=== PATIENT | female | born 1990 | race Caucasian/White ===

== ENCOUNTER 2018-08-21 11:23 | Observation (INO) | payer OTHER, MEDICAID, SELFPAY ==
[2018-08-21] VITALS (8 sets, daily range): BP systolic 103–144; BP diastolic 56–87; PULSE 75–93; RESP 16–18; TEMP 36.7–36.9; O2SAT 97–100; BMI 31.2
[2018-08-21] MEDS: SODIUM CHLORIDE 0.9% 1,000 ML 1000 ML IV ×2 (11:53→12:33)
[2018-08-21] MEDS: ONDANSETRON 4 MG/2 ML INJ IV (11:53)
[2018-08-21 11:59] LABS: Add Manual Diff / Slide Review NO; Basophils Absolute Auto 0 /uL (0-100); Basophils Percent Auto 0.3 % (0-2); Eosinophils Absolute Auto 200 /uL (0-450); Eosinophils Percent Auto 2.2 % (2-4); Hematocrit 42.4 % (36-46); Hemoglobin 14.5 g/dL (12.0-16.0); Lymphocytes Absolute Auto 1500 /uL (1100-4500); Lymphocytes Percent Auto 13.7 % (25-40); Mean Corpuscular HGB Conc 34.2 % (30-36); Mean Corpuscular Hemoglobin 29.6 PG (26-34); Mean Corpuscular Volume 86.4 fL (80-100); Monocytes Absolute Auto 600 /uL (0-900); Monocytes Percent Auto 5.2 % (3-14); Neutrophils Absolute Auto 8500 /uL (1500-7000); Neutrophils Percent Auto 78.6 % (50-75); Platelet Count 462 X10^3/uL (150-400); Red Cell Distribution Width 13.5 % (11.6-14.8); White Blood Cell Count 10.9 X10^3/uL (4.5-11.0)
[2018-08-21 12:21] LABS: INR 1.1 (0.9-1.3); Prothrombin Time 12.5 SECONDS (10.1-12.7)
[2018-08-21 12:24] LABS: Alanine Aminotransferase 34 IU/L (9-52); Albumin 4.4 g/dL (3.5-5.0); Albumin Globulin Ratio 1.5 (1.0-2.8); Alkaline Phosphatase 81 U/L (38-126); Aspartate Aminotransferase 24 IU/L (14-36); Bilirubin Total 0.8 mg/dL (0.2-1.3); Blood Urea Nitrogen 7 mg/dL (7-17); Calcium 9.7 mg/dL (8.4-10.2); Carbon Dioxide 24 mmol/L (22-32); Chloride 102 mmol/L (98-107); Estimated Glomerular Filt Rate > 60.0 mL/min (>60); Glucose 117 mg/dL (70-100); HEMOLYSIS < 15 (0-50); Lipase 64 U/L (23-300); PTT Partial Thromboplastin Tim 29 SECONDS (26.4-36.2); Potassium 4.4 mmol/L (3.4-5.1); Sodium 139 mmol/L (137-145); Total Protein 7.4 g/dL (6.3-8.2)
--- NOTE | 2018-08-21 12:29 | ED.NAVMDI ---
HPI - Nausea/Vomiting/Diarrhea <GABRIEL Andrew - Last Filed: 08/21/18 19:09> General Chief complaint: Nausea/Vomiting/Diarrhea Stated complaint: Throwing up Time Seen by Provider: 08/21/18 12:10 Source: patient and family Mode of arrival: ambulatory Limitations: no limitations History of Present Illness HPI Narrative: The patient is a 28-year-old female with history of depression who presents with a chief complaint of nausea and vomiting. She has history of cyclic vomiting syndrome, it was recently inpatient at [facility] from 08/16 t 08/18. The patient denies any dysuria urgency or frequency. She complains of severe nausea and vomiting. She denies any diarrhea or constipation. She states she has tried her Haldol or vomiting at home. She initially denies smoking marijuana to me, but tells nursing that she smoked marijuana 2 days ago. She denies any possibility of . She is a current some day smoker and presents with her Related Data Home Medications Medication Instructions Recorded Confirmed buspirone 15 mg PO TID 08/21/18 08/21/18 diphenhydramine HCl 50 mg PO BEDTIME 08/21/18 08/21/18 haloperidol 0.5 mg PO Q8H PRN 08/21/18 08/21/18 metoclopramide HCl 10 mg PO Q6H PRN 08/21/18 08/21/18 nortriptyline 100 mg PO BEDTIME 08/21/18 08/21/18 ondansetron 4 mg PO Q6H PRN 08/21/18 08/21/18 propranolol 40 mg PO DAILY 08/21/18 08/21/18 rizatriptan 5 mg PO Q2-4H PRN MDD 10 mg 08/21/18 08/21/18 Allergies Allergy/AdvReac Type Severity Reaction Status Date / Time mushroom Allergy Severe Vomiting Verified 08/21/18 11:36 peanut Allergy Severe Anaphylaxis Verified 08/21/18 11:36 Sulfa (Sulfonamide Allergy Unknown Verified 08/21/18 13:33 Antibiotics) Review of Systems <GABRIEL Andrew - Last Filed: 08/21/18 19:09> Review of Systems GENERAL: Denies chills, fatigue, malaise, fever, sweats. HEENT: Denies sinus pain, ear pain, sore throat, difficulty swallowing, dizziness. RESPIRATORY: Denies dyspnea, cough, wheezing, hemoptysis, sputum. CARDIOVASCULAR: Denies chest pain, palpitations, orthopnea, edema, GASTROINTESTINAL: See HPI : Denies dysuria, frequency, incontinence, hematuria, urinary retention. MUSCULOSKELETAL: denies weakness, joint pain, or bony pain SKIN: Denies rash, skin lesions, or other NEUROLOGIC: Denies weakness, headache, numbness, change in speech, confusion, seizures, incoordination. PSYCHIATRIC: No concerning psychosocial issues. 12 point review of systems is negative except for those stated above PFS <GABRIEL Andrew - Last Filed: 08/21/18 19:09> Medical History Cyclic vomiting syndrome (Acute) Marijuana smoker (Acute) Social History household members: spouse Smoking Status: Current some day smoker alcohol intake: current Social History household members: spouse Smoking Status: Current some day smoker alcohol intake: current Exam <GABRIEL Andrew - Last Filed: 08/21/18 19:09> Narrative Exam Narrative: GENERAL: This is a well-nourished, well-developed patient, actively vomiting HEAD: Atraumatic. Normocephalic. No temporal or scalp tenderness. EYES: Pupils equal round and reactive. Extraocular motions intact. No scleral icterus. No injection or drainage. ENT: Nose without bleeding, purulent drainage or septal hematoma. Throat without erythema, tonsillar hypertrophy or exudate. Uvula midline. Airway patent. NECK: Trachea midline. No JVD or lymphadenopathy. Supple, nontender, no meningeal signs. CARDIOVASCULAR: Regular rate and rhythm RESPIRATORY: Clear to auscultation. Breath sounds equal bilaterally. No wheezes, rales, or rhonchi. No cough. No increased respiratory effort. GASTROINTESTINAL: Abdomen soft, diffusely tender, nondistended. No hepato-splenomegaly, or palpable masses. No guarding. Active bowel sounds all 4 quadrants EXTREMITIES: No clubbing, cyanosis, or edema. No joint tenderness, effusion, or edema noted. BACK: Nontender without deformity or crepitance. No flank tenderness. NEURO: AOx3. SKIN: No rash or erythema. Initial Vital Signs Initial Vital Signs: Vital Signs Temperature 98.4 F 08/21/18 11:29 Pulse Rate 78 08/21/18 11:29 Respiratory Rate 18 08/21/18 11:29 Blood Pressure 133/81 08/21/18 11:29 Pulse Oximetry 100 08/21/18 11:29 <Nuris Salter DO - Last Filed: 08/21/18 19:50> Initial Vital Signs Initial Vital Signs: Vital Signs Temperature 98.4 F 08/21/18 11:29 Pulse Rate 78 08/21/18 11:29 Respiratory Rate 18 08/21/18 11:29 Blood Pressure 133/81 08/21/18 11:29 Pulse Oximetry 100 08/21/18 11:29 Course <SURAJ Andrew-BC - Last Filed: 08/21/18 19:09> Course Narrative: I reviewed records from [place], who illustrate an ultrasound of the abdomen done at 7:00 p.m. on 08/16. Impression was no acute findings to explain symptoms of chronic abdominal pain and cyclic vomiting. Gallbladder was normal, with no stones wall thickening or sonographic Jang sign. Orders Ordered: ED Orders 08/21/18 11:38 Comprehensive Metabolic Panel Stat Lipase Stat Partial Thromboplastin Time Stat Prothrombin Time INR Stat 08/21/18 11:49 Complete Blood Count AUTO DIFF Stat 08/21/18 12:18 Urine Culture Stat Urine Drug Screen, Rapid Stat Urine Microscopic Stat 08/21/18 15:15 XR acute abdomen series Stat Sodium Chloride (Normal Saline 0.9%) 1,000 mls @ 150 mls/hr IV CONT BENY Last Infusion: 08/21/18 18:47 Dose: 150 mls/hr Admin: 08/21/18 17:44 Dose: 150 mls/hr Discontinued Medications Diphenhydramine HCl (Benadryl) 50 mg IV NOW ONE Stop: 08/21/18 12:31 Last Admin: 08/21/18 12:32 Dose: 50 mg Sodium Chloride (Normal Saline 0.9%) 1,000 mls @ 1,000 mls/hr IV BOLUS ONE Stop: 08/21/18 12:37 Last Infusion: 08/21/18 13:15 Dose: 0 mls/hr Admin: 08/21/18 11:53 Dose: 1,000 mls/hr Sodium Chloride (Normal Saline 0.9%) 1,000 mls @ 1,000 mls/hr IV BOLUS ONE Stop: 08/21/18 13:28 Last Infusion: 08/21/18 13:43 Dose: 0 mls/hr Admin: 08/21/18 12:33 Dose: 1,000 mls/hr Ketorolac Tromethamine (Toradol) 30 mg IV NOW ONE Stop: 08/21/18 12:39 Last Admin: 08/21/18 12:40 Dose: 30 mg Lorazepam (Ativan) 1 mg IV NOW ONE Stop: 08/21/18 13:00 Last Admin: 08/21/18 13:19 Dose: 1 mg Lorazepam (Ativan) 1 mg IV NOW ONE Stop: 08/21/18 16:59 Last Admin: 08/21/18 17:40 Dose: 1 mg Metoclopramide HCl (Reglan) 10 mg IV NOW ONE Stop: 08/21/18 12:30 Last Admin: 08/21/18 12:32 Dose: 10 mg Ondansetron HCl (Zofran) 4 mg IV NOW ONE Stop: 08/21/18 11:38 Last Admin: 08/21/18 11:53 Dose: 4 mg Prochlorperazine (Compazine) 10 mg IV NOW ONE Stop: 08/21/18 16:59 Last Admin: 08/21/18 17:40 Dose: 10 mg Promethazine HCl (Phenadoz) 25 mg RI NOW ONE Stop: 08/21/18 16:02 Last Admin: 08/21/18 16:17 Dose: 25 mg Vital Signs - 8 hr 08/21/18 15:09 08/21/18 16:40 08/21/18 17:40 Temperature Pulse Rate 84 90 90 Respiratory Rate Blood Pressure 131/77 Blood Pressure [Right Arm] 124/82 144/87 H Pulse Oximetry 100 100 08/21/18 18:00 08/21/18 18:47 08/21/18 19:22 Temperature 98.1 F Pulse Rate 85 93 H 75 Respiratory Rate 17 16 Blood Pressure 109/56 L 120/65 Blood Pressure [Right Arm] 131/77 Pulse Oximetry 98 97 98 <Nuris Salter DO - Last Filed: 08/21/18 19:50> Orders Ordered: ED Orders 08/21/18 11:38 Comprehensive Metabolic Panel Stat Lipase Stat Partial Thromboplastin Time Stat Prothrombin Time INR Stat 08/21/18 11:49 Complete Blood Count AUTO DIFF Stat 08/21/18 12:18 Urine Culture Stat Urine Drug Screen, Rapid Stat Urine Microscopic Stat 08/21/18 15:15 XR acute abdomen series Stat Sodium Chloride (Normal Saline 0.9%) 1,000 mls @ 150 mls/hr IV CONT BENY Last Infusion: 08/21/18 18:47 Dose: 150 mls/hr Admin: 08/21/18 17:44 Dose: 150 mls/hr Discontinued Medications Diphenhydramine HCl (Benadryl) 50 mg IV NOW ONE Stop: 08/21/18 12:31 Last Admin: 08/21/18 12:32 Dose: 50 mg Sodium Chloride (Normal Saline 0.9%) 1,000 mls @ 1,000 mls/hr IV BOLUS ONE Stop: 08/21/18 12:37 Last Infusion: 08/21/18 13:15 Dose: 0 mls/hr Admin: 08/21/18 11:53 Dose: 1,000 mls/hr Sodium Chloride (Normal Saline 0.9%) 1,000 mls @ 1,000 mls/hr IV BOLUS ONE Stop: 08/21/18 13:28 Last Infusion: 08/21/18 13:43 Dose: 0 mls/hr Admin: 08/21/18 12:33 Dose: 1,000 mls/hr Ketorolac Tromethamine (Toradol) 30 mg IV NOW ONE Stop: 08/21/18 12:39 Last Admin: 08/21/18 12:40 Dose: 30 mg Lorazepam (Ativan) 1 mg IV NOW ONE Stop: 08/21/18 13:00 Last Admin: 08/21/18 13:19 Dose: 1 mg Lorazepam (Ativan) 1 mg IV NOW ONE Stop: 08/21/18 16:59 Last Admin: 08/21/18 17:40 Dose: 1 mg Metoclopramide HCl (Reglan) 10 mg IV NOW ONE Stop: 08/21/18 12:30 Last Admin: 08/21/18 12:32 Dose: 10 mg Ondansetron HCl (Zofran) 4 mg IV NOW ONE Stop: 08/21/18 11:38 Last Admin: 08/21/18 11:53 Dose: 4 mg Prochlorperazine (Compazine) 10 mg IV NOW ONE Stop: 08/21/18 16:59 Last Admin: 08/21/18 17:40 Dose: 10 mg Promethazine HCl (Phenadoz) 25 mg RI NOW ONE Stop: 08/21/18 16:02 Last Admin: 08/21/18 16:17 Dose: 25 mg Vital Signs - 8 hr 08/21/18 15:09 08/21/18 16:40 08/21/18 17:40 Temperature Pulse Rate 84 90 90 Respiratory Rate Blood Pressure 131/77 Blood Pressure [Right Arm] 124/82 144/87 H Pulse Oximetry 100 100 08/21/18 18:00 08/21/18 18:47 08/21/18 19:22 Temperature 98.1 F Pulse Rate 85 93 H 75 Respiratory Rate 17 16 Blood Pressure 109/56 L 120/65 Blood Pressure [Right Arm] 131/77 Pulse Oximetry 98 97 98 MDM - Nausea/Vomiting/Diarrhea <GABRIEL Andrew - Last Filed: 08/21/18 19:09> Lab Data Result diagrams: 08/21/18 11:49 08/21/18 11:38 Lab Results 08/21/18 08/21/18 08/21/18 Range/Units 11:38 11:38 11:49 WBC 10.9 (4.5-11.0) X10^3/uL RBC 4.90 (4.0-5.2) X10^6/uL Hgb 14.5 (12.0-16.0) g/dL Hct 42.4 (36-46) % MCV 86.4 (80-100) fL MCH 29.6 (26-34) PG MCHC 34.2 (30-36) % RDW 13.5 (11.6-14.8) % Plt Count 462 H (150-400) X10^3/uL Neut % (Auto) 78.6 H (50-75) % Lymph % (Auto) 13.7 L (25-40) % Hubbard % (Auto) 5.2 (3-14) % Eos % (Auto) 2.2 (2-4) % Baso % (Auto) 0.3 (0-2) % Neut # (Auto) 8500 H (7438-0038) /uL Lymph # (Auto) 1500 (6357-7510) /uL Hubbard # (Auto) 600 (0-900) /uL Eos # (Auto) 200 (0-450) /uL Baso # (Auto) 0 (0-100) /uL PT 12.5 (10.1-12.7) SECONDS INR 1.1 (0.9-1.3) APTT 29 (26.4-36.2) SECONDS Sodium 139 (137-145) mmol/L Potassium 4.4 (3.4-5.1) mmol/L Chloride 102 (98-107) mmol/L Carbon Dioxide 24 (22-32) mmol/L BUN 7 (7-17) mg/dL Creatinine 0.70 (0.52-1.04) mg/dL Estimated GFR > 60.0 (>60) mL/min BUN/Creatinine Ratio 10.0 (6-22) Glucose 117 H (70-100) mg/dL Calcium 9.7 (8.4-10.2) mg/dL Total Bilirubin 0.8 (0.2-1.3) mg/dL AST 24 (14-36) IU/L ALT 34 (9-52) IU/L Alkaline Phosphatase 81 (38-126) U/L Total Protein 7.4 (6.3-8.2) g/dL Albumin 4.4 (3.5-5.0) g/dL Globulin 3.0 (1.7-4.1) g/dL Albumin/Globulin Ratio 1.5 (1.0-2.8) Lipase 64 (23-300) U/L Urine RBC (0-5/HPF) Urine WBC (0-5/HPF) Ur Squamous Epith Cells (0-5/HPF) Ur Renal Epithelial Cell (0-1/HPF) Amorphous Sediment Urine Bacteria (None) Hyaline Casts (None) Urine Mucus (Negative) Ur Culture Indicated? Urine Opiates Screen (Negative) Ur Oxycodone Screen (Negative) Urine Methadone Screen (Negative) Ur Barbiturates Screen (Negative) U Tricyclic Antidepress (Negative) Ur Phencyclidine Scrn (Negative) Ur Amphetamines Screen (Negative) U Methamphetamines Scrn (Negative) Ur MDMA Scrn (Ecstasy) (Negative) U Benzodiazepines Scrn (Negative) Urine Cocaine Screen (Negative) U Marijuana (THC) Screen (Negative) 08/21/18 08/21/18 Range/Units 12:18 12:18 WBC (4.5-11.0) X10^3/uL RBC (4.0-5.2) X10^6/uL Hgb (12.0-16.0) g/dL Hct (36-46) % MCV (80-100) fL MCH (26-34) PG MCHC (30-36) % RDW (11.6-14.8) % Plt Count (150-400) X10^3/uL Neut % (Auto) (50-75) % Lymph % (Auto) (25-40) % Hubbard % (Auto) (3-14) % Eos % (Auto) (2-4) % Baso % (Auto) (0-2) % Neut # (Auto) (6403-5992) /uL Lymph # (Auto) (4455-5914) /uL Hubbard # (Auto) (0-900) /uL Eos # (Auto) (0-450) /uL Baso # (Auto) (0-100) /uL PT (10.1-12.7) SECONDS INR (0.9-1.3) APTT (26.4-36.2) SECONDS Sodium (137-145) mmol/L Potassium (3.4-5.1) mmol/L Chloride (98-107) mmol/L Carbon Dioxide (22-32) mmol/L BUN (7-17) mg/dL Creatinine (0.52-1.04) mg/dL Estimated GFR (>60) mL/min BUN/Creatinine Ratio (6-22) Glucose (70-100) mg/dL Calcium (8.4-10.2) mg/dL Total Bilirubin (0.2-1.3) mg/dL AST (14-36) IU/L ALT (9-52) IU/L Alkaline Phosphatase (38-126) U/L Total Protein (6.3-8.2) g/dL Albumin (3.5-5.0) g/dL Globulin (1.7-4.1) g/dL Albumin/Globulin Ratio (1.0-2.8) Lipase (23-300) U/L Urine RBC 0-1/hpf (0-5/HPF) Urine WBC 5-10/hpf H (0-5/HPF) Ur Squamous Epith Cells 1-5 /hpf (0-5/HPF) Ur Renal Epithelial Cell 0-1/hpf (0-1/HPF) Amorphous Sediment 1+ Urine Bacteria Moderate (10-30) H (None) Hyaline Casts 1-5/lpf (None) Urine Mucus 1+ H (Negative) Ur Culture Indicated? Specimen cultured Urine Opiates Screen Negative (Negative) Ur Oxycodone Screen Negative (Negative) Urine Methadone Screen Positive H (Negative) Ur Barbiturates Screen Negative (Negative) U Tricyclic Antidepress Positive H (Negative) Ur Phencyclidine Scrn Negative (Negative) Ur Amphetamines Screen Negative (Negative) U Methamphetamines Scrn Negative (Negative) Ur MDMA Scrn (Ecstasy) Negative (Negative) U Benzodiazepines Scrn Negative (Negative) Urine Cocaine Screen Negative (Negative) U Marijuana (THC) Screen Positive H (Negative) Point of Care Testing Test Results Negative Urine Dip Bedside Urine Glucose Negative Bedside Urine Bilirubin - Negative Bedside Urine Ketone ++ 40 Urine Specific [facility] 1.010 Bedside Urine Occult Blood +/- Bedside Urine pH 8.5 Bedside Urine Protein + 30 Bedside Urine Urobilinogen +/- 1mg Bedside Urine Nitrite - Negative Bedside Urine Leukocytes +/- 15 Esterase MDM Narrative Medical decision making narrative: The patient is a 28-year-old female who presents with a chief complaint of vomiting and cyclic vomiting syndrome. The patient had a negative x-ray, had a negative ultrasound on the 5th. She does not have an acute abdominal exam, is afebrile normotensive, etc. The patient stated the emergency department for several hours, receiving IV hydration, and several pain medications. However she was not able to pass a p.o. trial. She was given Zofran, Reglan, Compazine, Phenergan suppository as well as Toradol and Zofran. She had a normal acute abdomen x-ray series. Of note the patient declines smoking marijuana, when I asked her about the marijuana in her drug screen, she stated she did not know how it got there. However given that the patient was unable to pass a p.o. trial, did not feel as though she was able to go home. I contacted Dr. Weathers, who kindly agreed to admit the patient. The patient does have an incidental finding of UTI, but denies any UTI symptoms and is afebrile. Thus I do not believe this is related to pyelonephritis, especially given that she does not have an elevated white blood cell count. Patient states understanding of admission no questions or concerns. <Nuris Salter, DO - Last Filed: 08/21/18 19:50> Lab Data Lab Results 08/21/18 08/21/18 08/21/18 Range/Units 11:38 11:38 11:49 WBC 10.9 (4.5-11.0) X10^3/uL RBC 4.90 (4.0-5.2) X10^6/uL Hgb 14.5 (12.0-16.0) g/dL Hct 42.4 (36-46) % MCV 86.4 (80-100) fL MCH 29.6 (26-34) PG MCHC 34.2 (30-36) % RDW 13.5 (11.6-14.8) % Plt Count 462 H (150-400) X10^3/uL Neut % (Auto) 78.6 H (50-75) % Lymph % (Auto) 13.7 L (25-40) % Hubbard % (Auto) 5.2 (3-14) % Eos % (Auto) 2.2 (2-4) % Baso % (Auto) 0.3 (0-2) % Neut # (Auto) 8500 H (6817-4576) /uL Lymph # (Auto) 1500 (5414-3871) /uL Hubbard # (Auto) 600 (0-900) /uL Eos # (Auto) 200 (0-450) /uL Baso # (Auto) 0 (0-100) /uL PT 12.5 (10.1-12.7) SECONDS INR 1.1 (0.9-1.3) APTT 29 (26.4-36.2) SECONDS Sodium 139 (137-145) mmol/L Potassium 4.4 (3.4-5.1) mmol/L Chloride 102 (98-107) mmol/L Carbon Dioxide 24 (22-32) mmol/L BUN 7 (7-17) mg/dL Creatinine 0.70 (0.52-1.04) mg/dL Estimated GFR > 60.0 (>60) mL/min BUN/Creatinine Ratio 10.0 (6-22) Glucose 117 H (70-100) mg/dL Calcium 9.7 (8.4-10.2) mg/dL Total Bilirubin 0.8 (0.2-1.3) mg/dL AST 24 (14-36) IU/L ALT 34 (9-52) IU/L Alkaline Phosphatase 81 (38-126) U/L Total Protein 7.4 (6.3-8.2) g/dL Albumin 4.4 (3.5-5.0) g/dL Globulin 3.0 (1.7-4.1) g/dL Albumin/Globulin Ratio 1.5 (1.0-2.8) Lipase 64 (23-300) U/L Urine RBC (0-5/HPF) Urine WBC (0-5/HPF) Ur Squamous Epith Cells (0-5/HPF) Ur Renal Epithelial Cell (0-1/HPF) Amorphous Sediment Urine Bacteria (None) Hyaline Casts (None) Urine Mucus (Negative) Ur Culture Indicated? Urine Opiates Screen (Negative) Ur Oxycodone Screen (Negative) Urine Methadone Screen (Negative) Ur Barbiturates Screen (Negative) U Tricyclic Antidepress (Negative) Ur Phencyclidine Scrn (Negative) Ur Amphetamines Screen (Negative) U Methamphetamines Scrn (Negative) Ur MDMA Scrn (Ecstasy) (Negative) U Benzodiazepines Scrn (Negative) Urine Cocaine Screen (Negative) U Marijuana (THC) Screen (Negative) 08/21/18 08/21/18 Range/Units 12:18 12:18 WBC (4.5-11.0) X10^3/uL RBC (4.0-5.2) X10^6/uL Hgb (12.0-16.0) g/dL Hct (36-46) % MCV (80-100) fL MCH (26-34) PG MCHC (30-36) % RDW (11.6-14.8) % Plt Count (150-400) X10^3/uL Neut % (Auto) (50-75) % Lymph % (Auto) (25-40) % Hubbard % (Auto) (3-14) % Eos % (Auto) (2-4) % Baso % (Auto) (0-2) % Neut # (Auto) (3568-9350) /uL Lymph # (Auto) (3331-5450) /uL Hubbard # (Auto) (0-900) /uL Eos # (Auto) (0-450) /uL Baso # (Auto) (0-100) /uL PT (10.1-12.7) SECONDS INR (0.9-1.3) APTT (26.4-36.2) SECONDS Sodium (137-145) mmol/L Potassium (3.4-5.1) mmol/L Chloride (98-107) mmol/L Carbon Dioxide (22-32) mmol/L BUN (7-17) mg/dL Creatinine (0.52-1.04) mg/dL Estimated GFR (>60) mL/min BUN/Creatinine Ratio (6-22) Glucose (70-100) mg/dL Calcium (8.4-10.2) mg/dL Total Bilirubin (0.2-1.3) mg/dL AST (14-36) IU/L ALT (9-52) IU/L Alkaline Phosphatase (38-126) U/L Total Protein (6.3-8.2) g/dL Albumin (3.5-5.0) g/dL Globulin (1.7-4.1) g/dL Albumin/Globulin Ratio (1.0-2.8) Lipase (23-300) U/L Urine RBC 0-1/hpf (0-5/HPF) Urine WBC 5-10/hpf H (0-5/HPF) Ur Squamous Epith Cells 1-5 /hpf (0-5/HPF) Ur Renal Epithelial Cell 0-1/hpf (0-1/HPF) Amorphous Sediment 1+ Urine Bacteria Moderate (10-30) H (None) Hyaline Casts 1-5/lpf (None) Urine Mucus 1+ H (Negative) Ur Culture Indicated? Specimen cultured Urine Opiates Screen Negative (Negative) Ur Oxycodone Screen Negative (Negative) Urine Methadone Screen Positive H (Negative) Ur Barbiturates Screen Negative (Negative) U Tricyclic Antidepress Positive H (Negative) Ur Phencyclidine Scrn Negative (Negative) Ur Amphetamines Screen Negative (Negative) U Methamphetamines Scrn Negative (Negative) Ur MDMA Scrn (Ecstasy) Negative (Negative) U Benzodiazepines Scrn Negative (Negative) Urine Cocaine Screen Negative (Negative) U Marijuana (THC) Screen Positive H (Negative) Point of Care Testing Test Results Negative Urine Dip Bedside Urine Glucose Negative Bedside Urine Bilirubin - Negative Bedside Urine Ketone ++ [address] [facility] 1.010 Bedside Urine Occult Blood +/- Bedside Urine pH 8.5 Bedside Urine Protein + 30 Bedside Urine Urobilinogen +/- 1mg Bedside Urine Nitrite - Negative Bedside Urine Leukocytes +/- 15 Esterase Discharge Plan Departure Patient Disposition: Admitted as Observation Clinical Impression: Cyclical vomiting Discharge Date/Time: 08/21/18 18:48 Interventions: ED Discharge Assessment Last Done: 08/21/18 18:47 Admit Date/Time: 08/21/18 18:30 Admit Provider: Simone Weathers <Nuris Salter DO - Last Filed: 08/21/18 19:50> Cosign ED Attending Cosignature Attestation: I was immediately available in the department for consultation, case discussed plan for admission. This documentation has been reviewed and I agree with assessment and plan. Supervised by Nuris Salter DO
[2018-08-21] MEDS: METOCLOPRAMIDE 10 MG/2 ML INJ IV (12:32)
[2018-08-21] MEDS: diphenhydrAMINE 50 MG/ML VIAL IV (12:32)
[2018-08-21] MEDS: KETOROLAC 60 MG/2 ML VIAL 30 MG IV (12:40)
[2018-08-21 12:57] LABS: Amorphous Sediment Urine 1+; Bacteria Urine Moderate (10-30); Culture Indicated Urine Specimen Cultured; Hyaline Casts Urine 1-5/LPF; Mucus Urine 1+ (Negative); RBC Urine 0-1/HPF (0-5/HPF); Renal Epithelial Cells Urine 0-1/HPF (0-1/HPF); Squamous Epithelial Cell Urine 1-5 /HPF (0-5/HPF); WBC Urine 5-10/HPF (0-5/HPF)
[2018-08-21] MEDS: LORazepam 2 MG/ML INJ 1 MG IV ×2 (13:19→17:40)
[2018-08-21 13:36] LABS: Urine Tetrahydrocannabinol Positive (Negative)
[2018-08-21 13:37] LABS: Urine Amphetamines Negative (Negative); Urine Barbiturates Negative (Negative); Urine Benzodiazepines Negative (Negative); Urine Cocaine Negative (Negative); Urine MDMA Negative (Negative); Urine Methadone Positive (Negative); Urine Methamphetamines Negative (Negative); Urine Morphine/Opi cutoff 2000 Negative (Negative); Urine Oxycodone Negative (Negative); Urine Phencyclidine Negative (Negative); Urine Tricyclic Antidepressant Positive (Negative)
--- NOTE | 2018-08-21 15:15 | DI.RAD.S_ITS ---
PROCEDURE: XR ACUTE ABDOMEN SERIES INDICATIONS: abd pain TECHNIQUE: One view chest and two views of the abdomen were acquired. COMPARISON: None. FINDINGS: Surgical changes and devices: None. Chest: Lungs are clear. Heart size is normal. No pleural effusions. No pneumoperitoneum. Abdomen: Bowel gas pattern is normal. No suspicious calcifications. Visualized solid organ contours appear normal. Bones: No suspicious bony lesions. IMPRESSION: No acute process. Dictated by: Antoni Azul M.D. on 08/21/2018 at 15:33 Approved by: Antoni Azul M.D. on 08/21/2018 at 15:34
[2018-08-21] MEDS: PROMETHAZINE 25 MG SUPP PR (16:17)
[2018-08-21] MEDS: PROCHLORPERAZINE 10 MG/2 ML VIAL IV (17:40)
[2018-08-21] MEDS: SODIUM CHLORIDE 0.9% 1,000 ML 150 ML IV (17:44)
--- NOTE | 2018-08-21 18:57 | PC.ADMIT ---
[email or web address] Admission Note: The patient,Nuris Castle,28 y/o, was given written information regarding hospital policies, unit procedures and contact persons. Patient's smoking status: Current some day smoker. Vital Signs - 8 hr 08/21/18 11:29 08/21/18 15:09 08/21/18 16:40 Temperature 98.4 F Pulse Rate 78 84 90 Respiratory Rate 18 Blood Pressure 133/81 Blood Pressure [Right Arm] 124/82 144/87 H Pulse Oximetry 100 100 100 08/21/18 17:40 08/21/18 18:00 08/21/18 18:47 Temperature Pulse Rate 90 85 93 H Respiratory Rate 17 Blood Pressure 131/77 109/56 L Blood Pressure [Right Arm] 131/77 Pulse Oximetry 98 97 Patient admitted from ED, awake, alert, and pleasant. Ambulated independently from WC to bed. Sleepy, arouses easily. No vomiting. IVF infusing. Oriented to room, environment and plan of care. Mom at bedside providing supportive care.
--- NOTE | 2018-08-21 19:09 | ED_ITS ---
HPI - Nausea/Vomiting/Diarrhea <GABRIEL Andrew - Last Filed: 08/21/18 19:09> General Chief complaint: Nausea/Vomiting/Diarrhea Stated complaint: Throwing up Time Seen by Provider: 08/21/18 12:10 Source: patient and family Mode of arrival: ambulatory Limitations: no limitations History of Present Illness HPI Narrative: The patient is a 28-year-old female with history of depression wh o presents with a chief complaint of nausea and vomiting. She has history of cyclic vomiting syndrome, it was recently inpatient at [facility] from 08/16 t 08/18. The patient denies any dysuria urgency or frequency. She complains of severe nausea and vomiting. She denies any diarrhea or constipation. She states she has tried her Haldol or vomiting at home. She initially denies smoking marijuana to me, but tells nursing that she smoked marijuana 2 days ago. She denies any possibility of . She is a current some day smoker and presents with her Related Data Home Medications Medication Instructions Recorded Confirmed buspirone 15 mg PO TID 08/21/18 08/21/18 diphenhydramine HCl 50 mg PO BEDTIME 08/21/18 08/21/18 haloperidol 0.5 mg PO Q8H PRN 08/21/18 08/21/18 metoclopramide HCl 10 mg PO Q6H PRN 08/21/18 08/21/18 nortriptyline 100 mg PO BEDTIME 08/21/18 08/21/18 ondansetron 4 mg PO Q6H PRN 08/21/18 08/21/18 propranolol 40 mg PO DAILY 08/21/18 08/21/18 rizatriptan 5 mg PO Q2-4H PRN MDD 10 mg 08/21/18 08/21/18 Allergies Allergy/AdvReac Type Severity Reaction Status Date / Time mushroom Allergy Severe Vomiting Verified 08/21/18 11:36 peanut Allergy Severe Anaphylaxis Verified 08/21/18 11:36 Sulfa (Sulfonamide Allergy Unknown Verified 08/21/18 13:33 Antibiotics) Review of Systems <GABRIEL Andrew - Last Filed: 08/21/18 19:09> Review of Systems GENERAL: Denies chills, fatigue, malaise, fever, sweats. HEENT: Denies sinus pain, ear pain, sore throat, difficulty swallowing, dizziness. RESPIRATORY: Denies dyspnea, cough, wheezing, hemoptysis, sputum. CARDIOVASCULAR: Denies chest pain, palpitations, orthopnea, edema, GASTROINTESTINAL: See HPI : Denies dysuria, frequency, incontinence, hematuria, urinary retention. MUSCULOSKELETAL: denies weakness, joint pain, or bony pain SKIN: Denies rash, skin lesions, or other NEUROLOGIC: Denies weakness, headache, numbness, change in speech, confusion, seizures, incoordination. PSYCHIATRIC: No concerning psychosocial issues. 12 point review of systems is negative except for those stated above PFSH <GABRIEL Andrew - Last Filed: 08/21/18 19:09> Medical History Cyclic vomiting syndrome (Acute) Marijuana smoker (Acute) Social History household members: spouse Smoking Status: Current some day smoker alcohol intake: current Social History household members: spouse Smoking Status: Current some day smoker alcohol intake: current Exam <GABRIEL Andrew - Last Filed: 08/21/18 19:09> Narrative Exam Narrative: GENERAL: This is a well-nourished, well-developed patient, actively vomiting HEAD: Atraumatic. Normocephalic. No temporal or scalp tenderness. EYES: Pupils equal round and reactive. Extraocular motions intact. No scleral icterus. No injection or drainage. ENT: Nose without bleeding, purulent drainage or septal hematoma. Throat without erythema, tonsillar hypertrophy or exudate. Uvula midline. Airway patent. NECK: Trachea midline. No JVD or lymphadenopathy. Supple, nontender, no meningeal signs. CARDIOVASCULAR: Regular rate and rhythm RESPIRATORY: Clear to auscultation. Breath sounds equal bilaterally. No wheezes, rales, or rhonchi. No cough. No increased respiratory effort. GASTROINTESTINAL: Abdomen soft, diffusely tender, nondistended. No hepato-splen omegaly, or palpable masses. No guarding. Active bowel sounds all 4 quadrants EXTREMITIES: No clubbing, cyanosis, or edema. No joint tenderness, effusion, or edema noted. BACK: Nontender without deformity or crepitance. No flank tenderness. NEURO: AOx3. SKIN: No rash or erythema. Initial Vital Signs Initial Vital Signs: Vital Signs Temperature 98.4 F 08/21/18 11:29 Pulse Rate 78 08/21/18 11:29 Respiratory Rate 18 08/21/18 11:29 Blood Pressure 133/81 08/21/18 11:29 Pulse Oximetry 100 08/21/18 11:29 <Nuris Salter DO - Last Filed: 08/21/18 19:50> Initial Vital Signs Initial Vital Signs: Vital Signs Temperature 98.4 F 08/21/18 11:29 Pulse Rate 78 08/21/18 11:29 Respiratory Rate 18 08/21/18 11:29 Blood Pressure 133/81 08/21/18 11:29 Pulse Oximetry 100 08/21/18 11:29 Course <SURAJ Andrew-BC - Last Filed: 08/21/18 19:09> Course Narrative: I reviewed records from [facility], who illustrate an ultrasound of the abdomen done at 7:00 p.m. on 08/16. Impression was no acute findings to explain symptoms of chronic abdominal pain and cyclic vomiting. Gallbladder was normal, with no stones wall thickening or sonographic Jang sign. Orders Ordered: ED Orders 08/21/18 11:38 Comprehensive Metabolic Panel Stat Lipase Stat Partial Thromboplastin Time Stat Prothrombin Time INR Stat 08/21/18 11:49 Complete Blood Count AUTO DIFF Stat 08/21/18 12:18 Urine Culture Stat Urine Drug Screen, Rapid Stat Urine Microscopic Stat 08/21/18 15:15 XR acute abdomen series Stat Sodium Chloride (Normal Saline 0.9%) 1,000 mls @ 150 mls/hr IV CONT BENY Last Infusion: 08/21/18 18:47 Dose: 150 mls/hr Admin: 08/21/18 17:44 Dose: 150 mls/hr Discontinued Medications Diphenhydramine HCl (Benadryl) 50 mg IV NOW ONE Stop: 08/21/18 12:31 Last Admin: 08/21/18 12:32 Dose: 50 mg Sodium Chloride (Normal Saline 0.9%) 1,000 mls @ 1,000 mls/hr IV BOLUS ONE Stop: 08/21/18 12:37 Last Infusion: 08/21/18 13:15 Dose: 0 mls/hr Admin: 08/21/18 11:53 Dose: 1,000 mls/hr Sodium Chloride (Normal Saline 0.9%) 1,000 mls @ 1,000 mls/hr IV BOLUS ONE Stop: 08/21/18 13:28 Last Infusion: 08/21/18 13:43 Dose: 0 mls/hr Admin: 08/21/18 12:33 Dose: 1,000 mls/hr Ketorolac Tromethamine (Toradol) 30 mg IV NOW ONE Stop: 08/21/18 12:39 Last Admin: 08/21/18 12:40 Dose: 30 mg Lorazepam (Ativan) 1 mg IV NOW ONE Stop: 08/21/18 13:00 Last Admin: 08/21/18 13:19 Dose: 1 mg Lorazepam (Ativan) 1 mg IV NOW ONE Stop: 08/21/18 16:59 Last Admin: 08/21/18 17:40 Dose: 1 mg Metoclopramide HCl (Reglan) 10 mg IV NOW ONE Stop: 08/21/18 12:30 Last Admin: 08/21/18 12:32 Dose: 10 mg Ondansetron HCl (Zofran) 4 mg IV NOW ONE Stop: 08/21/18 11:38 Last Admin: 08/21/18 11:53 Dose: 4 mg Prochlorperazine (Compazine) 10 mg IV NOW ONE Stop: 08/21/18 16:59 Last Admin: 08/21/18 17:40 Dose: 10 mg Promethazine HCl (Phenadoz) 25 mg WA NOW ONE Stop: 08/21/18 16:02 Last Admin: 08/21/18 16:17 Dose: 25 mg Vital Signs - 8 hr 08/21/18 15:09 08/21/18 16:40 08/21/18 17:40 Temperature Pulse Rate 84 90 90 Respiratory Rate Blood Pressure 131/77 Blood Pressure [Right Arm] 124/82 144/87 H Pulse Oximetry 100 100 08/21/18 18:00 08/21/18 18:47 08/21/18 19:22 Temperature 98.1 F Pulse Rate 85 93 H 75 Respiratory Rate 17 16 Blood Pressure 109/56 L 120/65 Blood Pressure [Right Arm] 131/77 Pulse Oximetry 98 97 98 <Nuris Salter DO - Last Filed: 08/21/18 19:50> Orders Ordered: ED Orders 08/21/18 11:38 Comprehensive Metabolic Panel Stat Lipase Stat Partial Thromboplastin Time Stat Prothrombin Time INR Stat 08/21/18 11:49 Complete Blood Count AUTO DIFF Stat 08/21/18 12:18 Urine Culture Stat Urine Drug Screen, Rapid Stat Urine Microscopic Stat 08/21/18 15:15 XR acute abdomen series Stat Sodium Chloride (Normal Saline 0.9%) 1,000 mls @ 150 mls/hr IV CONT BENY Last Infusion: 08/21/18 18:47 Dose: 150 mls/hr Admin: 08/21/18 17:44 Dose: 150 mls/hr Discontinued Medications Diphenhydramine HCl (Benadryl) 50 mg IV NOW ONE Stop: 08/21/18 12:31 Last Admin: 08/21/18 12:32 Dose: 50 mg Sodium Chloride (Normal Saline 0.9%) 1,000 mls @ 1,000 mls/hr IV BOLUS ONE Stop: 08/21/18 12:37 Last Infusion: 08/21/18 13:15 Dose: 0 mls/hr Admin: 08/21/18 11:53 Dose: 1,000 mls/hr Sodium Chloride (Normal Saline 0.9%) 1,000 mls @ 1,000 mls/hr IV BOLUS ONE Stop: 08/21/18 13:28 Last Infusion: 08/21/18 13:43 Dose: 0 mls/hr Admin: 08/21/18 12:33 Dose: 1,000 mls/hr Ketorolac Tromethamine (Toradol) 30 mg IV NOW ONE Stop: 08/21/18 12:39 Last Admin: 08/21/18 12:40 Dose: 30 mg Lorazepam (Ativan) 1 mg IV NOW ONE Stop: 08/21/18 13:00 Last Admin: 08/21/18 13:19 Dose: 1 mg Lorazepam (Ativan) 1 mg IV NOW ONE Stop: 08/21/18 16:59 Last Admin: 08/21/18 17:40 Dose: 1 mg Metoclopramide HCl (Reglan) 10 mg IV NOW ONE Stop: 08/21/18 12:30 Last Admin: 08/21/18 12:32 Dose: 10 mg Ondansetron HCl (Zofran) 4 mg IV NOW ONE Stop: 08/21/18 11:38 Last Admin: 08/21/18 11:53 Dose: 4 mg Prochlorperazine (Compazine) 10 mg IV NOW ONE Stop: 08/21/18 16:59 Last Admin: 08/21/18 17:40 Dose: 10 mg Promethazine HCl (Phenadoz) 25 mg WA NOW ONE Stop: 08/21/18 16:02 Last Admin: 08/21/18 16:17 Dose: 25 mg Vital Signs - 8 hr 08/21/18 15:09 08/21/18 16:40 08/21/18 17:40 Temperature Pulse Rate 84 90 90 Respiratory Rate Blood Pressure 131/77 Blood Pressure [Right Arm] 124/82 144/87 H Pulse Oximetry 100 100 08/21/18 18:00 08/21/18 18:47 08/21/18 19:22 Temperature 98.1 F Pulse Rate 85 93 H 75 Respiratory Rate 17 16 Blood Pressure 109/56 L 120/65 Blood Pressure [Right Arm] 131/77 Pulse Oximetry 98 97 98 MDM - Nausea/Vomiting/Diarrhea <ERIN Andrew - Last Filed: 08/21/18 19:09> Lab Data Result diagrams: 08/21/18 11:49 08/21/18 11:38 Lab Results 08/21/18 08/21/18 08/21/18 Range/Units 11:38 11:38 11:49 WBC 10.9 (4.5-11.0) X10^3/uL RBC 4.90 (4.0-5.2) X10^6/uL Hgb 14.5 (12.0-16.0) g/dL Hct 42.4 (36-46) % MCV 86.4 (80-100) fL MCH 29.6 (26-34) PG MCHC 34.2 (30-36) % RDW 13.5 (11.6-14.8) % Plt Count 462 H (150-400) X10^3/uL Neut % (Auto) 78.6 H (50-75) % Lymph % (Auto) 13.7 L (25-40) % Garza % (Auto) 5.2 (3-14) % Eos % (Auto) 2.2 (2-4) % Baso % (Auto) 0.3 (0-2) % Neut # (Auto) 8500 H (3820-8636) /uL Lymph # (Auto) 1500 (7015-6757) /uL Garza # (Auto) 600 (0-900) /uL Eos # (Auto) 200 (0-450) /uL Baso # (Auto) 0 (0-100) /uL PT 12.5 (10.1-12.7) SECONDS INR 1.1 (0.9-1.3) APTT 29 (26.4-36.2) SECONDS Sodium 139 (137-145) mmol/L Potassium 4.4 (3.4-5.1) mmol/L Chloride 102 (98-107) mmol/L Carbon Dioxide 24 (22-32) mmol/L BUN 7 (7-17) mg/dL Creatinine 0.70 (0.52-1.04) mg/dL Estimated GFR > 60.0 (>60) mL/min BUN/Creatinine Ratio 10.0 (6-22) Glucose 117 H (70-100) mg/dL Calcium 9.7 (8.4-10.2) mg/dL Total Bilirubin 0.8 (0.2-1.3) mg/dL AST 24 (14-36) IU/L ALT 34 (9-52) IU/L Alkaline Phosphatase 81 (38-126) U/L Total Protein 7.4 (6.3-8.2) g/dL Albumin 4.4 (3.5-5.0) g/dL Globulin 3.0 (1.7-4.1) g/dL Albumin/Globulin Ratio 1.5 (1.0-2.8) Lipase 64 (23-300) U/L Urine RBC (0-5/HPF) Urine WBC (0-5/HPF) Ur Squamous Epith Cells (0-5/HPF) Ur Renal Epithelial Cell (0-1/HPF) Amorphous Sediment Urine Bacteria (None) Hyaline Casts (None) Urine Mucus (Negative) Ur Culture Indicated? Urine Opiates Screen (Negative) Ur Oxycodone Screen (Negative) Urine Methadone Screen (Negative) Ur Barbiturates Screen (Negative) U Tricyclic Antidepress (Negative) Ur Phencyclidine Scrn (Negative) Ur Amphetamines Screen (Negative) U Methamphetamines Scrn (Negative) Ur MDMA Scrn (Ecstasy) (Negative) U Benzodiazepines Scrn (Negative) Urine Cocaine Screen (Negative) U Marijuana (THC) Screen (Negative) 08/21/18 08/21/18 Range/Units 12:18 12:18 WBC (4.5-11.0) X10^3/uL RBC (4.0-5.2) X10^6/uL Hgb (12.0-16.0) g/dL Hct (36-46) % MCV (80-100) fL MCH (26-34) PG MCHC (30-36) % RDW (11.6-14.8) % Plt Count (150-400) X10^3/uL Neut % (Auto) (50-75) % Lymph % (Auto) (25-40) % Garza % (Auto) (3-14) % Eos % (Auto) (2-4) % Baso % (Auto) (0-2) % Neut # (Auto) (6890-9361) /uL Lymph # (Auto) (1328-7680) /uL Garza # (Auto) (0-900) /uL Eos # (Auto) (0-450) /uL Baso # (Auto) (0-100) /uL PT (10.1-12.7) SECONDS INR (0.9-1.3) APTT (26.4-36.2) SECONDS Sodium (137-145) mmol/L Potassium (3.4-5.1) mmol/L Chloride (98-107) mmol/L Carbon Dioxide (22-32) mmol/L BUN (7-17) mg/dL Creatinine (0.52-1.04) mg/dL Estimated GFR (>60) mL/min BUN/Creatinine Ratio (6-22) Glucose (70-100) mg/dL Calcium (8.4-10.2) mg/dL Total Bilirubin (0.2-1.3) mg/dL AST (14-36) IU/L ALT (9-52) IU/L Alkaline Phosphatase (38-126) U/L Total Protein (6.3-8.2) g/dL Albumin (3.5-5.0) g/dL Globulin (1.7-4.1) g/dL Albumin/Globulin Ratio (1.0-2.8) Lipase (23-300) U/L Urine RBC 0-1/hpf (0-5/HPF) Urine WBC 5-10/hpf H (0-5/HPF) Ur Squamous Epith Cells 1-5 /hpf (0-5/HPF) Ur Renal Epithelial Cell 0-1/hpf (0-1/HPF) Amorphous Sediment 1+ Urine Bacteria Moderate (10-30) H (None) Hyaline Casts 1-5/lpf (None) Urine Mucus 1+ H (Negative) Ur Culture Indicated? Specimen cultured Urine Opiates Screen Negative (Negative) Ur Oxycodone Screen Negative (Negative) Urine Methadone Screen Positive H (Negative) Ur Barbiturates Screen Negative (Negative) U Tricyclic Antidepress Positive H (Negative) Ur Phencyclidine Scrn Negative (Negative) Ur Amphetamines Screen Negative (Negative) U Methamphetamines Scrn Negative (Negative) Ur MDMA Scrn (Ecstasy) Negative (Negative) U Benzodiazepines Scrn Negative (Negative) Urine Cocaine Screen Negative (Negative) U Marijuana (THC) Screen Positive H (Negative) Point of Care Testing Test Results Negative Urine Dip Bedside Urine Glucose Negative Bedside Urine Bilirubin - Negative Bedside Urine Ketone ++ 40 Urine Specific [place] 1.010 Bedside Urine Occult Blood +/- Bedside Urine pH 8.5 Bedside Urine Protein + 30 Bedside Urine Urobilinogen +/- 1mg Bedside Urine Nitrite - Negative Bedside Urine Leukocytes +/- 15 Esterase MDM Narrative Medical decision making narrative: The patient is a 28-year-old female who presents with a chief complaint of vomiting and cyclic vomiting syndrome. The patient had a negative x-ray, had a negative ultrasound on the 5th. She does not have an acute abdominal exam, is afebrile normotensive, etc. The patient stated the emergency department for several hours, receiving IV hydration, and several pain medications. However she was not able to pass a p.o. trial. She was given Zofran, Reglan, Compazine, Phenergan suppository as well as Toradol and Zofran. She had a normal acute abdomen x-ray series. Of note the patient declines smoking marijuana, when I asked her about the marijuana in her drug screen, she stated she did not know how it got there. However given that the patient was unable to pass a p.o. trial, did not feel as though she was able to go home. I contacted Dr. Weathers, who kindly agreed to admit the patient. The patient does have an incidental finding of UTI, but denies any UTI symptoms and is afebrile. Thus I do not believe this is related to pyelonephritis, especially given that she does not have an elevated white blood cell count. Patient states understanding of admission no questions or concerns. <Nuris Salter, DO - Last Filed: 08/21/18 19:50> Lab Data Lab Results 08/21/18 08/21/18 08/21/18 Range/Units 11:38 11:38 11:49 WBC 10.9 (4.5-11.0) X10^3/uL RBC 4.90 (4.0-5.2) X10^6/uL Hgb 14.5 (12.0-16.0) g/dL Hct 42.4 (36-46) % MCV 86.4 (80-100) fL MCH 29.6 (26-34) PG MCHC 34.2 (30-36) % RDW 13.5 (11.6-14.8) % Plt Count 462 H (150-400) X10^3/uL Neut % (Auto) 78.6 H (50-75) % Lymph % (Auto) 13.7 L (25-40) % Garza % (Auto) 5.2 (3-14) % Eos % (Auto) 2.2 (2-4) % Baso % (Auto) 0.3 (0-2) % Neut # (Auto) 8500 H (4843-7055) /uL Lymph # (Auto) 1500 (8631-7798) /uL Garza # (Auto) 600 (0-900) /uL Eos # (Auto) 200 (0-450) /uL Baso # (Auto) 0 (0-100) /uL PT 12.5 (10.1-12.7) SECONDS INR 1.1 (0.9-1.3) APTT 29 (26.4-36.2) SECONDS Sodium 139 (137-145) mmol/L Potassium 4.4 (3.4-5.1) mmol/L Chloride 102 (98-107) mmol/L Carbon Dioxide 24 (22-32) mmol/L BUN 7 (7-17) mg/dL Creatinine 0.70 (0.52-1.04) mg/dL Estimated GFR > 60.0 (>60) mL/min BUN/Creatinine Ratio 10.0 (6-22) Glucose 117 H (70-100) mg/dL Calcium 9.7 (8.4-10.2) mg/dL Total Bilirubin 0.8 (0.2-1.3) mg/dL AST 24 (14-36) IU/L ALT 34 (9-52) IU/L Alkaline Phosphatase 81 (38-126) U/L Total Protein 7.4 (6.3-8.2) g/dL Albumin 4.4 (3.5-5.0) g/dL Globulin 3.0 (1.7-4.1) g/dL Albumin/Globulin Ratio 1.5 (1.0-2.8) Lipase 64 (23-300) U/L Urine RBC (0-5/HPF) Urine WBC (0-5/HPF) Ur Squamous Epith Cells (0-5/HPF) Ur Renal Epithelial Cell (0-1/HPF) Amorphous Sediment Urine Bacteria (None) Hyaline Casts (None) Urine Mucus (Negative) Ur Culture Indicated? Urine Opiates Screen (Negative) Ur Oxycodone Screen (Negative) Urine Methadone Screen (Negative) Ur Barbiturates Screen (Negative) U Tricyclic Antidepress (Negative) Ur Phencyclidine Scrn (Negative) Ur Amphetamines Screen (Negative) U Methamphetamines Scrn (Negative) Ur MDMA Scrn (Ecstasy) (Negative) U Benzodiazepines Scrn (Negative) Urine Cocaine Screen (Negative) U Marijuana (THC) Screen (Negative) 08/21/18 08/21/18 Range/Units 12:18 12:18 WBC (4.5-11.0) X10^3/uL RBC (4.0-5.2) X10^6/uL Hgb (12.0-16.0) g/dL Hct (36-46) % MCV (80-100) fL MCH (26-34) PG MCHC (30-36) % RDW (11.6-14.8) % Plt Count (150-400) X10^3/uL Neut % (Auto) (50-75) % Lymph % (Auto) (25-40) % Garza % (Auto) (3-14) % Eos % (Auto) (2-4) % Baso % (Auto) (0-2) % Neut # (Auto) (1992-3159) /uL Lymph # (Auto) (5050-8448) /uL Garza # (Auto) (0-900) /uL Eos # (Auto) (0-450) /uL Baso # (Auto) (0-100) /uL PT (10.1-12.7) SECONDS INR (0.9-1.3) APTT (26.4-36.2) SECONDS Sodium (137-145) mmol/L Potassium (3.4-5.1) mmol/L Chloride (98-107) mmol/L Carbon Dioxide (22-32) mmol/L BUN (7-17) mg/dL Creatinine (0.52-1.04) mg/dL Estimated GFR (>60) mL/min BUN/Creatinine Ratio (6-22) Glucose (70-100) mg/dL Calcium (8.4-10.2) mg/dL Total Bilirubin (0.2-1.3) mg/dL AST (14-36) IU/L ALT (9-52) IU/L Alkaline Phosphatase (38-126) U/L Total Protein (6.3-8.2) g/dL Albumin (3.5-5.0) g/dL Globulin (1.7-4.1) g/dL Albumin/Globulin Ratio (1.0-2.8) Lipase (23-300) U/L Urine RBC 0-1/hpf (0-5/HPF) Urine WBC 5-10/hpf H (0-5/HPF) Ur Squamous Epith Cells 1-5 /hpf (0-5/HPF) Ur Renal Epithelial Cell 0-1/hpf (0-1/HPF) Amorphous Sediment 1+ Urine Bacteria Moderate (10-30) H (None) Hyaline Casts 1-5/lpf (None) Urine Mucus 1+ H (Negative) Ur Culture Indicated? Specimen cultured Urine Opiates Screen Negative (Negative) Ur Oxycodone Screen Negative (Negative) Urine Methadone Screen Positive H (Negative) Ur Barbiturates Screen Negative (Negative) U Tricyclic Antidepress Positive H (Negative) Ur Phencyclidine Scrn Negative (Negative) Ur Amphetamines Screen Negative (Negative) U Methamphetamines Scrn Negative (Negative) Ur MDMA Scrn (Ecstasy) Negative (Negative) U Benzodiazepines Scrn Negative (Negative) Urine Cocaine Screen Negative (Negative) U Marijuana (THC) Screen Positive H (Negative) Point of Care Testing Test Results Negative Urine Dip Bedside Urine Glucose Negative Bedside Urine Bilirubin - Negative Bedside Urine Ketone ++ 40 Urine Specific [place] 1.010 Bedside Urine Occult Blood +/- Bedside Urine pH 8.5 Bedside Urine Protein + 30 Bedside Urine Urobilinogen +/- 1mg Bedside Urine Nitrite - Negative Bedside Urine Leukocytes +/- 15 Esterase Discharge Plan Departure Patient Disposition: Admitted as Observation Clinical Impression: Cyclical vomiting Discharge Date/Time: 08/21/18 18:48 Interventions: ED Discharge Assessment Last Done: 08/21/18 18:47 Admit Date/Time: 08/21/18 18:30 Admit Provider: Simone Weathers <Nuris Salter DO - Last Filed: 08/21/18 19:50> Cosign ED Attending Cosignature Attestation: I was immediately available in the department for consultation, case discussed plan for admission. This documentation has been reviewed and I agree with assessment and plan. Supervised by Nuris Salter DO
--- NOTE | 2018-08-21 20:20 | DI.US.S_ITS ---
PROCEDURE: US ABDOMEN COMPLETE INDICATIONS: NAUSEA AND VOMITING TECHNIQUE: Real-time scanning was performed of the abdominal and retroperitoneal organs, with image documentation. COMPARISON: None. FINDINGS: Liver: Liver is normal in size and homogeneous in echotexture. Gallbladder: Gallbladder appears normal without stones or sludge. Normal wall thickness a 2.6 mm. Biliary ducts: Intrahepatic bile ducts are non-dilated. Extrahepatic bile duct caliber measures 4.1 mm. Normal is 6-7 mm or less in diameter, or 10 mm or less post-cholecystectomy. Pancreas: Visualized portions of the pancreas are sonographically normal. Spleen: Spleen is normal in size and homogeneous in echotexture. There is a splenule just caudal to the tip of the spleen. Kidneys: Kidneys are normal in size and echotexture. Right kidney measures 11.8 cm long; left kidney measures 12.1 cm long. No hydronephrosis or nephrolithiasis. No solid masses. Aorta: Visualized aorta is normal in caliber at less than 3 cm. Iliacs: Proximal common iliac arteries are normal in caliber at less than 2.5 cm. IVC: Intrahepatic inferior vena cava is patent. Miscellaneous: No free abdominal fluid. IMPRESSION: Normal abdominal ultrasound. Dictated by: Meera Fulton M.D. on 08/22/2018 at 8:51 Approved by: Meera Fulton M.D. on 08/22/2018 at 8:54
--- NOTE | 2018-08-21 20:22 | PM.HP.1 ---
History of Present Illness Date Patient Seen: 08/21/18 Time Patient Seen: 19:40 Chief complaint: Throwing up Narrative: Ms. Nuris Castle is a 28-year-old female patient with a prior history of headaches, cyclic vomiting, asthma presents to the ER with nausea vomiting returning today. The patient is somnolent following medications administered in the ER for vomiting in the patient's mother is at bedside from home much of the medical information is obtained. The patient was admitted to [facility] on 08/16/2018 with cyclical vomiting and discharge on 08/18/2018. The patient has a history of cyclic vomiting that has been previously fully evaluated by Gastroenterology but no longer has continuing follow-up. At 1 point the patient was admitted to [facility] for week were upon the patient was started Norplant as her episodes are associated menstrual cycle. The patient did not was relatively stable with minor incidence but no longer requiring ER admission for approximately 2 years until the Norplant was discontinued favor of patient to start have children. Following discharge from [facility] the patient had been steadily improving though she did get nauseated on the way home only to have her nausea vomiting return with associated headache. The patient does endorse using marijuana, smoking and at doubles to help control nausea. It was previously questioned whether the cyclic vomiting is related to her marijuana use and she stop for 3 months without change in her monthly episodes of vomiting. Emesis is nonbloody and has progressed to dry heaves. The patient has had no fevers or chills, has complained sinus pain with history of environmental allergies and no sore throat. She has had no reports of chest pain or palpitations, shortness of breath or cough. She complains of epigastric pain and nausea with vomiting presently controlled. She has had no report of diarrhea or constipation denies dysuria or hematuria. Upon arrival in the ER the patient was found to be afebrile with temperature of 98.4?, heart rate of 78, blood pressure 133/81, respirations of 18 saturating 100% on room air. Acute abdomen series was completed with no acute findings and normal gas pattern. On laboratory analysis her white blood cell count is normal at 10.9 with a hemoglobin of 14.5 and hematocrit of 42.4 and elevated platelet count of 462. On chemistries are electrolytes are within normal limits and her BUN is 7 and creatinine 0.7. She has a nonfasting glucose of 117. Her LFTs and lipase and coags are all within normal limits. The patient received Toradol Phenergan, Reglan, Compazine, Zofran and Ativan in the ER as well as 2 L of normal saline. Patient is admitted to the hospital for recurrent cyclic vomiting. Patient History Medical History (Updated 08/21/18 @ 20:43 by RICO Fallon) Asthma (Acute) Cyclic vomiting syndrome (Acute) Environmental allergies (Acute) Marijuana smoker (Acute) Severe frontal headaches (Acute) Surgical History History of toe surgery (Acute) Family History (Updated 08/21/18 @ 20:45 by RICO Fallon) Father Arthritis Mother Anxiety Fibromyalgia Brother Childhood asthma Drug abuse Social History household members: spouse Smoking Status: Current some day smoker alcohol intake: current Family & Social History Family History (Updated 08/21/18 @ 20:45 by RICO Fallon) Father Arthritis Mother Anxiety Fibromyalgia Brother Childhood asthma Drug abuse Social History: household members spouse Prior Living Arrangements House Safety & Behavioral: Feels Safe in Current Yes Environment Been Physically Hurt or No Threatened By a Person Suicidal Ideation Description None Suicide Plan Description No Plan Tobacco & Substance use: Tobacco type cannabis/marijuana Smoking Status Current some day smoker alcohol intake current alcohol intake frequency a few times a week Substance Use Type marijuana Comment: The patient is and is currently living with her in a trailer on her parents property with access to the house. Smoking: The patient endorses smoking approximately 1/2 pack per day. Alcohol: Patient denies consuming alcohol. Substance use: Patient denies recreational pharmaceuticals but does smoke and consume marijuana edibles. Advanced directives: The patient is sedated on Ativan and at this time will be FULL CODE. Her mother Neema Rivera is a patient surrogate decision maker. Meds Home Medications Medication Instructions Recorded Confirmed Type albuterol sulfate 2 puff INHALATION Q4-6H PRN 08/21/18 08/21/18 History buspirone 15 mg PO TID 08/21/18 08/21/18 History diphenhydramine HCl 50 mg PO BEDTIME 08/21/18 08/21/18 History fluticasone propionate [Flonase 2 spray INTRANASAL DAILY PRN 08/21/18 08/21/18 History Allergy Relief] fluticasone propionate [Flovent 1 puff INHALATION BID 08/21/18 08/21/18 History HFA] haloperidol 0.5 mg PO Q8H PRN 08/21/18 08/21/18 History metoclopramide HCl 10 mg PO Q6H PRN 08/21/18 08/21/18 History nortriptyline 100 mg PO BEDTIME 08/21/18 08/21/18 History ondansetron 4 mg PO Q6H PRN 08/21/18 08/21/18 History propranolol 40 mg PO DAILY 08/21/18 08/21/18 History rizatriptan 5 mg PO Q2-4H PRN MDD 10 mg 08/21/18 08/21/18 History Allergies Allergy/AdvReac Type Severity Reaction Status Date / Time mushroom Allergy Severe Vomiting Verified 08/21/18 11:36 peanut Allergy Severe Anaphylaxis Verified 08/21/18 11:36 Sulfa (Sulfonamide Allergy Unknown Verified 08/21/18 13:33 Antibiotics) Review of Systems Review of Systems All systems reviewed & are unremarkable except as noted in HPI and below Exam Vital Signs (past 8 hours): - 08/21/18 15:09 08/21/18 16:40 08/21/18 17:40 Temperature Pulse Rate 84 90 90 Respiratory Rate Blood Pressure 131/77 Blood Pressure [Right Arm] 124/82 144/87 H Pulse Oximetry 100 100 08/21/18 18:00 08/21/18 18:47 08/21/18 19:22 Temperature 98.1 F Pulse Rate 85 93 H 75 Respiratory Rate 17 16 Blood Pressure 109/56 L 120/65 Blood Pressure [Right Arm] 131/77 Pulse Oximetry 98 97 98 Oxygen Delivery Method Room Air Narrative Exam Narrative: GENERAL APPEARANCE: well developed, overweight female with a BMI of 31.3, who is somnolent but in no acute distress. HEAD: Normocephalic, atraumatic, no scalp lesions. EYES: pupils equal, round, reactive to light and accommodation, sclera non-icteric, extraocular movement intact without nystagmus. EARS: normal external structures, bilateral ear piercings, TM's are visualized as pearly and translucent, no pain on manipulation of the tragus or auricle NOSE: Bilateral maxillary sinus tenderness to percussion, no rhinorrhea ORAL CAVITY: mucosa moist without lesions or exudate, palate normal, tongue in midline. THROAT: Not visualized NECK/THYROID: neck supple, no jugular venous distention, no thyromegaly, trachea midline. LYMPH NODES: no cervical or supraclavicular lymphadenopathy. SKIN: warm and dry, no suspicious lesions, no rashes, good turgor. HEART: regular rate and rhythm, S1-S2 1/6 systolic murmur loudest over the left midsternal border, no rubs or gallops, brisk capillary refill, no edema LUNGS: clear to auscultation bilaterally, no coarseness crackles or wheezing, no cough present CHEST: Symmetrical movement, shallow respirations, no accessory muscle use, no pain to AP and lateral compression. ABDOMEN: Soft, no distention, epigastric pain on palpation, no peritoneal signs, no organomegaly, no flank or suprapubic tenderness, active bowel tones. BACK: Normal curvature, nontender to palpation EXTREMITIES: moves all extremities, strength is 5/5 and symmetrical, 2+ dorsalis pedis pulses NEUROLOGIC: Patient weeks to eye opening on tactile stimulus, no focal neurologic deficits, motor strength normal upper and lower extremities, sensory exam with tingling bilateral toes, hearing grossly normal to speech. PSYCH: Flat affect, sedated, will follow commands. Objective Labs Result Diagrams: 08/21/18 11:49 08/21/18 11:38 Labs: Laboratory Results - last 24 hr 08/21/18 08/21/18 08/21/18 11:38 11:38 11:49 WBC 10.9 RBC 4.90 Hgb 14.5 Hct 42.4 MCV 86.4 MCH 29.6 MCHC 34.2 RDW 13.5 Plt Count 462 H Neut % (Auto) 78.6 H Lymph % (Auto) 13.7 L [place] % (Auto) 5.2 Eos % (Auto) 2.2 Baso % (Auto) 0.3 Neut # (Auto) 8500 H Lymph # (Auto) 1500 [place] # (Auto) 600 Eos # (Auto) 200 Baso # (Auto) 0 PT 12.5 INR 1.1 APTT 29 Sodium 139 Potassium 4.4 Chloride 102 Carbon Dioxide 24 BUN 7 Creatinine 0.70 Estimated GFR > 60.0 BUN/Creatinine Ratio 10.0 Glucose 117 H Calcium 9.7 Total Bilirubin 0.8 AST 24 ALT 34 Alkaline Phosphatase 81 Total Protein 7.4 Albumin 4.4 Globulin 3.0 Albumin/Globulin Ratio 1.5 Lipase 64 Urine RBC Urine WBC Ur Squamous Epith Cells Ur Renal Epithelial Cell Amorphous Sediment Urine Bacteria Hyaline Casts Urine Mucus Ur Culture Indicated? Urine Opiates Screen Ur Oxycodone Screen Urine Methadone Screen Ur Barbiturates Screen U Tricyclic Antidepress Ur Phencyclidine Scrn Ur Amphetamines Screen U Methamphetamines Scrn Ur MDMA Scrn (Ecstasy) U Benzodiazepines Scrn Urine Cocaine Screen U Marijuana (THC) Screen 08/21/18 08/21/18 12:18 12:18 WBC RBC Hgb Hct MCV MCH MCHC RDW Plt Count Neut % (Auto) Lymph % (Auto) [place] % (Auto) Eos % (Auto) Baso % (Auto) Neut # (Auto) Lymph # (Auto) [place] # (Auto) Eos # (Auto) Baso # (Auto) PT INR APTT Sodium Potassium Chloride Carbon Dioxide BUN Creatinine Estimated GFR BUN/Creatinine Ratio Glucose Calcium Total Bilirubin AST ALT Alkaline Phosphatase Total Protein Albumin Globulin Albumin/Globulin Ratio Lipase Urine RBC 0-1/hpf Urine WBC 5-10/hpf H Ur Squamous Epith Cells 1-5 /hpf Ur Renal Epithelial Cell 0-1/hpf Amorphous Sediment 1+ Urine Bacteria Moderate (10-30) H Hyaline Casts 1-5/lpf Urine Mucus 1+ H Ur Culture Indicated? Specimen cultured Urine Opiates Screen Negative Ur Oxycodone Screen Negative Urine Methadone Screen Positive H Ur Barbiturates Screen Negative U Tricyclic Antidepress Positive H Ur Phencyclidine Scrn Negative Ur Amphetamines Screen Negative U Methamphetamines Scrn Negative Ur MDMA Scrn (Ecstasy) Negative U Benzodiazepines Scrn Negative Urine Cocaine Screen Negative U Marijuana (THC) Screen Positive H Assessment & Plan Assessment & Plan narrative: This is a 28-year-old female patient with a history of menstrual immediate id cyclic vomiting with antecedent headaches who is admitted for uncontrolled nausea vomiting. 1. Chronic cyclic vomiting, present on admission -long history of cyclic vomiting previously evaluated by Gastroenterology. -admitted to [facility] for cyclic vomiting on August 16 and discharged August 18. Patron apparently never fully recovered prior to admission for recurrent uncontrolled vomiting this morning. -patient received Phenergan, Compazine, Zofran and Reglan as well as Ativan in the ER control vomiting. -patient is somnolent will decrease Ativan dose to 0.5 mg every 4 hours as needed for nausea vomiting. -prochlorparzine 10 mg IV every 6 hours as needed for nausea vomiting -will hold patient's metoclorpramide in favor of Zofran 8mg IV every 8 hours as needed for nausea vomiting. -will continue the patient's home med of nortriptyline 100 mg at bedtime 2. Chronic severe headaches, present on admission -will continue patient's home medication of daily propranolol 40 mg. -sumatriptan 25 mg by mouth as needed for severe headache -will avoid opiates to prevent coalescence, Toradol 30 mg IV every 6 hours as needed for pain. 3. Chronic anxiety, stable -will continue patient's BuSpar 15 mg 3 times daily. 4. Asthma, mild persistent, stable -will continue patient's daily Flovent 1 puff twice daily -albuterol nebulizers every 4 hours as needed for shortness breath or wheezing -respiratory therapy to consult and treat. The patient is admitted due to the severity of her symptoms and the risk for complications and adverse events. The patient's expected length of stay is greater than 2 midnights. Scores GCS [place] coma scale eye opening: To pressure [place] coma scale verbal response: Orientated [place] coma scale motor response: Obey commands [place] coma scale total score: 13 Quality VTE Deep Vein Thrombosis/Pulmonary Embolism Present on Admission: No
[2018-08-21] MEDS: SODIUM CHLORIDE 0.45% 1,000 ML 125 ML IV (20:41)
[2018-08-21 20:44] LABS: Magnesium 1.6 mg/dL (1.6-2.3); Phosphorous 3.8 mg/dL (2.5-4.5)
[2018-08-22 00:31] VITALS: O2SAT 99
[2018-08-22 03:00] VITALS: BP 119/66; PULSE 83; RESP 18; TEMP 36.8; O2SAT 100
[2018-08-22] MEDS: KETOROLAC 60 MG/2 ML VIAL 30 MG IV (03:16)
[2018-08-22] MEDS: ONDANSETRON 4 MG/2 ML INJ 8 MG IV (03:17)
[2018-08-22] MEDS: SODIUM CHLORIDE 0.9% 1,000 ML 125 ML IV ×2 (03:47→12:08)
[2018-08-22] MEDS: LORazepam 2 MG/ML INJ 0.5 MG IV ×3 (03:52→15:10)
[2018-08-22 05:13] LABS: Add Manual Diff / Slide Review NO; Basophils Absolute Auto 100 /uL (0-100); Eosinophils Absolute Auto 300 /uL (0-450); Eosinophils Percent Auto 2.9 % (2-4); Hematocrit 36.8 % (36-46); Hemoglobin 12.7 g/dL (12.0-16.0); Lymphocytes Absolute Auto 3400 /uL (1100-4500); Lymphocytes Percent Auto 30.1 % (25-40); Mean Corpuscular HGB Conc 34.4 % (30-36); Mean Corpuscular Hemoglobin 29.6 PG (26-34); Mean Corpuscular Volume 85.9 fL (80-100); Monocytes Absolute Auto 900 /uL (0-900); Monocytes Percent Auto 8.4 % (3-14); Neutrophils Absolute Auto 6500 /uL (1500-7000); Neutrophils Percent Auto 57.6 % (50-75); Platelet Count 354 X10^3/uL (150-400); Red Blood Cell Count 4.29 X10^6/uL (4.0-5.2); Red Cell Distribution Width 13.6 % (11.6-14.8); White Blood Cell Count 11.3 X10^3/uL (4.5-11.0)
[2018-08-22 05:19] LABS: BUN Creatinine Ratio 8.3 (6-22); Blood Urea Nitrogen 5 mg/dL (7-17); Calcium 8.2 mg/dL (8.4-10.2); Carbon Dioxide 28 mmol/L (22-32); Chloride 104 mmol/L (98-107); Estimated Glomerular Filt Rate > 60.0 mL/min (>60); Glucose 85 mg/dL (70-100); HEMOLYSIS < 15 (0-50); Sodium 137 mmol/L (137-145)
[2018-08-22] MEDS: POTASSIUM CHLORIDE 60 MEQ in SODIUM CHLORIDE 0.9% 500 ML 88.333 ML IV (06:23)
[2018-08-22 08:00] VITALS: BP 122/70; PULSE 113; RESP 16; TEMP 36.8; O2SAT 99
[2018-08-22 09:00] VITALS: O2SAT 98
[2018-08-22] MEDS: BUSPIRONE 15 MG TABLET PO ×2 (09:38→15:10)
[2018-08-22] MEDS: FLUTICASONE 110MCG HFA 120 PUFF INH (09:38)
[2018-08-22] MEDS: ENOXAPARIN 40 MG/0.4 ML SYRINGE SUBCUT (09:38)
[2018-08-22 10:11] VITALS: PULSE 97; RESP 14; O2SAT 100
--- NOTE | 2018-08-22 10:27 | CM.DANOTE ---
DCP: Case received, EMR reviewed and met with patient. Introduced self and role. Was able to get baseline information from patient, as well as her mother, who was at bedside. DCP template completed with information currently available. Patient is a 28 year old female who admitted yesterday afternoon to the care of the hospitalist team. PCP: Dr. Hill at [facility]. Payer: confirmed: Monogram. Patient came to the hospital due to excessive vomiting and dry heaves. Patient has history of cyclic vomiting syndrome. She also has history of depression. She is a smoker, and smokes marijuana as well. Met with patient briefly, mother at bedside. Patient stated, she has had this problem for the last several years, and was recently at [facility] for this disorder. Patient had been seeing Dr. Parra as her primary doctor, but due to insurance changes, she is establishing with another provider, Dr. Hill. Patient resides in [place] with her , Dewey. P: DCP to continue to follow and be available for any needs at discharge. Patient should be able to go home when she is medically stable. Dasha Smith RN/Home Health Care Coordinator
--- NOTE | 2018-08-22 12:19 | PM.PN.1 ---
Subjective Date Patient Seen: 08/22/18 Interval history: This is a 28-year-old female patient with a history of menstrual associates cyclic vomiting with antecedent headaches who is admitted for uncontrolled nausea vomiting. Patient notes improvement in nausea and abdominal discomfort since last night. She has not thrown up since in the ER. She would like to try something to eat. Exam Vital Signs (past 8 hours): - 08/22/18 08:00 08/22/18 09:00 08/22/18 10:11 Temperature 98.3 F Pulse Rate 113 H 97 H Respiratory Rate 16 14 Blood Pressure 122/70 Pulse Oximetry 99 98 100 Oxygen Delivery Method Room Air Oxygen Flow Rate 0 Narrative Exam Narrative: General: Alert, pleasant and cooperative female in no acute distress Abdomen: Nondistended, soft, mild epigastric tenderness Extremities: No edema Objective Labs Result Diagrams: 08/22/18 04:35 08/22/18 04:35 Labs: Laboratory Results - last 24 hr 08/21/18 08/21/18 08/21/18 11:38 11:38 12:18 WBC RBC Hgb Hct MCV MCH MCHC RDW Plt Count Neut % (Auto) Lymph % (Auto) [place] % (Auto) Eos % (Auto) Baso % (Auto) Neut # (Auto) Lymph # (Auto) [place] # (Auto) Eos # (Auto) Baso # (Auto) PT 12.5 INR 1.1 APTT 29 Sodium 139 Potassium 4.4 Chloride 102 Carbon Dioxide 24 BUN 7 Creatinine 0.70 Estimated GFR > 60.0 BUN/Creatinine Ratio 10.0 Glucose 117 H Calcium 9.7 Phosphorus Magnesium Total Bilirubin 0.8 AST 24 ALT 34 Alkaline Phosphatase 81 Total Protein 7.4 Albumin 4.4 Globulin 3.0 Albumin/Globulin Ratio 1.5 Lipase 64 Urine RBC 0-1/hpf Urine WBC 5-10/hpf H Ur Squamous Epith Cells 1-5 /hpf Ur Renal Epithelial Cell 0-1/hpf Amorphous Sediment 1+ Urine Bacteria Moderate (10-30) H Hyaline Casts 1-5/lpf Urine Mucus 1+ H Ur Culture Indicated? Specimen cultured Urine Opiates Screen Ur Oxycodone Screen Urine Methadone Screen Ur Barbiturates Screen U Tricyclic Antidepress Ur Phencyclidine Scrn Ur Amphetamines Screen U Methamphetamines Scrn Ur MDMA Scrn (Ecstasy) U Benzodiazepines Scrn Urine Cocaine Screen U Marijuana (THC) Screen 08/21/18 08/21/18 08/22/18 12:18 20:26 04:35 WBC 11.3 H RBC 4.29 Hgb 12.7 Hct 36.8 MCV 85.9 MCH 29.6 MCHC 34.4 RDW 13.6 Plt Count 354 Neut % (Auto) 57.6 D Lymph % (Auto) 30.1 [place] % (Auto) 8.4 Eos % (Auto) 2.9 Baso % (Auto) 1.0 Neut # (Auto) 6500 Lymph # (Auto) 3400 [place] # (Auto) 900 Eos # (Auto) 300 Baso # (Auto) 100 PT INR APTT Sodium Potassium Chloride Carbon Dioxide BUN Creatinine Estimated GFR BUN/Creatinine Ratio Glucose Calcium Phosphorus 3.8 Magnesium 1.6 Total Bilirubin AST ALT Alkaline Phosphatase Total Protein Albumin Globulin Albumin/Globulin Ratio Lipase Urine RBC Urine WBC Ur Squamous Epith Cells Ur Renal Epithelial Cell Amorphous Sediment Urine Bacteria Hyaline Casts Urine Mucus Ur Culture Indicated? Urine Opiates Screen Negative Ur Oxycodone Screen Negative Urine Methadone Screen Positive H Ur Barbiturates Screen Negative U Tricyclic Antidepress Positive H Ur Phencyclidine Scrn Negative Ur Amphetamines Screen Negative U Methamphetamines Scrn Negative Ur MDMA Scrn (Ecstasy) Negative U Benzodiazepines Scrn Negative Urine Cocaine Screen Negative U Marijuana (THC) Screen Positive H 08/22/18 04:35 WBC RBC Hgb Hct MCV MCH MCHC RDW Plt Count Neut % (Auto) Lymph % (Auto) [place] % (Auto) Eos % (Auto) Baso % (Auto) Neut # (Auto) Lymph # (Auto) [place] # (Auto) Eos # (Auto) Baso # (Auto) PT INR APTT Sodium 137 Potassium 3.0 L D Chloride 104 Carbon Dioxide 28 BUN 5 L Creatinine 0.60 Estimated GFR > 60.0 BUN/Creatinine Ratio 8.3 Glucose 85 Calcium 8.2 L Phosphorus Magnesium Total Bilirubin AST ALT Alkaline Phosphatase Total Protein Albumin Globulin Albumin/Globulin Ratio Lipase Urine RBC Urine WBC Ur Squamous Epith Cells Ur Renal Epithelial Cell Amorphous Sediment Urine Bacteria Hyaline Casts Urine Mucus Ur Culture Indicated? Urine Opiates Screen Ur Oxycodone Screen Urine Methadone Screen Ur Barbiturates Screen U Tricyclic Antidepress Ur Phencyclidine Scrn Ur Amphetamines Screen U Methamphetamines Scrn Ur MDMA Scrn (Ecstasy) U Benzodiazepines Scrn Urine Cocaine Screen U Marijuana (THC) Screen Assessment & Plan Assessment & Plan narrative: This is a 28-year-old female with history of menstrual associated cyclic vomiting with antecedent headaches admitted for uncontrolled nausea and vomiting. 1. Chronic cyclic vomiting, present on admission -current improving symptoms -abdominal ultrasound normal -long history of cyclic vomiting previously evaluated by Gastroenterology, extensive workup at [facility], determined hormonal related associated with menstrual cycle. Very well controlled while on Norplant but had implant removed 2 years ago and still attempting to get . She has largely been able to control symptoms at home. She had not been hospitalized for 5 years until recent hospitalization at [facility] a few days ago. -admitted to [facility] for cyclic vomiting on August 16 and discharged August 18. Reggie apparently never fully recovered prior to admission for recurrent uncontrolled vomiting this morning. -patient received Phenergan, Compazine, Zofran and Reglan as well as Ativan in the ER control vomiting. -continue Ativan 0.5 mg every 4 hours as needed, Zofran 8 mg q.8 hours as needed, prochlorparzine 10 mg IV every 6 hours as needed for nausea vomiting -will continue the patient's home med of nortriptyline 100 mg at bedtime -maintenance IV fluids -diet as tolerated 2. Chronic severe headaches, present on admission -continue patient's home medication of daily propranolol 40 mg. -sumatriptan 25 mg by mouth as needed for severe headache -will avoid opiates to prevent coalescence, Toradol 30 mg IV every 6 hours as needed for pain. 3. Chronic anxiety, stable -will continue patient's BuSpar 15 mg 3 times daily. 4. Asthma, mild persistent, stable -will continue patient's daily Flovent 1 puff twice daily -albuterol nebulizers every 4 hours as needed for shortness breath or wheezing -respiratory therapy to consult and treat. Patient currently meets observation criteria, has improving course, continue care in hospital 1 more night and determine further treatment tomorrow a.m.. Quality VTE Deep Vein Thrombosis/Pulmonary Embolism Present on Admission: No
[2018-08-22 13:25] VITALS: BP 120/71; PULSE 84; RESP 16; TEMP 36.9; O2SAT 100
--- NOTE | 2018-08-22 13:49 | P.DS_ITS ---
History of Present Illness Chief complaint: Throwing up Narrative: Ms. Nuris Castle is a 28-year-old female patient with a prior history of headaches, cyclic vomiting, asthma presents to the ER with nausea vomiting returning today. The patient is somnolent following medications administered in the ER for vomiting in the patient's mother is at bedside from home much of the medical information is obtained. The patient was admitted to [facility] on 08/16/2018 with cyclical vomiting and discharge on 08/18/2018. The patient has a history of cyclic vomiting that has been previously fully evaluated by Gastroenterology but no longer has continuing follow-up. At 1 point the patient was admitted to [facility] for week were upon the patient was started Norplant as her episodes are associated menstrual cycle. The patient did not was relatively stable with minor incidence but no longer requiring ER admission for approximately 2 years until the Norplant was discontinued favor of patient to start have children. Following discharge from [facility] the patient had been steadily improving though she did get nauseated on the way home only to have her nausea vomiting return with associated headache. The patient does endorse using marijuana, smoking and at doubles to help control nausea. It was previously questioned whether the cyclic vomiting is related to her marijuana use and she stop for 3 months without change in her monthly episodes of vomiting. Emesis is nonbloody and has progressed to dry heaves. The patient has had no fevers or chills, has complained sinus pain with history of environmental allergies and no sore throat. She has had no reports of chest pain or palpitations, shortness of breath or cough. She complains of epigastric pain and nausea with vomiting presently controlled. She has had no report of diarrhea or constipation denies dysuria or hematuria. Upon arrival in the ER the patient was found to be afebrile with temperature of 98.4?, heart rate of 78, blood pressure 133/81, respirations of 18 saturating 100% on room air. Acute abdomen series was completed with no acute findings and normal gas pattern. On laboratory analysis her white blood cell count is normal at 10.9 with a hemoglobin of 14.5 and hematocrit of 42.4 and elevated platelet count of 462. On chemistries are electrolytes are within normal limits and her BUN is 7 and creatinine 0.7. She has a nonfasting glucose of 117. Her LFTs and lipase and coags are all within normal limits. The patient received Toradol Phenergan, Reglan, Compazine, Zofran and Ativan in the ER as well as 2 L of normal saline. Patient is admitted to the hospital for recurrent cyclic vomiting. Discharge Providers Date of admission: 08/21/18 18:30 Discharge Date: 08/22/18 Consults: 08/21/18 20:06 Consult to Dietitian, Adult Routine Comment: Reason For Exam: cyclic vomiting syndrome Consult to Discharge Planning Routine Comment: 08/21/18 20:33 Consult to Respiratory Therapy Evaluate & Treat Comment: Hx asthma, using flovent daily, albuterol PRN Physician Instructions: Evaluate and treat Discharge provider: Simone Weathers MD Summary Discharge Diagnosis: 1. Cyclic vomiting associated with menstrual cycle 2. Chronic headaches Hospital Course: This is a 28-year-old female with history of menstrual associated cyclic vomiting with antecedent headaches admitted to observation service for uncontrolled nausea and vomiting. 1. Chronic cyclic vomiting, present on admission -symptoms resolved since admission last night and patient able to tolerate regular diet without nausea or vomiting, patient feels ready to discharge home -complete abdominal ultrasound on 08/22/2018 normal -long history of cyclic vomiting previously evaluated by Gastroenterology, extensive workup at [facility], determined hormonal related associated with menstrual cycle. Very well controlled while on Norplant but had implant removed 2 years ago and still attempting to get . She has largely been able to control symptoms at home. She had not been hospitalized for 5 years until recent hospitalization at [facility] a few days ago. -admitted to [facility] for cyclic vomiting on August 16 and discharged August 18. Patient never fully recovered at time of discharge from [facility]. -patient received Phenergan, Compazine, Zofran and Reglan as well as Ativan to control vomiting. -patient feels Ativan helped her the most with the nausea and vomiting and requests a few pills to have on hand at home; she has no history of benzo or narcotic abuse to my knowledge -diet as tolerated -new prescription for 10. Tablets of lorazepam 1.0 mg for sparing use for uncontrolled nausea and vomiting, new prescription for prochlorperazine 25 mg suppository as needed -she also has previous prescriptions for Zofran, Reglan and Haldol as needed for nausea and vomiting 2. Chronic severe headaches, present on admission -continued patient's home medication of daily propranolol 40 mg, rizatriptan as needed. Status at Discharge Cognitive/behavioral status at discharge: oriented Functional status at discharge: independent ambulation Overall status at discharge: patient is back to baseline Exam Vital Signs (past 8 hours): - 08/22/18 08:00 08/22/18 09:00 08/22/18 10:11 Temperature 98.3 F Pulse Rate 113 H 97 H Respiratory Rate 16 14 Blood Pressure 122/70 Pulse Oximetry 99 98 100 Oxygen Delivery Method Room Air Oxygen Flow Rate 0 Objective Labs Result Diagrams: 08/22/18 04:35 08/22/18 04:35 Labs: Laboratory Results - last 24 hr 08/21/18 08/22/18 08/22/18 20:26 04:35 04:35 WBC 11.3 H RBC 4.29 Hgb 12.7 Hct 36.8 MCV 85.9 MCH 29.6 MCHC 34.4 RDW 13.6 Plt Count 354 Neut % (Auto) 57.6 D Lymph % (Auto) 30.1 [place] % (Auto) 8.4 Eos % (Auto) 2.9 Baso % (Auto) 1.0 Neut # (Auto) 6500 Lymph # (Auto) 3400 [place] # (Auto) 900 Eos # (Auto) 300 Baso # (Auto) 100 Sodium 137 Potassium 3.0 L D Chloride 104 Carbon Dioxide 28 BUN 5 L Creatinine 0.60 Estimated GFR > 60.0 BUN/Creatinine Ratio 8.3 Glucose 85 Calcium 8.2 L Phosphorus 3.8 Magnesium 1.6 Discharge Plan Discharge Med Rec/Prescriptions Prescriptions: New prochlorperazine 25 mg suppository 25 mg ID Q12H PRN (Reason: nausea and vomiting) Qty: 12 RF: 0 lorazepam 1 mg tablet 1 mg PO BID PRN (Reason: nausea and vomiting) Qty: 10 RF: 0 Continued haloperidol 0.5 mg tablet 0.5 mg PO Q8H PRN (Reason: breakthrough) RF: 0 diphenhydramine HCl 50 mg Capsule 50 mg PO BEDTIME RF: 0 propranolol 40 mg Tablet 40 mg PO DAILY RF: 0 ondansetron 4 mg Tablet,Disintegrating 4 mg PO Q6H PRN (Reason: Nausea) RF: 0 nortriptyline 50 mg Capsule 100 mg PO BEDTIME RF: 0 metoclopramide HCl 10 mg tablet 10 mg PO Q6H PRN (Reason: Nausea And Vomiting) RF: 0 rizatriptan 5 mg Tablet 5 mg PO Q2-4H MDD 10 mg PRN (Reason: Migraine Headache) RF: 0 buspirone 15 mg Tablet 15 mg PO TID RF: 0 albuterol sulfate 90 mcg/actuation Hfa Aerosol Inhaler 2 puff INHALATION Q4-6H PRN (Reason: Wheezing) RF: 0 fluticasone propionate [Flonase Allergy Relief] 50 mcg/actuation [place],Suspension 2 spray INTRANASAL DAILY PRN (Reason: Allergic Symptoms) RF: 0 Flovent HFA 110 mcg/actuation Hfa Aerosol Inhaler 1 puff INHALATION BID RF: 0 Follow up/Referrals: Bucky Narayan [Non-Staff] - 1 Week Discharge Orders: Discharge (Order); Ordered 08/22/18 Ordered By: Simnoe Weathers Provider Discharge Instructions Diet: Diet as Tolerated Discharge Data Attending Provider: Simone Weathers Admit Date/Time: 08/21/18 18:30 Quality VTE Deep Vein Thrombosis/Pulmonary Embolism Present on Admission: No
[2018-08-22 15:20] VITALS: BMI 31.3
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
--- NOTE | 2018-08-22 15:43 | PC.NURSE ---
Patient feeling better, tolerated a diet and keeping down fluids. IV dc'd intact. Discharge instructions and prescriptions given to patient. Patient escorted out via wheelchair with all belongings, her friend was going to drive her home.
--- NOTE | 2018-08-27 08:10 | PC.NURSE ---
Addendum entered by Alley Rodriguez R.N. 08/27/18 09:26: Error on stop date for Sodium chloride 0.45% stopped 08/22 1208 Original Note: Late entry: Potassium Chloride 60meq stopped 08/22 1223 Sodium Chloride 0.45% stopped 08/21 1208 Sodium Chloride 0.9% ordered 08/21 1700 stopped 08/21 2012 Sodium Chloride 0.9% ordered 08/22 0315 stopped 08/22 1540
== END 2018-08-22 15:46 | disposition home or self-care (01) ==
LOC: ED 18:28 → AC 18:31
PROVIDERS: Emergency Medicine; Nurse Practitioner Adult Health; Admitting Provider Internal Medicine; Emergency Provider Nurse Practitioner Family; Visit Provider Internal Medicine
DX: G43.A0 Cyclical vomiting, in migraine, not intractable (principal); R19.7 Diarrhea, unspecified; F17.210 Nicotine dependence, cigarettes, uncomplicated; F12.929 Cannabis use, unspecified with intoxication, unspecified; R51 Headache; J45.909 Unspecified asthma, uncomplicated; T78.49XA Other allergy, initial encounter
CPT/HCPCS: 36415; 36591; 74022; 76700; 80048; 80053; 80305; 81003; 81015; 81025; 83690; 83735; 84100; 85025; 85610; 85730; 87086; 94762; 96361; 96372; 96374; 96375; 96376; 99283; 99284; 99406; G0378; J0780; J1200; J1650; J1885; J2060; J2405; J2765; J3480; J7050

== ENCOUNTER 2019-02-04 06:24 | Emergency (ER) | payer SELFPAY ==
[2018-08-21 18:41] VITALS: BMI 31.2
[2019-02-04 06:34] VITALS: BP 135/94; PULSE 81; RESP 15; TEMP 36.4; O2SAT 98; BMI 29.8
--- NOTE | 2019-02-04 06:35 | ED.GENADULT ---
HPI - General Adult <Celestino Avitia DO - Last Filed: 02/04/19 21:52> General Chief complaint: Nausea/Vomiting/Diarrhea Stated complaint: Vomiting, nausea, Time Seen by Provider: 02/04/19 06:26 Source: patient Mode of arrival: Ambulatory Limitations: no limitations History of Present Illness HPI narrative: 29-year-old female with a history of cyclic vomiting syndrome here for evaluation of vomiting for the past 3 hours. She states that a couple days ago she had similar symptoms was able to control it at home. She took her Zofran prior to arrival. Related Data Home Medications Medication Instructions Recorded Confirmed Flovent HFA 1 puff INHALATION BID 08/21/18 08/21/18 albuterol sulfate 2 puff INHALATION Q4-6H PRN 08/21/18 08/21/18 buspirone 15 mg PO TID 08/21/18 08/21/18 diphenhydramine HCl 50 mg PO BEDTIME 08/21/18 08/21/18 fluticasone propionate [Flonase 2 spray INTRANASAL DAILY PRN 08/21/18 08/21/18 Allergy Relief] haloperidol 0.5 mg PO Q8H PRN 08/21/18 08/21/18 metoclopramide HCl 10 mg PO Q6H PRN 08/21/18 08/21/18 nortriptyline 100 mg PO BEDTIME 08/21/18 08/21/18 ondansetron 4 mg PO Q6H PRN 08/21/18 08/21/18 propranolol 40 mg PO DAILY 08/21/18 08/21/18 rizatriptan 5 mg PO Q2-4H PRN MDD 10 mg 08/21/18 08/21/18 Previous Rx's Medication Instructions Recorded lorazepam 1 mg PO BID PRN #10 tab 08/22/18 prochlorperazine 25 mg [place] Q12H PRN #12 each 08/22/18 haloperidol lactate 1 mg PO TID #120 ml 02/04/19 lorazepam [Ativan] 1 mg PO TID PRN #20 tab 02/04/19 potassium chloride 20 meq PO DAILY #7 tab 02/07/19 Allergies Allergy/AdvReac Type Severity Reaction Status Date / Time mushroom Allergy Severe Vomiting Verified 02/06/19 20:51 peanut Allergy Severe Anaphylaxis Verified 02/06/19 20:51 Sulfa (Sulfonamide Allergy Unknown Verified 02/06/19 20:51 Antibiotics) Review of Systems <Celestino Avitia DO - Last Filed: 02/04/19 21:52> Constitutional Constitutional: Denies fever(s) Cardiovascular Cardiovascular: Denies chest pain Gastrointestinal Gastrointestinal: Reports abdominal pain, Reports nausea and Reports vomiting Musculoskeletal Musculoskeletal: Denies myalgias and Denies arthralgias Integumentary/Breasts Skin/Breast: Denies lesions and Denies rash Neurologic Neurologic: Denies behavioral changes Psychiatric Psychiatric: Denies behavioral changes Hematologic/Lymphatic Hematologic/Lymphatic: Denies easy bleeding and Denies easy bruising Patient History <Celestino Avitia DO - Last Filed: 02/04/19 21:52> Medical History Asthma (Acute) Cyclic vomiting syndrome (Acute) Environmental allergies (Acute) Marijuana smoker (Acute) Severe frontal headaches (Acute) Social History household members: spouse Smoking Status: Current some day smoker alcohol intake: current Smoking Status: Current some day smoker alcohol intake frequency: a few times a week Substance Use Type: marijuana Exam <Celestino Avitia DO - Last Filed: 02/04/19 21:52> Initial Vital Signs Initial Vital Signs: Vital Signs Temperature 97.6 F 02/04/19 06:34 Pulse Rate 81 02/04/19 06:34 Respiratory Rate 15 02/04/19 06:34 Blood Pressure 135/94 H 02/04/19 06:34 Pulse Oximetry 98 02/04/19 06:34 Const General: No comfortable (Uncomfortable) Orientation: alert and awake Resp Effort & Inspection: normal respiratory effort Cardio Rate: regular rate GI Inspection: non-distended Skin Lesions: no lesions Rashes: no rashes Neuro General: alert and awake Cognition: normal cognition Speech: speech normal Extrem General: normal to inspection and capillary refill normal <Charissa Villalobos MD - Last Filed: 02/11/19 19:59> Initial Vital Signs Initial Vital Signs: Vital Signs Temperature 97.6 F 02/04/19 06:34 Pulse Rate 81 02/04/19 06:34 Respiratory Rate 15 02/04/19 06:34 Blood Pressure 135/94 H 02/04/19 06:34 Pulse Oximetry 98 12/24/19 06:34 Course <Celestino Adore, DO - Last Filed: 02/04/19 21:52> Orders Ordered: Discontinued Medications Haloperidol (Haldol) 5 mg IV NOW ONE Stop: 02/04/19 06:57 Last Admin: 02/04/19 09:30 Dose: Not Given Documented by: SERGEY Hydromorphone HCl (Dilaudid) 1 mg IV NOW ONE Stop: 02/04/19 09:32 Last Admin: 02/04/19 09:36 Dose: 1 mg Documented by: SERGEY Hydromorphone HCl (Dilaudid) 0.5 mg IV NOW ONE Stop: 02/04/19 11:08 Last Admin: 02/04/19 11:12 Dose: 0.5 mg Documented by: SERGEY Sodium Chloride (Normal Saline 0.9%) 1,000 mls @ 1,000 mls/hr IV BOLUS ONE Stop: 02/04/19 07:34 Last Infusion: 02/04/19 08:45 Dose: 0 mls/hr Documented by: Admin: 02/04/19 06:47 Dose: 1,000 mls/hr Documented by: YOVANI Ketamine HCl 15 mg/ Sodium (Chloride) 50.15 mls @ 200.6 mls/hr IV NOW ONE Stop: 02/04/19 07:22 Last Infusion: 02/04/19 09:21 Dose: 0 mls/hr Documented by: Admin: 02/04/19 08:09 Dose: 200.6 mls/hr Documented by: STANFORD Chlorpromazine HCl 12.5 mg/ (Sodium Chloride) 500.5 mls @ 1,001 mls/hr IV NOW ONE Stop: 02/04/19 07:23 Last Infusion: 02/04/19 10:31 Dose: 0 mls/hr Documented by: Admin: 02/04/19 08:09 Dose: 1,001 mls/hr Documented by: STANFORD Lorazepam (Ativan) 1 mg IV NOW ONE Stop: 02/04/19 06:40 Last Admin: 02/04/19 06:49 Dose: 1 mg Documented by: YOVANI Lorazepam (Ativan) 0.5 mg PO NOW ONE Stop: 02/04/19 12:00 Last Admin: 02/04/19 12:02 Dose: 0.5 mg Documented by: SERGEY Ondansetron HCl (Zofran) 4 mg IV NOW ONE Stop: 02/04/19 06:36 Last Admin: 02/04/19 06:47 Dose: 4 mg Documented by: YOVANI Pantoprazole Sodium (Protonix) 40 mg IV NOW ONE Stop: 02/04/19 11:08 Last Admin: 02/04/19 11:12 Dose: 40 mg Documented by: SERGEY Vital Signs Vital signs: Vital Signs - 8 hr 02/04/19 06:34 Temperature 97.6 F Pulse Rate 81 Respiratory Rate 15 Blood Pressure 135/94 H Pulse Oximetry 98 <Charissa Villalobos MD - Last Filed: 02/11/19 19:59> Course Course Narrative: Griselda note: The patient was signed out to me at change of shift by Dr. Avitia, pending symptomatic improvement. The patient had a longstanding history of cyclic vomiting, and appeared quite miserable in the emergency department. She was treated with Haldol, chlorpromazine, ketamine, Ativan, Protonix, Zofran, and finally, Dilaudid. The patient was found to be feeling better, though drowsy, but expressed that she was anxious about the possibility of recurrence of symptoms. I had a long discussion with the patient and her mother regarding the fact that she needs to preempt symptoms by taking her nausea and anxiety medication before she begins vomiting. The patient already has oral dissolving Zofran at home, and I've given her a prescription for rectal Compazine, as well. The we have discussed home management of the symptoms as well as the usual indications for return. Mom is agreeable to the plan at home, as is patient. Orders Ordered: Discontinued Medications Haloperidol (Haldol) 5 mg IV NOW ONE Stop: 02/04/19 06:57 Last Admin: 02/04/19 09:30 Dose: Not Given Documented by: SERGEY Hydromorphone HCl (Dilaudid) 1 mg IV NOW ONE Stop: 02/04/19 09:32 Last Admin: 02/04/19 09:36 Dose: 1 mg Documented by: FRANSISCAO Hydromorphone HCl (Dilaudid) 0.5 mg IV NOW ONE Stop: 02/04/19 11:08 Last Admin: 02/04/19 11:12 Dose: 0.5 mg Documented by: SERGEY Sodium Chloride (Normal Saline 0.9%) 1,000 mls @ 1,000 mls/hr IV BOLUS ONE Stop: 02/04/19 07:34 Last Infusion: 02/04/19 08:45 Dose: 0 mls/hr Documented by: Admin: 02/04/19 06:47 Dose: 1,000 mls/hr Documented by: YOVANI Ketamine HCl 15 mg/ Sodium (Chloride) 50.15 mls @ 200.6 mls/hr IV NOW ONE Stop: 02/04/19 07:22 Last Infusion: 02/04/19 09:21 Dose: 0 mls/hr Documented by: Admin: 02/04/19 08:09 Dose: 200.6 mls/hr Documented by: STANFORD Chlorpromazine HCl 12.5 mg/ (Sodium Chloride) 500.5 mls @ 1,001 mls/hr IV NOW ONE Stop: 02/04/19 07:23 Last Infusion: 02/04/19 10:31 Dose: 0 mls/hr Documented by: Admin: 02/04/19 08:09 Dose: 1,001 mls/hr Documented by: STANFORD Lorazepam (Ativan) 1 mg IV NOW ONE Stop: 02/04/19 06:40 Last Admin: 02/04/19 06:49 Dose: 1 mg Documented by: YOVANI Lorazepam (Ativan) 0.5 mg PO NOW ONE Stop: 02/04/19 12:00 Last Admin: 02/04/19 12:02 Dose: 0.5 mg Documented by: SERGEY Ondansetron HCl (Zofran) 4 mg IV NOW ONE Stop: 02/04/19 06:36 Last Admin: 02/04/19 06:47 Dose: 4 mg Documented by: YOVANI Pantoprazole Sodium (Protonix) 40 mg IV NOW ONE Stop: 02/04/19 11:08 Last Admin: 02/04/19 11:12 Dose: 40 mg Documented by: SERGEY Vital Signs Vital signs: Vital Signs - 8 hr 02/04/19 06:34 Temperature 97.6 F Pulse Rate 81 Respiratory Rate 15 Blood Pressure 135/94 H Pulse Oximetry 98 Medical Decision Making <Celestino Lanker, DO - Last Filed: 02/04/19 21:52> Lab Data Result diagrams: 02/04/19 06:40 02/04/19 07:15 Labs: Lab Results 02/04/19 02/04/19 02/04/19 Range/Units 04:42 06:40 07:15 WBC 13.3 H (4.5-11.0) X10^3/uL RBC 4.92 (4.0-5.2) X10^6/uL Hgb 14.3 (12.0-16.0) g/dL Hct 42.8 (36-46) % MCV 86.9 (80-100) fL MCH 29.1 (26-34) PG MCHC 33.5 (30-36) % RDW 13.4 (11.6-14.8) % Plt Count 425 H (150-400) X10^3/uL Neut % (Auto) 81.0 H (50-75) % Lymph % (Auto) 12.1 L (25-40) % [place] % (Auto) 4.6 (3-14) % Eos % (Auto) 2.1 (2-4) % Baso % (Auto) 0.2 (0-2) % Neut # (Auto) 21677 H (8511-6532) /uL Lymph # (Auto) 1600 (0300-9027) /uL [place] # (Auto) 600 (0-900) /uL Eos # (Auto) 300 (0-450) /uL Baso # (Auto) 0 (0-100) /uL Sodium 138 (137-145) mmol/L Potassium 3.5 (3.4-5.1) mmol/L Chloride 106 (98-107) mmol/L Carbon Dioxide 25 (22-32) mmol/L BUN 13 (7-17) mg/dL Creatinine 0.70 (0.52-1.04) mg/dL Estimated GFR > 60.0 (>60) mL/min BUN/Creatinine Ratio 18.6 (6-22) Glucose 123 H (70-100) mg/dL Calcium 9.0 (8.4-10.2) mg/dL Total Bilirubin 0.6 (0.2-1.3) mg/dL AST 30 (14-36) IU/L ALT 30 (<35) IU/L Alkaline Phosphatase 69 (38-126) U/L Total Protein 7.0 (6.3-8.2) g/dL Albumin 4.3 (3.5-5.0) g/dL Globulin 2.7 (1.7-4.1) g/dL Albumin/Globulin Ratio 1.6 (1.0-2.8) Lipase 41 (23-300) U/L Urine Ictotest Negative (Negative) Urine RBC 0-1/hpf (0-5/HPF) Urine WBC 0-1/hpf (0-5/HPF) Urine Bacteria Few (2-10) H (None) Ur Culture Indicated? Specimen cultured Point of Care Testing Test Results Negative Urine Dip Bedside Urine Glucose Negative Bedside Urine Bilirubin + 1 Bedside Urine Ketone ++ 40 Urine Specific [place] 1.025 Bedside Urine Occult Blood - Negative Bedside Urine pH 6.0 Bedside Urine Protein +/- 15 Bedside Urine Urobilinogen +/- 1mg Bedside Urine Nitrite - Negative Bedside Urine Leukocytes +/- 15 Esterase Point of care testing: Point of Care Testing Test Results Negative Urine Dip Bedside Urine Glucose Negative Bedside Urine Bilirubin + 1 Bedside Urine Ketone ++ 40 Urine Specific [place] 1.025 Bedside Urine Occult Blood - Negative Bedside Urine pH 6.0 Bedside Urine Protein +/- 15 Bedside Urine Urobilinogen +/- 1mg Bedside Urine Nitrite - Negative Bedside Urine Leukocytes +/- 15 Esterase MDM Narrative Medical decision making narrative: Point of care test negative. Urinalysis shows multiple abnormalities and was sent for a micro. This could potentially be a contaminated sample. Patient states that in the past she has been given Dilaudid, Ativan, Haldol and nausea medication. I informed the patient that we're going to hold on any delighted. We will give Ativan and Haldol. Care turned over to Dr Villalobos a change of shift to follow up on labs and patient's symptoms. <Charissa Villalobos MD - Last Filed: 02/11/19 19:59> Medical Records Medical records reviewed: Yes I reviewed the patient's medical records. Lab Data Lab results reviewed: Yes I reviewed the patient's lab results. Labs: Lab Results 02/04/19 02/04/19 02/04/19 Range/Units 04:42 06:40 07:15 WBC 13.3 H (4.5-11.0) X10^3/uL RBC 4.92 (4.0-5.2) X10^6/uL Hgb 14.3 (12.0-16.0) g/dL Hct 42.8 (36-46) % MCV 86.9 (80-100) fL MCH 29.1 (26-34) PG MCHC 33.5 (30-36) % RDW 13.4 (11.6-14.8) % Plt Count 425 H (150-400) X10^3/uL Neut % (Auto) 81.0 H (50-75) % Lymph % (Auto) 12.1 L (25-40) % [place] % (Auto) 4.6 (3-14) % Eos % (Auto) 2.1 (2-4) % Baso % (Auto) 0.2 (0-2) % Neut # (Auto) 02272 H (8185-9835) /uL Lymph # (Auto) 1600 (8523-3084) /uL [place] # (Auto) 600 (0-900) /uL Eos # (Auto) 300 (0-450) /uL Baso # (Auto) 0 (0-100) /uL Sodium 138 (137-145) mmol/L Potassium 3.5 (3.4-5.1) mmol/L Chloride 106 (98-107) mmol/L Carbon Dioxide 25 (22-32) mmol/L BUN 13 (7-17) mg/dL Creatinine 0.70 (0.52-1.04) mg/dL Estimated GFR > 60.0 (>60) mL/min BUN/Creatinine Ratio 18.6 (6-22) Glucose 123 H (70-100) mg/dL Calcium 9.0 (8.4-10.2) mg/dL Total Bilirubin 0.6 (0.2-1.3) mg/dL AST 30 (14-36) IU/L ALT 30 (<35) IU/L Alkaline Phosphatase 69 (38-126) U/L Total Protein 7.0 (6.3-8.2) g/dL Albumin 4.3 (3.5-5.0) g/dL Globulin 2.7 (1.7-4.1) g/dL Albumin/Globulin Ratio 1.6 (1.0-2.8) Lipase 41 (23-300) U/L Urine Ictotest Negative (Negative) Urine RBC 0-1/hpf (0-5/HPF) Urine WBC 0-1/hpf (0-5/HPF) Urine Bacteria Few (2-10) H (None) Ur Culture Indicated? Specimen cultured Point of Care Testing Test Results Negative Urine Dip Bedside Urine Glucose Negative Bedside Urine Bilirubin + 1 Bedside Urine Ketone ++ 40 Urine Specific [place] 1.025 Bedside Urine Occult Blood - Negative Bedside Urine pH 6.0 Bedside Urine Protein +/- 15 Bedside Urine Urobilinogen +/- 1mg Bedside Urine Nitrite - Negative Bedside Urine Leukocytes +/- 15 Esterase Point of care testing: Point of Care Testing Test Results Negative Urine Dip Bedside Urine Glucose Negative Bedside Urine Bilirubin + 1 Bedside Urine Ketone ++ 40 Urine Specific [place] 1.025 Bedside Urine Occult Blood - Negative Bedside Urine pH 6.0 Bedside Urine Protein +/- 15 Bedside Urine Urobilinogen +/- 1mg Bedside Urine Nitrite - Negative Bedside Urine Leukocytes +/- 15 Esterase Discharge Plan Departure Patient Disposition: Home Clinical Impression: Cyclical vomiting Discharge Date/Time: 02/04/19 12:56 Instructions: DI for Vomiting -- Adult Prescriptions: New haloperidol lactate 2 mg/mL concentrate 1 mg PO TID Qty: 120 RF: 0 lorazepam [Ativan] 1 mg tablet 1 mg PO TID PRN (Reason: anxiety) Qty: 20 RF: 0 No Action haloperidol 0.5 mg tablet 0.5 mg PO Q8H PRN (Reason: breakthrough) RF: 0 diphenhydramine HCl 50 mg Capsule 50 mg PO BEDTIME RF: 0 propranolol 40 mg Tablet 40 mg PO DAILY RF: 0 ondansetron 4 mg Tablet,Disintegrating 4 mg PO Q6H PRN (Reason: Nausea) RF: 0 nortriptyline 50 mg Capsule 100 mg PO BEDTIME RF: 0 metoclopramide HCl 10 mg tablet 10 mg PO Q6H PRN (Reason: Nausea And Vomiting) RF: 0 rizatriptan 5 mg Tablet 5 mg PO Q2-4H MDD 10 mg PRN (Reason: Migraine Headache) RF: 0 buspirone 15 mg Tablet 15 mg PO TID RF: 0 albuterol sulfate 90 mcg/actuation Hfa Aerosol Inhaler 2 puff INHALATION Q4-6H PRN (Reason: Wheezing) RF: 0 fluticasone propionate [Flonase Allergy Relief] 50 mcg/actuation [place],Suspension 2 spray INTRANASAL DAILY PRN (Reason: Allergic Symptoms) RF: 0 Flovent HFA 110 mcg/actuation Hfa Aerosol Inhaler 1 puff INHALATION BID RF: 0 prochlorperazine 25 mg suppository 25 mg [place] Q12H PRN (Reason: nausea and vomiting) Qty: 12 RF: 0 lorazepam 1 mg tablet 1 mg PO BID PRN (Reason: nausea and vomiting) Qty: 10 RF: 0 potassium chloride 20 mEq tablet extended release 20 meq PO DAILY Qty: 7 RF: 0 Referrals: [facility] [Provider Group]
[2019-02-04] MEDS: SODIUM CHLORIDE 0.9% 1,000 ML 1000 ML IV (06:47)
[2019-02-04] MEDS: ONDANSETRON 4 MG/2 ML INJ IV (06:47)
[2019-02-04] MEDS: LORazepam 2 MG/ML INJ 1 MG IV (06:49)
[2019-02-04 06:53] LABS: Add Manual Diff / Slide Review NO; Basophils Absolute Auto 0 /uL (0-100); Basophils Percent Auto 0.2 % (0-2); Eosinophils Absolute Auto 300 /uL (0-450); Eosinophils Percent Auto 2.1 % (2-4); Hematocrit 42.8 % (36-46); Hemoglobin 14.3 g/dL (12.0-16.0); Lymphocytes Absolute Auto 1600 /uL (1100-4500); Lymphocytes Percent Auto 12.1 % (25-40); Mean Corpuscular HGB Conc 33.5 % (30-36); Mean Corpuscular Hemoglobin 29.1 PG (26-34); Mean Corpuscular Volume 86.9 fL (80-100); Monocytes Absolute Auto 600 /uL (0-900); Monocytes Percent Auto 4.6 % (3-14); Neutrophils Absolute Auto 10700 /uL (1500-7000); Platelet Count 425 X10^3/uL (150-400); Red Blood Cell Count 4.92 X10^6/uL (4.0-5.2); Red Cell Distribution Width 13.4 % (11.6-14.8); White Blood Cell Count 13.3 X10^3/uL (4.5-11.0)
[2019-02-04 06:53] LABS: Bacteria Urine Few (2-10); RBC Urine 0-1/HPF (0-5/HPF); WBC Urine 0-1/HPF (0-5/HPF)
[2019-02-04 06:54] LABS: Culture Indicated Urine Specimen Cultured
[2019-02-04 06:57] LABS: Ictotest Urine Negative (Negative)
[2019-02-04 07:34] LABS: Alanine Aminotransferase 30 IU/L (<35); Albumin 4.3 g/dL (3.5-5.0); Albumin Globulin Ratio 1.6 (1.0-2.8); Alkaline Phosphatase 69 U/L (38-126); Aspartate Aminotransferase 30 IU/L (14-36); BUN Creatinine Ratio 18.6 (6-22); Bilirubin Total 0.6 mg/dL (0.2-1.3); Blood Urea Nitrogen 13 mg/dL (7-17); Carbon Dioxide 25 mmol/L (22-32); Chloride 106 mmol/L (98-107); Estimated Glomerular Filt Rate > 60.0 mL/min (>60); Globulin 2.7 g/dL (1.7-4.1); Glucose 123 mg/dL (70-100); HEMOLYSIS < 15 (0-50); Lipase 41 U/L (23-300); Potassium 3.5 mmol/L (3.4-5.1); Sodium 138 mmol/L (137-145)
[2019-02-04] MEDS: CHLORPROMAZINE IV (08:09)
[2019-02-04] MEDS: SODIUM CHLORIDE 0.9% IV ×2 (08:09)
[2019-02-04] MEDS: KETAMINE IV (08:09)
--- NOTE | 2019-02-04 09:26 | PC.NURSE ---
Patient with continuous nausea with dry heave;
[2019-02-04 09:29] VITALS: BP 134/88; PULSE 98; RESP 16; O2SAT 99
[2019-02-04] MEDS: HYDROMORPHONE 1 MG INJ IV (09:36)
--- NOTE | 2019-02-04 09:42 | PC.NURSE ---
0845: pt c/o incontinence from vomiting, assisted pt to take shower at pt's request. stopped iv infusion during this time. infusion resumed when pt was finished. pt continues to have intermitted vomiting.
[2019-02-04] MEDS: PANTOPRAZOLE 40 MG VIAL IV (11:12)
[2019-02-04] MEDS: HYDROMORPHONE 0.5 MG INJ IV (11:12)
[2019-02-04] MEDS: LORazepam 0.5 MG TABLET PO (12:02)
== END 2019-02-04 12:56 | disposition home or self-care (01) ==
PROVIDERS: Emergency Medicine; Emergency Provider Emergency Medicine
DX: R11.15 Cyclical vomiting syndrome unrelated to migraine (principal)
CPT/HCPCS: 36415; 80053; 81003; 81015; 81025; 83690; 85025; 87086; 96361; 96365; 96366; 96368; 96375; 96376; 99284; C9113; J1170; J2060; J2405; J3230

== ENCOUNTER 2019-02-06 20:34 | Emergency (ER) | payer SELFPAY ==
[2018-08-21 18:41] VITALS: BMI 31.2
[2019-02-06 20:35] VITALS: BP 126/107; PULSE 97; RESP 15; TEMP 36.8; O2SAT 100; BMI 31.9
[2019-02-06] MEDS: PANTOPRAZOLE 40 MG VIAL IV ×2 (20:45→22:56)
[2019-02-06] MEDS: SODIUM CHLORIDE 0.9% 1,000 ML 1000 ML IV ×2 (20:45→23:51)
--- NOTE | 2019-02-06 21:16 | PC.NURSE ---
2104 multiple attempts by multiple RNs to place periph IV without success, notified
[2019-02-06] MEDS: hydrOXYzine 50 MG/ML INJ IM (21:30)
[2019-02-06] MEDS: LORazepam 2 MG/ML INJ 1 MG IM (21:31)
[2019-02-06] MEDS: HALOPERIDOL 5 MG/ML VIAL IV (22:22)
[2019-02-06 22:38] LABS: Add Manual Diff / Slide Review NO; Basophils Absolute Auto 100 /uL (0-100); Basophils Percent Auto 0.4 % (0-2); Eosinophils Absolute Auto 100 /uL (0-450); Hematocrit 40.5 % (36-46); Hemoglobin 13.9 g/dL (12.0-16.0); Lymphocytes Absolute Auto 1500 /uL (1100-4500); Lymphocytes Percent Auto 13.1 % (25-40); Mean Corpuscular HGB Conc 34.3 % (30-36); Mean Corpuscular Hemoglobin 29.3 PG (26-34); Mean Corpuscular Volume 85.4 fL (80-100); Monocytes Absolute Auto 500 /uL (0-900); Monocytes Percent Auto 4.6 % (3-14); Neutrophils Absolute Auto 9200 /uL (1500-7000); Neutrophils Percent Auto 80.9 % (50-75); Platelet Count 412 X10^3/uL (150-400); Red Blood Cell Count 4.74 X10^6/uL (4.0-5.2); Red Cell Distribution Width 13.2 % (11.6-14.8); White Blood Cell Count 11.4 X10^3/uL (4.5-11.0)
[2019-02-06 22:47] LABS: Alanine Aminotransferase 28 IU/L (<35); Albumin 4.5 g/dL (3.5-5.0); Albumin Globulin Ratio 1.6 (1.0-2.8); Alkaline Phosphatase 70 U/L (38-126); Aspartate Aminotransferase 27 IU/L (14-36); BUN Creatinine Ratio 11.7 (6-22); Bilirubin Total 0.7 mg/dL (0.2-1.3); Blood Urea Nitrogen 7 mg/dL (7-17); Calcium 9.3 mg/dL (8.4-10.2); Carbon Dioxide 27 mmol/L (22-32); Chloride 102 mmol/L (98-107); Estimated Glomerular Filt Rate > 60.0 mL/min (>60); Globulin 2.8 g/dL (1.7-4.1); Glucose 119 mg/dL (70-100); HEMOLYSIS < 15 (0-50); Potassium 2.9 mmol/L (3.4-5.1); Sodium 138 mmol/L (137-145); Total Protein 7.3 g/dL (6.3-8.2)
[2019-02-06 22:57] VITALS: BP 137/83; PULSE 87; RESP 14; O2SAT 99
[2019-02-06 22:58] LABS: Ketones (Beta-Hydroxybutyrate) 0.93 mmol/L (<0.27)
[2019-02-06] MEDS: POTASSIUM CHLORIDE 20 MEQ/15 ML UDC 40 MEQ PO (23:13)
[2019-02-06] MEDS: KETOROLAC 60 MG/2 ML VIAL 15 MG IV (23:51)
--- NOTE | 2019-02-07 00:50 | ED_ITS ---
HPI - Nausea/Vomiting/Diarrhea General Chief complaint: Nausea/Vomiting/Diarrhea Stated complaint: Vomiting Time Seen by Provider: 02/06/19 20:35 Source: patient Mode of arrival: Wheelchair Limitations: no limitations History of Present Illness HPI Narrative: 29-year-old female occasional smoker with marijuana history and chronic history of cyclic vomiting which historically is tied into her menstrual cycles presents with a few hours of persistent vomiting. The patient was seen and evaluated 2 days ago under similar circumstances in after an IV with fluids and various antiemetics and pain meds she was well enough to go home. She was given a few prescriptions which today she had been unable to keep down. She is not dizzy nor weak or lightheaded. She denies any fever or chills. She denies recent travel or change in diet MD complaint: nausea, vomiting and abdominal pain Onset (ago): hour(s) Description of Vomiting: food contents Description of Diarrhea: none Associated Abdominal Pain: Yes Location of pain: diffuse Severity: moderate Quality: cramping Pain Consistency: intermittent Exacerbating factors: none Associated symptoms: denies other symptoms Related Data Home Medications Medication Instructions Recorded Confirmed Flovent HFA 1 puff INHALATION BID 08/21/18 08/21/18 albuterol sulfate 2 puff INHALATION Q4-6H PRN 08/21/18 08/21/18 buspirone 15 mg PO TID 08/21/18 08/21/18 diphenhydramine HCl 50 mg PO BEDTIME 08/21/18 08/21/18 fluticasone propionate [Flonase 2 spray INTRANASAL DAILY PRN 08/21/18 08/21/18 Allergy Relief] haloperidol 0.5 mg PO Q8H PRN 08/21/18 08/21/18 metoclopramide HCl 10 mg PO Q6H PRN 08/21/18 08/21/18 nortriptyline 100 mg PO BEDTIME 08/21/18 08/21/18 ondansetron 4 mg PO Q6H PRN 08/21/18 08/21/18 propranolol 40 mg PO DAILY 08/21/18 08/21/18 rizatriptan 5 mg PO Q2-4H PRN MDD 10 mg 08/21/18 08/21/18 Previous Rx's Medication Instructions Recorded lorazepam 1 mg PO BID PRN #10 tab 08/22/18 prochlorperazine 25 mg FL Q12H PRN #12 each 08/22/18 haloperidol lactate 1 mg PO TID #120 ml 02/04/19 lorazepam [Ativan] 1 mg PO TID PRN #20 tab 02/04/19 potassium chloride 20 meq PO DAILY #7 tab 02/07/19 Allergies Allergy/AdvReac Type Severity Reaction Status Date / Time mushroom Allergy Severe Vomiting Verified 02/06/19 20:51 peanut Allergy Severe Anaphylaxis Verified 02/06/19 20:51 Sulfa (Sulfonamide Allergy Unknown Verified 02/06/19 20:51 Antibiotics) Review of Systems Constitutional Constitutional: Denies chills, Denies fatigue, Denies fever(s), Denies frequent falls, Denies lethargy and Denies weakness Eyes Eyes: Denies change in vision, Denies eye discharge, Denies irritation and Denies loss of vision ENT Ears, Nose, Mouth, and Throat: Denies change in voice, Denies dizziness, Denies neck pain, Denies sore throat and Denies throat swelling Cardiovascular Cardiovascular: Denies chest pain, Denies irregular heart rhythm, Denies lightheadedness, Denies palpitations, Denies dyspnea, Denies dyspnea on exertion and Denies orthopnea Respiratory Respiratory: Denies cough, Denies dyspnea, Denies dyspnea on exertion and Denies wheezing Gastrointestinal Gastrointestinal: Reports abdominal pain, Denies change in bowel habits, Denies diarrhea, Reports nausea and Reports vomiting Genitourinary Genitourinary: Denies hematuria, Denies flank pain, Denies urinary incontinence and Denies urinary urgency Musculoskeletal Musculoskeletal: Denies back pain, Denies muscle weakness, Denies neck pain, Denies numbness and Denies tingling Integumentary/Breasts Skin/Breast: Denies pruritus, Denies erythema, Denies rash and Denies wounds Neurologic Neurologic: Denies behavioral changes, Denies confusion, Denies dizziness, Denies frequent falls, Denies loss of vision, Denies numbness, Denies tingling and Denies weakness Psychiatric Psychiatric: Denies anxiety, Denies behavioral changes, Denies confusion, Denies depression, Denies homicidal ideation and Denies suicidal ideation Endocrine Endocrine: Denies fatigue, Denies flushing and Denies palpitations Hematologic/Lymphatic Hematologic/Lymphatic: Denies easy bruising Allergic/Immunologic Allergic/Immunologic: Denies urticaria, Denies throat swelling and Denies wheezing Patient History Medical History Asthma (Acute) Cyclic vomiting syndrome (Acute) Environmental allergies (Acute) Marijuana smoker (Acute) Severe frontal headaches (Acute) Surgical History History of toe surgery (Acute) Family History Father Arthritis Mother Anxiety Fibromyalgia Brother Childhood asthma Drug abuse Social History household members: spouse Smoking Status: Current some day smoker alcohol intake: current Smoking Status: Current some day smoker alcohol intake frequency: a few times a week Substance Use Type: marijuana Exam Narrative Exam Narrative: GENERAL: [29] year old patient appears stated age. Well- nourished, well-developed patient, in mild distress. Anxious, clearly feeling unwell, actively vomiting HEAD: Atraumatic. Normocephalic. EYES: Pupils equal round and reactive. Extraocular motions intact. No scleral icterus. No injection or drainage. ENT: Nose without bleeding, purulent drainage. Throat without erythema, tonsillar hypertrophy or exudate. Airway patent. NECK: Trachea midline. Non tender CARDIOVASCULAR: Regular rate and rhythm without murmurs, gallops, or rubs. RESPIRATORY: Clear to auscultation. Breath sounds equal bilaterally. No wheezes, rales, or rhonchi. GASTROINTESTINAL: Abdomen soft, non-tender, nondistended. EXTREMITIES: No edema or joint tenderness. BACK: Nontender without deformity or crepitance. No flank tenderness. NEURO: AOx3. SKIN: No rash or erythema of visible areas Initial Vital Signs Initial Vital Signs: Vital Signs Temperature 98.2 F 02/06/19 20:35 Pulse Rate 97 H 02/06/19 20:35 Respiratory Rate 15 02/06/19 20:35 Blood Pressure 126/107 H 02/06/19 20:35 Pulse Oximetry 100 02/06/19 20:35 Course Orders Ordered: ED Orders 02/06/19 22:30 Complete Blood Count AUTO DIFF Stat Comprehensive Metabolic Panel Stat Ketones (Beta-Hydroxybutyrate) Stat Discontinued Medications Haloperidol (Haldol) 5 mg IV Q4HR PRN PRN Reason: Agitation Last Admin: 02/06/19 22:22 Dose: 5 mg Documented by: ALLYN Hydroxyzine HCl (Vistaril) 50 mg IM NOW ONE Stop: 02/06/19 21:22 Last Admin: 02/06/19 21:30 Dose: 50 mg Documented by: ALLYN Sodium Chloride (Normal Saline 0.9%) 1,000 mls @ 1,000 mls/hr IV BOLUS ONE Stop: 02/06/19 21:36 Last Infusion: 02/06/19 23:06 Dose: 0 mls/hr Documented by: Admin: 02/06/19 20:45 Dose: 1,000 mls/hr Documented by: LIDIA Sodium Chloride (Normal Saline 0.9%) 1,000 mls @ 1,000 mls/hr IV BOLUS ONE Stop: 02/07/19 00:15 Last Infusion: 02/07/19 00:54 Dose: 0 mls/hr Documented by: Admin: 02/06/19 23:51 Dose: 1,000 mls/hr Documented by: RAMIRO Ketorolac Tromethamine (Toradol) 15 mg IV NOW ONE Stop: 02/06/19 23:47 Last Admin: 02/06/19 23:51 Dose: 15 mg Documented by: RAMIRO Lorazepam (Ativan) 1 mg IV NOW ONE Stop: 02/06/19 20:38 Last Admin: 02/06/19 21:26 Dose: Not Given Documented by: LIDIA Lorazepam (Ativan) 1 mg IM NOW ONE Stop: 02/06/19 21:22 Last Admin: 02/06/19 21:31 Dose: 1 mg Documented by: ALLYN Ondansetron HCl (Zofran) 4 mg IV Q4HR PRN PRN Reason: Nausea And Vomiting Pantoprazole Sodium (Protonix) 40 mg IV NOW ONE Stop: 02/06/19 20:38 Last Admin: 02/06/19 20:45 Dose: 40 mg Documented by: LIDIA Pantoprazole Sodium (Protonix) 40 mg IV NOW ONE Stop: 02/06/19 22:51 Last Admin: 02/06/19 22:56 Dose: 40 mg Documented by: ALLYN Potassium Chloride (Potassium Chloride) 40 meq PO NOW ONE Stop: 02/06/19 23:07 Last Admin: 02/06/19 23:13 Dose: 40 meq Documented by: ALLYN Vital Signs Vital signs: Vital Signs - 8 hr 02/06/19 20:35 02/06/19 22:57 02/07/19 01:19 Temperature 98.2 F Pulse Rate 97 H 87 91 H Respiratory Rate 15 14 16 Blood Pressure 126/107 H 116/70 Blood Pressure [Left Arm] 137/83 Pulse Oximetry 100 99 96 MDM - Nausea/Vomiting/Diarrhea Lab Data Result diagrams: 02/06/19 22:30 02/06/19 22:30 Labs: Lab Results 02/06/19 02/06/19 02/06/19 Range/Units 22:30 22:30 22:30 WBC 11.4 H (4.5-11.0) X10^3/uL RBC 4.74 (4.0-5.2) X10^6/uL Hgb 13.9 (12.0-16.0) g/dL Hct 40.5 (36-46) % MCV 85.4 (80-100) fL MCH 29.3 (26-34) PG MCHC 34.3 (30-36) % RDW 13.2 (11.6-14.8) % Plt Count 412 H (150-400) X10^3/uL Neut % (Auto) 80.9 H (50-75) % Lymph % (Auto) 13.1 L (25-40) % [place] % (Auto) 4.6 (3-14) % Eos % (Auto) 1.0 L (2-4) % Baso % (Auto) 0.4 (0-2) % Neut # (Auto) 9200 H (6471-2989) /uL Lymph # (Auto) 1500 (6156-4013) /uL [place] # (Auto) 500 (0-900) /uL Eos # (Auto) 100 (0-450) /uL Baso # (Auto) 100 (0-100) /uL Sodium 138 (137-145) mmol/L Potassium 2.9 L (3.4-5.1) mmol/L Chloride 102 (98-107) mmol/L Carbon Dioxide 27 (22-32) mmol/L BUN 7 (7-17) mg/dL Creatinine 0.60 (0.52-1.04) mg/dL Estimated GFR > 60.0 (>60) mL/min BUN/Creatinine Ratio 11.7 (6-22) Glucose 119 H (70-100) mg/dL Calcium 9.3 (8.4-10.2) mg/dL Total Bilirubin 0.7 (0.2-1.3) mg/dL AST 27 (14-36) IU/L ALT 28 (<35) IU/L Alkaline Phosphatase 70 (38-126) U/L Total Protein 7.3 (6.3-8.2) g/dL Albumin 4.5 (3.5-5.0) g/dL Globulin 2.8 (1.7-4.1) g/dL Albumin/Globulin Ratio 1.6 (1.0-2.8) Ketones 0.93 H (<0.27) mmol/L MDM Narrative Medical decision making narrative: 29-year-old female returns with another episode of cyclic vomiting. Initially she was quite difficult to obtain IV access with. Her symptoms were well controlled with the above-stated therapies and she was resting comfortably by the end of her visit. Potassium was on the lower side at 2.9, she was given oral liquid here in the department and a presc ription over the next few days. She has had return precautions given and tolerates oral challenge. Her questions have been answered to her apparent satisfaction Discharge Plan Departure Patient Disposition: Home Clinical Impression: Cyclical vomiting, Acute hypokalemia Discharge Date/Time: 02/07/19 01:19 Instructions: DI for Dehydration -- Adult, DI for Nausea -- Adult, DI for Vomiting -- Adult Activity Restrictions/Additional Instructions: 1. Drink plenty of fluids with frequent small sips. 2. For the next 24 hours a clear liquid diet is advised. After that please employ a brat diet which would include bananas, rice, apples, toast. 3. Please take medications as directed. 4. Please follow-up with your doctor in the next 1-2 days. Call the office for an appointment. 5. Please return to the emergency Department for any worsening or persistent symptoms, such as increasing pain or fever. Prescriptions: New potassium chloride 20 mEq tablet extended release 20 meq PO DAILY Qty: 7 RF: 0 No Action haloperidol 0.5 mg tablet 0.5 mg PO Q8H PRN (Reason: breakthrough) RF: 0 diphenhydramine HCl 50 mg Capsule 50 mg PO BEDTIME RF: 0 propranolol 40 mg Tablet 40 mg PO DAILY RF: 0 ondansetron 4 mg Tablet,Disintegrating 4 mg PO Q6H PRN (Reason: Nausea) RF: 0 nortriptyline 50 mg Capsule 100 mg PO BEDTIME RF: 0 metoclopramide HCl 10 mg tablet 10 mg PO Q6H PRN (Reason: Nausea And Vomiting) RF: 0 rizatriptan 5 mg Tablet 5 mg PO Q2-4H MDD 10 mg PRN (Reason: Migraine Headache) RF: 0 buspirone 15 mg Tablet 15 mg PO TID RF: 0 albuterol sulfate 90 mcg/actuation Hfa Aerosol Inhaler 2 puff INHALATION Q4-6H PRN (Reason: Wheezing) RF: 0 fluticasone propionate [Flonase Allergy Relief] 50 mcg/actuation [place],Suspension 2 spray INTRANASAL DAILY PRN (Reason: Allergic Symptoms) RF: 0 Flovent HFA 110 mcg/actuation Hfa Aerosol Inhaler 1 puff INHALATION BID RF: 0 prochlorperazine 25 mg suppository 25 mg FL Q12H PRN (Reason: nausea and vomiting) Qty: 12 RF: 0 lorazepam 1 mg tablet 1 mg PO BID PRN (Reason: nausea and vomiting) Qty: 10 RF: 0 haloperidol lactate 2 mg/mL concentrate 1 mg PO TID Qty: 120 RF: 0 lorazepam [Ativan] 1 mg tablet 1 mg PO TID PRN (Reason: anxiety) Qty: 20 RF: 0
[2019-02-07 01:19] VITALS: BP 116/70; PULSE 91; RESP 16; O2SAT 96
== END 2019-02-07 01:19 | disposition home or self-care (01) ==
PROVIDERS: Emergency Provider Emergency Medicine
DX: R11.15 Cyclical vomiting syndrome unrelated to migraine (principal); E87.6 Hypokalemia
CPT/HCPCS: 80053; 82009; 85025; 96361; 96372; 96374; 96375; 96376; 99282; 99284; C9113; J1630; J1885; J2060; J2405; J3410

== ENCOUNTER 2019-03-14 10:08 | Emergency (ER) | payer OTHER, SELFPAY ==
[2018-08-21 18:41] VITALS: BMI 31.2
[2019-03-14 10:19] VITALS: BP 154/102; PULSE 88; RESP 24; TEMP 36.7; O2SAT 100; BMI 31.9
--- NOTE | 2019-03-14 10:25 | ED_ITS ---
HPI - Abdominal Pain General Chief Complaint: Abdominal Pain Stated Complaint: vomiting for 7 hours Time Seen by Provider: 03/14/19 10:25 Source: patient Mode of arrival: Wheelchair Limitations: no limitations History of Present Illness HPI narrative: With history of cyclic vomiting and daily marijuana use presentin g with vomiting ongoing for last 7 hours. She has Phenergan suppositories at home along with Ativan Haldol Zofran they have been using that over the last few days which has seemed to help however this morning it is not helping she has been vomiting numerous times. She says that she has previously stopped marijuana but it not seem to change her vomiting cycles. MD complaint: abdominal pain Location: diffuse Severity: moderate Quality: cramping Radiation: none Migration to: no migration Related Data Home Medications Medication Instructions Recorded Confirmed Flovent HFA 1 puff INHALATION BID 08/21/18 08/21/18 albuterol sulfate 2 puff INHALATION Q4-6H PRN 08/21/18 08/21/18 buspirone 15 mg PO TID 08/21/18 08/21/18 diphenhydramine HCl 50 mg PO BEDTIME 08/21/18 08/21/18 fluticasone propionate [Flonase 2 spray INTRANASAL DAILY PRN 08/21/18 08/21/18 Allergy Relief] haloperidol 0.5 mg PO Q8H PRN 08/21/18 08/21/18 metoclopramide HCl 10 mg PO Q6H PRN 08/21/18 08/21/18 nortriptyline 100 mg PO BEDTIME 08/21/18 08/21/18 ondansetron 4 mg PO Q6H PRN 08/21/18 08/21/18 propranolol 40 mg PO DAILY 08/21/18 08/21/18 rizatriptan 5 mg PO Q2-4H PRN MDD 10 mg 08/21/18 08/21/18 Previous Rx's Medication Instructions Recorded prochlorperazine 25 mg [place] Q12H PRN #12 each 08/22/18 haloperidol lactate 1 mg PO TID #120 ml 02/04/19 lorazepam [Ativan] 1 mg PO TID PRN #20 tab 02/04/19 potassium chloride 20 meq PO DAILY #7 tab 02/07/19 promethazine 25 mg [place] Q6H PRN #12 each 03/14/19 Allergies Allergy/AdvReac Type Severity Reaction Status Date / Time mushroom Allergy Severe Vomiting Verified 03/14/19 10:19 peanut Allergy Severe Anaphylaxis Verified 03/14/19 10:19 Sulfa (Sulfonamide Allergy Unknown Verified 03/14/19 10:19 Antibiotics) Review of Systems Review of Systems Narrative: GENERAL: Denies chills, fatigue, malaise, fever, sweats, travel HEENT: Denies sinus pain, ear pain, sore throat, difficulty swallowing, neck pain RESPIRATORY: Denies dyspnea, cough, wheezing, hemoptysis, sputum. CARDIOVASCULAR: Denies chest pain, palpitations, orthopnea, edema GASTROINTESTINAL: See HPI : Denies dysuria, frequency, incontinence, hematuria, urinary retention, flank pain. MUSCULOSKELETAL: Denies weakness, joint pain, or bony pain SKIN: No rash, no erythema, no pruritus NEUROLOGIC: Denies weakness, dizziness, headache, numbness, change in speech, confusion PSYCHIATRIC: No concerning psychosocial issues. 12 point review of systems is negative except for those stated above and HPI Patient History Medical History Asthma (Acute) Cyclic vomiting syndrome (Acute) Environmental allergies (Acute) Marijuana smoker (Acute) Severe frontal headaches (Acute) Surgical History History of toe surgery (Acute) Family History Father Arthritis Mother Anxiety Fibromyalgia Brother Childhood asthma Drug abuse Social History household members: spouse Smoking Status: Current some day smoker alcohol intake: current Smoking Status: Current some day smoker alcohol intake frequency: a few times a week Substance Use Type: marijuana Exam Initial Vital Signs Initial Vital Signs: Vital Signs Temperature 98.0 F 03/14/19 10:19 Pulse Rate 88 03/14/19 10:19 Respiratory Rate 24 03/14/19 10:19 Blood Pressure 154/102 H 03/14/19 10:19 Pulse Oximetry 100 03/14/19 10:19 GENERAL: Actively dry heaving and in no acute distress. HEENT: Head atraumatic,EOMI, pupils reactive, face symmetric, moist mucous membranes CARDIOVASCULAR: Regular rate and rhythm without murmurs, rubs or gallops. RESPIRATORY: Breath sounds equal bilaterally, no wheezes rales or rhonchi. ABDOMEN: Soft, nontender. Normoactive bowel sounds all 4 quadrants. No guarding or rebound. EXTREMITIES: Normal range of motion, no clubbing or edema. Neurovascularly intact NEUROLOGICAL: Alert and oriented x4.Normal gait and speech. Cranial nerves II t hrough XII grossly intact. SKIN: Warm, dry, no laceration, no petechiae, no rashes or lesions. Course Orders Ordered: ED Orders 03/14/19 10:15 Complete Blood Count AUTO DIFF Stat Comprehensive Metabolic Panel Stat Lipase Stat Discontinued Medications Haloperidol (Haldol) 2 mg IV NOW ONE Stop: 03/14/19 11:38 Last Admin: 03/14/19 11:43 Dose: 2 mg Documented by: RAMONAPO Hydromorphone HCl (Dilaudid) 0.5 mg IV NOW ONE Stop: 03/14/19 13:55 Last Admin: 03/14/19 14:00 Dose: 0.5 mg Documented by: FRANSISCAO Hydroxyzine HCl (Vistaril) 25 mg IM NOW ONE Stop: 03/14/19 13:55 Last Admin: 03/14/19 14:00 Dose: 25 mg Documented by: FRANSISCAO Sodium Chloride (Normal Saline 0.9%) 1,000 mls @ 1,000 mls/hr IV BOLUS ONE Stop: 03/14/19 11:37 Last Infusion: 03/14/19 11:51 Dose: 0 mls/hr Documented by: Admin: 03/14/19 10:47 Dose: 1,000 mls/hr Documented by: SCANAPO Ketorolac Tromethamine (Toradol) 30 mg IV NOW ONE Stop: 03/14/19 12:02 Last Admin: 03/14/19 12:22 Dose: 30 mg Documented by: SCANAPO Lorazepam (Ativan) 0.5 mg IV NOW ONE Stop: 03/14/19 10:26 Last Admin: 03/14/19 10:48 Dose: Not Given Documented by: SCANAPO Lorazepam (Ativan) 1 mg IV NOW ONE Stop: 03/14/19 10:39 Last Admin: 03/14/19 10:47 Dose: 1 mg Documented by: SCANAPO Lorazepam (Ativan) 0.5 mg IV NOW ONE Stop: 03/14/19 11:38 Last Admin: 03/14/19 11:43 Dose: 0.5 mg Documented by: SERGEY Lorazepam (Ativan) 1 mg IV NOW ONE Stop: 03/14/19 13:55 Last Admin: 03/14/19 14:01 Dose: 1 mg Documented by: SERGEY Ondansetron HCl (Zofran) 4 mg IV NOW ONE Stop: 03/14/19 10:22 Last Admin: 03/14/19 10:47 Dose: 4 mg Documented by: SERGEY Pantoprazole Sodium (Protonix) 40 mg IV NOW ONE Stop: 03/14/19 10:39 Last Admin: 03/14/19 10:47 Dose: 40 mg Documented by: SERGEY Vital Signs Vital signs: Vital Signs - 8 hr 03/14/19 10:19 03/14/19 13:07 03/14/19 15:19 Temperature 98.0 F Pulse Rate 88 104 H 107 H Respiratory Rate 24 18 14 Blood Pressure 154/102 H Blood Pressure [Left Arm] 140/79 143/82 H Pulse Oximetry 100 97 100 MDM - Abdominal Pain Lab Data Attestation: I reviewed the patient's lab results. Result diagrams: 03/14/19 10:15 03/14/19 10:15 Labs: Lab Results 03/14/19 03/14/19 Range/Units 10:15 10:15 WBC 22.9 H (4.5-11.0) X10^3/uL RBC 5.21 H (4.0-5.2) X10^6/uL Hgb 15.5 (12.0-16.0) g/dL Hct 45.6 (36-46) % MCV 87.6 (80-100) fL MCH 29.7 (26-34) PG MCHC 33.9 (30-36) % RDW 13.6 (11.6-14.8) % Plt Count 507 H (150-400) X10^3/uL Neut % (Auto) 91.0 H (50-75) % Lymph % (Auto) 5.3 L (25-40) % [place] % (Auto) 3.4 (3-14) % Eos % (Auto) 0.0 L (2-4) % Baso % (Auto) 0.3 (0-2) % Neut # (Auto) 87097 H (3684-2515) /uL Lymph # (Auto) 1200 (8980-6704) /uL [place] # (Auto) 800 (0-900) /uL Eos # (Auto) 0 (0-450) /uL Baso # (Auto) 100 (0-100) /uL Sodium 140 (137-145) mmol/L Potassium 3.9 (3.4-5.1) mmol/L Chloride 101 (98-107) mmol/L Carbon Dioxide 24 (22-32) mmol/L BUN 12 (7-17) mg/dL Creatinine 0.70 (0.52-1.04) mg/dL Estimated GFR > 60.0 (>60) mL/min BUN/Creatinine Ratio 17.1 (6-22) Glucose 166 H (70-100) mg/dL Calcium 10.4 H (8.4-10.2) mg/dL Total Bilirubin 0.8 (0.2-1.3) mg/dL AST 31 (14-36) IU/L ALT 30 (<35) IU/L Alkaline Phosphatase 86 (38-126) U/L Total Protein 8.8 H (6.3-8.2) g/dL Albumin 5.2 H (3.5-5.0) g/dL Globulin 3.6 (1.7-4.1) g/dL Albumin/Globulin Ratio 1.4 (1.0-2.8) Lipase 34 (23-300) U/L MDM Narrative Medical decision making narrative: Patient initially feeling low put better however the nausea vomiting started again she is given a more medication she has been sleeping she has not been vomiting. At this time she is requesting refill of Phenergan suppositories and feels ready in able to go home. His blood work is overall reassuring potassium and creatinine are within normal limits no need for admission at this time. Discharge Plan Departure Patient Disposition: Home Clinical Impression: Cyclical vomiting Instructions: DI for Vomiting -- Adult Activity Restrictions/Additional Instructions: 1) You have been diagnosed with cyclic vomiting 2) What to do: Drink frequent but small amounts of fluids. I recommend Gatorade or a Gatorade-like product, as it has small amounts of sugar and salts that improve fluid retention. 3) Take medications as directed PHENERGAN 25 mg every--> Sent to [facility] 4) Follow up with your primary care provider in 2-3 days 5) Return to ER if you should have any new or worsening symptoms such as, unable to hold down fluids despite use of anti-nausea medications and the small volume oral rehydration strategy. Prescriptions: New promethazine 25 mg suppository 25 mg [place] Q6H PRN (Reason: nausea and vomiting) Qty: 12 RF: 0 No Action haloperidol 0.5 mg tablet 0.5 mg PO Q8H PRN (Reason: breakthrough) RF: 0 diphenhydramine HCl 50 mg Capsule 50 mg PO BEDTIME RF: 0 propranolol 40 mg Tablet 40 mg PO DAILY RF: 0 ondansetron 4 mg Tablet,Disintegrating 4 mg PO Q6H PRN (Reason: Nausea) RF: 0 nortriptyline 50 mg Capsule 100 mg PO BEDTIME RF: 0 metoclopramide HCl 10 mg tablet 10 mg PO Q6H PRN (Reason: Nausea And Vomiting) RF: 0 rizatriptan 5 mg Tablet 5 mg PO Q2-4H MDD 10 mg PRN (Reason: Migraine Headache) RF: 0 buspirone 15 mg Tablet 15 mg PO TID RF: 0 albuterol sulfate 90 mcg/actuation Hfa Aerosol Inhaler 2 puff INHALATION Q4-6H PRN (Reason: Wheezing) RF: 0 fluticasone propionate [Flonase Allergy Relief] 50 mcg/actuation [place],Suspension 2 spray INTRANASAL DAILY PRN (Reason: Allergic Symptoms) RF: 0 Flovent HFA 110 mcg/actuation Hfa Aerosol Inhaler 1 puff INHALATION BID RF: 0 prochlorperazine 25 mg suppository 25 mg [place] Q12H PRN (Reason: nausea and vomiting) Qty: 12 RF: 0 potassium chloride 20 mEq tablet extended release 20 meq PO DAILY Qty: 7 RF: 0 haloperidol lactate 2 mg/mL concentrate 1 mg PO TID Qty: 120 RF: 0 lorazepam [Ativan] 1 mg tablet 1 mg PO TID PRN (Reason: anxiety) Qty: 20 RF: 0 Referrals: [facility] Resources [Outside]
[2019-03-14 10:31] LABS: Add Manual Diff / Slide Review NO; Basophils Absolute Auto 100 /uL (0-100); Basophils Percent Auto 0.3 % (0-2); Eosinophils Absolute Auto 0 /uL (0-450); Hematocrit 45.6 % (36-46); Hemoglobin 15.5 g/dL (12.0-16.0); Lymphocytes Absolute Auto 1200 /uL (1100-4500); Lymphocytes Percent Auto 5.3 % (25-40); Mean Corpuscular HGB Conc 33.9 % (30-36); Mean Corpuscular Hemoglobin 29.7 PG (26-34); Mean Corpuscular Volume 87.6 fL (80-100); Monocytes Absolute Auto 800 /uL (0-900); Monocytes Percent Auto 3.4 % (3-14); Neutrophils Absolute Auto 20800 /uL (1500-7000); Platelet Count 507 X10^3/uL (150-400); Red Blood Cell Count 5.21 X10^6/uL (4.0-5.2); Red Cell Distribution Width 13.6 % (11.6-14.8); White Blood Cell Count 22.9 X10^3/uL (4.5-11.0)
[2019-03-14 10:39] LABS: Alanine Aminotransferase 30 IU/L (<35); Albumin 5.2 g/dL (3.5-5.0); Albumin Globulin Ratio 1.4 (1.0-2.8); Alkaline Phosphatase 86 U/L (38-126); Aspartate Aminotransferase 31 IU/L (14-36); BUN Creatinine Ratio 17.1 (6-22); Bilirubin Total 0.8 mg/dL (0.2-1.3); Blood Urea Nitrogen 12 mg/dL (7-17); Calcium 10.4 mg/dL (8.4-10.2); Carbon Dioxide 24 mmol/L (22-32); Chloride 101 mmol/L (98-107); Estimated Glomerular Filt Rate > 60.0 mL/min (>60); Globulin 3.6 g/dL (1.7-4.1); Glucose 166 mg/dL (70-100); HEMOLYSIS 24 (0-50); Lipase 34 U/L (23-300); Potassium 3.9 mmol/L (3.4-5.1); Sodium 140 mmol/L (137-145); Total Protein 8.8 g/dL (6.3-8.2)
[2019-03-14] MEDS: ONDANSETRON 4 MG/2 ML INJ IV (10:47)
[2019-03-14] MEDS: PANTOPRAZOLE 40 MG VIAL IV (10:47)
[2019-03-14] MEDS: LORazepam 2 MG/ML INJ 1 MG IV ×2 (10:47→14:01)
[2019-03-14] MEDS: SODIUM CHLORIDE 0.9% 1,000 ML 1000 ML IV (10:47)
[2019-03-14] MEDS: HALOPERIDOL 5 MG/ML VIAL 2 MG IV (11:43)
[2019-03-14] MEDS: LORazepam 2 MG/ML INJ 0.5 MG IV (11:43)
[2019-03-14] MEDS: KETOROLAC 60 MG/2 ML VIAL 30 MG IV (12:22)
[2019-03-14 13:07] VITALS: BP 140/79; PULSE 104; RESP 18; O2SAT 97
[2019-03-14] MEDS: HYDROMORPHONE 0.5 MG INJ IV (14:00)
[2019-03-14] MEDS: hydrOXYzine 50 MG/ML INJ 25 MG IM (14:00)
[2019-03-14 15:19] VITALS: BP 143/82; PULSE 107; RESP 14; O2SAT 100
== END 2019-03-14 16:06 | disposition home or self-care (01) ==
PROVIDERS: Emergency Provider Emergency Medicine
DX: R11.15 Cyclical vomiting syndrome unrelated to migraine (principal)
CPT/HCPCS: 36415; 80053; 83690; 85025; 96361; 96372; 96374; 96375; 96376; 99284; C9113; J1170; J1630; J1885; J2060; J2405; J3410

== ENCOUNTER 2019-03-16 12:36 | Emergency (ER) | payer OTHER, SELFPAY ==
[2018-08-21 18:41] VITALS: BMI 31.2
[2019-03-16 12:40] VITALS: BP 139/86; PULSE 88; RESP 20; TEMP 36.8; O2SAT 98
--- NOTE | 2019-03-16 13:03 | ED_ITS ---
HPI - Nausea/Vomiting/Diarrhea General Chief complaint: Nausea/Vomiting/Diarrhea Stated complaint: SICLOVOMITING SYNDROM Time Seen by Provider: 03/16/19 13:00 Source: patient and family Mode of arrival: Ambulatory Limitations: no limitations History of Present Illness HPI Narrative: 29-year-old female with a history of cyclic vomiting syndrome here for evaluation of a worsening of her symptoms. She has been taking her home medicines without any improvement. Was seen in the emergency department a couple days ago with the same. Vomiting with any form of oral intake. Abdominal pain. She does not currently see a GI provider. Related Data Home Medications Medication Instructions Recorded Confirmed Flovent HFA 1 puff INHALATION BID 08/21/18 08/21/18 albuterol sulfate 2 puff INHALATION Q4-6H PRN 08/21/18 08/21/18 buspirone 15 mg PO TID 08/21/18 08/21/18 diphenhydramine HCl 50 mg PO BEDTIME 08/21/18 08/21/18 fluticasone propionate [Flonase 2 spray INTRANASAL DAILY PRN 08/21/18 08/21/18 Allergy Relief] haloperidol 0.5 mg PO Q8H PRN 08/21/18 08/21/18 metoclopramide HCl 10 mg PO Q6H PRN 08/21/18 08/21/18 nortriptyline 100 mg PO BEDTIME 08/21/18 08/21/18 ondansetron 4 mg PO Q6H PRN 08/21/18 08/21/18 propranolol 40 mg PO DAILY 08/21/18 08/21/18 rizatriptan 5 mg PO Q2-4H PRN MDD 10 mg 08/21/18 08/21/18 Previous Rx's Medication Instructions Recorded prochlorperazine 25 mg RI Q12H PRN #12 each 08/22/18 haloperidol lactate 1 mg PO TID #120 ml 02/04/19 lorazepam [Ativan] 1 mg PO TID PRN #20 tab 02/04/19 potassium chloride 20 meq PO DAILY #7 tab 02/07/19 promethazine 25 mg RI Q6H PRN #12 each 03/14/19 Allergies Allergy/AdvReac Type Severity Reaction Status Date / Time mushroom Allergy Severe Vomiting Verified 03/16/19 12:49 peanut Allergy Severe Anaphylaxis Verified 03/16/19 12:49 Sulfa (Sulfonamide Allergy Unknown Verified 03/16/19 12:49 Antibiotics) Review of Systems Constitutional Constitutional: Denies fever(s) Cardiovascular Cardiovascular: Denies chest pain and Denies dyspnea Respiratory Respiratory: Denies dyspnea Gastrointestinal Gastrointestinal: Reports abdominal pain, Denies change in stool character, Reports nausea and Reports vomiting Integumentary/Breasts Skin/Breast: Denies rash Neurologic Neurologic: Denies behavioral changes Psychiatric Psychiatric: Denies behavioral changes Patient History Medical History Asthma (Acute) Cyclic vomiting syndrome (Acute) Environmental allergies (Acute) Marijuana smoker (Acute) Severe frontal headaches (Acute) Social History household members: spouse Smoking Status: Current some day smoker alcohol intake: current Smoking Status: Current some day smoker alcohol intake frequency: a few times a week Substance Use Type: marijuana Exam Initial Vital Signs Initial Vital Signs: Vital Signs Temperature 98.2 F 03/16/19 12:40 Pulse Rate 88 03/16/19 12:40 Respiratory Rate 20 03/16/19 12:40 Blood Pressure 139/86 03/16/19 12:40 Pulse Oximetry 98 03/16/19 12:40 Const General: cooperative, comfortable, well developed and well groomed Limitations: mental status not altered HENMT Head: normal to inspection and normocephalic Resp Effort & Inspection: normal respiratory effort Auscultation: clear to auscultation bilaterally Cardio Rate: regular rate Rhythm: regular rhythm GI Palpation: soft and tender Skin Lesions: no lesions Rashes: no rashes Neuro General: alert, awake and oriented x3 Cognition: normal cognition Speech: speech normal Extrem General: normal to inspection and capillary refill normal Course Orders Ordered: ED Orders 03/16/19 13:56 Complete Blood Count AUTO DIFF Stat Comprehensive Metabolic Panel Stat Lipase Stat Partial Thromboplastin Time Stat Prothrombin Time INR Stat 03/16/19 16:28 Urine Microscopic Stat Discontinued Medications Haloperidol (Haldol) 2 mg IV NOW ONE Stop: 03/16/19 13:02 Last Admin: 03/16/19 13:27 Dose: 2 mg Documented by: KAYA Hydromorphone HCl (Dilaudid) 1 mg IV NOW ONE Stop: 03/16/19 14:11 Last Admin: 03/16/19 14:20 Dose: 1 mg Documented by: ALEXSANDER Sodium Chloride (Normal Saline 0.9%) 1,000 mls @ 1,000 mls/hr IV BOLUS ONE Stop: 03/16/19 14:00 Last Infusion: 03/16/19 15:30 Dose: 0 mls/hr Documented by: Admin: 03/16/19 13:27 Dose: 1,000 mls/hr Documented by: KAYA Sodium Chloride (Normal Saline 0.9%) 1,000 mls @ 1,000 mls/hr IV BOLUS ONE Stop: 03/16/19 16:42 Last Admin: 03/16/19 16:00 Dose: 1,000 mls/hr Documented by: ALEXSANDER Lactated Ringer's (Lactated Ringers) 1,000 mls @ 1,000 mls/hr IV BOLUS ONE Stop: 03/16/19 18:22 Last Admin: 03/16/19 17:44 Dose: 1,000 mls/hr Documented by: LIANA Lorazepam (Ativan) 1 mg IV NOW ONE Stop: 03/16/19 13:02 Last Admin: 03/16/19 13:30 Dose: 1 mg Documented by: KAYA Lorazepam (Ativan) 1 mg IV NOW ONE Stop: 03/16/19 17:24 Last Admin: 03/16/19 17:45 Dose: 1 mg Documented by: LIANA Metoclopramide HCl (Reglan) 10 mg IV NOW ONE Stop: 03/16/19 17:24 Last Admin: 03/16/19 17:45 Dose: 10 mg Documented by: LIANA Ondansetron HCl (Zofran) 4 mg IV NOW ONE Stop: 03/16/19 12:50 Last Admin: 03/16/19 13:27 Dose: 4 mg Documented by: KAYA Ondansetron HCl (Zofran) 4 mg IV NOW ONE Stop: 03/16/19 17:03 Last Admin: 03/16/19 17:08 Dose: 4 mg Documented by: ALEXSANDER Pantoprazole Sodium (Protonix) 40 mg IV NOW ONE Stop: 03/16/19 15:44 Last Admin: 03/16/19 15:58 Dose: 40 mg Documented by: ALEXSANDER Vital Signs Vital signs: Vital Signs - 8 hr 03/16/19 12:40 03/16/19 15:05 03/16/19 17:17 Temperature 98.2 F Pulse Rate 88 78 81 Respiratory Rate 20 17 16 Blood Pressure 139/86 Blood Pressure [Left Arm] 151/85 H 153/94 H Pulse Oximetry 98 100 100 03/16/19 17:53 Temperature Pulse Rate 89 Respiratory Rate 20 Blood Pressure Blood Pressure [Left Arm] 160/94 H Pulse Oximetry 100 MDM - Nausea/Vomiting/Diarrhea Lab Data Attestation: I reviewed the patient's lab results. Result diagrams: 03/16/19 13:56 03/16/19 13:56 Labs: Lab Results 03/16/19 03/16/19 03/16/19 Range/Units 13:56 13:56 13:56 WBC 12.9 H (4.5-11.0) X10^3/uL RBC 5.07 (4.0-5.2) X10^6/uL Hgb 15.0 (12.0-16.0) g/dL Hct 43.9 (36-46) % MCV 86.6 (80-100) fL MCH 29.7 (26-34) PG MCHC 34.3 (30-36) % RDW 13.6 (11.6-14.8) % Plt Count 430 H (150-400) X10^3/uL Neut % (Auto) 85.4 H (50-75) % Lymph % (Auto) 9.4 L (25-40) % [place] % (Auto) 4.3 (3-14) % Eos % (Auto) 0.5 L (2-4) % Baso % (Auto) 0.4 (0-2) % Neut # (Auto) 67214 H (6682-8811) /uL Lymph # (Auto) 1200 (1363-4830) /uL [place] # (Auto) 600 (0-900) /uL Eos # (Auto) 100 (0-450) /uL Baso # (Auto) 0 (0-100) /uL PT 11.9 (10.1-12.7) SECONDS INR 1.0 (0.9-1.3) APTT 30 (26.4-36.2) SECONDS Sodium 137 (137-145) mmol/L Potassium 3.2 L (3.4-5.1) mmol/L Chloride 101 (98-107) mmol/L Carbon Dioxide 24 (22-32) mmol/L BUN 9 (7-17) mg/dL Creatinine 0.70 (0.52-1.04) mg/dL Estimated GFR > 60.0 (>60) mL/min BUN/Creatinine Ratio 12.9 (6-22) Glucose 122 H (70-100) mg/dL Calcium 9.7 (8.4-10.2) mg/dL Total Bilirubin 0.8 (0.2-1.3) mg/dL AST 38 H (14-36) IU/L ALT 42 H (<35) IU/L Alkaline Phosphatase 93 (38-126) U/L Total Protein 8.2 (6.3-8.2) g/dL Albumin 4.9 (3.5-5.0) g/dL Globulin 3.3 (1.7-4.1) g/dL Albumin/Globulin Ratio 1.5 (1.0-2.8) Lipase 40 (23-300) U/L Urine RBC (0-5/HPF) Urine WBC (0-5/HPF) Ur Squamous Epith Cells (0-5/HPF) Urine Bacteria (None) Urine Mucus (Negative) Ur Culture Indicated? 03/16/19 Range/Units 16:28 WBC (4.5-11.0) X10^3/uL RBC (4.0-5.2) X10^6/uL Hgb (12.0-16.0) g/dL Hct (36-46) % MCV (80-100) fL MCH (26-34) PG MCHC (30-36) % RDW (11.6-14.8) % Plt Count (150-400) X10^3/uL Neut % (Auto) (50-75) % Lymph % (Auto) (25-40) % [place] % (Auto) (3-14) % Eos % (Auto) (2-4) % Baso % (Auto) (0-2) % Neut # (Auto) (3817-0460) /uL Lymph # (Auto) (8632-3165) /uL [place] # (Auto) (0-900) /uL Eos # (Auto) (0-450) /uL Baso # (Auto) (0-100) /uL PT (10.1-12.7) SECONDS INR (0.9-1.3) APTT (26.4-36.2) SECONDS Sodium (137-145) mmol/L Potassium (3.4-5.1) mmol/L Chloride (98-107) mmol/L Carbon Dioxide (22-32) mmol/L BUN (7-17) mg/dL Creatinine (0.52-1.04) mg/dL Estimated GFR (>60) mL/min BUN/Creatinine Ratio (6-22) Glucose (70-100) mg/dL Calcium (8.4-10.2) mg/dL Total Bilirubin (0.2-1.3) mg/dL AST (14-36) IU/L ALT (<35) IU/L Alkaline Phosphatase (38-126) U/L Total Protein (6.3-8.2) g/dL Albumin (3.5-5.0) g/dL Globulin (1.7-4.1) g/dL Albumin/Globulin Ratio (1.0-2.8) Lipase (23-300) U/L Urine RBC 0-1/hpf (0-5/HPF) Urine WBC 0-1/hpf (0-5/HPF) Ur Squamous Epith Cells 0-1 /hpf (0-5/HPF) Urine Bacteria Moderate (10-30) H (None) Urine Mucus 1+ H (Negative) Ur Culture Indicated? Cult not indicated Point of Care Testing Test Results Negative Urine Dip Bedside Urine Glucose Negative Bedside Urine Bilirubin - Negative Bedside Urine Ketone +++ 80 Urine Specific [place] 1.015 Bedside Urine Occult Blood - Negative Bedside Urine pH 8.0 Bedside Urine Protein - Negative Bedside Urine Urobilinogen - Negative Bedside Urine Nitrite - Negative Bedside Urine Leukocytes - Negative Esterase MDM Narrative Medical decision making narrative: Multiple doses of medicines was able to control her symptoms somewhat. Seems that the Reglan seemed to work the best. She did has multiple times for pain medication. She was given 3 L of fluid. She has nausea medicine at home. Will discharge home to continue to take these medicines and contact her primary doctor about a follow-up with GI. She was given return precautions. Discharge Plan Departure Patient Disposition: Home Clinical Impression: Cyclical vomiting Activity Restrictions/Additional Instructions: Continue to take the medications that you have at home as needed. Be sure to increase her fluid intake but taking small amounts of fluid over longer periods of time. I do recommend that you contact her primary doctor about a referral to see GI. Prescriptions: No Action haloperidol 0.5 mg tablet 0.5 mg PO Q8H PRN (Reason: breakthrough) RF: 0 diphenhydramine HCl 50 mg Capsule 50 mg PO BEDTIME RF: 0 propranolol 40 mg Tablet 40 mg PO DAILY RF: 0 ondansetron 4 mg Tablet,Disintegrating 4 mg PO Q6H PRN (Reason: Nausea) RF: 0 nortriptyline 50 mg Capsule 100 mg PO BEDTIME RF: 0 metoclopramide HCl 10 mg tablet 10 mg PO Q6H PRN (Reason: Nausea And Vomiting) RF: 0 rizatriptan 5 mg Tablet 5 mg PO Q2-4H MDD 10 mg PRN (Reason: Migraine Headache) RF: 0 buspirone 15 mg Tablet 15 mg PO TID RF: 0 albuterol sulfate 90 mcg/actuation Hfa Aerosol Inhaler 2 puff INHALATION Q4-6H PRN (Reason: Wheezing) RF: 0 fluticasone propionate [Flonase Allergy Relief] 50 mcg/actuation [place],Suspension 2 spray INTRANASAL DAILY PRN (Reason: Allergic Symptoms) RF: 0 Flovent HFA 110 mcg/actuation Hfa Aerosol Inhaler 1 puff INHALATION BID RF: 0 prochlorperazine 25 mg suppository 25 mg RI Q12H PRN (Reason: nausea and vomiting) Qty: 12 RF: 0 potassium chloride 20 mEq tablet extended release 20 meq PO DAILY Qty: 7 RF: 0 haloperidol lactate 2 mg/mL concentrate 1 mg PO TID Qty: 120 RF: 0 lorazepam [Ativan] 1 mg tablet 1 mg PO TID PRN (Reason: anxiety) Qty: 20 RF: 0 promethazine 25 mg suppository 25 mg RI Q6H PRN (Reason: nausea and vomiting) Qty: 12 RF: 0
[2019-03-16] MEDS: HALOPERIDOL 5 MG/ML VIAL 2 MG IV (13:27)
[2019-03-16] MEDS: SODIUM CHLORIDE 0.9% 1,000 ML 1000 ML IV ×2 (13:27→16:00)
[2019-03-16] MEDS: ONDANSETRON 4 MG/2 ML INJ IV ×2 (13:27→17:08)
[2019-03-16] MEDS: LORazepam 2 MG/ML INJ 1 MG IV ×2 (13:30→17:45)
[2019-03-16 14:11] LABS: Add Manual Diff / Slide Review NO; Basophils Absolute Auto 0 /uL (0-100); Basophils Percent Auto 0.4 % (0-2); Eosinophils Absolute Auto 100 /uL (0-450); Eosinophils Percent Auto 0.5 % (2-4); Hematocrit 43.9 % (36-46); Lymphocytes Absolute Auto 1200 /uL (1100-4500); Lymphocytes Percent Auto 9.4 % (25-40); Mean Corpuscular HGB Conc 34.3 % (30-36); Mean Corpuscular Hemoglobin 29.7 PG (26-34); Mean Corpuscular Volume 86.6 fL (80-100); Monocytes Absolute Auto 600 /uL (0-900); Monocytes Percent Auto 4.3 % (3-14); Neutrophils Absolute Auto 11000 /uL (1500-7000); Neutrophils Percent Auto 85.4 % (50-75); Platelet Count 430 X10^3/uL (150-400); Red Blood Cell Count 5.07 X10^6/uL (4.0-5.2); Red Cell Distribution Width 13.6 % (11.6-14.8); White Blood Cell Count 12.9 X10^3/uL (4.5-11.0)
[2019-03-16] MEDS: HYDROMORPHONE 1 MG INJ IV (14:20)
[2019-03-16 14:21] LABS: PTT Partial Thromboplastin Tim 30 SECONDS (26.4-36.2)
[2019-03-16 14:23] LABS: Alanine Aminotransferase 42 IU/L (<35); Albumin 4.9 g/dL (3.5-5.0); Albumin Globulin Ratio 1.5 (1.0-2.8); Alkaline Phosphatase 93 U/L (38-126); Aspartate Aminotransferase 38 IU/L (14-36); BUN Creatinine Ratio 12.9 (6-22); Bilirubin Total 0.8 mg/dL (0.2-1.3); Blood Urea Nitrogen 9 mg/dL (7-17); Calcium 9.7 mg/dL (8.4-10.2); Carbon Dioxide 24 mmol/L (22-32); Chloride 101 mmol/L (98-107); Estimated Glomerular Filt Rate > 60.0 mL/min (>60); Globulin 3.3 g/dL (1.7-4.1); Glucose 122 mg/dL (70-100); HEMOLYSIS 16 (0-50); Lipase 40 U/L (23-300); Potassium 3.2 mmol/L (3.4-5.1); Sodium 137 mmol/L (137-145); Total Protein 8.2 g/dL (6.3-8.2)
[2019-03-16 14:26] LABS: Prothrombin Time 11.9 SECONDS (10.1-12.7)
[2019-03-16 15:05] VITALS: BP 151/85; PULSE 78; RESP 17; O2SAT 100
[2019-03-16] MEDS: PANTOPRAZOLE 40 MG VIAL IV (15:58)
[2019-03-16 16:29] LABS: Bacteria Urine Moderate (10-30); Culture Indicated Urine Cult Not Indicated; Mucus Urine 1+ (Negative); RBC Urine 0-1/HPF (0-5/HPF); Squamous Epithelial Cell Urine 0-1 /HPF (0-5/HPF); WBC Urine 0-1/HPF (0-5/HPF)
[2019-03-16 17:17] VITALS: BP 153/94; PULSE 81; RESP 16; O2SAT 100
[2019-03-16] MEDS: LACTATED RINGERS 1,000 ML 1000 ML IV (17:44)
[2019-03-16] MEDS: METOCLOPRAMIDE 10 MG/2 ML INJ IV (17:45)
[2019-03-16 17:53] VITALS: BP 160/94; PULSE 89; RESP 20; O2SAT 100
--- NOTE | 2019-04-01 11:34 | PC.NURSE ---
Late Entry: LR started 1744 @ 1000 cc / hour completed 1845. 1000 cc in. No ill effects.
== END 2019-03-16 18:59 | disposition home or self-care (01) ==
PROVIDERS: Emergency Provider Emergency Medicine
DX: R11.15 Cyclical vomiting syndrome unrelated to migraine (principal)
CPT/HCPCS: 36415; 80053; 81003; 81015; 81025; 83690; 85025; 85610; 85730; 96361; 96374; 96375; 96376; 99284; C9113; J1170; J1630; J2060; J2405; J2765

== ENCOUNTER 2019-03-22 08:35 | Emergency (ER) | payer OTHER, SELFPAY ==
[2018-08-21 18:41] VITALS: BMI 31.2
[2019-03-22 08:43] VITALS: BP 153/79; PULSE 89; RESP 18; TEMP 36.9; O2SAT 100; BMI 30.4
--- NOTE | 2019-03-22 09:07 | ED_ITS ---
HPI - Nausea/Vomiting/Diarrhea General Chief complaint: Nausea/Vomiting/Diarrhea Stated complaint: vomiting Time Seen by Provider: 03/22/19 08:45 Source: patient and family Mode of arrival: Ambulatory History of Present Illness HPI Narrative: 29-year-old woman with a long history of cyclic vomiting. She has found that it seems to be related somewhat to stress as well as her menstrual cycle. She has smoked marijuana intermittently however the chronic vomiting preceded marijuana use and continues even when discontinued for extended periods of time. She has been seen by a primary care as well as Gastroenterology specialists and had full workup including endoscopies to look for alternate etiologies. Her current episode began 9 days ago on 03/14/3019. She was seen at [facility] stabilize somewhat and discharge home. She return to the ER 2 days later with continued symptoms. On Sunday she was seen in her primary care doctor's office. On she was seen at [facility] for continued symptoms. She states that she has had a few hours during this week that she hasn't had continuous vomiting but for the most part has not been able to keep food or liquids down. There is no blood with the vomitus nor black or bloody stools. That nausea medications that she has available to her at home are not effective. Related Data Home Medications Medication Instructions Recorded Confirmed Flovent HFA 1 puff INHALATION BID 08/21/18 08/21/18 albuterol sulfate 2 puff INHALATION Q4-6H PRN 08/21/18 08/21/18 buspirone 15 mg PO TID 08/21/18 08/21/18 diphenhydramine HCl 50 mg PO BEDTIME 08/21/18 08/21/18 fluticasone propionate [Flonase 2 spray INTRANASAL DAILY PRN 08/21/18 08/21/18 Allergy Relief] haloperidol 0.5 mg PO Q8H PRN 08/21/18 08/21/18 metoclopramide HCl 10 mg PO Q6H PRN 08/21/18 08/21/18 nortriptyline 100 mg PO BEDTIME 08/21/18 08/21/18 ondansetron 4 mg PO Q6H PRN 08/21/18 08/21/18 propranolol 40 mg PO DAILY 08/21/18 08/21/18 rizatriptan 5 mg PO Q2-4H PRN mg 08/21/18 08/21/18 Previous Rx's Medication Instructions Recorded prochlorperazine 25 mg IA Q12H PRN #12 each 08/22/18 haloperidol lactate 1 mg PO TID #120 ml 02/04/19 lorazepam [Ativan] 1 mg PO TID PRN #20 tab 02/04/19 potassium chloride 20 meq PO DAILY #7 tab 02/07/19 promethazine 25 mg IA Q6H PRN #12 each 03/14/19 metoclopramide HCl 10 mg PO Q6H PRN #90 tab 03/22/19 Allergies Allergy/AdvReac Type Severity Reaction Status Date / Time mushroom Allergy Severe Vomiting Verified 03/22/19 08:43 peanut Allergy Severe Anaphylaxis Verified 03/22/19 08:43 Sulfa (Sulfonamide Allergy Unknown Verified 03/22/19 08:43 Antibiotics) Review of Systems Review of Systems Narrative: Denies ? fever ? cough ? cold ? chills ? chest pain ? dyspnea ? orthopnea ? wheezing ? skin changes ? rashes Patient History Social History household members: spouse Smoking Status: Current some day smoker alcohol intake: current Smoking Status: Current some day smoker alcohol intake frequency: a few times a week Substance Use Type: marijuana Exam Narrative Exam Narrative: General: Moderate distress with continuous retching. Pale and mildly diaphoretic HEENT: Dry mucous membranes, normal sclera with reactive pupils, Neck: No JVD, supple Respiratory: Lungs are clear to auscultation, no wheezing no rales no rhonchi. Full and symmetrical air movement Cardiac: Regular rate and rhythm no murmurs no bruits Abdomen: Soft minimally tender diffusely without rebound or guarding good bowel tones, no flank pain Skin: Warm, well perfused, no rashes Neurologic: Grossly neurologically intact with no obvious asymmetries or abnormalities Extremities: No trauma, Psych: Cooperative, appropriate insight and affect Initial Vital Signs Initial Vital Signs: Vital Signs Temperature 98.4 F 03/22/19 08:43 Pulse Rate 89 03/22/19 08:43 Respiratory Rate 18 03/22/19 08:43 Blood Pressure 153/79 H 03/22/19 08:43 Pulse Oximetry 100 03/22/19 08:43 Course Course Course Narrative: 10:11 after L fluid Benadryl and Haldol she is no longer violently retching however continues to complain of nausea and abdominal pain. She tried voiding but still has been and able to. Will do an additional L of fluid, Ativan and Reglan and Zofran and re-evaluate 11:30 nausea is better. She was able to rest a bit. Still complaining of significant abdominal pain and is unsure whether she'll be able to eat. Will add Dilaudid and try an oral challenge 1230 still no spontaneous void. Much more comfortable in bed. When going in to give Dilaudid noted slight rash to her neck and upper arms. It's erythematous without being hive-like. She has no other symptoms no wheeze no tightness to the back of her throat or her mouth and had noticed any of this until she laid back and we turned on the lights. She did have Benadryl earlier today so that may be mitigating some of the symptoms. Will observe as were giving a third L of fluid until she is able to spontaneously void 1337: Spontaneous void. Pain and nausea controlled. Slight rash that we'd noticed earlier has resolved. Safe for home discharge Orders Ordered: ED Orders 03/22/19 08:45 Complete Blood Count AUTO DIFF Stat Comprehensive Metabolic Panel Stat Lipase Stat Discontinued Medications Diphenhydramine HCl (Benadryl) 25 mg IV NOW ONE Stop: 03/22/19 09:03 Last Admin: 03/22/19 09:11 Dose: 25 mg Documented by: MEISENB Haloperidol (Haldol) 5 mg IV NOW ONE Stop: 03/22/19 09:03 Last Admin: 03/22/19 09:11 Dose: 5 mg Documented by: MEISENB Hydromorphone HCl (Dilaudid) 1 mg IV NOW ONE Stop: 03/22/19 11:29 Last Admin: 03/22/19 12:17 Dose: 1 mg Documented by: MEISENB Sodium Chloride (Normal Saline 0.9%) 1,000 mls @ 1,000 mls/hr IV BOLUS ONE Stop: 03/22/19 10:01 Last Infusion: 03/22/19 10:46 Dose: 0 mls/hr Documented by: Admin: 03/22/19 09:11 Dose: 1,000 mls/hr Documented by: MEISENB Sodium Chloride (Normal Saline 0.9%) 1,000 mls @ 1,000 mls/hr IV BOLUS ONE Stop: 03/22/19 11:09 Last Infusion: 03/22/19 12:25 Dose: 0 mls/hr Documented by: Admin: 03/22/19 10:47 Dose: 1,000 mls/hr Documented by: JOANNSENYury Sodium Chloride (Normal Saline 0.9%) 1,000 mls @ 1,000 mls/hr IV BOLUS ONE Stop: 03/22/19 13:33 Last Admin: 03/22/19 12:35 Dose: 1,000 mls/hr Documented by: LIANA Lorazepam (Ativan) 0.5 mg IV NOW ONE Stop: 03/22/19 10:11 Last Admin: 03/22/19 10:25 Dose: 0.5 mg Documented by: LIANA Metoclopramide HCl (Reglan) 10 mg IV NOW ONE Stop: 03/22/19 10:11 Last Admin: 03/22/19 10:25 Dose: 10 mg Documented by: LIANA Ondansetron HCl (Zofran) 4 mg IV NOW ONE Stop: 03/22/19 10:11 Last Admin: 03/22/19 10:25 Dose: 4 mg Documented by: LIANA Vital Signs Vital signs: Vital Signs - 8 hr 03/22/19 08:43 03/22/19 09:48 03/22/19 10:15 Temperature 98.4 F Pulse Rate 89 90 88 Respiratory Rate 18 18 16 Blood Pressure 153/79 H Blood Pressure [Left Arm] 149/85 H 138/94 H Pulse Oximetry 100 100 100 03/22/19 11:30 03/22/19 12:22 Temperature Pulse Rate 85 86 Respiratory Rate 18 Blood Pressure Blood Pressure [Left Arm] 150/89 H 148/86 H Pulse Oximetry 100 99 MDM - Nausea/Vomiting/Diarrhea Medical Records Attestation: I reviewed the patient's medical records. Lab Data Attestation: I reviewed the patient's lab results. Result diagrams: 03/22/19 08:45 03/22/19 08:45 Labs: Lab Results 03/22/19 03/22/19 Range/Units 08:45 08:45 WBC 13.9 H (4.5-11.0) X10^3/uL RBC 5.02 (4.0-5.2) X10^6/uL Hgb 14.9 (12.0-16.0) g/dL Hct 43.4 (36-46) % MCV 86.5 (80-100) fL MCH 29.8 (26-34) PG MCHC 34.4 (30-36) % RDW 13.7 (11.6-14.8) % Plt Count 502 H (150-400) X10^3/uL Neut % (Auto) 82.0 H (50-75) % Lymph % (Auto) 11.0 L (25-40) % [place] % (Auto) 5.7 (3-14) % Eos % (Auto) 0.9 L (2-4) % Baso % (Auto) 0.4 (0-2) % Neut # (Auto) 79329 H (5277-6467) /uL Lymph # (Auto) 1500 (8225-8544) /uL [place] # (Auto) 800 (0-900) /uL Eos # (Auto) 100 (0-450) /uL Baso # (Auto) 100 (0-100) /uL Sodium 136 L (137-145) mmol/L Potassium 3.4 (3.4-5.1) mmol/L Chloride 98 (98-107) mmol/L Carbon Dioxide 30 (22-32) mmol/L BUN 7 (7-17) mg/dL Creatinine 0.60 (0.52-1.04) mg/dL Estimated GFR > 60.0 (>60) mL/min BUN/Creatinine Ratio 11.7 (6-22) Glucose 125 H (70-100) mg/dL Calcium 9.8 (8.4-10.2) mg/dL Total Bilirubin 0.6 (0.2-1.3) mg/dL AST 30 (14-36) IU/L ALT 24 (<35) IU/L Alkaline Phosphatase 75 (38-126) U/L Total Protein 8.1 (6.3-8.2) g/dL Albumin 4.8 (3.5-5.0) g/dL Globulin 3.3 (1.7-4.1) g/dL Albumin/Globulin Ratio 1.5 (1.0-2.8) Lipase 47 (23-300) U/L Leukocytosis is actually improving. Suspected is more reactive rather than an infectious etiology Discharge Plan Departure Patient Disposition: Home Clinical Impression: Cyclical vomiting Instructions: DI for Vomiting -- Adult Activity Restrictions/Additional Instructions: Thank you for coming in today You ended up getting 3 L of fluid and multiple antiemetics as well as anxiety and pain medication. Your lab work was reassuring. I am going to suggest that you try scheduled Reglan/metoclopramide 10 mg morning and night with the option of an additional 10 mg in the middle of the day. I have compared all of your medications as well as interactions and this is as safe an option as combinations of your other antiemetics. Hopefully this will help move food through your stomach faster to avoid getting quite is nauseated in the 1st place. 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 Please do follow-up with your primary care physician next week I hope we've been able to put an end to this current cycle of vomiting for you. Prescriptions: New metoclopramide HCl 10 mg tablet 10 mg PO Q6H PRN (Reason: nausea and vomiting) Qty: 90 RF: 0 No Action haloperidol 0.5 mg tablet 0.5 mg PO Q8H PRN (Reason: breakthrough) RF: 0 diphenhydramine HCl 50 mg Capsule 50 mg PO BEDTIME RF: 0 propranolol 40 mg Tablet 40 mg PO DAILY RF: 0 ondansetron 4 mg Tablet,Disintegrating 4 mg PO Q6H PRN (Reason: Nausea) RF: 0 nortriptyline 50 mg Capsule 100 mg PO BEDTIME RF: 0 metoclopramide HCl 10 mg tablet 10 mg PO Q6H PRN (Reason: Nausea And Vomiting) RF: 0 rizatriptan 5 mg Tablet 5 mg PO Q2-4H MDD 10 mg PRN (Reason: Migraine Headache) RF: 0 buspirone 15 mg Tablet 15 mg PO TID RF: 0 albuterol sulfate 90 mcg/actuation Hfa Aerosol Inhaler 2 puff INHALATION Q4-6H PRN (Reason: Wheezing) RF: 0 fluticasone propionate [Flonase Allergy Relief] 50 mcg/actuation [place],Suspension 2 spray INTRANASAL DAILY PRN (Reason: Allergic Symptoms) RF: 0 Flovent HFA 110 mcg/actuation Hfa Aerosol Inhaler 1 puff INHALATION BID RF: 0 prochlorperazine 25 mg suppository 25 mg IA Q12H PRN (Reason: nausea and vomiting) Qty: 12 RF: 0 potassium chloride 20 mEq tablet extended release 20 meq PO DAILY Qty: 7 RF: 0 haloperidol lactate 2 mg/mL concentrate 1 mg PO TID Qty: 120 RF: 0 lorazepam [Ativan] 1 mg tablet 1 mg PO TID PRN (Reason: anxiety) Qty: 20 RF: 0 promethazine 25 mg suppository 25 mg IA Q6H PRN (Reason: nausea and vomiting) Qty: 12 RF: 0
[2019-03-22 09:08] LABS: Add Manual Diff / Slide Review NO; Basophils Absolute Auto 100 /uL (0-100); Basophils Percent Auto 0.4 % (0-2); Eosinophils Absolute Auto 100 /uL (0-450); Eosinophils Percent Auto 0.9 % (2-4); Hematocrit 43.4 % (36-46); Hemoglobin 14.9 g/dL (12.0-16.0); Lymphocytes Absolute Auto 1500 /uL (1100-4500); Mean Corpuscular HGB Conc 34.4 % (30-36); Mean Corpuscular Hemoglobin 29.8 PG (26-34); Mean Corpuscular Volume 86.5 fL (80-100); Monocytes Absolute Auto 800 /uL (0-900); Monocytes Percent Auto 5.7 % (3-14); Neutrophils Absolute Auto 11400 /uL (1500-7000); Platelet Count 502 X10^3/uL (150-400); Red Blood Cell Count 5.02 X10^6/uL (4.0-5.2); Red Cell Distribution Width 13.7 % (11.6-14.8); White Blood Cell Count 13.9 X10^3/uL (4.5-11.0)
[2019-03-22] MEDS: SODIUM CHLORIDE 0.9% 1,000 ML 1000 ML IV ×3 (09:11→12:35)
[2019-03-22] MEDS: HALOPERIDOL 5 MG/ML VIAL IV (09:11)
[2019-03-22] MEDS: diphenhydrAMINE 50 MG/ML VIAL 25 MG IV (09:11)
[2019-03-22 09:15] LABS: Alanine Aminotransferase 24 IU/L (<35); Albumin 4.8 g/dL (3.5-5.0); Albumin Globulin Ratio 1.5 (1.0-2.8); Alkaline Phosphatase 75 U/L (38-126); Aspartate Aminotransferase 30 IU/L (14-36); BUN Creatinine Ratio 11.7 (6-22); Bilirubin Total 0.6 mg/dL (0.2-1.3); Blood Urea Nitrogen 7 mg/dL (7-17); Calcium 9.8 mg/dL (8.4-10.2); Carbon Dioxide 30 mmol/L (22-32); Chloride 98 mmol/L (98-107); Estimated Glomerular Filt Rate > 60.0 mL/min (>60); Globulin 3.3 g/dL (1.7-4.1); Glucose 125 mg/dL (70-100); HEMOLYSIS 42 (0-50); Lipase 47 U/L (23-300); Potassium 3.4 mmol/L (3.4-5.1); Sodium 136 mmol/L (137-145); Total Protein 8.1 g/dL (6.3-8.2)
[2019-03-22 09:48] VITALS: BP 149/85; PULSE 90; RESP 18; O2SAT 100
[2019-03-22 10:15] VITALS: BP 138/94; PULSE 88; RESP 16; O2SAT 100
[2019-03-22] MEDS: METOCLOPRAMIDE 10 MG/2 ML INJ IV (10:25)
[2019-03-22] MEDS: LORazepam 2 MG/ML INJ 0.5 MG IV (10:25)
[2019-03-22] MEDS: ONDANSETRON 4 MG/2 ML INJ IV (10:25)
[2019-03-22 11:30] VITALS: BP 150/89; PULSE 85; O2SAT 100
[2019-03-22] MEDS: HYDROMORPHONE 1 MG INJ IV (12:17)
[2019-03-22 12:22] VITALS: BP 148/86; PULSE 86; RESP 18; O2SAT 99
[2019-03-22 13:30] VITALS: BP 155/89; PULSE 82; O2SAT 99
== END 2019-03-22 13:50 | disposition home or self-care (01) ==
PROVIDERS: Emergency Provider Emergency Medicine
DX: R11.15 Cyclical vomiting syndrome unrelated to migraine (principal); R10.9 Unspecified abdominal pain
CPT/HCPCS: 36415; 80053; 83690; 85025; 96361; 96374; 96375; 99284; J1170; J1200; J1630; J2060; J2405; J2765

== ENCOUNTER 2019-07-07 16:49 | Emergency (ER) | payer OTHER, SELFPAY ==
[2018-08-21 18:41] VITALS: BMI 31.2
--- NOTE | 2019-07-07 16:55 | ED_ITS ---
HPI - Nausea/Vomiting/Diarrhea <Marion GodfreyRICO - Last Filed: 07/07/19 21:59> General Chief complaint: Nausea/Vomiting/Diarrhea Stated complaint: CYCLIC VOMITING SYDROME Time Seen by Provider: 07/07/19 16:51 History of Present Illness HPI Narrative: 29yo female with a history of cyclic vomiting since age 8, presents emergency department complaining of onset of a cyclic vomiting episode that started at 3:00 a.m. today. She states she took p.o. Zofran 8mg and Haldol today without relief. She states she has been smoking marijuana with a to help find relief. Patient states ?Haldol and Dilaudid usually help. Patient states she has dull aching abdominal pain with occasional epigastric burning that often presents with vomiting, she states this is very classic of her episodes. Patient denies any blood in vomit, fevers, chest pain, shortness of breath, dizziness, or any other concerns. Patient states she is supposed to be taking a new migraine medication for her cyclic vomiting episodes but [facility] will have it in stock tomorrow. Patient states she sees Aida as a PCP. Related Data Home Medications Medication Instructions Recorded Confirmed Flovent HFA 1 puff INHALATION BID 08/21/18 08/21/18 albuterol sulfate 2 puff INHALATION Q4-6H PRN 08/21/18 08/21/18 buspirone 15 mg PO TID 08/21/18 08/21/18 diphenhydramine HCl 50 mg PO BEDTIME 08/21/18 08/21/18 fluticasone propionate [Flonase 2 spray INTRANASAL DAILY PRN 08/21/18 08/21/18 Allergy Relief] haloperidol 0.5 mg PO Q8H PRN 08/21/18 08/21/18 metoclopramide HCl 10 mg PO Q6H PRN 08/21/18 08/21/18 nortriptyline 100 mg PO BEDTIME 08/21/18 08/21/18 ondansetron 4 mg PO Q6H PRN 08/21/18 08/21/18 propranolol 40 mg PO DAILY 08/21/18 08/21/18 rizatriptan 5 mg PO Q2-4H PRN MDD 10 mg 08/21/18 08/21/18 Previous Rx's Medication Instructions Recorded prochlorperazine 25 mg VA Q12H PRN #12 each 08/22/18 haloperidol lactate 1 mg PO TID #120 ml 02/04/19 lorazepam [Ativan] 1 mg PO TID PRN #20 tab 02/04/19 potassium chloride 20 meq PO DAILY #7 tab 02/07/19 promethazine 25 mg VA Q6H PRN #12 each 03/14/19 metoclopramide HCl 10 mg PO Q6H PRN #90 tab 03/22/19 amoxicillin-pot clavulanate 1 tab PO BID 10 Days #20 tab 07/07/19 [Augmentin] metoclopramide HCl [Reglan] 10 mg PO Q6H PRN #10 tab 07/07/19 Allergies Allergy/AdvReac Type Severity Reaction Status Date / Time mushroom Allergy Severe Vomiting Verified 03/22/19 08:43 peanut Allergy Severe Anaphylaxis Verified 03/22/19 08:43 Sulfa (Sulfonamide Allergy Unknown Verified 03/22/19 08:43 Antibiotics) Review of Systems <RICO Rodriguez - Last Filed: 07/07/19 21:59> Review of Systems Narrative: REVIEW OF SYSTEMS: GENERAL: Denies fevers or chills. HENT: No head trauma. EYES: No vision changes. CARDIOVASCULAR: No chest pain. RESPIRATORY: No shortness of breath or cough. GASTROINTESTINAL: Complains of vomiting and abdominal pain, see HPI. GENITOURINARY: No flank pain or dysuria. MUSCULOSKELETAL: No pain, weakness, or trauma. INTEGUMENTARY: No rash, lesions, or pruritus. NEURO: No numbness or tingling. PSYCH: No behavior or mood changes. Patient History <RICO Rodriguez - Last Filed: 07/07/19 21:59> Medical History Asthma (Acute) Cyclic vomiting syndrome (Acute) Environmental allergies (Acute) Marijuana smoker (Acute) Severe frontal headaches (Acute) Surgical History History of toe surgery (Acute) Family History Father Arthritis Mother Anxiety Fibromyalgia Brother Childhood asthma Drug abuse Social History household members: spouse Smoking Status: Current some day smoker alcohol intake: current Smoking Status: Current some day smoker alcohol intake frequency: a few times a week Substance Use Type: marijuana Exam <RICO Rodriguez - Last Filed: 07/07/19 21:59> Initial Vital Signs Initial Vital Signs: Vital Signs Temperature 98 F 07/07/19 16:56 Pulse Rate 99 H 07/07/19 16:56 Respiratory Rate 16 07/07/19 16:56 Blood Pressure 142/93 H 07/07/19 16:56 Pulse Oximetry 97 07/07/19 16:56 PHYSICAL EXAMINATION: GENERAL: Well groomed, alert, and cooperative. Answers questions promptly and appropriately. Vital signs noted. HENT: Normocephalic, atraumatic. Hearing intact. Oral mucosa is pink and moist. EYES: conjunctiva pink, sclera white, no periorbital swelling. CARDIOVASCULAR: S1 and S2 sounds normal. Regular rate and rhythm, no murmurs, clicks, or bruits. RESPIRATORY: Normal respiratory rate, trachea midline, airway patent. No stridor, nasal flaring or accessory muscle use. Lungs are clear in all mariano without wheeze, rhonchi, or crackles. GASTROINTESTINAL: Bowel sounds normoactive. Abdomen is soft with diffuse tenderness.. No organomegaly, no palpable masses. Patient with dry heaves no excessive vomiting. MUSCULOSKELETAL: Normal gait and coordination. Equal tone and mass bilaterally. EXTREMITIES: CMS intact, no pedal edema. SKIN: Warm, dry, soft, appropriate color for ethnicity. No lesions, rashes, or wounds to visualized areas. NEURO: Alert and Oriented X 3. Good coordination. No ataxia, or sensory deficits, or cognitive issues. PSYCH: Appropriate affect and mood. <Alona Lewis MD - Last Filed: 07/08/19 06:14> Initial Vital Signs Initial Vital Signs: Vital Signs Temperature 98 F 07/07/19 16:56 Pulse Rate 99 H 07/07/19 16:56 Respiratory Rate 16 07/07/19 16:56 Blood Pressure 142/93 H 07/07/19 16:56 Pulse Oximetry 97 07/07/19 16:56 Course <RICO Rodriguez - Last Filed: 07/07/19 21:59> Course Course Narrative: 1800: Patient with occasional dry heaves after administration of first round of medication and fluids. 1846: Patient received another dose of Haldol. Continued to complain of nausea. Patient has a significant elevated white blood cell count, CT was ordered after urine was clear to rule out signs of abdominal infection. 2000: Patient given a dose of Ativan, was able to take a dose of amoxicillin with water without vomiting or dry heaves. Discussed importance of follow-up. Orders Ordered: Discontinued Medications Amoxicillin/Clavulanate Potassium (Augmentin 875-125 Mg) 1 tab PO NOW ONE Stop: 07/07/19 20:38 Last Admin: 07/07/19 20:51 Dose: 1 tab Documented by: YOVANI Diphenhydramine HCl (Benadryl) 25 mg IV NOW ONE Stop: 07/07/19 16:59 Last Admin: 07/07/19 17:39 Dose: 25 mg Documented by: KAYA Haloperidol (Haldol) 2 mg IV NOW ONE Stop: 07/07/19 16:59 Last Admin: 07/07/19 17:39 Dose: 2 mg Documented by: KAYA Haloperidol (Haldol) 2 mg IV Q4HR PRN PRN Reason: Agitation Last Admin: 07/07/19 18:46 Dose: 2 mg Documented by: JEANETTE Sodium Chloride (Normal Saline 0.9%) 1,000 mls @ 1,000 mls/hr IV BOLUS ONE Stop: 07/07/19 17:56 Last Infusion: 07/07/19 18:45 Dose: 0 mls/hr Documented by: Admin: 07/07/19 17:40 Dose: 1,000 mls/hr Documented by: KAYA Sodium Chloride (Normal Saline 0.9%) 1,000 mls @ 1,000 mls/hr IV BOLUS ONE Stop: 07/07/19 18:51 Last Infusion: 07/07/19 20:32 Dose: 0 mls/hr Documented by: Admin: 07/07/19 18:46 Dose: 1,000 mls/hr Documented by: JEANETTE Ketorolac Tromethamine (Toradol) 30 mg IV NOW ONE Stop: 07/07/19 16:59 Last Admin: 07/07/19 17:39 Dose: 30 mg Documented by: KAYA Lorazepam (Ativan) 1 mg IV NOW ONE Stop: 07/07/19 20:28 Last Admin: 07/07/19 20:31 Dose: 1 mg Documented by: YOVANI Metoclopramide HCl (Reglan) 10 mg IV NOW ONE Stop: 07/07/19 16:59 Last Admin: 07/07/19 17:41 Dose: 10 mg Documented by: KAYA Pantoprazole Sodium (Protonix) 40 mg IV NOW ONE Stop: 07/07/19 17:02 Last Admin: 07/07/19 17:39 Dose: 40 mg Documented by: KAYA Vital Signs Vital signs: Vital Signs - 8 hr 07/07/19 16:56 07/07/19 17:49 07/07/19 18:50 Temperature 98 F Pulse Rate 99 H 100 H 106 H Respiratory Rate 16 22 18 Blood Pressure 142/93 H Blood Pressure [Left Arm] 145/96 H 133/67 Pulse Oximetry 97 100 99 07/07/19 19:25 Temperature Pulse Rate 101 H Respiratory Rate 16 Blood Pressure Blood Pressure [Left Arm] 133/67 Pulse Oximetry 100 <Alona Lewis MD - Last Filed: 07/08/19 06:14> Orders Ordered: Discontinued Medications Amoxicillin/Clavulanate Potassium (Augmentin 875-125 Mg) 1 tab PO NOW ONE Stop: 07/07/19 20:38 Last Admin: 07/07/19 20:51 Dose: 1 tab Documented by: YOVANI Diphenhydramine HCl (Benadryl) 25 mg IV NOW ONE Stop: 07/07/19 16:59 Last Admin: 07/07/19 17:39 Dose: 25 mg Documented by: KAYA Haloperidol (Haldol) 2 mg IV NOW ONE Stop: 07/07/19 16:59 Last Admin: 07/07/19 17:39 Dose: 2 mg Documented by: KAYA Haloperidol (Haldol) 2 mg IV Q4HR PRN PRN Reason: Agitation Last Admin: 07/07/19 18:46 Dose: 2 mg Documented by: JEANETTE Sodium Chloride (Normal Saline 0.9%) 1,000 mls @ 1,000 mls/hr IV BOLUS ONE Stop: 07/07/19 17:56 Last Infusion: 07/07/19 18:45 Dose: 0 mls/hr Documented by: Admin: 07/07/19 17:40 Dose: 1,000 mls/hr Documented by: KAYA Sodium Chloride (Normal Saline 0.9%) 1,000 mls @ 1,000 mls/hr IV BOLUS ONE Stop: 07/07/19 18:51 Last Infusion: 07/07/19 20:32 Dose: 0 mls/hr Documented by: Admin: 07/07/19 18:46 Dose: 1,000 mls/hr Documented by: JEANETTE Ketorolac Tromethamine (Toradol) 30 mg IV NOW ONE Stop: 07/07/19 16:59 Last Admin: 07/07/19 17:39 Dose: 30 mg Documented by: KAYA Lorazepam (Ativan) 1 mg IV NOW ONE Stop: 07/07/19 20:28 Last Admin: 07/07/19 20:31 Dose: 1 mg Documented by: YOVANI Metoclopramide HCl (Reglan) 10 mg IV NOW ONE Stop: 07/07/19 16:59 Last Admin: 07/07/19 17:41 Dose: 10 mg Documented by: KAYA Pantoprazole Sodium (Protonix) 40 mg IV NOW ONE Stop: 07/07/19 17:02 Last Admin: 07/07/19 17:39 Dose: 40 mg Documented by: KAYA Vital Signs Vital signs: Vital Signs - 8 hr 07/07/19 16:56 07/07/19 17:49 07/07/19 18:50 Temperature 98 F Pulse Rate 99 H 100 H 106 H Respiratory Rate 16 22 18 Blood Pressure 142/93 H Blood Pressure [Left Arm] 145/96 H 133/67 Pulse Oximetry 97 100 99 07/07/19 19:25 Temperature Pulse Rate 101 H Respiratory Rate 16 Blood Pressure Blood Pressure [Left Arm] 133/67 Pulse Oximetry 100 MDM - Nausea/Vomiting/Diarrhea <RICO Rodriguez - Last Filed: 07/07/19 21:59> Medical Records Attestation: I reviewed the patient's medical records. Lab Data Attestation: I reviewed the patient's lab results. Result diagrams: 07/07/19 17:15 07/07/19 17:15 Labs: Lab Results 07/07/19 07/07/19 07/07/19 Range/Units 17:15 17:15 18:38 WBC 27.6 H (4.5-11.0) X10^3/uL RBC 5.14 (4.0-5.2) X10^6/uL Hgb 15.3 (12.0-16.0) g/dL Hct 44.4 (36-46) % MCV 86.5 (80-100) fL MCH 29.8 (26-34) PG MCHC 34.4 (30-36) % RDW 13.7 (11.6-14.8) % Plt Count 464 H (150-400) X10^3/uL Neut % (Auto) Not Reportable Lymph % (Auto) Not Reportable [place] % (Auto) Not Reportable Eos % (Auto) Not Reportable Baso % (Auto) Not Reportable Lymph # (Auto) Not Reportable [place] # (Auto) Not Reportable Baso # (Auto) Not Reportable Total Counted 100 Seg Neutrophils % 88.0 H (38-70) % Band Neutrophils % 5.0 (3-7) % Lymphocytes % (Manual) 4.0 L (25-45) % Monocytes % (Manual) 3.0 (2-11) % Neutrophils # (Manual) 39586 H (5600-2344) /uL RBC Morphology Normal morphology Sodium 137 (137-145) mmol/L Potassium 3.7 (3.4-5.1) mmol/L Chloride 100 (98-107) mmol/L Carbon Dioxide 19 L (22-32) mmol/L BUN 13 (7-17) mg/dL Creatinine 0.67 (0.52-1.04) mg/dL Estimated GFR > 60.0 (>60) mL/min BUN/Creatinine Ratio 19.4 (6-22) Glucose 166 H (70-100) mg/dL Calcium 10.3 H (8.4-10.2) mg/dL Total Bilirubin 0.5 (0.2-1.3) mg/dL AST 28 (14-36) IU/L ALT 34 (<35) IU/L Alkaline Phosphatase 86 (38-126) U/L Total Protein 8.7 H (6.3-8.2) g/dL Albumin 5.0 (3.5-5.0) g/dL Globulin 3.7 (1.7-4.1) g/dL Albumin/Globulin Ratio 1.4 (1.0-2.8) Lipase 34 (23-300) U/L Urine RBC 1-5/hpf (0-5/HPF) Urine WBC 1-5/hpf (0-5/HPF) Ur Squamous Epith Cells 1-5 /hpf (0-5/HPF) Amorphous Sediment 1+ Urine Bacteria Few (2-10) H (None) Urine Mucus 1+ H (Negative) Ur Culture Indicated? Cult not indicated Point of Care Testing Test Results Negative Urine Dip Bedside Urine Glucose 100 mg/dl Bedside Urine Bilirubin - Negative Bedside Urine Ketone ++ 40 Urine Specific [place] 1.030 Bedside Urine Occult Blood + Bedside Urine pH 6.0 Bedside Urine Protein + 30 Bedside Urine Urobilinogen - Negative Bedside Urine Nitrite - Negative Bedside Urine Leukocytes - Negative Esterase Imaging Data CT scan - abdomen/pelvis: Radiologist's Impression: [address] [address] [address] Scan Report Signed Patient: Nuris Castle LMR#: [id number] : 1990Acct:[id number] Age/Sex: 29 / FDate of Service: 07/07/19 Loc: ED Accession Number: [id number] Procedure: CT abdomen pelvis w con Ordering Provider: Marion Godfrey PROCEDURE: CT ABDOMEN PELVIS W CON INDICATIONS: elevated WBC, continued vomiting. TECHNIQUE: After the administration of intravenous contrast, 5 mm thick sections acquired from the diaphragm to the symphysis. 5 mm coronal and sagittal reformats were acquired. For radiation dose reduction, the following was used: automated exposure control, adjustment of mA and/or kV according to patient size. COMPARISON: None. FINDINGS: Image quality: Excellent. ABDOMEN: Lung bases: Lung bases are clear. Heart size is normal. Solid organs: Liver is normal in size and enhancement. Gallbladder is within normal limits. Biliary system is non dilated. Pancreas enhances normally. Spleen is normal in size and enhancement. No adrenal nodules. Kidneys demonstrate normal size and enhancement, without hydronephrosis. Peritoneum and bowel: There is no evidence of bowel obstruction. No gross gastric or small bowel wall thickening. Appendix is visualized and is normal in size and appearance. A possible 4 mm appendicolith is seen. There is diffuse wall thickening and edema throughout the colon particularly involving ascending colon and transverse colon suggestive of infectious or inflammatory colitis. No free fluid or free air. Nodes and vessels: No retroperitoneal or mesenteric adenopathy by size criteria. Aorta and inferior vena cava are normal in size. Miscellaneous: No ventral hernias. PELVIS: Genitourinary: Bladder wall thickness is normal. Miscellaneous: No inguinal hernias or adenopathy. Bones: No suspicious bony lesions. No vertebral body compression fractures. IMPRESSION: 1. Diffuse wall thickening and edema involving colon suggestive of infectious or inflammatory colitis. 2. No evidence of acute appendicitis. No bowel obstruction. No free fluid or f ree air. Dictated by: Addy Redmond M.D. on 07/07/2019 at 20:09 Approved by: Addy Redmond M.D. on 07/07/2019 at 20:11 [facility] Narrative Medical decision making narrative: 29-year-old female presents emergency department for cyclic vomiting episode. Patient's vomiting subsided and she was able to tolerate p.o. after administr ation of Haldol, Reglan, Benadryl, fluids, Ativan and ketorolac. While patient was dehydrated, patient's elevated white blood cell count which was significantly higher than past cyclic vomiting episodes, and patient later reported diarrhea, CT abdomen was obtained which shows colitis. Differential includes inflammatory versus infectious. Due to elevated white blood cell count and left shift a new onset diarrhea without a history of also diff colitis or Crohn's, patient was treated with Augmentin. She was encouraged to follow up with her primary care provider for evaluation. No concern for sepsis due to lack of fever and lack of severe findings on CT. Electrolytes within normal limits. Return precautions given for new or worsening symptoms, patient agreed to plan of care verbalized understanding. <Alona Lewis MD - Last Filed: 07/08/19 06:14> Lab Data Labs: Lab Results 07/07/19 07/07/19 07/07/19 Range/Units 17:15 17:15 18:38 WBC 27.6 H (4.5-11.0) X10^3/uL RBC 5.14 (4.0-5.2) X10^6/uL Hgb 15.3 (12.0-16.0) g/dL Hct 44.4 (36-46) % MCV 86.5 (80-100) fL MCH 29.8 (26-34) PG MCHC 34.4 (30-36) % RDW 13.7 (11.6-14.8) % Plt Count 464 H (150-400) X10^3/uL Neut % (Auto) Not Reportable Lymph % (Auto) Not Reportable [place] % (Auto) Not Reportable Eos % (Auto) Not Reportable Baso % (Auto) Not Reportable Lymph # (Auto) Not Reportable [place] # (Auto) Not Reportable Baso # (Auto) Not Reportable Total Counted 100 Seg Neutrophils % 88.0 H (38-70) % Band Neutrophils % 5.0 (3-7) % Lymphocytes % (Manual) 4.0 L (25-45) % Monocytes % (Manual) 3.0 (2-11) % Neutrophils # (Manual) 79816 H (8394-5336) /uL RBC Morphology Normal morphology Sodium 137 (137-145) mmol/L Potassium 3.7 (3.4-5.1) mmol/L Chloride 100 (98-107) mmol/L Carbon Dioxide 19 L (22-32) mmol/L BUN 13 (7-17) mg/dL Creatinine 0.67 (0.52-1.04) mg/dL Estimated GFR > 60.0 (>60) mL/min BUN/Creatinine Ratio 19.4 (6-22) Glucose 166 H (70-100) mg/dL Calcium 10.3 H (8.4-10.2) mg/dL Total Bilirubin 0.5 (0.2-1.3) mg/dL AST 28 (14-36) IU/L ALT 34 (<35) IU/L Alkaline Phosphatase 86 (38-126) U/L Total Protein 8.7 H (6.3-8.2) g/dL Albumin 5.0 (3.5-5.0) g/dL Globulin 3.7 (1.7-4.1) g/dL Albumin/Globulin Ratio 1.4 (1.0-2.8) Lipase 34 (23-300) U/L Urine RBC 1-5/hpf (0-5/HPF) Urine WBC 1-5/hpf (0-5/HPF) Ur Squamous Epith Cells 1-5 /hpf (0-5/HPF) Amorphous Sediment 1+ Urine Bacteria Few (2-10) H (None) Urine Mucus 1+ H (Negative) Ur Culture Indicated? Cult not indicated Point of Care Testing Test Results Negative Urine Dip Bedside Urine Glucose 100 mg/dl Bedside Urine Bilirubin - Negative Bedside Urine Ketone ++ 40 Urine Specific [place] 1.030 Bedside Urine Occult Blood + Bedside Urine pH 6.0 Bedside Urine Protein + 30 Bedside Urine Urobilinogen - Negative Bedside Urine Nitrite - Negative Bedside Urine Leukocytes - Negative Esterase Discharge Plan Departure Patient Disposition: Home Clinical Impression: Cyclical vomiting, Colitis, acute Discharge Date/Time: 07/07/19 21:15 Instructions: DI for Cyclic Vomiting Syndrome-Child, DI for Colitis Activity Restrictions/Additional Instructions: Thank you for entrusting me with your care today. As discussed, your CT shows some inflammatory bowel changes. This may be due to an infection or general inflammation. I prescribed you Augmentin as your white blood cell count is elevated which is more suspicious of infection. I have also prescribed you Reglan to help with vomiting. Prescription sent to [facility] in [place]. Please follow-up with your primary care provider in 1-2 weeks for further evaluation if symptoms continue. Return emergency department for any new or worsening symptoms such as severe pain, uncontrollable vomiting, chest pain, or other concerns. Prescriptions: New amoxicillin-pot clavulanate [Augmentin] 875-125 mg tablet 1 tab PO BID 10 Days Qty: 20 RF: 0 metoclopramide HCl [Reglan] 10 mg tablet 10 mg PO Q6H PRN (Reason: nausea and vomiting) Qty: 10 RF: 0 No Action haloperidol 0.5 mg tablet 0.5 mg PO Q8H PRN (Reason: breakthrough) RF: 0 diphenhydramine HCl 50 mg Capsule 50 mg PO BEDTIME RF: 0 propranolol 40 mg Tablet 40 mg PO DAILY RF: 0 ondansetron 4 mg Tablet,Disintegrating 4 mg PO Q6H PRN (Reason: Nausea) RF: 0 nortriptyline 50 mg Capsule 100 mg PO BEDTIME RF: 0 metoclopramide HCl 10 mg tablet 10 mg PO Q6H PRN (Reason: Nausea And Vomiting) RF: 0 rizatriptan 5 mg Tablet 5 mg PO Q2-4H MDD 10 mg PRN (Reason: Migraine Headache) RF: 0 buspirone 15 mg Tablet 15 mg PO TID RF: 0 albuterol sulfate 90 mcg/actuation Hfa Aerosol Inhaler 2 puff INHALATION Q4-6H PRN (Reason: Wheezing) RF: 0 fluticasone propionate [Flonase Allergy Relief] 50 mcg/actuation Flom,Suspension 2 spray INTRANASAL DAILY PRN (Reason: Allergic Symptoms) RF: 0 Flovent HFA 110 mcg/actuation Hfa Aerosol Inhaler 1 puff INHALATION BID RF: 0 prochlorperazine 25 mg suppository 25 mg VA Q12H PRN (Reason: nausea and vomiting) Qty: 12 RF: 0 potassium chloride 20 mEq tablet extended release 20 meq PO DAILY Qty: 7 RF: 0 metoclopramide HCl 10 mg tablet 10 mg PO Q6H PRN (Reason: nausea and vomiting) Qty: 90 RF: 0 haloperidol lactate 2 mg/mL concentrate 1 mg PO TID Qty: 120 RF: 0 lorazepam [Ativan] 1 mg tablet 1 mg PO TID PRN (Reason: anxiety) Qty: 20 RF: 0 promethazine 25 mg suppository 25 mg VA Q6H PRN (Reason: nausea and vomiting) Qty: 12 RF: 0 <Alona Lewis MD - Last Filed: 07/08/19 06:14> Cosign ED Attending [facility] Attestation: I was immediately available in the department for consultation throughout this patient's visit. I agree with documentation as above. Alona Lewis MD
[2019-07-07 16:56] VITALS: BP 142/93; PULSE 99; RESP 16; TEMP 36.6; O2SAT 97; BMI 34.0
[2019-07-07 17:35] LABS: Add Manual Diff / Slide Review YES; Hematocrit 44.4 % (36-46); Hemoglobin 15.3 g/dL (12.0-16.0); Mean Corpuscular HGB Conc 34.4 % (30-36); Mean Corpuscular Hemoglobin 29.8 PG (26-34); Mean Corpuscular Volume 86.5 fL (80-100); Platelet Count 464 X10^3/uL (150-400); Red Blood Cell Count 5.14 X10^6/uL (4.0-5.2); Red Cell Distribution Width 13.7 % (11.6-14.8); White Blood Cell Count 27.6 X10^3/uL (4.5-11.0)
[2019-07-07] MEDS: HALOPERIDOL 5 MG/ML VIAL 2 MG IV ×2 (17:39→18:46)
[2019-07-07] MEDS: KETOROLAC 60 MG/2 ML VIAL 30 MG IV (17:39)
[2019-07-07] MEDS: PANTOPRAZOLE 40 MG VIAL IV (17:39)
[2019-07-07] MEDS: diphenhydrAMINE 50 MG/ML VIAL 25 MG IV (17:39)
[2019-07-07] MEDS: SODIUM CHLORIDE 0.9% 1,000 ML 1000 ML IV ×2 (17:40→18:46)
[2019-07-07 17:41] LABS: Albumin Globulin Ratio 1.4 (1.0-2.8); Alkaline Phosphatase 86 U/L (38-126); Aspartate Aminotransferase 28 IU/L (14-36); BUN Creatinine Ratio 19.4 (6-22); Bilirubin Total 0.5 mg/dL (0.2-1.3); Blood Urea Nitrogen 13 mg/dL (7-17); Calcium 10.3 mg/dL (8.4-10.2); Carbon Dioxide 19 mmol/L (22-32); Chloride 100 mmol/L (98-107); Estimated Glomerular Filt Rate > 60.0 mL/min (>60); Globulin 3.7 g/dL (1.7-4.1); Glucose 166 mg/dL (70-100); HEMOLYSIS < 15 (0-50); Lipase 34 U/L (23-300); Potassium 3.7 mmol/L (3.4-5.1); Sodium 137 mmol/L (137-145); Total Protein 8.7 g/dL (6.3-8.2)
[2019-07-07] MEDS: METOCLOPRAMIDE 10 MG/2 ML INJ IV (17:41)
[2019-07-07 17:48] LABS: Alanine Aminotransferase 34 IU/L (<35)
[2019-07-07 17:49] VITALS: BP 145/96; PULSE 100; RESP 22; O2SAT 100
[2019-07-07 17:52] LABS: Neutrophils Absolute Manual 25668 /uL (3000-5900); Total Cells Counted 100
[2019-07-07 17:54] LABS: RBC Morphology Normal Morphology
--- NOTE | 2019-07-07 18:00 | PC.NURSE ---
patient with known cyclic vomiting syndrome since childhood, has been vomiting since 299.
[2019-07-07 18:50] VITALS: BP 133/67; PULSE 106; RESP 18; O2SAT 99
--- NOTE | 2019-07-07 18:57 | DI.CT.S_ITS ---
PROCEDURE: CT ABDOMEN PELVIS W CON INDICATIONS: elevated WBC, continued vomiting. TECHNIQUE: After the administration of intravenous contrast, 5 mm thick sections acquired from the diaphragm to the symphysis. 5 mm coronal and sagittal reformats were acquired. For radiation dose reduction, the following was used: automated exposure control, adjustment of mA and/or kV according to patient size. COMPARISON: None. FINDINGS: Image quality: Excellent. ABDOMEN: Lung bases: Lung bases are clear. Heart size is normal. Solid organs: Liver is normal in size and enhancement. Gallbladder is within normal limits. Biliary system is non dilated. Pancreas enhances normally. Spleen is normal in size and enhancement. No adrenal nodules. Kidneys demonstrate normal size and enhancement, without hydronephrosis. Peritoneum and bowel: There is no evidence of bowel obstruction. No gross gastric or small bowel wall thickening. Appendix is visualized and is normal in size and appearance. A possible 4 mm appendicolith is seen. There is diffuse wall thickening and edema throughout the colon particularly involving ascending colon and transverse colon suggestive of infectious or inflammatory colitis. No free fluid or free air. Nodes and vessels: No retroperitoneal or mesenteric adenopathy by size criteria. Aorta and inferior vena cava are normal in size. Miscellaneous: No ventral hernias. PELVIS: Genitourinary: Bladder wall thickness is normal. Miscellaneous: No inguinal hernias or adenopathy. Bones: No suspicious bony lesions. No vertebral body compression fractures. IMPRESSION: 1. Diffuse wall thickening and edema involving colon suggestive of infectious or inflammatory colitis. 2. No evidence of acute appendicitis. No bowel obstruction. No free fluid or free air. Dictated by: dAdy Redmond M.D. on 07/07/2019 at 20:09 Approved by: Addy Redmond M.D. on 07/07/2019 at 20:11
[2019-07-07 19:09] LABS: RBC Urine 1-5/HPF (0-5/HPF); Squamous Epithelial Cell Urine 1-5 /HPF (0-5/HPF); WBC Urine 1-5/HPF (0-5/HPF)
[2019-07-07 19:10] LABS: Amorphous Sediment Urine 1+; Bacteria Urine Few (2-10); Culture Indicated Urine Cult Not Indicated; Mucus Urine 1+ (Negative)
[2019-07-07 19:25] VITALS: BP 133/67; PULSE 101; RESP 16; O2SAT 100
[2019-07-07] MEDS: LORazepam 2 MG/ML INJ 1 MG IV (20:31)
[2019-07-07] MEDS: AMOXICILLIN/CLAV 875/125 MG 1 TAB PO (20:51)
[2019-07-07 21:12] VITALS: BP 143/75; PULSE 99; RESP 18; TEMP 36.9; O2SAT 100
== END 2019-07-07 21:15 | disposition home or self-care (01) ==
PROVIDERS: Emergency Provider Nurse Practitioner
DX: R11.15 Cyclical vomiting syndrome unrelated to migraine (principal); K52.9 Noninfective gastroenteritis and colitis, unspecified; D72.829 Elevated white blood cell count, unspecified
CPT/HCPCS: 74177; 80053; 81003; 81015; 81025; 83690; 85025; 96361; 96374; 96375; 96376; 99284; C9113; J1200; J1630; J1885; J2060; J2765; Q9967

== ENCOUNTER 2019-07-23 22:01 | Observation (INO) | payer OTHER, SELFPAY ==
[2018-08-21 18:41] VITALS: BMI 31.2
[2019-07-23 22:18] VITALS: BP 138/80; PULSE 94; RESP 18; TEMP 36.6; O2SAT 100
--- NOTE | 2019-07-23 23:11 | ED.NAVMDI ---
HPI - Nausea/Vomiting/Diarrhea General Chief complaint: Nausea/Vomiting/Diarrhea Stated complaint: vomiting Time Seen by Provider: 07/23/19 23:11 Source: patient Mode of arrival: Ambulatory Limitations: no limitations History of Present Illness HPI Narrative: 29-year-old woman with a history of cyclic vomiting since the age of 8 presents with worsening cyclic vomiting. She was seen in the emergency room with similar complaints on July [address] scan of her belly at that time done for leukocytosis suggested mild colitis. She was started on Augmentin however has had enough vomiting and nausea that she has not been able to take this for at least 48 hours. She notes continued severe abdominal pain that is worse than her typical cyclic vomiting type abdominal pain with vomiting and dry heaves but no diarrhea. She has had chills and sweats but is unsure she has had any fevers. Denies dysuria or flank pain. Related Data Home Medications Medication Instructions Recorded Confirmed Flovent HFA 1 puff INHALATION BID 08/21/18 08/21/18 albuterol sulfate 2 puff INHALATION Q4-6H PRN 08/21/18 08/21/18 buspirone 15 mg PO TID 08/21/18 08/21/18 diphenhydramine HCl 50 mg PO BEDTIME 08/21/18 08/21/18 fluticasone propionate [Flonase 2 spray INTRANASAL DAILY PRN 08/21/18 08/21/18 Allergy Relief] haloperidol 0.5 mg PO Q8H PRN 08/21/18 08/21/18 metoclopramide HCl 10 mg PO Q6H PRN 08/21/18 08/21/18 nortriptyline 100 mg PO BEDTIME 08/21/18 08/21/18 ondansetron 4 mg PO Q6H PRN 08/21/18 08/21/18 propranolol 40 mg PO DAILY 08/21/18 08/21/18 rizatriptan 5 mg PO Q2-4H PRN MDD 10 mg 08/21/18 08/21/18 Previous Rx's Medication Instructions Recorded prochlorperazine 25 mg OK Q12H PRN #12 each 08/22/18 haloperidol lactate 1 mg PO TID #120 ml 02/04/19 lorazepam [Ativan] 1 mg PO TID PRN #20 tab 02/04/19 potassium chloride 20 meq PO DAILY #7 tab 12/27/19 promethazine 25 mg OK Q6H PRN #12 each 03/14/19 metoclopramide HCl 10 mg PO Q6H PRN #90 tab 03/22/19 metoclopramide HCl [Reglan] 10 mg PO Q6H PRN #10 tab 07/07/19 Allergies Allergy/AdvReac Type Severity Reaction Status Date / Time mushroom Allergy Severe Vomiting Verified 03/22/19 08:43 peanut Allergy Severe Anaphylaxis Verified 03/22/19 08:43 Sulfa (Sulfonamide Allergy Unknown Verified 03/22/19 08:43 Antibiotics) Review of Systems Review of Systems Narrative: Pertinent positive and negative findings as per HPI Remainder of review of systems is otherwise unremarkable for ENT: neck pain, ear pain CV: Chest pain, palpitations, dyspnea on exertion Respiratory: Cough, wheeze, dyspnea : Dysuria, hematuria, flank pain MS: Muscle weakness, numbness, joint swelling or warmth Skin: Rashes, nonhealing lesions Psych: Depression, anxiety, suicidal ideation Endocrine: Fatigue, heat or cold intolerance, very dry skin Heme: Easy bruising or bleeding Patient History Medical History Asthma (Acute) Cyclic vomiting syndrome (Acute) Environmental allergies (Acute) Marijuana smoker (Acute) Severe frontal headaches (Acute) Surgical History History of toe surgery (Acute) Family History Father Arthritis Mother Anxiety Fibromyalgia Brother Childhood asthma Drug abuse Social History household members: spouse Smoking Status: Current some day smoker alcohol intake: current Smoking Status: Current some day smoker alcohol intake frequency: a few times a week Substance Use Type: marijuana Exam Narrative Exam Narrative: General: pale, acutely ill-appearing, very dry mucous membranes, actively retching, unable to actively participate in history taking HEENT: Dry mucous membranes, normal sclera with reactive pupils, Neck: No JVD, supple Respiratory: Lungs are clear to auscultation, no wheezing no rales no rhonchi. Full and symmetrical air movement Cardiac: Tachycardic but regular rate and rhythm no murmurs no bruits Abdomen: Soft, diffusely tender with decreased bowel tones, no flank pain Skin: Pale and dry, no rashes Neurologic: Grossly neurologically intact with no obvious asymmetries or abnormalities Extremities: No trauma, well perfused Psych: Cooperative, extraordinarily fatigued Initial Vital Signs Initial Vital Signs: Vital Signs Temperature 98 F 07/23/19 22:18 Pulse Rate 94 H 07/23/19 22:18 Respiratory Rate 18 07/23/19 22:18 Blood Pressure 138/80 07/23/19 22:18 Pulse Oximetry 100 07/23/19 22:18 Course Orders Ordered: ED Orders 07/23/19 23:15 Complete Blood Count AUTO DIFF Stat Comprehensive Metabolic Panel Stat Magnesium Stat 07/24/19 02:32 CT abdomen pelvis w con Stat 07/24/19 02:45 Blood Culture Stat Lactate (Lactic Acid) Stat Sodium Chloride (Normal Saline 0.9%) 1,000 mls @ 150 mls/hr IV CONT BENY Last Admin: 07/24/19 02:42 Dose: 150 mls/hr Documented by: KEVIN Discontinued Medications Diphenhydramine HCl (Benadryl) 25 mg IV NOW ONE Stop: 07/23/19 23:15 Last Admin: 07/23/19 23:36 Dose: 25 mg Documented by: ALLYN Haloperidol (Haldol) 2 mg IV NOW ONE Stop: 07/23/19 23:15 Last Admin: 07/23/19 23:36 Dose: 2 mg Documented by: ALLYN Sodium Chloride (Normal Saline 0.9%) 1,000 mls @ 1,000 mls/hr IV BOLUS ONE Stop: 07/24/19 00:12 Last Infusion: 07/24/19 00:32 Dose: 0 mls/hr Documented by: Admin: 07/23/19 23:37 Dose: 1,000 mls/hr Documented by: ALLYN Sodium Chloride (Normal Saline 0.9%) 1,000 mls @ 1,000 mls/hr IV BOLUS ONE Stop: 07/24/19 00:14 Last Infusion: 07/24/19 01:45 Dose: 1,000 mls/hr Documented by: Admin: 07/24/19 00:31 Dose: 1,000 mls/hr Documented by: RAMIRO Ceftriaxone Sodium/Dextrose (Rocephin) 2 gm in 50 mls @ 100 mls/hr IV NOW ONE Stop: 07/24/19 03:01 Last Infusion: 07/24/19 03:42 Dose: 100 mls/hr Documented by: Admin: 07/24/19 02:42 Dose: 100 mls/hr Documented by: KEVIN Metronidazole (Flagyl) 500 mg in 100 mls @ 100 mls/hr IV NOW ONE Stop: 07/24/19 03:31 Last Infusion: 07/24/19 04:04 Dose: 100 mls/hr Documented by: Admin: 07/24/19 03:00 Dose: 100 mls/hr Documented by: KEVIN Lorazepam (Ativan) 1 mg IV NOW ONE Stop: 07/23/19 23:15 Last Admin: 07/23/19 23:36 Dose: 1 mg Documented by: ALLYN Metoclopramide HCl (Reglan) 10 mg IV NOW ONE Stop: 07/24/19 03:21 Last Admin: 07/24/19 03:20 Dose: 10 mg Documented by: KEVIN Ondansetron HCl (Zofran) 4 mg IV NOW ONE Stop: 07/23/19 23:14 Last Admin: 07/23/19 23:36 Dose: 4 mg Documented by: ALLYN Pantoprazole Sodium (Protonix) 80 mg IV NOW ONE Stop: 07/24/19 04:22 Last Admin: 07/24/19 04:24 Dose: 80 mg Documented by: Vital Signs Vital signs: Vital Signs - 8 hr 07/23/19 22:18 07/24/19 01:13 07/24/19 02:43 Temperature 98 F 98.5 F Pulse Rate 94 H 106 H Respiratory Rate 18 17 Blood Pressure 138/80 Blood Pressure [Right Arm] 137/86 Pulse Oximetry 100 99 MDM - Nausea/Vomiting/Diarrhea Medical Records Attestation: I reviewed the patient's medical records. Lab Data Attestation: I reviewed the patient's lab results. Lab results narrative: White count is coming down from a week ago. No evidence of acute renal failure. Slightly low magnesium Result diagrams: 07/24/19 01:00 07/24/19 01:00 Labs: Lab Results 07/24/19 07/24/19 07/24/19 Range/Units 01:00 01:00 01:00 WBC 17.9 H (4.5-11.0) X10^3/uL RBC 4.72 (4.0-5.2) X10^6/uL Hgb 13.8 (12.0-16.0) g/dL Hct 41.0 (36-46) % MCV 86.9 (80-100) fL MCH 29.3 (26-34) PG MCHC 33.7 (30-36) % RDW 13.5 (11.6-14.8) % Plt Count 396 (150-400) X10^3/uL Neut % (Auto) 90.8 H (50-75) % Lymph % (Auto) 5.8 L (25-40) % [place] % (Auto) 2.9 L (3-14) % Eos % (Auto) 0.0 L (2-4) % Baso % (Auto) 0.5 (0-2) % Neut # (Auto) 55462 H (2139-5330) /uL Lymph # (Auto) 1000 L (9147-2890) /uL [place] # (Auto) 500 (0-900) /uL Eos # (Auto) 0 (0-450) /uL Baso # (Auto) 100 (0-100) /uL Sodium 133 L (137-145) mmol/L Potassium 3.5 (3.4-5.1) mmol/L Chloride 99 (98-107) mmol/L Carbon Dioxide 26 (22-32) mmol/L BUN 10 (7-17) mg/dL Creatinine 0.64 (0.52-1.04) mg/dL Estimated GFR > 60.0 (>60) mL/min BUN/Creatinine Ratio 15.6 (6-22) Glucose 129 H (70-100) mg/dL Lactate (0.7-2.1) mmol/L Calcium 8.9 (8.4-10.2) mg/dL Magnesium 1.5 L (1.6-2.3) mg/dL Total Bilirubin 0.4 (0.2-1.3) mg/dL AST 26 (14-36) IU/L ALT 27 (<35) IU/L Alkaline Phosphatase 69 (38-126) U/L Total Protein 7.4 (6.3-8.2) g/dL Albumin 4.4 (3.5-5.0) g/dL Globulin 3.0 (1.7-4.1) g/dL Albumin/Globulin Ratio 1.5 (1.0-2.8) 07/24/19 Range/Units 02:45 WBC (4.5-11.0) X10^3/uL RBC (4.0-5.2) X10^6/uL Hgb (12.0-16.0) g/dL Hct (36-46) % MCV (80-100) fL MCH (26-34) PG MCHC (30-36) % RDW (11.6-14.8) % Plt Count (150-400) X10^3/uL Neut % (Auto) (50-75) % Lymph % (Auto) (25-40) % [place] % (Auto) (3-14) % Eos % (Auto) (2-4) % Baso % (Auto) (0-2) % Neut # (Auto) (2440-5137) /uL Lymph # (Auto) (6480-9951) /uL [place] # (Auto) (0-900) /uL Eos # (Auto) (0-450) /uL Baso # (Auto) (0-100) /uL Sodium (137-145) mmol/L Potassium (3.4-5.1) mmol/L Chloride (98-107) mmol/L Carbon Dioxide (22-32) mmol/L BUN (7-17) mg/dL Creatinine (0.52-1.04) mg/dL Estimated GFR (>60) mL/min BUN/Creatinine Ratio (6-22) Glucose (70-100) mg/dL Lactate 1.5 (0.7-2.1) mmol/L Calcium (8.4-10.2) mg/dL Magnesium (1.6-2.3) mg/dL Total Bilirubin (0.2-1.3) mg/dL AST (14-36) IU/L ALT (<35) IU/L Alkaline Phosphatase (38-126) U/L Total Protein (6.3-8.2) g/dL Albumin (3.5-5.0) g/dL Globulin (1.7-4.1) g/dL Albumin/Globulin Ratio (1.0-2.8) Imaging Data CT scan - abdomen/pelvis: Radiologist's Impression: Slight worsening of colitis since study performed 2 weeks ago Moderate esophagitis Stable duodenitis Chris Lang MD [facility] Narrative Medical decision making narrative: Patient received 2 L of fluid Haldol Benadryl Ativan and the retching has stopped. She has spontaneously voided. She continues to be tachycardic, and is now flushed still is significant abdominal pain now worse in the left lower quadrant. Given the increased abdominal pain, persistent tachycardia and flushed appearance will add lactic acid and blood cultures will cover her colitis previously diagnosed with ceftriaxone and Flagyl and will repeat her CT scan to see if there is more significant findings that have developed in the interval period. anticipate hospital admission for hydration, IV antibiotics for the presumed colitis until she is able to safely and consistently take oral fluid and keep antibiotics down. 415am lactic acid returns at 1.5. More emesis after getting up to void. CT scan returns with slight worsening of colitis. Will admit her to the hospitalist service for IV antibiotics to treat the colitis as well as better control them intractable vomiting. Care is reviewed with RICO Ledezma. She is stable to transfer to the floor Discharge Plan Departure Patient Disposition: Admitted As Inpatient Clinical Impression: Colitis, Esophagitis Vomiting Qualifiers: Vomiting type: unspecified Vomiting Intractability: intractable Nausea presence: with nausea Qualified Code(s): R11.2 - Nausea with vomiting, unspecified
[2019-07-23] MEDS: ONDANSETRON 4 MG/2 ML INJ IV (23:36)
[2019-07-23] MEDS: LORazepam 2 MG/ML INJ 1 MG IV (23:36)
[2019-07-23] MEDS: diphenhydrAMINE 50 MG/ML VIAL 25 MG IV (23:36)
[2019-07-23] MEDS: HALOPERIDOL 5 MG/ML VIAL 2 MG IV (23:36)
[2019-07-23] MEDS: SODIUM CHLORIDE 0.9% 1,000 ML 1000 ML IV (23:37)
[2019-07-24] VITALS (8 sets, daily range): BP systolic 115–143; BP diastolic 65–89; PULSE 90–106; RESP 16–18; TEMP 36.9–37.2; O2SAT 98–100; BMI 35.2
[2019-07-24] MEDS: SODIUM CHLORIDE 0.9% 1,000 ML 1000 ML IV (00:31)
[2019-07-24 01:15] LABS: Add Manual Diff / Slide Review NO; Basophils Absolute Auto 100 /uL (0-100); Basophils Percent Auto 0.5 % (0-2); Eosinophils Absolute Auto 0 /uL (0-450); Hemoglobin 13.8 g/dL (12.0-16.0); Lymphocytes Absolute Auto 1000 /uL (1100-4500); Lymphocytes Percent Auto 5.8 % (25-40); Mean Corpuscular HGB Conc 33.7 % (30-36); Mean Corpuscular Hemoglobin 29.3 PG (26-34); Mean Corpuscular Volume 86.9 fL (80-100); Monocytes Absolute Auto 500 /uL (0-900); Monocytes Percent Auto 2.9 % (3-14); Neutrophils Absolute Auto 16300 /uL (1500-7000); Neutrophils Percent Auto 90.8 % (50-75); Platelet Count 396 X10^3/uL (150-400); Red Blood Cell Count 4.72 X10^6/uL (4.0-5.2); Red Cell Distribution Width 13.5 % (11.6-14.8); White Blood Cell Count 17.9 X10^3/uL (4.5-11.0)
[2019-07-24 01:33] LABS: Magnesium 1.5 mg/dL (1.6-2.3)
[2019-07-24 01:34] LABS: Alanine Aminotransferase 27 IU/L (<35); Albumin 4.4 g/dL (3.5-5.0); Albumin Globulin Ratio 1.5 (1.0-2.8); Alkaline Phosphatase 69 U/L (38-126); Aspartate Aminotransferase 26 IU/L (14-36); BUN Creatinine Ratio 15.6 (6-22); Bilirubin Total 0.4 mg/dL (0.2-1.3); Blood Urea Nitrogen 10 mg/dL (7-17); Calcium 8.9 mg/dL (8.4-10.2); Carbon Dioxide 26 mmol/L (22-32); Chloride 99 mmol/L (98-107); Estimated Glomerular Filt Rate > 60.0 mL/min (>60); Glucose 129 mg/dL (70-100); HEMOLYSIS < 15 (0-50); Potassium 3.5 mmol/L (3.4-5.1); Sodium 133 mmol/L (137-145); Total Protein 7.4 g/dL (6.3-8.2)
--- NOTE | 2019-07-24 02:32 | DI.CT.S_ITS ---
PROCEDURE: CT ABDOMEN PELVIS W CON INDICATIONS: increasing abdominal pain, compare to 07/07/2019 TECHNIQUE: After the administration of intravenous contrast, 5 mm thick sections acquired from the diaphragm to the symphysis. 5 mm coronal and sagittal reformats were acquired. For radiation dose reduction, the following was used: automated exposure control, adjustment of mA and/or kV according to patient size. COMPARISON: [facility], CT, CT ABDOMEN PELVIS W CON, 07/07/2019, 19:37. FINDINGS: Image quality: Excellent. ABDOMEN: Lung bases: Lung bases are clear. Heart size is normal. Solid organs: Liver is normal in size and enhancement. Gallbladder appears normal. Biliary system is non dilated. Pancreas enhances normally. Spleen is normal in size and enhancement. No adrenal nodules. Kidneys demonstrate normal size and enhancement, without hydronephrosis. Peritoneum and bowel: Colonic bowel loops on the right demonstrate normal wall thickness and caliber. Over the transverse colon and descending colon into the proximal sigmoid colon there appears to be a persistent pattern of mild colitis with mural thickening. No focal diverticulitis is seen. The descending duodenum mural thickness appears also mildly increased. Definite adjacent edema is not present, however. Slight prominence of the distal esophagus at the EG junction. No free fluid or air. Nodes and vessels: No retroperitoneal or mesenteric adenopathy by size criteria. Aorta and inferior vena cava are normal in size. Miscellaneous: No ventral hernias. PELVIS: Genitourinary: Bladder wall thickness is normal. Miscellaneous: No inguinal hernias or adenopathy. Bones: No suspicious bony lesions. No vertebral body compression fractures. IMPRESSION: No diverticulitis found, no abscess suspected. Note is made of a mild interval increase in the pattern of mild transverse and left colonic mural thickening in a pattern suggestive of persistent colitis. There is a questionable finding of possible duodenal wall thickening involving the duodenal bulb and descending duodenum but without adjacent focal edema. The esophagogastric junction is slightly prominent in terms of mural thickening. Overall the pattern raises concern for presence of enteritis, infectious or potentially idiopathic such as underlying Crohn's disease. Dictated by: Buddy Strong M.D. on 07/24/2019 at 8:47 Approved by: Buddy Strong M.D. on 07/24/2019 at 8:53
[2019-07-24] MEDS: SODIUM CHLORIDE 0.9% 1,000 ML 150 ML IV ×2 (02:42→05:23)
[2019-07-24] MEDS: CEFTRIAXONE 2 GM/50 ML FROZ.PIGGY IV (02:42)
[2019-07-24] MEDS: metroNIDAZOLE 500 MG/100 ML PIGGYBACK 100 MG IV (03:00)
[2019-07-24 03:18] LABS: Lactate (Lactic Acid) 1.5 mmol/L (0.7-2.1)
[2019-07-24] MEDS: METOCLOPRAMIDE 10 MG/2 ML INJ IV (03:20)
--- NOTE | 2019-07-24 03:25 | PC.NURSE ---
PT vomited, Dr aware and pt received IV reglan ordered.
[2019-07-24] MEDS: PANTOPRAZOLE 40 MG VIAL 80 MG IV (04:24)
--- NOTE | 2019-07-24 04:29 | PC.NURSE ---
Friend Barbara can be reached [phone].
--- NOTE | 2019-07-24 05:15 | P.HP_ITS ---
History of Present Illness History of Present Illness Date Patient Seen: 07/24/19 Time Patient Seen: 05:33 Chief complaint: vomiting Narrative: Ms. Nuris Castle is a 29-year-old female patient with a prior history of headaches, cyclic vomiting, asthma presents to the ER with recurrent cyclic vomiting. The patient has a history of cyclic vomiting since age 8 that has been previously fully evaluated by Gastroenterology at [facility]. At one point the patient was admitted to [facility] for week were upon the patient was started Norplant as her episodes are associated menstrual cycle. The patient was relatively stable with minor incidence but no longer requiring ER admission for approximately 2 years until the Norplant was discontinued favor of patient to start have children. Patient now is followed only by her PCP. The patient will typically use lorazepam, Haldol, Reglan and Zofran to manage vomiting and endorses using marijuana use only to help control nausea. It was previously questioned whether the cyclic vomiting is related to her marijuana use and she stop for 3 months without change in her monthly episodes of vomiting. Emesis is non-bloody and has progressed to dry heaves. The patient has had no subjective fevers but does report chills and diaphoresis. The patient was seen in the emergency department on 07/07/2019 for cyclic vomiting and was rehydrated with control of vomiting established. Patient also complained of abdominal pain that was not typical of her cyclic vomiting presentation and was found to have colitis and started on Augmentin at discharge. Few days ago her vomiting reoccurred and she has not been able to t maria esther the antibiotics for 2 days. Nausea has been progressive prompting her to present to the ER. She has history of severe headaches but none at this time, environmental allergies but no reports of nasal congestion or sore throat. She denies chest pain or palpitations, shortness of breath or cough. She complains of epigastric pain and lower abdominal pain with a continuing nausea with dry heaves.. She reports diarrhea of both loose and watery stool without blood or melena. She denies dysuria or hematuria. Upon arrival to the ER the patient is afebrile with temperature 90?. She blood pressure 138/80 and heart rate 96, respirations of 18 saturating 90% air imaging is obtained the CT the abdomen pelvis which shows slightly worsening colitis since study completed 2 weeks ago. Moderate esophagitis, duodenitis suspected stable. On laboratory analysis the patient has white count of 17.9 with 90.8% neutrophils(WBC count was 27.6 on 07/07/2019). Patient has a sodium of 133 and potassium 3.5, BUN of 10 and a creatinine 0.64. Her nonfasting glucose is 129. Her magnesium is 1.5. She has lactic acid 1.5. Liver functions are all within normal limits with a bilirubin 0.4, AST of 26, ALT of 27 and alkaline phosphatase 69. Albumin is 4.4. Procalcitonin is added to the labs is found to be less than 0.05. In the ER the patient received Ativan 1 mg, Haldol 2 mg, Reglan 10 mg, Benadryl 25 mg and Zofran 4 mg. The patient continues to have nausea with intermittent vomiting. The patient is receiving IV ceftriaxone and metronidazole for her worsening colitis. The Patient is admitted to the medicine service for cyclic vomiting and worsening colitis. Patient History Medical History Asthma (Acute) Cyclic vomiting syndrome (Acute) Environmental allergies (Acute) Marijuana smoker (Acute) Severe frontal headaches (Acute) Surgical History History of toe surgery (Acute) Family & Social History Family History Father Arthritis Mother Anxiety Fibromyalgia Brother Childhood asthma Drug abuse Social History: household members spouse Safety & Behavioral: Feels Safe in Current Yes Environment Tobacco & Substance use: Tobacco type cannabis/marijuana Smoking Status Current some day smoker alcohol intake current alcohol intake frequency a few times a week Substance Use Type marijuana Meds Home Medications and Allergies Home Medications Medication Instructions Recorded Confirmed Type Flovent HFA 1 puff INHALATION BID 08/21/18 08/21/18 History albuterol sulfate 2 puff INHALATION Q4-6H PRN 08/21/18 08/21/18 History buspirone 15 mg PO TID 08/21/18 08/21/18 History diphenhydramine HCl 50 mg PO BEDTIME 08/21/18 08/21/18 History fluticasone propionate [Flonase 2 spray INTRANASAL DAILY PRN 08/21/18 08/21/18 History Allergy Relief] haloperidol 0.5 mg PO Q8H PRN 08/21/18 08/21/18 History nortriptyline 100 mg PO BEDTIME 08/21/18 08/21/18 History ondansetron 4 mg PO Q6H PRN 08/21/18 08/21/18 History propranolol 40 mg PO DAILY 08/21/18 08/21/18 History rizatriptan 5 mg PO Q2-4H PRN MDD 10 mg 08/21/18 08/21/18 History prochlorperazine 25 mg CA Q12H PRN #12 each 08/22/18 Rx haloperidol lactate 1 mg PO TID #120 ml 02/04/19 Rx lorazepam [Ativan] 1 mg PO TID PRN #20 tab 02/04/19 Rx promethazine 25 mg CA Q6H PRN #12 each 03/14/19 Rx Allergies Allergy/AdvReac Type Severity Reaction Status Date / Time mushroom Allergy Severe Vomiting Verified 03/22/19 08:43 peanut Allergy Severe Anaphylaxis Verified 03/22/19 08:43 Sulfa (Sulfonamide Allergy Unknown Verified 03/22/19 08:43 Antibiotics) Review of Systems Review of Systems ROS: Yes All systems reviewed with the patient and are negative except as otherwise documented Exam Vital Signs (past 8 hours): - 07/23/19 22:18 07/24/19 01:13 07/24/19 02:43 Temperature 98 F 98.5 F Pulse Rate 94 H 106 H Respiratory Rate 18 17 Blood Pressure 138/80 Blood Pressure [Right Arm] 137/86 Pulse Oximetry 100 99 07/24/19 03:35 Temperature Pulse Rate 96 H Respiratory Rate 16 Blood Pressure Blood Pressure [Right Arm] 143/74 H Pulse Oximetry 99 Oxygen Delivery Method Room Air Narrative Exam Narrative: GENERAL APPEARANCE: well developed, obese 29-year-old female who is obviously unwell. HEENT: Normocephalic, PERRLA, conjunctiva clear, sclera anicteric, EOMs intact without nystagmus, mucous membranes are moist and pink. NECK/THYROID: neck supple, no JVD, no carotid bruit, no thyromegaly, trachea midline. LYMPH NODES: no cervical or supraclavicular lymphadenopathy. SKIN: [place], warm and dry, no visible rashes HEART: regular rate and rhythm, S1-S2, no murmur, no rubs or gallops, brisk capillary refill, no edema LUNGS: Faint end expiratory wheezes bilateral bases without coarseness or crackles, no cough present CHEST: Symmetrical movement, no accessory muscle use, good tidal volume. ABDOMEN: Soft, no distention, generalized with focal epigastric and lower abdominal abdominal tenderness, no guarding or peritoneal signs, no organomegal y, no flank or suprapubic tenderness, active bowel tones. BACK: Normal curvature, nontender to palpation, no CVA tenderness on percussion EXTREMITIES: moves all extremities, strength is 5/5 and symmetrical, no deformities or joint effusions. NEUROLOGIC: AAO x4, no focal neurologic deficits, cranial nerves II-XII grossly intact, sensation intact to light touch, hearing grossly normal to speech. PSYCH: Patient is drowsy, eyes mostly closed, flat affect, cooperative with stable behavior Objective Labs Result Diagrams: 07/24/19 01:00 07/24/19 01:00 Labs: Laboratory Results - last 24 hr 07/24/19 07/24/19 07/24/19 01:00 01:00 01:00 WBC 17.9 H RBC 4.72 Hgb 13.8 Hct 41.0 MCV 86.9 MCH 29.3 MCHC 33.7 RDW 13.5 Plt Count 396 Neut % (Auto) 90.8 H Lymph % (Auto) 5.8 L [place] % (Auto) 2.9 L Eos % (Auto) 0.0 L Baso % (Auto) 0.5 Neut # (Auto) 16529 H Lymph # (Auto) 1000 L [place] # (Auto) 500 Eos # (Auto) 0 Baso # (Auto) 100 Sodium 133 L Potassium 3.5 Chloride 99 Carbon Dioxide 26 BUN 10 Creatinine 0.64 Estimated GFR > 60.0 BUN/Creatinine Ratio 15.6 Glucose 129 H Lactate Calcium 8.9 Magnesium 1.5 L Total Bilirubin 0.4 AST 26 ALT 27 Alkaline Phosphatase 69 Total Protein 7.4 Albumin 4.4 Globulin 3.0 Albumin/Globulin Ratio 1.5 07/24/19 02:45 WBC RBC Hgb Hct MCV MCH MCHC RDW Plt Count Neut % (Auto) Lymph % (Auto) [place] % (Auto) Eos % (Auto) Baso % (Auto) Neut # (Auto) Lymph # (Auto) [place] # (Auto) Eos # (Auto) Baso # (Auto) Sodium Potassium Chloride Carbon Dioxide BUN Creatinine Estimated GFR BUN/Creatinine Ratio Glucose Lactate 1.5 Calcium Magnesium Total Bilirubin AST ALT Alkaline Phosphatase Total Protein Albumin Globulin Albumin/Globulin Ratio Assessment & Plan Assessment & Plan narrative: This is a 29-year-old female patient with a history of cyclic vomiting with antecedent headaches who is admitted for uncontrolled nausea vomiting. 1. Intractable cyclic vomiting, chronic, present on admission -long history of cyclic vomiting since age 8 previously evaluated by Gastroenterology at [facility] in followed by her PCP only. -patient received Ativan, Haldol, Reglan, Benadryl and Zofran in the ER with improvement in vomiting but still symptomatic. -the patient has been rehydrated with over 2 L of IV fluid with no improvement in nausea vomiting -ordered Ativan 0.5 mg every 4 hours as needed -order Benadryl 25 mg every 6 hours as needed -ordered Zofran 8 mg every 8 hours as needed -prochlorparzine 10 mg IV every 6 hours as needed -ordered Protonix 40 mg twice daily 2. Colitis, presumed secondary to infection, acute, present on admission, active -CT scan on 07/07/2019 finds: There is diffuse wall thickening and edema throughout the colon particularly involving ascending colon and transverse colon suggestive of infectious or inflammatory colitis. No free fluid or free air. CT scan today describes colitis is slightly worse. -patient has been taking Augmentin 875/125 but is a been unable to keep medication down for 2 days. -ordered stool PCR. -ordered ceftriaxone 2 g IV daily, 1st dose administered in the ER. -ordered Flagyl 500 mg IV every 6 hours, 1st dose administered in the ER -Dilaudid 0.5 mg IV every 6 hours as needed for severe abdominal pain. 2. Chronic severe headaches, present on admission -will continue patient's home medication of daily propranolol 40 mg. -rizatriptan 5 mg every 2 hours as needed with maximum daily dose of 10 mg for severe headache -Toradol 30 mg IV every 6 hours as needed for pain. 3. Marijuana use, chronic, stable -the patient states she only smokes marijuana to help with the nausea. -went up to the commode the patient is asking to take a shower and states showering helps with her nausea raising concern for cannabis hyperemesis syndrome. -patient has been counseled previously and reported that she had stopped 3 months and it did not change her nausea and vomiting pattern. 4. Asthma, mild persistent, stable -will continue patient's daily Flovent 1 puff twice daily -albuterol MDI 2 puffs every 4 hours as needed for shortness breath or wheezing -respiratory therapy to consult and treat. 3. Chronic anxiety, stable -will continue patient's BuSpar 15 mg 3 times daily. VTE prophylaxis: Enoxaparin, no leg compression devices on legs with IV in the foot. IV fluid: Normal saline 150 cc/hour Diet: NPO except ice chips. Code status: FULL CODE, the patient's mother is her surrogate decision maker. The patient is admitted due to the severity of her symptoms and the risk for complications and adverse events. The patient's expected length of stay is greater than 2 midnights.
[2019-07-24 05:22] LABS: Procalcitonin < 0.05 ng/mL (<0.5)
[2019-07-24] MEDS: MAGNESIUM SULFATE 2 GM/50 ML PIGGYBACK IV (05:25)
[2019-07-24] MEDS: LORazepam 2 MG/ML INJ 0.5 MG IV (05:55)
[2019-07-24 06:05] LABS: Bacteria Urine None Seen; WBC Urine None Seen (0-5/HPF)
[2019-07-24 06:07] LABS: Appearance Urine UA CLEAR; Bilirubin Urine UA NEGATIVE (NEGATIVE); Color Urine UA YELLOW; Glucose Urine UA TRACE g/dL (Negative); Ketones Urine UA TRACE (NEGATIVE); Leukocyte Esterase Urine UA NEGATIVE (NEGATIVE); Nitrite Urine UA NEGATIVE (Negative); Occult Blood Urine UA 1+ (Negative); Protein Urine UA NEGATIVE (Negative); Specific Gravity Urine UA <=1.005 (1.000-1.035); Urobilinogen Urine UA 0.2 E.U./dL (0.2)
[2019-07-24 06:26] LABS: pH Urine UA 7.5 (4.5-8.0)
--- NOTE | 2019-07-24 06:27 | PC.NURSE ---
Pt. admitted to room 209 from ER, continue to C/O nausea & vomiting. 0.5 mg. of Lorazepam admin. IVP. Pt. is resting now, trying to sleep. Encouraged to call for any assistance to the BR. & call nursing staff if she needed to get to the BR. Bed alarm activated, pt. is drowsy. Will cont. POC & monitor.
[2019-07-24 06:50] LABS: Culture Indicated Urine Cult Not Indicated; RBC Urine 0-1/HPF (0-5/HPF); Squamous Epithelial Cell Urine 1-5 /HPF (0-5/HPF)
[2019-07-24] MEDS: ENOXAPARIN 40 MG/0.4 ML SYRINGE SUBCUT (09:42)
[2019-07-24] MEDS: PROPRANOLOL 40 MG TABLET PO (09:42)
[2019-07-24] MEDS: metroNIDAZOLE 250 MG/50 ML PIGGYBACK 100 MG IV (09:42)
[2019-07-24] MEDS: PANTOPRAZOLE 40 MG VIAL IV (09:43)
[2019-07-24] MEDS: FLUTICASONE 110MCG HFA 120 PUFF INH (09:43)
--- NOTE | 2019-07-24 12:00 | PC.NURSE ---
Day Shift Was informed from NOC shift that pt requested shower. We wrapped pt's PIV which was on her foot up and SL pt. She was very tired appearing and checked on pt while she was in the shower. tolerated fine. Pt fell asleep after shower. assessed pt and she did not arrouse. around 1045 heard shower running in pt's room. She got out of bed, did not unplug the IV pole and just went into the shower. unplugged IV pole and let pt finish the shower. Spoke with pt after shower and told her she needed to tell someone prior to showering. she starts crying and appologizing profusely. got pt back to bed and removed PIV as it was compromised from the shower. She starts crying again and asks if she is going home, told her probably as this was the plan with MD at rounds. she is crying again. Asked pt what was wrong, she states she doesn't feel good and that her stomach hurts. Explained to pt that she has been sleeping all morning. i have seen her asleep or in the shower for the last 4 hours. She states she didn't know she was asleep that much. Asked pt to use the call light and to not take a shower without telling anyone. She agreed. 30 min later pt was in the shower again. she got out of the shower and spoke with early interventionist and MD. MD states she cut their conversation short so she could return to the shower. Will attempt to medicate with PO valium as there is no IV access. Pt was started on BRAT diet, drank one bottle of water quickly with no emesis.
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
[2019-07-24 12:39] LABS: Add Manual Diff / Slide Review NO; Basophils Absolute Auto 100 /uL (0-100); Basophils Percent Auto 0.4 % (0-2); Eosinophils Absolute Auto 100 /uL (0-450); Eosinophils Percent Auto 0.5 % (2-4); Hematocrit 40.5 % (36-46); Hemoglobin 13.8 g/dL (12.0-16.0); Lymphocytes Absolute Auto 2000 /uL (1100-4500); Lymphocytes Percent Auto 8.8 % (25-40); Mean Corpuscular Hemoglobin 29.5 PG (26-34); Mean Corpuscular Volume 86.5 fL (80-100); Monocytes Absolute Auto 1600 /uL (0-900); Neutrophils Absolute Auto 18800 /uL (1500-7000); Neutrophils Percent Auto 83.3 % (50-75); Platelet Count 526 X10^3/uL (150-400); Red Blood Cell Count 4.68 X10^6/uL (4.0-5.2); Red Cell Distribution Width 13.6 % (11.6-14.8); White Blood Cell Count 22.6 X10^3/uL (4.5-11.0)
--- NOTE | 2019-07-24 12:41 | CM.DANOTE ---
DCP: Case received, EMR reviewed and attempted to see patient. She has been in shower, or unavailable to talk, but was able to obtain some information and history from chart. Also, Jessica, gauge operator, had seen patient and also was able to share some information. DCP assessment completed with information currently available. Patient is a 29 year old female who admitted early this morning to the care of the hospitalist team. PCP: Dr. Parra. Payer: confirmed: [facility]. Patient came to the hospital via family vehicle secondary to having vomiting. Patient has history of cyclic vomiting, and has had this since she was 8 years old. Mother, is also involved and provides history as well. According to gauge operator, Jessica, who had seen patient, she vomits when she becomes anxious. Her is out of town in [place], but her mother is local. Her primary care provider is Dr. Parra, but unclear as to when patient had last seen provider. Patient has coped with her anxiety by keeping busy. 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 She used to live in a trailer on property, and had worked in the yard to keep her occupied. She is independent at baseline. Dr. Dodson has not yet seen patient, since she was preoccupied, but will try again. She had been in the shower, and prior, had been sleeping. She has indicated wanting to see therapist for her anxiety. She does use Marijuana to help her with anxiety and nausea. Can give her resource for [facility] in [place], as well as [facility], but she may need a referral from her primary provider. P: DCP to continue to follow. Will reattempt seeing patient again later today, and hospitalist will also be reattempt to see her. Dasha Smith RN/Wheel Alignment Mechanic
[2019-07-24 12:46] LABS: BUN Creatinine Ratio 9.8 (6-22); Blood Urea Nitrogen 5 mg/dL (7-17); Calcium 8.9 mg/dL (8.4-10.2); Carbon Dioxide 22 mmol/L (22-32); Chloride 98 mmol/L (98-107); Estimated Glomerular Filt Rate > 60.0 mL/min (>60); Glucose 121 mg/dL (70-100); HEMOLYSIS < 15 (0-50); Magnesium 1.9 mg/dL (1.6-2.3); Phosphorous 1.7 mg/dL (2.5-4.5); Potassium 3.1 mmol/L (3.4-5.1); Sodium 130 mmol/L (137-145)
[2019-07-24] MEDS: diazePAM 5 MG TABLET PO (12:52)
--- NOTE | 2019-07-24 16:59 | PM.DS.1 ---
History of Present Illness History of Present Illness Date Patient Seen: 07/24/19 Time Patient Seen: 16:59 Chief complaint: vomiting Narrative: As per RICO [place]: Ms. Nuris Castle is a 29-year-old female patient with a prior history of headaches, cyclic vomiting, asthma presents to the ER with recurrent cyclic vomiting. The patient has a history of cyclic vomiting since age 8 that has been previously fully evaluated by Gastroenterology at [facility]. At one point the patient was admitted to [facility] for week were upon the patient was started Norplant as her episodes are associated menstrual cycle. The patient was relatively stable with minor incidence but no longer requiring ER admission for approximately 2 years until the Norplant was discontinued favor of patient to start have children. Patient now is followed only by her PCP. The patient will typically use lorazepam, Haldol, Reglan and Zofran to manage vomiting and endorses using marijuana use only to help control nausea. It was previously questioned whether the cyclic vomiting is related to her marijuana use and she stop for 3 months without change in her monthly episodes of vomiting. Emesis is non-bloody and has progressed to dry heaves. The patient has had no subjective fevers but does report chills and diaphoresis. The patient was seen in the emergency department on 07/07/2019 for cyclic vomiting and was rehydrated with control of vomiting established. Patient also complained of abdominal pain that was not typical of her cyclic vomiting presentation and was found to have colitis and started on Augmentin at discharge. Few days ago her vomiting reoccurred and she has not been able to take the antibiotics for 2 days. Nausea has been progressive prompting her to present to the ER. She has history of severe headaches but none at this time, environmental allergies but no reports of nasal congestion or sore throat. She denies chest pain or palpitations, shortness of breath or cough. She complains of epigastric pain and lower abdominal pain with a continuing nausea with dry heaves.. She reports diarrhea of both loose and watery stool without blood or melena. She denies dysuria or hematuria. Upon arrival to the ER the patient is afebrile with temperature 90?. She blood pressure 138/80 and heart rate 96, respirations of 18 saturating 90% air imaging is obtained the CT the abdomen pelvis which shows slightly worsening colitis since study completed 2 weeks ago. Moderate esophagitis, duodenitis suspected stable. On laboratory analysis the patient has white count of 17.9 with 90.8% neutrophils(WBC count was 27.6 on 07/07/2019). Patient has a sodium of 133 and potassium 3.5, BUN of 10 and a creatinine 0.64. Her nonfasting glucose is 129. Her magnesium is 1.5. She has lactic acid 1.5. Liver functions are all within normal limits with a bilirubin 0.4, AST of 26, ALT of 27 and alkaline phosphatase 69. Albumin is 4.4. Procalcitonin is added to the labs is found to be less than 0.05. In the ER the patient received Ativan 1 mg, Haldol 2 mg, Reglan 10 mg, Benadryl 25 mg and Zofran 4 mg. The patient continues to have nausea with intermittent vomiting. The patient is receiving IV ceftriaxone and metronidazole for her worsening colitis. The Patient is admitted to the medicine service for cyclic vomiting and worsening colitis. Discharge Providers Provider Date of admission: 07/24/19 04:56 Discharge Date: 07/24/19 Consults: 07/24/19 04:54 Consult to Dietitian, Adult Routine Comment: Reason For Exam: Cyclic vomiting Consult to Discharge Planning Routine Comment: 07/24/19 06:11 Consult to Respiratory Therapy Evaluate & Treat Comment: Mild intermittent asthma Physician Instructions: Evaluate and treat Discharge provider: Sebastian Dodson DO Summary Hospital Course Discharge Diagnosis: Please see hospital course by problem list noted below. Hospital Course: This is a 29-year-old female patient with a history of cyclic vomiting with antecedent headaches who was admitted for uncontrolled nausea vomiting. She improved with observation and initiation of antibiotics given colitis on CT imaging. It is unclear if symptoms were recurrent due to cyclic vomiting or colitis as patient did not have diarrhea while admitted. 1. Intractable cyclic vomiting, chronic, present on admission -long history of cyclic vomiting since age 8 previously evaluated by Gastroenterology at [facility] in followed by her PCP only. -patient received Ativan, Haldol, Reglan, Benadryl and Zofran in the ER with improvement in vomiting but still symptomatic. She continued to receive a number of IV medications. Patient kept jumping into the shower as this seemed to relieve her symptoms. When she lost her IV she was transitioned to oral medications. She had a friend visit her, suddenly after the visit she was much more calm and relaxed, and was feeling much improved and asking to be discharged home. She had been tolerating adequate PO intake at that time and was deemed stable for discharge home. -patient stated she had adequate nausea medications including zofran at home. -she was counseled on marijuana cessation, and to seek consultation with [employer] prior to given her chronic medications. 2. Colitis, presumed secondary to infection, acute, present on admission, active -CT scan on 07/07/2019 finds: There is diffuse wall thickening and edema throughout the colon particularly involving ascending colon and transverse colon suggestive of infectious or inflammatory colitis. No free fluid or free air. CT scan today describes colitis is slightly worse. -patient has been taking Augmentin 875/125 but is a been unable to keep medication down for 2 days. She was instead discharged on oral ciprofloxacin. -ordered stool PCR which was not sent as patient did not have an episode of diarrhea while admitted. 3. Chronic severe headaches, present on admission -will continue patient's home medication of daily propranolol 40 mg. 4. Marijuana use, chronic, stable -the patient states she only smokes marijuana to help with the nausea. -went up to the commode the patient is asking to take a shower and states showering helps with her nausea raising concern for cannabis hyperemesis syndrome. -patient has been counseled previously and reported that she had stopped 3 months and it did not change her nausea and vomiting pattern. Re-expressed this admission marijuana cessation. 5. Asthma, mild persistent, stable -will continue patient's daily Flovent 1 puff twice daily -albuterol MDI 2 puffs every 4 hours as needed for shortness breath or wheezing -respiratory therapy to consult and treat. 6. Chronic anxiety, stable -will continue patient's BuSpar 15 mg 3 times daily. Exam Vital Signs (past 8 hours): - 07/24/19 12:00 07/24/19 14:11 07/24/19 15:20 Temperature 98.8 F 98.4 F Pulse Rate 91 H 90 95 H Respiratory Rate 18 18 Blood Pressure 140/65 120/89 Pulse Oximetry 99 98 100 Oxygen Delivery Method Room Air Oxygen Flow Rate 0 Narrative Exam Narrative: GENERAL APPEARANCE: well developed, obese 29-year-old female who is anxious. Ranged from distress to very comfortable in the bed throughout the day. HEENT: Normocephalic, PERRLA, conjunctiva clear, sclera anicteric, EOMs intact without nystagmus, mucous membranes are moist and pink. NECK/THYROID: neck supple, no JVD, no carotid bruit, no thyromegaly, trachea midline. LYMPH NODES: no cervical or supraclavicular lymphadenopathy. SKIN: [place], warm and dry, no visible rashes HEART: regular rate and rhythm, S1-S2, no murmur, no rubs or gallops, brisk capillary refill, no edema LUNGS: Faint end expiratory wheezes bilateral bases without coarseness or crackles, no cough present CHEST: Symmetrical movement, no accessory muscle use, good tidal volume. ABDOMEN: Soft, no distention, generalized with focal epigastric and lower abdominal abdominal tenderness and then non-tender on discharge exam, no guarding or peritoneal signs, no organomegaly, no flank or suprapubic tenderness, active bowel tones. BACK: Normal curvature, nontender to palpation, no CVA tenderness on percussion EXTREMITIES: moves all extremities, strength is 5/5 and symmetrical, no deformities or joint effusions. NEUROLOGIC: AAO x4, no focal neurologic deficits, cranial nerves II-XII grossly intact, sensation intact to light touch, hearing grossly normal to speech. PSYCH: cooperative with stable behavior appropriately interactive Objective Labs Result Diagrams: 07/24/19 12:27 07/24/19 12:27 Labs: Laboratory Results - last 24 hr 07/24/19 07/24/19 07/24/19 01:00 01:00 01:00 WBC 17.9 H RBC 4.72 Hgb 13.8 Hct 41.0 MCV 86.9 MCH 29.3 MCHC 33.7 RDW 13.5 Plt Count 396 Neut % (Auto) 90.8 H Lymph % (Auto) 5.8 L [place] % (Auto) 2.9 L Eos % (Auto) 0.0 L Baso % (Auto) 0.5 Neut # (Auto) 85792 H Lymph # (Auto) 1000 L [place] # (Auto) 500 Eos # (Auto) 0 Baso # (Auto) 100 Sodium 133 L Potassium 3.5 Chloride 99 Carbon Dioxide 26 BUN 10 Creatinine 0.64 Estimated GFR > 60.0 BUN/Creatinine Ratio 15.6 Glucose 129 H Lactate Calcium 8.9 Phosphorus Magnesium 1.5 L Total Bilirubin 0.4 AST 26 ALT 27 Alkaline Phosphatase 69 Total Protein 7.4 Albumin 4.4 Globulin 3.0 Albumin/Globulin Ratio 1.5 Procalcitonin Urine Color Urine Appearance Urine pH Ur Specific [place] Urine Protein Urine Glucose (UA) Urine Ketones Urine Occult Blood Urine Nitrate Urine Bilirubin Urine Urobilinogen Ur Leukocyte Esterase Urine RBC Urine WBC Ur Squamous Epith Cells Urine Bacteria Ur Culture Indicated? 07/24/19 07/24/19 07/24/19 01:00 02:45 05:30 WBC RBC Hgb Hct MCV MCH MCHC RDW Plt Count Neut % (Auto) Lymph % (Auto) [place] % (Auto) Eos % (Auto) Baso % (Auto) Neut # (Auto) Lymph # (Auto) [place] # (Auto) Eos # (Auto) Baso # (Auto) Sodium Potassium Chloride Carbon Dioxide BUN Creatinine Estimated GFR BUN/Creatinine Ratio Glucose Lactate 1.5 Calcium Phosphorus Magnesium Total Bilirubin AST ALT Alkaline Phosphatase Total Protein Albumin Globulin Albumin/Globulin Ratio Procalcitonin < 0.05 Urine Color Yellow Urine Appearance Clear Urine pH 7.5 Ur Specific [place] <=1.005 Urine Protein Negative Urine Glucose (UA) Trace H Urine Ketones Trace H Urine Occult Blood 1+ H Urine Nitrate Negative Urine Bilirubin Negative Urine Urobilinogen 0.2 Ur Leukocyte Esterase Negative Urine RBC 0-1/hpf Urine WBC None seen Ur Squamous Epith Cells 1-5 /hpf Urine Bacteria None seen Ur Culture Indicated? Cult not indicated 07/24/19 07/24/19 12:27 12:27 WBC 22.6 H RBC 4.68 Hgb 13.8 Hct 40.5 MCV 86.5 MCH 29.5 MCHC 34.0 RDW 13.6 Plt Count 526 H Neut % (Auto) 83.3 H Lymph % (Auto) 8.8 L [place] % (Auto) 7.0 Eos % (Auto) 0.5 L Baso % (Auto) 0.4 Neut # (Auto) 61605 H Lymph # (Auto) 2000 [place] # (Auto) 1600 H Eos # (Auto) 100 Baso # (Auto) 100 Sodium 130 L Potassium 3.1 L Chloride 98 Carbon Dioxide 22 BUN 5 L Creatinine 0.51 L Estimated GFR > 60.0 BUN/Creatinine Ratio 9.8 Glucose 121 H Lactate Calcium 8.9 Phosphorus 1.7 L Magnesium 1.9 Total Bilirubin AST ALT Alkaline Phosphatase Total Protein Albumin Globulin Albumin/Globulin Ratio Procalcitonin Urine Color Urine Appearance Urine pH Ur Specific [place] Urine Protein Urine Glucose (UA) Urine Ketones Urine Occult Blood Urine Nitrate Urine Bilirubin Urine Urobilinogen Ur Leukocyte Esterase Urine RBC Urine WBC Ur Squamous Epith Cells Urine Bacteria Ur Culture Indicated? Discharge Plan Discharge Plan Patient Disposition: Home Discharge comment: You were admitted to the hospital with severe nausea and vomiting. On your CT scan your noted to have a mild colitis. Your previously given Augmentin but could not tolerate this medication, instead he will be given ciprofloxacin. You should complete all medications and follow-up with your primary care provider. Would recommend against continuing to smoke marijuana. No other medication changes are necessary at this time. Discharge orders & Medications Prescriptions: New ciprofloxacin HCl [Cipro] 500 mg tablet 500 mg PO BID 7 Days Qty: 14 RF: 0 Continued haloperidol 0.5 mg tablet 0.5 mg PO Q8H PRN (Reason: breakthrough) RF: 0 diphenhydramine HCl 50 mg Capsule 50 mg PO BEDTIME RF: 0 propranolol 40 mg Tablet 40 mg PO DAILY RF: 0 ondansetron 4 mg Tablet,Disintegrating 4 mg PO Q6H PRN (Reason: Nausea) RF: 0 nortriptyline 50 mg Capsule 100 mg PO BEDTIME RF: 0 rizatriptan 5 mg Tablet 5 mg PO Q2-4H MDD 10 mg PRN (Reason: Migraine Headache) RF: 0 buspirone 15 mg Tablet 15 mg PO TID RF: 0 albuterol sulfate 90 mcg/actuation Hfa Aerosol Inhaler 2 puff INHALATION Q4-6H PRN (Reason: Wheezing) RF: 0 fluticasone propionate [Flonase Allergy Relief] 50 mcg/actuation [place],Suspension 2 spray INTRANASAL DAILY PRN (Reason: Allergic Symptoms) RF: 0 Flovent HFA 110 mcg/actuation Hfa Aerosol Inhaler 1 puff INHALATION BID RF: 0 prochlorperazine 25 mg suppository 25 mg VT Q12H PRN (Reason: nausea and vomiting) Qty: 12 RF: 0 haloperidol lactate 2 mg/mL concentrate 1 mg PO TID Qty: 120 RF: 0 lorazepam [Ativan] 1 mg tablet 1 mg PO TID PRN (Reason: anxiety) Qty: 20 RF: 0 promethazine 25 mg suppository 25 mg VT Q6H PRN (Reason: nausea and vomiting) Qty: 12 RF: 0 Visit Report/Discharge Packet Instructions: DI for Prescription Opioid Use Visit Report Forms: Congestive Heart Failure, Patient Portal/API, Stroke Signs & Symptoms Discharge Data Attending Provider: Sebastian Goodwin Admit Date/Time: 07/24/19 04:56 Discharges patient from system. Discharge Date/Time: 07/24/19 18:35 Quality VTE Deep Vein Thrombosis/Pulmonary Embolism Present on Admission: No
== END 2019-07-24 18:35 | disposition home or self-care (01) ==
LOC: ED 07-24 04:21 → AC 07-24 09:15
PROVIDERS: Admitting Provider Nurse Practitioner Adult Health; Emergency Provider Emergency Medicine; Referring Provider Emergency Medicine; Visit Provider Nurse Practitioner Adult Health
DX: A09 Infectious gastroenteritis and colitis, unspecified (principal); R11.15 Cyclical vomiting syndrome unrelated to migraine; F12.980 Cannabis use, unspecified with anxiety disorder; J45.30 Mild persistent asthma, uncomplicated; F17.210 Nicotine dependence, cigarettes, uncomplicated; F41.9 Anxiety disorder, unspecified; R51 Headache
CPT/HCPCS: 36415; 74177; 80048; 80053; 81001; 83605; 83735; 84100; 84145; 85025; 87040; 99284; G0378; C9113; J0696; J1200; J1630; J1650; J2060; J2405; J2765; Q9967

== ENCOUNTER 2019-07-26 10:39 | Inpatient (IN) | payer OTHER, SELFPAY ==
[2019-07-24 05:33] VITALS: BMI 35.2
[2019-07-26] VITALS (9 sets, daily range): BP systolic 143–157; BP diastolic 71–93; PULSE 82–100; RESP 15–19; TEMP 36.9–37.7; O2SAT 99–100; BMI 34.2
[2019-07-26] MEDS: SODIUM CHLORIDE 0.9% 1,000 ML 2000 ML IV (10:59)
[2019-07-26] MEDS: diphenhydrAMINE 50 MG/ML VIAL IV (11:00)
[2019-07-26] MEDS: METOCLOPRAMIDE 10 MG/2 ML INJ IV (11:00)
[2019-07-26 11:01] LABS: Add Manual Diff / Slide Review NO; Basophils Absolute Auto 100 /uL (0-100); Basophils Percent Auto 0.4 % (0-2); Eosinophils Absolute Auto 0 /uL (0-450); Eosinophils Percent Auto 0.4 % (2-4); Hematocrit 42.5 % (36-46); Hemoglobin 14.5 g/dL (12.0-16.0); Lymphocytes Absolute Auto 1200 /uL (1100-4500); Lymphocytes Percent Auto 10.9 % (25-40); Mean Corpuscular HGB Conc 34.2 % (30-36); Mean Corpuscular Hemoglobin 29.6 PG (26-34); Mean Corpuscular Volume 86.5 fL (80-100); Monocytes Absolute Auto 600 /uL (0-900); Monocytes Percent Auto 5.1 % (3-14); Neutrophils Absolute Auto 9500 /uL (1500-7000); Neutrophils Percent Auto 83.2 % (50-75); Platelet Count 489 X10^3/uL (150-400); Red Blood Cell Count 4.91 X10^6/uL (4.0-5.2); Red Cell Distribution Width 13.6 % (11.6-14.8); White Blood Cell Count 11.4 X10^3/uL (4.5-11.0)
[2019-07-26 11:03] LABS: INR 1.1 (0.9-1.3); Prothrombin Time 12.7 SECONDS (10.1-12.7)
[2019-07-26 11:06] LABS: PTT Partial Thromboplastin Tim 30 SECONDS (26.4-36.2)
[2019-07-26 11:22] LABS: Alanine Aminotransferase 42 IU/L (<35); Albumin 4.6 g/dL (3.5-5.0); Albumin Globulin Ratio 1.4 (1.0-2.8); Alkaline Phosphatase 82 U/L (38-126); Aspartate Aminotransferase 39 IU/L (14-36); BUN Creatinine Ratio 12.3 (6-22); Bilirubin Total 0.6 mg/dL (0.2-1.3); Blood Urea Nitrogen 8 mg/dL (7-17); Calcium 9.6 mg/dL (8.4-10.2); Carbon Dioxide 24 mmol/L (22-32); Chloride 99 mmol/L (98-107); Estimated Glomerular Filt Rate > 60.0 mL/min (>60); Ethanol (ETOH) < 10 mg/dL; Globulin 3.3 g/dL (1.7-4.1); Glucose 121 mg/dL (70-100); HEMOLYSIS < 15 (0-50); Lipase 87 U/L (23-300); Potassium 3.1 mmol/L (3.4-5.1); Sodium 135 mmol/L (137-145); Total Protein 7.9 g/dL (6.3-8.2)
--- NOTE | 2019-07-26 11:35 | PC.NURSE ---
pt started cipro yesterday morning,vomited shortly after,unable to take it
[2019-07-26] MEDS: KCL 40 MEQ IN NS 1,000 ML 250 MEQ IV (12:41)
[2019-07-26] MEDS: PANTOPRAZOLE 40 MG VIAL IV ×2 (12:41→21:38)
[2019-07-26] MEDS: KETOROLAC 60 MG/2 ML VIAL 15 MG IV (12:41)
[2019-07-26 14:31] LABS: Magnesium 1.7 mg/dL (1.6-2.3); Phosphorous 2.5 mg/dL (2.5-4.5)
[2019-07-26] MEDS: HALOPERIDOL 5 MG/ML VIAL 2 MG IV (14:31)
[2019-07-26] MEDS: CIPROFLOXACIN 400 MG/200 ML PIGGYBACK 200 MG IV (14:33)
--- NOTE | 2019-07-26 14:39 | ED_ITS ---
HPI - Nausea/Vomiting/Diarrhea <Moy RICO Kramer - Last Filed: 07/26/19 21:36> General Chief complaint: Nausea/Vomiting/Diarrhea Stated complaint: Vomiting since Time Seen by Provider: 07/26/19 10:52 Source: family Mode of arrival: Ambulatory Limitations: no limitations History of Present Illness HPI Narrative: This is a 29-year-old female, occasional smoker, who presents to ED with chief complain of cyclic vomiting and epigastric discomfort. Patient was here 2 days ago and was treated for same chief complain and admitted for observation and discharged to home next day. Being treated for colitis since July 06 and currently taking antibiotic medication Cipro which she was not able to tolerate since yesterday evening dose. Patient denies fever but reports chills. Patient denies blood in her vomit or stools. The patient reports some loose stools. Patient had tried outpatient medications Zofran and Haldol this morning before coming into ED without much relief. Patient reports she has been having cyclic vomiting since age 8 and reports smokes pot when she is not feeling well with nausea. Patient stopped smoking pot for 3 months with concerns for cannabis hyperemesis syndrome but no improvement during at that time. Related Data Home Medications Medication Instructions Recorded Confirmed Flovent HFA 1 puff INHALATION BID 08/21/18 07/26/19 albuterol sulfate 2 puff INHALATION Q4-6H PRN 08/21/18 07/26/19 buspirone 15 mg PO QPM 08/21/18 07/26/19 diphenhydramine HCl 50 mg PO BEDTIME 08/21/18 07/26/19 fluticasone propionate [Flonase 2 spray INTRANASAL DAILY PRN 08/21/18 07/26/19 Allergy Relief] nortriptyline 100 mg PO BEDTIME 08/21/18 07/26/19 ondansetron 4 mg PO Q6H PRN 08/21/18 07/26/19 propranolol 40 mg PO DAILY 08/21/18 07/26/19 rizatriptan 5 mg PO Q2-4H PRN MDD 10 mg 08/21/18 07/26/19 Previous Rx's Medication Instructions Recorded haloperidol lactate 1 mg PO TID #120 ml 02/04/19 lorazepam [Ativan] 1 mg PO TID PRN #20 tab 02/04/19 promethazine 25 mg PA Q6H PRN #12 each 03/14/19 ciprofloxacin HCl [Cipro] 500 mg PO BID 7 Days #14 tab 07/24/19 Allergies Allergy/AdvReac Type Severity Reaction Status Date / Time mushroom Allergy Severe Vomiting Verified 03/22/19 08:43 peanut Allergy Severe Anaphylaxis Verified 03/22/19 08:43 Sulfa (Sulfonamide Allergy Unknown Verified 03/22/19 08:43 Antibiotics) Review of Systems <RICO Harris - Last Filed: 07/26/19 21:36> Review of Systems Narrative: General: Denies fever, chills, fatigue, malaise, sweats. HEENT: Denies sinus pain, ear pain, sore throat, difficulty swallowing, dizziness. Respiratory: Denies dyspnea, cough, wheezing, hemoptysis, sputum. Cardiovascular: Denies chest pain, palpitations, orthopnea, edema. Gastrointestinal: See HPI : Denies dysuria, frequency, incontinence, hematuria, urinary retention. Musculoskeletal: Denies weakness, joint pain or bony pain, (+) generalized bodyaches. Skin: Denies rash, skin lesions, or other. Neurologic: Denies weakness, headache, numbness, change in speech, confusion, seizures, incoordination. Psychiatric: No concerning psychosocial issues. 12-point review of systems is negative except for those stated above. Patient History <RICO Harris - Last Filed: 07/26/19 21:36> Medical History Asthma (Acute) Cyclic vomiting syndrome (Acute) Environmental allergies (Acute) Marijuana smoker (Acute) Severe frontal headaches (Acute) Surgical History History of toe surgery (Acute) Family History Father Arthritis Mother Anxiety Fibromyalgia Brother Childhood asthma Drug abuse Social History household members: spouse Smoking Status: Current some day smoker alcohol intake: current Smoking Status: Current some day smoker alcohol intake frequency: a few times a week Substance Use Type: marijuana Exam <Moy Kramer, [employer] - Last Filed: 07/26/19 21:36> Narrative Exam Narrative: GEN: Alert, oriented x 3, ill appearing and well nourished. Head: Normal cephalic, atraumatic. No scalp or temporal tenderness, palpable mass or rash. EYES: Pupils are equal, round, and reactive to light and accommodation. Extraocular muscles are intact bilaterally. There is no subconjunctival hemorrhage, exudate and sclera non-icteric. ENT: Hearing grossly intact. Nose without bleeding, purulent discharge or deviation. Facial sinuses nontender to palpate. Mucous membrane semi dry, no mucosal lesion. Throat without erythema, tonsillar hypertrophy or exudate. Uvula in midline, airway patent. Neck: Trachea in midline. No JVD, non-tender without lymphadenopathy. No masses or thyroid megaly. Supple, non-tender and no meningeal signs. CARDIAC: Normal regular rate and rhythm without murmurs, gallops, or rubs. No c hest wall tenderness. No peripheral edema, cyanosis or pallor. Capillary refill is less than 2 seconds. RESPIRATORY: Lungs are clear to auscultate bilaterally. No cough, wheezes, rales, or rhonchi. No stridor, respiratory distress, increase work of breathing, or accessary muscle used. ABD: Abdomen soft, nondistended, tender to palpate in epigastric region. No guarding or rebound tenderness to palpate. Bowel sounds are normal in all 4 quadrants. There is no palpable masses or organomegaly. EXT: Full painless ROM of all extremities with no loss of sensation, strength, effusion or edema. SKIN: Warm, dry, pale color for patient. No erythema, lesions or rash over visible areas. BACK: Nontender without deformity or crepitance. No flank tenderness. NEUROLOGICAL: Alert and oriented to place, time and person. Generalize weakness and appears to be drowsy. Sensation and motor function intact bilaterally. No facial droops, dysphasia. PSYCHIATRIC: Good judgement and reason, without hallucinations, abnormal affect or abnormal behaviors during the examination. Patient is not suicidal. Initial Vital Signs Initial Vital Signs: Vital Signs Temperature 98.5 F 07/26/19 10:48 Pulse Rate 82 07/26/19 10:48 Respiratory Rate 19 07/26/19 10:48 Blood Pressure 147/93 H 07/26/19 10:48 Pulse Oximetry 99 07/26/19 10:48 <Deni Beatty MD - Last Filed: 07/27/19 07:44> Initial Vital Signs Initial Vital Signs: Vital Signs Temperature 98.5 F 07/26/19 10:48 Pulse Rate 82 07/26/19 10:48 Respiratory Rate 19 07/26/19 10:48 Blood Pressure 147/93 H 07/26/19 10:48 Pulse Oximetry 99 07/26/19 10:48 Scores <[facility] Last Filed: 07/26/19 21:36> GCS Cort[place] coma scale eye opening: Spontaneous [place] coma scale verbal response: Orientated [place] coma scale motor response: Obey commands Cort[place] coma scale total score: 15 qSOFA Altered Mental Status (GCS <15): No Respiratory rate greater than/equal to 22: No Systolic blood pressure less than or equal to 100: No qSOFA Total: 0 0-1 Not High Risk 1-3 High risk Course <Moy DumontDAYSI McconnellP - Last Filed: 07/26/19 21:36> Orders Ordered: Acetaminophen (Tylenol) 650 mg PO Q6HR PRN PRN Reason: Fever/Mild Pain (1-3) Last Admin: 07/26/19 19:54 Dose: 650 mg Documented by: GISELE Albuterol (Ventolin Hfa) 2 puff INH Q4H PRN PRN Reason: Wheezing Buspirone HCl (Buspar) 15 mg PO TID [facility] Last Admin: 07/26/19 21:37 Dose: Not Given Documented by: GISELE Fluticasone Propionate (Flovent Hfa) 1 puff INH BID [facility] Last Admin: 07/26/19 21:38 Dose: Not Given Documented by: GISELE Sodium Chloride (Normal Saline 0.9%) 1,000 mls @ 2,000 mls/hr IV BOLUS PRN PRN Reason: Fluid replacement Last Infusion: 07/26/19 12:48 Dose: 0 mls/hr Documented by: Admin: 07/26/19 10:59 Dose: 2,000 mls/hr Documented by: LIDIA Ciprofloxacin (Cipro) 400 mg in 200 mls @ 200 mls/hr IV NOW [facility] Last Infusion: 07/26/19 15:37 Dose: 0 mls/hr Documented by: Admin: 07/26/19 14:33 Dose: 200 mls/hr Documented by: LIDIA Potassium Chloride/Sodium Chloride (Ns With Kcl 20 Meq) 1,000 mls @ 125 mls/hr IV CONT BENY Last Admin: 07/26/19 19:50 Dose: 125 mls/hr Documented by: GISELE Ciprofloxacin (Cipro) 400 mg in 200 mls @ 200 mls/hr IV Q12H [facility] Last Infusion: 07/27/19 03:53 Dose: 0 mls/hr Documented by: Admin: 07/27/19 01:46 Dose: 200 mls/hr Documented by: UBALDO Ondansetron HCl 8 mg/ Sodium (Chloride) 54 mls @ 216 mls/hr IV Q8H PRN PRN Reason: NAUSEA AND VOMITIMG Metronidazole (Flagyl) 500 mg in 100 mls @ 100 mls/hr IV Q8H [facility] Last Infusion: 07/27/19 05:54 Dose: 0 mls/hr Documented by: Admin: 07/27/19 04:27 Dose: 100 mls/hr Documented by: Infusion: 07/26/19 20:53 Dose: 100 mls/hr Documented by: Admin: 07/26/19 19:53 Dose: 100 mls/hr Documented by: GISELE Ketorolac Tromethamine (Toradol) 30 mg IV Q6HR PRN PRN Reason: abdominal pain or headache Stop: 07/31/19 17:42 Last Admin: 07/27/19 01:36 Dose: 30 mg Documented by: Admin: 07/26/19 20:05 Dose: 30 mg Documented by: GISELE Lorazepam (Ativan) 1 mg IV Q4HR PRN PRN Reason: Nausea And Vomiting Last Admin: 07/27/19 05:05 Dose: 1 mg Documented by: Admin: 07/27/19 01:35 Dose: 1 mg Documented by: UBALDO Naloxone HCl (Narcan) 0.2 mg IV Q2MIN PRN PRN Reason: Opiate Reversal Rizatriptan 5 Mg 5 mg PO Q2H PRN PRN Reason: Migraine Headache Nortriptyline HCl (Pamelor) 100 mg PO BEDTIME [facility] Last Admin: 07/26/19 21:38 Dose: Not Given Documented by: GISELE Pantoprazole Sodium (Protonix) 40 mg IV BID [facility] Last Admin: 07/26/19 21:38 Dose: 40 mg Documented by: GISELE Prochlorperazine (Compazine) 10 mg IV Q6HR PRN PRN Reason: Nausea Last Admin: 07/27/19 04:35 Dose: 10 mg Documented by: UBALDO Propranolol HCl (Inderal) 40 mg PO DAILY [facility] Discontinued Medications Diphenhydramine HCl (Benadryl) 50 mg IV NOW ONE Stop: 07/26/19 10:53 Last Admin: 07/26/19 11:00 Dose: 50 mg Documented by: LIDIA Haloperidol (Haldol) 2 mg IV NOW ONE Stop: 07/26/19 14:16 Last Admin: 07/26/19 14:31 Dose: 2 mg Documented by: LIDIA Potassium Chloride/Sodium Chloride (Ns With Kcl 40 Meq) 1,000 mls @ 250 mls/hr IV NOW ONE Stop: 07/26/19 16:14 Last Infusion: 07/26/19 15:56 Dose: 250 mls/hr Documented by: Admin: 07/26/19 12:41 Dose: 250 mls/hr Documented by: LIDIA Metronidazole (Flagyl) 500 mg in 100 mls @ 100 mls/hr IV Q8H [facility] Last Admin: 07/26/19 21:16 Dose: Not Given Documented by: GISELE Ketorolac Tromethamine (Toradol) 15 mg IV NOW ONE Stop: 07/26/19 12:10 Last Admin: 07/26/19 12:41 Dose: 15 mg Documented by: LIDIA Metoclopramide HCl (Reglan) 10 mg IV NOW ONE Stop: 07/26/19 10:53 Last Admin: 07/26/19 11:00 Dose: 10 mg Documented by: LIDIA Morphine Sulfate (Morphine) 2 mg IV NOW ONE Stop: 07/26/19 14:58 Last Admin: 07/26/19 15:10 Dose: 2 mg Documented by: LIDIA Ondansetron HCl (Zofran) 8 mg IV Q8HR PRN PRN Reason: Nausea And Vomiting Pantoprazole Sodium (Protonix) 40 mg IV NOW ONE Stop: 07/26/19 12:10 Last Admin: 07/26/19 12:41 Dose: 40 mg Documented by: LIDIA Reevaluation(s) Reevaluation #1: Continue to vomit after antiemtic Time: 14:00 Reevaluation #2: vomiting with abdominal pain. Will give small dose of morphine 2 mg IV Time: 15:00 Consultations Consultation #1: Dr. Weathers kindly accepted the patient's care for failed cyclic vomiting treatment Time: 14:50 Vital Signs Vital signs: Vital Signs - 8 hr 07/26/19 10:48 07/26/19 11:30 07/26/19 12:30 Temperature 98.5 F Pulse Rate 82 95 H 95 H Respiratory Rate 19 Blood Pressure 147/93 H Blood Pressure [Left Arm] 152/83 H 157/73 H Pulse Oximetry 99 99 100 <Deni Beatty MD - Last Filed: 07/27/19 07:44> Orders Ordered: Acetaminophen (Tylenol) 650 mg PO Q6HR PRN PRN Reason: Fever/Mild Pain (1-3) Last Admin: 07/26/19 19:54 Dose: 650 mg Documented by: GISELE Albuterol (Ventolin Hfa) 2 puff INH Q4H PRN PRN Reason: Wheezing Buspirone HCl (Buspar) 15 mg PO TID [facility] Last Admin: 07/26/19 21:37 Dose: Not Given Documented by: GISELE Fluticasone Propionate (Flovent Hfa) 1 puff INH BID [facility] Last Admin: 07/26/19 21:38 Dose: Not Given Documented by: GISELE Sodium Chloride (Normal Saline 0.9%) 1,000 mls @ 2,000 mls/hr IV BOLUS PRN PRN Reason: Fluid replacement Last Infusion: 07/26/19 12:48 Dose: 0 mls/hr Documented by: Admin: 07/26/19 10:59 Dose: 2,000 mls/hr Documented by: LIDIA Ciprofloxacin (Cipro) 400 mg in 200 mls @ 200 mls/hr IV NOW [facility] Last Infusion: 07/26/19 15:37 Dose: 0 mls/hr Documented by: Admin: 07/26/19 14:33 Dose: 200 mls/hr Documented by: KBROTEM Potassium Chloride/Sodium Chloride (Ns With Kcl 20 Meq) 1,000 mls @ 125 mls/hr IV CONT [facility] Last Admin: 07/26/19 19:50 Dose: 125 mls/hr Documented by: GISELE Ciprofloxacin (Cipro) 400 mg in 200 mls @ 200 mls/hr IV Q12H [facility] Last Infusion: 07/27/19 03:53 Dose: 0 mls/hr Documented by: Admin: 07/27/19 01:46 Dose: 200 mls/hr Documented by: UBALDO Ondansetron HCl 8 mg/ Sodium (Chloride) 54 mls @ 216 mls/hr IV Q8H PRN PRN Reason: NAUSEA AND VOMITIMG Metronidazole (Flagyl) 500 mg in 100 mls @ 100 mls/hr IV Q8H [facility] Last Infusion: 07/27/19 05:54 Dose: 0 mls/hr Documented by: Admin: 07/27/19 04:27 Dose: 100 mls/hr Documented by: Infusion: 07/26/19 20:53 Dose: 100 mls/hr Documented by: Admin: 07/26/19 19:53 Dose: 100 mls/hr Documented by: GISELE Ketorolac Tromethamine (Toradol) 30 mg IV Q6HR PRN PRN Reason: abdominal pain or headache Stop: 07/31/19 17:42 Last Admin: 07/27/19 01:36 Dose: 30 mg Documented by: Admin: 07/26/19 20:05 Dose: 30 mg Documented by: GISELE Lorazepam (Ativan) 1 mg IV Q4HR PRN PRN Reason: Nausea And Vomiting Last Admin: 07/27/19 05:05 Dose: 1 mg Documented by: Admin: 07/27/19 01:35 Dose: 1 mg Documented by: UBALDO Naloxone HCl (Narcan) 0.2 mg IV Q2MIN PRN PRN Reason: Opiate Reversal Rizatriptan 5 Mg 5 mg PO Q2H PRN PRN Reason: Migraine Headache Nortriptyline HCl (Pamelor) 100 mg PO BEDTIME [facility] Last Admin: 07/26/19 21:38 Dose: Not Given Documented by: GISELE Pantoprazole Sodium (Protonix) 40 mg IV BID [facility] Last Admin: 07/26/19 21:38 Dose: 40 mg Documented by: GISELE Prochlorperazine (Compazine) 10 mg IV Q6HR PRN PRN Reason: Nausea Last Admin: 07/27/19 04:35 Dose: 10 mg Documented by: UBALDO Propranolol HCl (Inderal) 40 mg PO DAILY [facility] Discontinued Medications Diphenhydramine HCl (Benadryl) 50 mg IV NOW ONE Stop: 07/26/19 10:53 Last Admin: 07/26/19 11:00 Dose: 50 mg Documented by: LIDIA Haloperidol (Haldol) 2 mg IV NOW ONE Stop: 07/26/19 14:16 Last Admin: 07/26/19 14:31 Dose: 2 mg Documented by: LIDIA Potassium Chloride/Sodium Chloride (Ns With Kcl 40 Meq) 1,000 mls @ 250 mls/hr IV NOW ONE Stop: 07/26/19 16:14 Last Infusion: 07/26/19 15:56 Dose: 250 mls/hr Documented by: Admin: 07/26/19 12:41 Dose: 250 mls/hr Documented by: LIDIA Metronidazole (Flagyl) 500 mg in 100 mls @ 100 mls/hr IV Q8H [facility] Last Admin: 07/26/19 21:16 Dose: Not Given Documented by: GISELE Ketorolac Tromethamine (Toradol) 15 mg IV NOW ONE Stop: 07/26/19 12:10 Last Admin: 07/26/19 12:41 Dose: 15 mg Documented by: LIDIA Metoclopramide HCl (Reglan) 10 mg IV NOW ONE Stop: 07/26/19 10:53 Last Admin: 07/26/19 11:00 Dose: 10 mg Documented by: LIDIA Morphine Sulfate (Morphine) 2 mg IV NOW ONE Stop: 07/26/19 14:58 Last Admin: 07/26/19 15:10 Dose: 2 mg Documented by: LIDIA Ondansetron HCl (Zofran) 8 mg IV Q8HR PRN PRN Reason: Nausea And Vomiting Pantoprazole Sodium (Protonix) 40 mg IV NOW ONE Stop: 07/26/19 12:10 Last Admin: 07/26/19 12:41 Dose: 40 mg Documented by: LIDIA Vital Signs Vital signs: Vital Signs - 8 hr 07/26/19 10:48 07/26/19 11:30 07/26/19 12:30 Temperature 98.5 F Pulse Rate 82 95 H 95 H Respiratory Rate 19 Blood Pressure 147/93 H Blood Pressure [Left Arm] 152/83 H 157/73 H Pulse Oximetry 99 99 100 MDM - Nausea/Vomiting/Diarrhea <Moy RICO Kramer - Last Filed: 07/26/19 21:36> Differential Diagnosis Differential diagnosis: Likely dehydration and other (Electrolytes imbalance, vomiting, colitis) Medical Records Attestation: I reviewed the patient's medical records. Lab Data Attestation: I reviewed the patient's lab results. Result diagrams: 07/27/19 06:00 07/27/19 06:00 Labs: Lab Results 07/26/19 07/26/19 07/26/19 Range/Units 10:45 10:45 10:45 WBC 11.4 H (4.5-11.0) X10^3/uL RBC 4.91 (4.0-5.2) X10^6/uL Hgb 14.5 (12.0-16.0) g/dL Hct 42.5 (36-46) % MCV 86.5 (80-100) fL MCH 29.6 (26-34) PG MCHC 34.2 (30-36) % RDW 13.6 (11.6-14.8) % Plt Count 489 H (150-400) X10^3/uL Neut % (Auto) 83.2 H (50-75) % Lymph % (Auto) 10.9 L (25-40) % Holmes % (Auto) 5.1 (3-14) % Eos % (Auto) 0.4 L (2-4) % Baso % (Auto) 0.4 (0-2) % Neut # (Auto) 9500 H (6883-9455) /uL Lymph # (Auto) 1200 (6866-8801) /uL Holmes # (Auto) 600 (0-900) /uL Eos # (Auto) 0 (0-450) /uL Baso # (Auto) 100 (0-100) /uL PT 12.7 (10.1-12.7) SECONDS INR 1.1 (0.9-1.3) APTT 30 (26.4-36.2) SECONDS Sodium 135 L (137-145) mmol/L Potassium 3.1 L (3.4-5.1) mmol/L Chloride 99 (98-107) mmol/L Carbon Dioxide 24 (22-32) mmol/L BUN 8 (7-17) mg/dL Creatinine 0.65 (0.52-1.04) mg/dL Estimated GFR > 60.0 (>60) mL/min BUN/Creatinine Ratio 12.3 (6-22) Glucose 121 H (70-100) mg/dL Calcium 9.6 (8.4-10.2) mg/dL Phosphorus (2.5-4.5) mg/dL Magnesium (1.6-2.3) mg/dL Total Bilirubin 0.6 (0.2-1.3) mg/dL AST 39 H (14-36) IU/L ALT 42 H (<35) IU/L Alkaline Phosphatase 82 (38-126) U/L Total Protein 7.9 (6.3-8.2) g/dL Albumin 4.6 (3.5-5.0) g/dL Globulin 3.3 (1.7-4.1) g/dL Albumin/Globulin Ratio 1.4 (1.0-2.8) Lipase 87 (23-300) U/L Urine Color Urine Appearance Urine pH (4.5-8.0) Ur Specific [place] (1.000-1.035) Urine Protein (Negative) Urine Glucose (UA) (Negative) g/dL Urine Ketones (NEGATIVE) Urine Occult Blood (Negative) Urine Nitrate (Negative) Urine Bilirubin (NEGATIVE) Urine Urobilinogen (0.2) E.U./dL Ur Leukocyte Esterase (NEGATIVE) Urine RBC (0-5/HPF) Urine WBC (0-5/HPF) Ur Squamous Epith Cells (0-5/HPF) Urine Bacteria (None) Urine Mucus (Negative) Ur Culture Indicated? Urine Test (Negative) U Opiates 300ng/mL cut (Negative) Ur Oxycodone Screen (Negative) Urine Methadone Screen (Negative) Ur Barbiturates Screen (Negative) U Tricyclic Antidepress (Negative) Ur Phencyclidine Scrn (Negative) Ur Amphetamines Screen (Negative) U Methamphetamines Scrn (Negative) Ur MDMA Scrn (Ecstasy) (Negative) U Benzodiazepines Scrn (Negative) Urine Cocaine Screen (Negative) U Marijuana (THC) Screen (Negative) Ethyl Alcohol < 10 ( - 10) mg/dL 07/26/19 07/26/19 07/26/19 Range/Units 10:45 13:45 13:45 WBC (4.5-11.0) X10^3/uL RBC (4.0-5.2) X10^6/uL Hgb (12.0-16.0) g/dL Hct (36-46) % MCV (80-100) fL MCH (26-34) PG MCHC (30-36) % RDW (11.6-14.8) % Plt Count (150-400) X10^3/uL Neut % (Auto) (50-75) % Lymph % (Auto) (25-40) % Holmes % (Auto) (3-14) % Eos % (Auto) (2-4) % Baso % (Auto) (0-2) % Neut # (Auto) (7706-1504) /uL Lymph # (Auto) (9985-8985) /uL Holmes # (Auto) (0-900) /uL Eos # (Auto) (0-450) /uL Baso # (Auto) (0-100) /uL PT (10.1-12.7) SECONDS INR (0.9-1.3) APTT (26.4-36.2) SECONDS Sodium (137-145) mmol/L Potassium (3.4-5.1) mmol/L Chloride (98-107) mmol/L Carbon Dioxide (22-32) mmol/L BUN (7-17) mg/dL Creatinine (0.52-1.04) mg/dL Estimated GFR (>60) mL/min BUN/Creatinine Ratio (6-22) Glucose (70-100) mg/dL Calcium (8.4-10.2) mg/dL Phosphorus 2.5 (2.5-4.5) mg/dL Magnesium 1.7 (1.6-2.3) mg/dL Total Bilirubin (0.2-1.3) mg/dL AST (14-36) IU/L ALT (<35) IU/L Alkaline Phosphatase (38-126) U/L Total Protein (6.3-8.2) g/dL Albumin (3.5-5.0) g/dL Globulin (1.7-4.1) g/dL Albumin/Globulin Ratio (1.0-2.8) Lipase (23-300) U/L Urine Color Yellow Urine Appearance Sl cloudy Urine pH 7.0 (4.5-8.0) Ur Specific [place] 1.020 (1.000-1.035) Urine Protein Negative (Negative) Urine Glucose (UA) Negative (Negative) g/dL Urine Ketones 3+ H (NEGATIVE) Urine Occult Blood 2+ H (Negative) Urine Nitrate Negative (Negative) Urine Bilirubin Negative (NEGATIVE) Urine Urobilinogen 0.2 (0.2) E.U./dL Ur Leukocyte Esterase Negative (NEGATIVE) Urine RBC 5-10/hpf H (0-5/HPF) Urine WBC 1-5/hpf (0-5/HPF) Ur Squamous Epith Cells 5-10 /hpf H (0-5/HPF) Urine Bacteria None seen (None) Urine Mucus 2+ H (Negative) Ur Culture Indicated? Cult not indicated Urine Test Negative (Negative) U Opiates 300ng/mL cut (Negative) Ur Oxycodone Screen (Negative) Urine Methadone Screen (Negative) Ur Barbiturates Screen (Negative) U Tricyclic Antidepress (Negative) Ur Phencyclidine Scrn (Negative) Ur Amphetamines Screen (Negative) U Methamphetamines Scrn (Negative) Ur MDMA Scrn (Ecstasy) (Negative) U Benzodiazepines Scrn (Negative) Urine Cocaine Screen (Negative) U Marijuana (THC) Screen (Negative) Ethyl Alcohol ( - 10) mg/dL 07/26/19 Range/Units 13:45 WBC (4.5-11.0) X10^3/uL RBC (4.0-5.2) X10^6/uL Hgb (12.0-16.0) g/dL Hct (36-46) % MCV (80-100) fL MCH (26-34) PG MCHC (30-36) % RDW (11.6-14.8) % Plt Count (150-400) X10^3/uL Neut % (Auto) (50-75) % Lymph % (Auto) (25-40) % Holmes % (Auto) (3-14) % Eos % (Auto) (2-4) % Baso % (Auto) (0-2) % Neut # (Auto) (9957-2689) /uL Lymph # (Auto) (8905-5821) /uL Holmes # (Auto) (0-900) /uL Eos # (Auto) (0-450) /uL Baso # (Auto) (0-100) /uL PT (10.1-12.7) SECONDS INR (0.9-1.3) APTT (26.4-36.2) SECONDS Sodium (137-145) mmol/L Potassium (3.4-5.1) mmol/L Chloride (98-107) mmol/L Carbon Dioxide (22-32) mmol/L BUN (7-17) mg/dL Creatinine (0.52-1.04) mg/dL Estimated GFR (>60) mL/min BUN/Creatinine Ratio (6-22) Glucose (70-100) mg/dL Calcium (8.4-10.2) mg/dL Phosphorus (2.5-4.5) mg/dL Magnesium (1.6-2.3) mg/dL Total Bilirubin (0.2-1.3) mg/dL AST (14-36) IU/L ALT (<35) IU/L Alkaline Phosphatase (38-126) U/L Total Protein (6.3-8.2) g/dL Albumin (3.5-5.0) g/dL Globulin (1.7-4.1) g/dL Albumin/Globulin Ratio (1.0-2.8) Lipase (23-300) U/L Urine Color Urine Appearance Urine pH (4.5-8.0) Ur Specific [place] (1.000-1.035) Urine Protein (Negative) Urine Glucose (UA) (Negative) g/dL Urine Ketones (NEGATIVE) Urine Occult Blood (Negative) Urine Nitrate (Negative) Urine Bilirubin (NEGATIVE) Urine Urobilinogen (0.2) E.U./dL Ur Leukocyte Esterase (NEGATIVE) Urine RBC (0-5/HPF) Urine WBC (0-5/HPF) Ur Squamous Epith Cells (0-5/HPF) Urine Bacteria (None) Urine Mucus (Negative) Ur Culture Indicated? Urine Test (Negative) U Opiates 300ng/mL cut Negative (Negative) Ur Oxycodone Screen Negative (Negative) Urine Methadone Screen Negative (Negative) Ur Barbiturates Screen Negative (Negative) U Tricyclic Antidepress Negative (Negative) Ur Phencyclidine Scrn Negative (Negative) Ur Amphetamines Screen Negative (Negative) U Methamphetamines Scrn Negative (Negative) Ur MDMA Scrn (Ecstasy) Negative (Negative) U Benzodiazepines Scrn Negative (Negative) Urine Cocaine Screen Negative (Negative) U Marijuana (THC) Screen Positive H (Negative) Ethyl Alcohol ( - 10) mg/dL Point of Care Testing Test Results Negative Urine Dip Bedside Urine Glucose Negative Bedside Urine Bilirubin - Negative Bedside Urine Ketone +++ 80 Urine Specific [place] 1.020 Bedside Urine Occult Blood + Bedside Urine pH 6.5 Bedside Urine Protein +/- 15 Bedside Urine Urobilinogen - Negative Bedside Urine Nitrite - Negative Bedside Urine Leukocytes - Negative Esterase MDM Narrative Medical decision making narrative: This is a 29-year-old female presents to ED with cyclic vomiting episodes and epigastric pain. She was evaluated in 07/07/19 with similar symptoms and discharged to home after nausea and vomiting has controlled with multiple antiemetic medications and Augmentin to treat colitis with elevated white count at that time. Patient returned to ED in 07/23/19 with similar symptoms and was admitted to hospital observation for IV antibiotic medication therapy and hydration and to control her nausea and vomiting. Patient states she was discharged to home the next day and again started having nausea and vomiting that evening. Patient has long history of cyclic vomiting since age 8. She had tried her home medications Zofran, Haldol before coming into ED without relief. Patient was hydrated with IV fluid, Benadryl, Reglan, pantoprazole without much effect. WBC has improved from 27.6 (07/07/19) and 22.6 (07/24/19) and improved neutrophil counts. Slightly elevated platelet counts which has been patient's baseline. Chemistry test indicates hypo kalemia of 3.1 with mild hyponatremia of 135. Serum glucose was 121. Normal kidney function test. Mildly elevated liver function tests of AST of 39 and ALT of 42 with normal lipase. Urine hCG was negative. UA test does not indicate UTI. Due to ongoing nausea and vomiting, patient was medicated with Haldol, IV Toradol and also provided small dose of Morphine of 2 mg for generalize pain and epigastric pain. Patient's hypokalemia has been treated with IV 40 mEq of KCl infusion over 4 hours. Since patient was unable to tolerate Cipro since last night due to nausea and vomiting, patient was given Cipro 400 mg IV during ED stay. Patient reports pain is mildly improved. Dr. Weathers was consulted for cyclic vomiting syndrome/intractable vomiting and he kindly accepted patient's care for admission. Plan for admission has been discussed with patient and she agrees with treatment plan. Imaging test was not done at this time with patient's improved lab test result. qSOFA score is 0. Patient is afebrile in ED with heart rate in 90's bpm with good o2 sat. Patient had slight hypertension in ED. <Deni Beatty MD - Last Filed: 07/27/19 07:44> Lab Data Labs: Lab Results 07/26/19 07/26/19 07/26/19 Range/Units 10:45 10:45 10:45 WBC 11.4 H (4.5-11.0) X10^3/uL RBC 4.91 (4.0-5.2) X10^6/uL Hgb 14.5 (12.0-16.0) g/dL Hct 42.5 (36-46) % MCV 86.5 (80-100) fL MCH 29.6 (26-34) PG MCHC 34.2 (30-36) % RDW 13.6 (11.6-14.8) % Plt Count 489 H (150-400) X10^3/uL Neut % (Auto) 83.2 H (50-75) % Lymph % (Auto) 10.9 L (25-40) % [place] % (Auto) 5.1 (3-14) % Eos % (Auto) 0.4 L (2-4) % Baso % (Auto) 0.4 (0-2) % Neut # (Auto) 9500 H (1244-5817) /uL Lymph # (Auto) 1200 (7120-3467) /uL [place] # (Auto) 600 (0-900) /uL Eos # (Auto) 0 (0-450) /uL Baso # (Auto) 100 (0-100) /uL PT 12.7 (10.1-12.7) SECONDS INR 1.1 (0.9-1.3) APTT 30 (26.4-36.2) SECONDS Sodium 135 L (137-145) mmol/L Potassium 3.1 L (3.4-5.1) mmol/L Chloride 99 (98-107) mmol/L Carbon Dioxide 24 (22-32) mmol/L BUN 8 (7-17) mg/dL Creatinine 0.65 (0.52-1.04) mg/dL Estimated GFR > 60.0 (>60) mL/min BUN/Creatinine Ratio 12.3 (6-22) Glucose 121 H (70-100) mg/dL Calcium 9.6 (8.4-10.2) mg/dL Phosphorus (2.5-4.5) mg/dL Magnesium (1.6-2.3) mg/dL Total Bilirubin 0.6 (0.2-1.3) mg/dL AST 39 H (14-36) IU/L ALT 42 H (<35) IU/L Alkaline Phosphatase 82 (38-126) U/L Total Protein 7.9 (6.3-8.2) g/dL Albumin 4.6 (3.5-5.0) g/dL Globulin 3.3 (1.7-4.1) g/dL Albumin/Globulin Ratio 1.4 (1.0-2.8) Lipase 87 (23-300) U/L Urine Color Urine Appearance Urine pH (4.5-8.0) Ur Specific [place] (1.000-1.035) Urine Protein (Negative) Urine Glucose (UA) (Negative) g/dL Urine Ketones (NEGATIVE) Urine Occult Blood (Negative) Urine Nitrate (Negative) Urine Bilirubin (NEGATIVE) Urine Urobilinogen (0.2) E.U./dL Ur Leukocyte Esterase (NEGATIVE) Urine RBC (0-5/HPF) Urine WBC (0-5/HPF) Ur Squamous Epith Cells (0-5/HPF) Urine Bacteria (None) Urine Mucus (Negative) Ur Culture Indicated? Urine Test (Negative) U Opiates 300ng/mL cut (Negative) Ur Oxycodone Screen (Negative) Urine Methadone Screen (Negative) Ur Barbiturates Screen (Negative) U Tricyclic Antidepress (Negative) Ur Phencyclidine Scrn (Negative) Ur Amphetamines Screen (Negative) U Methamphetamines Scrn (Negative) Ur MDMA Scrn (Ecstasy) (Negative) U Benzodiazepines Scrn (Negative) Urine Cocaine Screen (Negative) U Marijuana (THC) Screen (Negative) Ethyl Alcohol < 10 ( - 10) mg/dL 07/26/19 07/26/19 07/26/19 Range/Units 10:45 13:45 13:45 WBC (4.5-11.0) X10^3/uL RBC (4.0-5.2) X10^6/uL Hgb (12.0-16.0) g/dL Hct (36-46) % MCV (80-100) fL MCH (26-34) PG MCHC (30-36) % RDW (11.6-14.8) % Plt Count (150-400) X10^3/uL Neut % (Auto) (50-75) % Lymph % (Auto) (25-40) % Holmes % (Auto) (3-14) % Eos % (Auto) (2-4) % Baso % (Auto) (0-2) % Neut # (Auto) (3039-9070) /uL Lymph # (Auto) (9533-7327) /uL [place] # (Auto) (0-900) /uL Eos # (Auto) (0-450) /uL Baso # (Auto) (0-100) /uL PT (10.1-12.7) SECONDS INR (0.9-1.3) APTT (26.4-36.2) SECONDS Sodium (137-145) mmol/L Potassium (3.4-5.1) mmol/L Chloride (98-107) mmol/L Carbon Dioxide (22-32) mmol/L BUN (7-17) mg/dL Creatinine (0.52-1.04) mg/dL Estimated GFR (>60) mL/min BUN/Creatinine Ratio (6-22) Glucose (70-100) mg/dL Calcium (8.4-10.2) mg/dL Phosphorus 2.5 (2.5-4.5) mg/dL Magnesium 1.7 (1.6-2.3) mg/dL Total Bilirubin (0.2-1.3) mg/dL AST (14-36) IU/L ALT (<35) IU/L Alkaline Phosphatase (38-126) U/L Total Protein (6.3-8.2) g/dL Albumin (3.5-5.0) g/dL Globulin (1.7-4.1) g/dL Albumin/Globulin Ratio (1.0-2.8) Lipase (23-300) U/L Urine Color Yellow Urine Appearance Sl cloudy Urine pH 7.0 (4.5-8.0) Ur Specific [place] 1.020 (1.000-1.035) Urine Protein Negative (Negative) Urine Glucose (UA) Negative (Negative) g/dL Urine Ketones 3+ H (NEGATIVE) Urine Occult Blood 2+ H (Negative) Urine Nitrate Negative (Negative) Urine Bilirubin Negative (NEGATIVE) Urine Urobilinogen 0.2 (0.2) E.U./dL Ur Leukocyte Esterase Negative (NEGATIVE) Urine RBC 5-10/hpf H (0-5/HPF) Urine WBC 1-5/hpf (0-5/HPF) Ur Squamous Epith Cells 5-10 /hpf H (0-5/HPF) Urine Bacteria None seen (None) Urine Mucus 2+ H (Negative) Ur Culture Indicated? Cult not indicated Urine Test Negative (Negative) U Opiates 300ng/mL cut (Negative) Ur Oxycodone Screen (Negative) Urine Methadone Screen (Negative) Ur Barbiturates Screen (Negative) U Tricyclic Antidepress (Negative) Ur Phencyclidine Scrn (Negative) Ur Amphetamines Screen (Negative) U Methamphetamines Scrn (Negative) Ur MDMA Scrn (Ecstasy) (Negative) U Benzodiazepines Scrn (Negative) Urine Cocaine Screen (Negative) U Marijuana (THC) Screen (Negative) Ethyl Alcohol ( - 10) mg/dL 07/26/19 Range/Units 13:45 WBC (4.5-11.0) X10^3/uL RBC (4.0-5.2) X10^6/uL Hgb (12.0-16.0) g/dL Hct (36-46) % MCV (80-100) fL MCH (26-34) PG MCHC (30-36) % RDW (11.6-14.8) % Plt Count (150-400) X10^3/uL Neut % (Auto) (50-75) % Lymph % (Auto) (25-40) % [place] % (Auto) (3-14) % Eos % (Auto) (2-4) % Baso % (Auto) (0-2) % Neut # (Auto) (7996-3662) /uL Lymph # (Auto) (4667-0136) /uL [place] # (Auto) (0-900) /uL Eos # (Auto) (0-450) /uL Baso # (Auto) (0-100) /uL PT (10.1-12.7) SECONDS INR (0.9-1.3) APTT (26.4-36.2) SECONDS Sodium (137-145) mmol/L Potassium (3.4-5.1) mmol/L Chloride (98-107) mmol/L Carbon Dioxide (22-32) mmol/L BUN (7-17) mg/dL Creatinine (0.52-1.04) mg/dL Estimated GFR (>60) mL/min BUN/Creatinine Ratio (6-22) Glucose (70-100) mg/dL Calcium (8.4-10.2) mg/dL Phosphorus (2.5-4.5) mg/dL Magnesium (1.6-2.3) mg/dL Total Bilirubin (0.2-1.3) mg/dL AST (14-36) IU/L ALT (<35) IU/L Alkaline Phosphatase (38-126) U/L Total Protein (6.3-8.2) g/dL Albumin (3.5-5.0) g/dL Globulin (1.7-4.1) g/dL Albumin/Globulin Ratio (1.0-2.8) Lipase (23-300) U/L Urine Color Urine Appearance Urine pH (4.5-8.0) Ur Specific [place] (1.000-1.035) Urine Protein (Negative) Urine Glucose (UA) (Negative) g/dL Urine Ketones (NEGATIVE) Urine Occult Blood (Negative) Urine Nitrate (Negative) Urine Bilirubin (NEGATIVE) Urine Urobilinogen (0.2) E.U./dL Ur Leukocyte Esterase (NEGATIVE) Urine RBC (0-5/HPF) Urine WBC (0-5/HPF) Ur Squamous Epith Cells (0-5/HPF) Urine Bacteria (None) Urine Mucus (Negative) Ur Culture Indicated? Urine Test (Negative) U Opiates 300ng/mL cut Negative (Negative) Ur Oxycodone Screen Negative (Negative) Urine Methadone Screen Negative (Negative) Ur Barbiturates Screen Negative (Negative) U Tricyclic Antidepress Negative (Negative) Ur Phencyclidine Scrn Negative (Negative) Ur Amphetamines Screen Negative (Negative) U Methamphetamines Scrn Negative (Negative) Ur MDMA Scrn (Ecstasy) Negative (Negative) U Benzodiazepines Scrn Negative (Negative) Urine Cocaine Screen Negative (Negative) U Marijuana (THC) Screen Positive H (Negative) Ethyl Alcohol ( - 10) mg/dL Point of Care Testing Test Results Negative Urine Dip Bedside Urine Glucose Negative Bedside Urine Bilirubin - Negative Bedside Urine Ketone +++ 80 Urine Specific [place] 1.020 Bedside Urine Occult Blood + Bedside Urine pH 6.5 Bedside Urine Protein +/- 15 Bedside Urine Urobilinogen - Negative Bedside Urine Nitrite - Negative Bedside Urine Leukocytes - Negative Esterase Discharge Plan Departure Patient Disposition: Admitted As Inpatient Clinical Impression: Cyclical vomiting, Colitis, Acute epigastric pain Discharge Date/Time: 07/26/19 16:05 Admit Date/Time: 07/26/19 14:46 Admit Provider: Simone Weathers
[2019-07-26 14:50] LABS: Bacteria Urine None Seen
[2019-07-26 14:54] LABS: Appearance Urine UA SL CLOUDY; Bilirubin Urine UA NEGATIVE (NEGATIVE); Color Urine UA YELLOW; Glucose Urine UA NEGATIVE (Negative); Ketones Urine UA 3+ (NEGATIVE); Leukocyte Esterase Urine UA NEGATIVE (NEGATIVE); Nitrite Urine UA NEGATIVE (Negative); Occult Blood Urine UA 2+ (Negative); Protein Urine UA NEGATIVE (Negative); Urobilinogen Urine UA 0.2 E.U./dL (0.2)
[2019-07-26 14:59] LABS: Pregnancy Test Urine Negative (Negative)
[2019-07-26 15:02] LABS: Ur Creatinine Normal (Normal); Ur Specific Gravity Normal (Normal); Urine Tetrahydrocannabinol Positive (Negative); Urine pH Normal (Normal)
[2019-07-26 15:03] LABS: UR Morphine/Opiate cutoff 300 Negative (Negative); Urine Amphetamines Negative (Negative); Urine Barbiturates Negative (Negative); Urine Benzodiazepines Negative (Negative); Urine Cocaine Negative (Negative); Urine MDMA Negative (Negative); Urine Methadone Negative (Negative); Urine Methamphetamines Negative (Negative); Urine Oxycodone Negative (Negative); Urine Phencyclidine Negative (Negative); Urine Tricyclic Antidepressant Negative (Negative)
[2019-07-26 15:08] LABS: RBC Urine 5-10/HPF (0-5/HPF); Squamous Epithelial Cell Urine 5-10 /HPF (0-5/HPF); WBC Urine 1-5/HPF (0-5/HPF)
[2019-07-26 15:09] LABS: Culture Indicated Urine Cult Not Indicated; Mucus Urine 2+ (Negative)
[2019-07-26] MEDS: MORPHINE 2 MG/ML INJ IV (15:10)
--- NOTE | 2019-07-26 15:38 | PC.NURSE ---
Pt remains nauseated,very little vomiting since arriving. Pts pain remains 8/10 after meds
--- NOTE | 2019-07-26 17:28 | PM.HP.1 ---
History of Present Illness History of Present Illness Date Patient Seen: 07/26/19 Time Patient Seen: 17:00 Chief complaint: Vomiting since Narrative: Ms. Nuris Castle is a 29-year-old female patient with a prior history of headaches, cyclic vomiting, asthma presents to the ER with recurrent cyclic vomiting. She was seen in the ER on 07/23/2019 for intractable vomiting as well as persistent upper abdominal pain, admitted 07/24/2019 and discharge same day as was doing better, but symptoms got worse again once home. The patient has a history of cyclic vomiting since age 8 that has been previously fully evaluated by Gastroenterology at [facility]. At one point the patient was admitted to [facility] for week were upon the patient was started Norplant as her episodes are associated menstrual cycle. The patient was relatively stable with minor incidence but no longer requiring ER admission for approximately 2 years until the Norplant was discontinued favor of patient to start have children. Patient now is followed only by her PCP. The patient will typically use lorazepam, Haldol, Reglan and Zofran to manage vomiting and endorses using marijuana use only to help control nausea. It was previously questioned whether the cyclic vomiting is related to her marijuana use and she stop for 3 months without change in her monthly episodes of vomiting. Emesis is non-bloody and has progressed to dry heaves. The patient has had no subjective fevers but does report chills and diaphoresis. The patient was seen in the emergency department on 07/07/2019 for cyclic vomiting and was rehydrated with control of vomiting established. Patient also complained of abdominal pain that was not typical of her cyclic vomiting presentation and was found to have colitis and started on Augmentin at discharge. Few days ago her vomiting reoccurred and she has not been able to take the antibiotics for 2 days. Nausea has been progressive prompting her to present to the ER. She has history of severe headaches but none at this time, environmental allergies but no reports of nasal congestion or sore throat. She denies chest pain or palpitations, shortness of breath or cough. She complains of epigastric pain with a continuing nausea with dry heaves.. She reports diarrhea of both loose and watery stool without blood or melena. She denies dysuria or hematuria. The CT from last admission 07/24/2019 the abdomen pelvis showed slightly worsening colitis since study completed 2 weeks ago. Moderate esophagitis, duodenitis suspected stable. On laboratory analysis the patient has white count of 11.4. Patient has a sodium of 135 and potassium 3.1, BUN of 8 and a creatinine 0.65. Patient is admitted due to failure to manage vomiting and abdominal pain at home. Patient History Medical History (Updated 07/26/19 @ 14:46 by RICO Harris) Asthma (Acute) Cyclic vomiting syndrome (Acute) Environmental allergies (Acute) Marijuana smoker (Acute) Severe frontal headaches (Acute) Surgical History History of toe surgery (Acute) Family & Social History Family History Father Arthritis Mother Anxiety Fibromyalgia Brother Childhood asthma Drug abuse Social History: household members spouse Safety & Behavioral: Feels Safe in Current Yes Environment Tobacco & Substance use: Tobacco type cannabis/marijuana Smoking Status Current some day smoker alcohol intake current alcohol intake frequency a few times a week Substance Use Type marijuana Meds Home Medications and Allergies Home Medications Medication Instructions Recorded Confirmed Type Flovent HFA 1 puff INHALATION BID 08/21/18 07/24/19 History albuterol sulfate 2 puff INHALATION Q4-6H PRN 08/21/18 07/24/19 History buspirone 15 mg PO TID 08/21/18 07/24/19 History diphenhydramine HCl 50 mg PO BEDTIME 08/21/18 07/24/19 History fluticasone propionate [Flonase 2 spray INTRANASAL DAILY PRN 08/21/18 07/24/19 History Allergy Relief] haloperidol 0.5 mg PO Q8H PRN 08/21/18 07/24/19 History nortriptyline 100 mg PO BEDTIME 08/21/18 07/24/19 History ondansetron 4 mg PO Q6H PRN 08/21/18 07/24/19 History propranolol 40 mg PO DAILY 08/21/18 07/24/19 History rizatriptan 5 mg PO Q2-4H PRN MDD 10 mg 08/21/18 07/24/19 History prochlorperazine 25 mg TX Q12H PRN #12 each 08/22/18 07/24/19 Rx haloperidol lactate 1 mg PO TID #120 ml 02/04/19 07/24/19 Rx lorazepam [Ativan] 1 mg PO TID PRN #20 tab 02/04/19 07/24/19 Rx promethazine 25 mg TX Q6H PRN #12 each 03/14/19 07/24/19 Rx ciprofloxacin HCl [Cipro] 500 mg PO BID 7 Days #14 tab 07/24/19 Rx Allergies Allergy/AdvReac Type Severity Reaction Status Date / Time mushroom Allergy Severe Vomiting Verified 03/22/19 08:43 peanut Allergy Severe Anaphylaxis Verified 03/22/19 08:43 Sulfa (Sulfonamide Allergy Unknown Verified 03/22/19 08:43 Antibiotics) Review of Systems Review of Systems ROS: Yes All systems reviewed with the patient and are negative except as otherwise documented Exam Vital Signs (past 8 hours): - 07/26/19 10:48 07/26/19 11:30 07/26/19 12:30 Temperature 98.5 F Pulse Rate 82 95 H 95 H Respiratory Rate 19 Blood Pressure 147/93 H Blood Pressure [Left Arm] 152/83 H 157/73 H Blood Pressure [Right Arm] Pulse Oximetry 99 99 100 07/26/19 14:47 07/26/19 16:10 Temperature 99.4 F Pulse Rate 100 H 92 H Respiratory Rate 18 Blood Pressure 155/88 H Blood Pressure [Left Arm] Blood Pressure [Right Arm] 143/89 H Pulse Oximetry 100 100 Oxygen Delivery Method Room Air Narrative Exam Narrative: General: Patient is alert, sitting in chair, and holding emesis back and appears in obvious distress HEENT: Pupils equal, dry mucosa Lungs: Clear to auscultation Heart: Regular rhythm Abdomen: Soft, tender in epigastric, no HSM Neurological: Well oriented, nonfocal Skin: Warm and dry, no rash Objective Labs Result Diagrams: 07/26/19 10:45 07/26/19 10:45 Labs: Laboratory Results - last 24 hr 07/26/19 07/26/19 07/26/19 10:45 10:45 10:45 WBC 11.4 H RBC 4.91 Hgb 14.5 Hct 42.5 MCV 86.5 MCH 29.6 MCHC 34.2 RDW 13.6 Plt Count 489 H Neut % (Auto) 83.2 H Lymph % (Auto) 10.9 L [place] % (Auto) 5.1 Eos % (Auto) 0.4 L Baso % (Auto) 0.4 Neut # (Auto) 9500 H Lymph # (Auto) 1200 [place] # (Auto) 600 Eos # (Auto) 0 Baso # (Auto) 100 PT 12.7 INR 1.1 APTT 30 Sodium 135 L Potassium 3.1 L Chloride 99 Carbon Dioxide 24 BUN 8 Creatinine 0.65 Estimated GFR > 60.0 BUN/Creatinine Ratio 12.3 Glucose 121 H Calcium 9.6 Phosphorus Magnesium Total Bilirubin 0.6 AST 39 H ALT 42 H Alkaline Phosphatase 82 Total Protein 7.9 Albumin 4.6 Globulin 3.3 Albumin/Globulin Ratio 1.4 Lipase 87 Urine Color Urine Appearance Urine pH Ur Specific [place] Urine Protein Urine Glucose (UA) Urine Ketones Urine Occult Blood Urine Nitrate Urine Bilirubin Urine Urobilinogen Ur Leukocyte Esterase Urine RBC Urine WBC Ur Squamous Epith Cells Urine Bacteria Urine Mucus Ur Culture Indicated? Urine Test U Opiates 300ng/mL cut Ur Oxycodone Screen Urine Methadone Screen Ur Barbiturates Screen U Tricyclic Antidepress Ur Phencyclidine Scrn Ur Amphetamines Screen U Methamphetamines Scrn Ur MDMA Scrn (Ecstasy) U Benzodiazepines Scrn Urine Cocaine Screen U Marijuana (THC) Screen Ethyl Alcohol < 10 07/26/19 07/26/19 07/26/19 10:45 13:45 13:45 WBC RBC Hgb Hct MCV MCH MCHC RDW Plt Count Neut % (Auto) Lymph % (Auto) [place] % (Auto) Eos % (Auto) Baso % (Auto) Neut # (Auto) Lymph # (Auto) [place] # (Auto) Eos # (Auto) Baso # (Auto) PT INR APTT Sodium Potassium Chloride Carbon Dioxide BUN Creatinine Estimated GFR BUN/Creatinine Ratio Glucose Calcium Phosphorus 2.5 Magnesium 1.7 Total Bilirubin AST ALT Alkaline Phosphatase Total Protein Albumin Globulin Albumin/Globulin Ratio Lipase Urine Color Yellow Urine Appearance Sl cloudy Urine pH 7.0 Ur Specific [place] 1.020 Urine Protein Negative Urine Glucose (UA) Negative Urine Ketones 3+ H Urine Occult Blood 2+ H Urine Nitrate Negative Urine Bilirubin Negative Urine Urobilinogen 0.2 Ur Leukocyte Esterase Negative Urine RBC 5-10/hpf H Urine WBC 1-5/hpf Ur Squamous Epith Cells 5-10 /hpf H Urine Bacteria None seen Urine Mucus 2+ H Ur Culture Indicated? Cult not indicated Urine Test Negative U Opiates 300ng/mL cut Ur Oxycodone Screen Urine Methadone Screen Ur Barbiturates Screen U Tricyclic Antidepress Ur Phencyclidine Scrn Ur Amphetamines Screen U Methamphetamines Scrn Ur MDMA Scrn (Ecstasy) U Benzodiazepines Scrn Urine Cocaine Screen U Marijuana (THC) Screen Ethyl Alcohol 07/26/19 13:45 WBC RBC Hgb Hct MCV MCH MCHC RDW Plt Count Neut % (Auto) Lymph % (Auto) [place] % (Auto) Eos % (Auto) Baso % (Auto) Neut # (Auto) Lymph # (Auto) [place] # (Auto) Eos # (Auto) Baso # (Auto) PT INR APTT Sodium Potassium Chloride Carbon Dioxide BUN Creatinine Estimated GFR BUN/Creatinine Ratio Glucose Calcium Phosphorus Magnesium Total Bilirubin AST ALT Alkaline Phosphatase Total Protein Albumin Globulin Albumin/Globulin Ratio Lipase Urine Color Urine Appearance Urine pH Ur Specific [place] Urine Protein Urine Glucose (UA) Urine Ketones Urine Occult Blood Urine Nitrate Urine Bilirubin Urine Urobilinogen Ur Leukocyte Esterase Urine RBC Urine WBC Ur Squamous Epith Cells Urine Bacteria Urine Mucus Ur Culture Indicated? Urine Test U Opiates 300ng/mL cut Negative Ur Oxycodone Screen Negative Urine Methadone Screen Negative Ur Barbiturates Screen Negative U Tricyclic Antidepress Negative Ur Phencyclidine Scrn Negative Ur Amphetamines Screen Negative U Methamphetamines Scrn Negative Ur MDMA Scrn (Ecstasy) Negative U Benzodiazepines Scrn Negative Urine Cocaine Screen Negative U Marijuana (THC) Screen Positive H Ethyl Alcohol Assessment & Plan Assessment & Plan narrative: This is a 29-year-old female patient with a history of cyclic vomiting with antecedent headaches who is admitted for uncontrolled nausea vomiting. 1. Intractable cyclic vomiting, chronic, present on admission -long history of cyclic vomiting since age 8 previously evaluated by Gastroenterology at [facility] and now followed by her PCP only. -symptoms not relieved after IV Haldol, diphenhydramine and metoclopramide in the ER -ordered Ativan 1 mg every 4 hours as needed -ordered Zofran 8 mg every 8 hours as needed -prochlorparzine 10 mg IV every 6 hours as needed -ordered Protonix 40 mg twice daily for appearance of possible esophagitis and duodenitis on CT -consider EGD to evaluate the esophagus, stomach and duodenum -mild hypokalemia treated with added potassium in IV fluids 2. Colitis, unknown infectious versus inflammatory, acute, present on admission, active -CT scan on 07/07/2019 finds: There is diffuse wall thickening and edema throughout the colon particularly involving ascending colon and transverse colon suggestive of infectious or inflammatory colitis. No free fluid or free air. CT scan 07/23 appearing same as well as noting findings of possible distal esophageal thickening and duodenal thickening -Cipro 500 mg IV b.i.d. and Flagyl 500 mg IV q.8 hours -stool PCR if having diarrhea -Toradol 30 mg IV as needed abdominal pain 2. Chronic severe headaches, present on admission -will continue patient's home medication of daily propranolol 40 mg. -rizatriptan 5 mg every 2 hours as needed with maximum daily dose of 10 mg for severe headache -Toradol 30 mg IV every 6 hours as needed for pain. 3. Marijuana use, chronic, stable -the patient states she only smokes marijuana to help with the nausea. -as at last admission, the patient is asking to take a shower and states showering helps with her nausea raising concern for cannabis hyperemesis syndrome. -patient has been counseled previously and reported that she had stopped 3 months and it did not change her nausea and vomiting pattern. 4. Asthma, mild persistent, stable -will continue patient's daily Flovent 1 puff twice daily -albuterol MDI 2 puffs every 4 hours as needed for shortness breath or wheezing 3. Chronic anxiety, stable -will continue patient's BuSpar 15 mg 3 times daily. VTE prophylaxis: Enoxaparin, no leg compression devices on legs with IV in the foot. IV fluid: Normal saline 125 cc/hour Diet: Clear liquids Code status: FULL CODE, the patient's mother is her surrogate decision maker.
[2019-07-26] MEDS: KCL 20 MEQ IN NS 1,000 ML 125 MEQ IV (19:50)
[2019-07-26] MEDS: metroNIDAZOLE 500 MG/100 ML PIGGYBACK 100 MG IV (19:53)
[2019-07-26] MEDS: ACETAMINOPHEN 325 MG TABLET 650 MG PO (19:54)
[2019-07-26] MEDS: KETOROLAC 30 MG/ML VIAL IV (20:05)
--- NOTE | 2019-07-26 23:31 | PC.NURSE ---
admission note: patient arrived to floor. Patient looked extremely ill, pale facial coloring, shaking, sever nausea and spitting up bile in emesis bag. Pt asked to shower as it helps her feel better, calm down and relax. Pt was settle into bed. After provider made rounds, pt got up to the shower and stated immediatly she felt better. Post shower patient visibly had improved color in face, stopped shaking and reported her nausea had improved. Pt has taken mult showers this darrius for comfort. Call light w/in reach, bed in low pos, alarm active. pt is aware to call w/ needs.
[2019-07-27] VITALS (12 sets, daily range): BP systolic 120–138; BP diastolic 61–94; PULSE 73–94; RESP 15–19; TEMP 36.6–37.4; O2SAT 94–100
[2019-07-27] MEDS: LORazepam 2 MG/ML INJ 1 MG IV ×3 (01:35→09:20)
[2019-07-27] MEDS: KETOROLAC 30 MG/ML VIAL IV ×3 (01:36→14:44)
[2019-07-27] MEDS: CIPROFLOXACIN 400 MG/200 ML PIGGYBACK 200 MG IV ×4 (01:41→15:36)
[2019-07-27] MEDS: metroNIDAZOLE 500 MG/100 ML PIGGYBACK 100 MG IV ×2 (04:27→11:55)
[2019-07-27] MEDS: PROCHLORPERAZINE 10 MG/2 ML VIAL IV ×2 (04:47→16:21)
--- NOTE | 2019-07-27 05:06 | PC.NURSE ---
Addendum entered by Xiomara Terrell R.N. 07/27/19 06:34: Late entry 0500 Pt continues to vomit and feel nauseous unresolved with IV compazine. Pt anxious, shaking, and diaphoretic. HR in the 90s. Requested to go to shower. Pt sat in shower. PRN lorazepam given. Now patient reports feeling slightly better now. [facility] Original Note: Pt feeling nauseous and vomiting and abdominal pain. Resolved slightly with PRN ativan and tordol. Pt SBA to bathroom.
[2019-07-27 06:20] LABS: Add Manual Diff / Slide Review NO; Basophils Absolute Auto 0 /uL (0-100); Basophils Percent Auto 0.3 % (0-2); Eosinophils Absolute Auto 0 /uL (0-450); Eosinophils Percent Auto 0.4 % (2-4); Hemoglobin 12.8 g/dL (12.0-16.0); Lymphocytes Absolute Auto 1400 /uL (1100-4500); Lymphocytes Percent Auto 14.8 % (25-40); Mean Corpuscular HGB Conc 34.6 % (30-36); Mean Corpuscular Hemoglobin 29.8 PG (26-34); Mean Corpuscular Volume 86.1 fL (80-100); Monocytes Absolute Auto 800 /uL (0-900); Monocytes Percent Auto 7.8 % (3-14); Neutrophils Absolute Auto 7500 /uL (1500-7000); Neutrophils Percent Auto 76.7 % (50-75); Platelet Count 386 X10^3/uL (150-400); Red Blood Cell Count 4.29 X10^6/uL (4.0-5.2); Red Cell Distribution Width 13.5 % (11.6-14.8); White Blood Cell Count 9.8 X10^3/uL (4.5-11.0)
[2019-07-27 06:31] LABS: BUN Creatinine Ratio 7.3 (6-22); Blood Urea Nitrogen 4 mg/dL (7-17); Calcium 8.4 mg/dL (8.4-10.2); Carbon Dioxide 22 mmol/L (22-32); Chloride 103 mmol/L (98-107); Estimated Glomerular Filt Rate > 60.0 mL/min (>60); Glucose 101 mg/dL (70-100); HEMOLYSIS < 15 (0-50); Potassium 2.8 mmol/L (3.4-5.1); Sodium 132 mmol/L (137-145)
[2019-07-27] MEDS: PANTOPRAZOLE 40 MG VIAL IV (08:19)
[2019-07-27] MEDS: ONDANSETRON 8 MG in SODIUM CHLORIDE 0.9% 50 ML 216 ML IV (08:19)
[2019-07-27] MEDS: FLUTICASONE 110MCG HFA 120 PUFF INH ×2 (08:24→20:38)
--- NOTE | 2019-07-27 09:28 | PC.NURSE ---
Addendum entered by Heidi Jones R.N. 07/27/19 11:42: Dr. Weathers updated at 1042 regarding below note. Original Note: Day Shift- Pt alert, gagging, nauseated, intermittent shaking and diaphoretic. Pt wanting shower at shift changed, asked to wait until after shift change. Pt assisted to shower at 0745, pt showers indep, SBA in room. Pt changes her position in bed frequently and likes to sit up in bed with legs crossed. Does set bed alarm off at times, call light within reach, which pt has used frequently this AM. Reminded pt to use call light for assist and a staff member needs to be in the room with her with ambulation. Pt has vomited approx 650mls. Pt contributes this to having apple juice this morning. Otherwise pt has had just water and ice chips. Pt having over 1L of water already this shift. Asked pt to slow down on water intake and pt stated it was the apple juice that made her nauseated and vomit. Pt reports 7/10 upper mid abd pain, aching, sharpness with varying strength of sharpness. PRN IV Toradol given with no effect as pt was gagging, dry heaving and vomiting after dose and did not receive any rest.
[2019-07-27] MEDS: KCL 20 MEQ IN NS 1,000 ML 125 MEQ IV (09:35)
--- NOTE | 2019-07-27 12:33 | CM.DANOTE ---
Discharge Planning/Care Management DCP: assessment: case received, EMR reviewed and readmit plus multiple ER visits this year are noted: see template below. Met with pt, who is found curled up on side in bed, room darkened, eyes closed. She roused easily to voice. Introduced self and role. Pt is a 29 year old female who admitted yesterday afternoon to care of hospitalist team. PCP: Dr. Aida Sarmiento: [facility]. Pt confirms she has been struggling with this cyclic vomiting disease process since she was a young child. P: at this point anticipate that she will d/c to home setting once stable for d/c but is very early in the stay. DCP team will be following. CM Discharge Assessment Start: 07/27/19 12:30 Freq: Status: Active Protocol: Document 07/27/19 12:30 ITV (Rec: 07/27/19 12:33 ITV [id number]) Discharge Planning Assessment Advance Directives? No History Provided By Patient,Medical Record Has Patient been admitted in last 30 Yes days? Comment pt was admitted from the ER to acute care floor on 07/23 and d/c'd later that evening. OF NOTE: pt has had 6 ER visits this year for primarily the same cyclic vomiting issues. Prior Living Arrangements House Household Members spouse,family Comment lives with her spouse Dewey and her mother Neema Independent with ADL's Yes Is patient alert and oriented? Yes White board Updated in Patient Room with Yes ext. # of Hospital Technician Review Status In Process
[2019-07-27] MEDS: POTASSIUM CHLORIDE 40 MEQ in SODIUM CHLORIDE 0.9% 500 ML 130 ML IV (13:17)
--- NOTE | 2019-07-27 14:17 | P.PN_ITS ---
Subjective Subjective Date Patient Seen: 07/27/19 Interval history: This is a 29-year-old female patient with a history of cyclic vomiting with antecedent headaches who is admitted for uncontrolled nausea vomiting and epigastric pain. She has persistent nausea, dry heaves, bilious vomiting and epigastric pain. Potassium low today. Exam Vital Signs (past 8 hours): - 07/27/19 09:04 07/27/19 09:05 07/27/19 10:41 Temperature 97.9 F Pulse Rate 73 Respiratory Rate 19 Blood Pressure Pulse Oximetry 100 100 97 07/27/19 10:45 Temperature 97.8 F Pulse Rate 89 Respiratory Rate 15 Blood Pressure 130/65 Pulse Oximetry 97 Oxygen Delivery Method Room Air Oxygen Flow Rate 0 Narrative Exam Narrative: General: Alert and cooperative female Abdomen: Epigastric tenderness Extremities: No edema Objective Labs Result Diagrams: 07/27/19 06:00 07/27/19 06:00 Labs: Laboratory Results - last 24 hr 07/26/19 07/26/19 07/26/19 10:45 13:45 13:45 WBC RBC Hgb Hct MCV MCH MCHC RDW Plt Count Neut % (Auto) Lymph % (Auto) [place] % (Auto) Eos % (Auto) Baso % (Auto) Neut # (Auto) Lymph # (Auto) [place] # (Auto) Eos # (Auto) Baso # (Auto) Sodium Potassium Chloride Carbon Dioxide BUN Creatinine Estimated GFR BUN/Creatinine Ratio Glucose Calcium Phosphorus 2.5 Magnesium 1.7 Urine Color Yellow Urine Appearance Sl cloudy Urine pH 7.0 Ur Specific [place] 1.020 Urine Protein Negative Urine Glucose (UA) Negative Urine Ketones 3+ H Urine Occult Blood 2+ H Urine Nitrate Negative Urine Bilirubin Negative Urine Urobilinogen 0.2 Ur Leukocyte Esterase Negative Urine RBC 5-10/hpf H Urine WBC 1-5/hpf Ur Squamous Epith Cells 5-10 /hpf H Urine Bacteria None seen Urine Mucus 2+ H Ur Culture Indicated? Cult not indicated Urine Test Negative U Opiates 300ng/mL cut Ur Oxycodone Screen Urine Methadone Screen Ur Barbiturates Screen U Tricyclic Antidepress Ur Phencyclidine Scrn Ur Amphetamines Screen U Methamphetamines Scrn Ur MDMA Scrn (Ecstasy) U Benzodiazepines Scrn Urine Cocaine Screen U Marijuana (THC) Screen 07/26/19 07/27/19 07/27/19 13:45 06:00 06:00 WBC 9.8 RBC 4.29 Hgb 12.8 Hct 37.0 MCV 86.1 MCH 29.8 MCHC 34.6 RDW 13.5 Plt Count 386 Neut % (Auto) 76.7 H Lymph % (Auto) 14.8 L [place] % (Auto) 7.8 Eos % (Auto) 0.4 L Baso % (Auto) 0.3 Neut # (Auto) 7500 H Lymph # (Auto) 1400 [place] # (Auto) 800 Eos # (Auto) 0 Baso # (Auto) 0 Sodium 132 L Potassium 2.8 L Chloride 103 Carbon Dioxide 22 BUN 4 L Creatinine 0.55 Estimated GFR > 60.0 BUN/Creatinine Ratio 7.3 Glucose 101 H Calcium 8.4 Phosphorus Magnesium Urine Color Urine Appearance Urine pH Ur Specific [place] Urine Protein Urine Glucose (UA) Urine Ketones Urine Occult Blood Urine Nitrate Urine Bilirubin Urine Urobilinogen Ur Leukocyte Esterase Urine RBC Urine WBC Ur Squamous Epith Cells Urine Bacteria Urine Mucus Ur Culture Indicated? Urine Test U Opiates 300ng/mL cut Negative Ur Oxycodone Screen Negative Urine Methadone Screen Negative Ur Barbiturates Screen Negative U Tricyclic Antidepress Negative Ur Phencyclidine Scrn Negative Ur Amphetamines Screen Negative U Methamphetamines Scrn Negative Ur MDMA Scrn (Ecstasy) Negative U Benzodiazepines Scrn Negative Urine Cocaine Screen Negative U Marijuana (THC) Screen Positive H Assessment & Plan Assessment & Plan narrative: This is a 29-year-old female patient with a history of cyclic vomiting with antecedent headaches who is admitted for uncontrolled nausea vomiting and epigastric pain. 1. Intractable cyclic vomiting, chronic, present on admission -long history of cyclic vomiting since age 8 previously evaluated by Gastroenterology at [facility] and now followed by her PCP only. -etiology idiopathic, patient states warm showers are helpful but she has gone several months without cannabis use but no improvement in symptoms, also respons e to warm showers can be a feature of other cyclic vomiting syndromes besides cannabis -symptoms not relieved after IV Haldol, diphenhydramine and metoclopramide in the ER -ordered Ativan 1 mg every 4 hours as needed -ordered Zofran 8 mg every 8 hours as needed -prochlorparzine 10 mg IV every 6 hours as needed -ordered Protonix 40 mg twice daily for appearance of possible esophagitis and duodenitis on CT -consider EGD to evaluate the esophagus, stomach and duodenum -mild hypokalemia treated with added potassium in IV fluids and additional K rider -ordered olanzapine ODT 10 mg q.d. as needed since Haldol does tend to help symptoms at home, patient understands this is really experimental but so was the Haldol -try topical capsaicin q.i.d. as needed -BMP in a.m. 2. Colitis, unknown infectious versus inflammatory, acute, present on admission, active -CT scan on 07/07/2019 finds: There is diffuse wall thickening and edema throughout the colon particularly involving ascending colon and transverse colon suggestive of infectious or inflammatory colitis. No free fluid or free air. CT scan 07/24/2019 appearing same as well as noting findings of possible distal esophageal thickening and duodenal thickening -Cipro 500 mg IV b.i.d. and Flagyl 500 mg IV q.8 hours -not having diarrhea -Toradol 30 mg IV as needed abdominal pain 2. Chronic severe headaches, present on admission -will continue patient's home medication of daily propranolol 40 mg. -rizatriptan 5 mg every 2 hours as needed with maximum daily dose of 10 mg for severe headache -Toradol 30 mg IV every 6 hours as needed for pain. 3. Asthma, mild persistent, stable -will continue patient's daily Flovent 1 puff twice daily -albuterol MDI 2 puffs every 4 hours as needed for shortness breath or wheezing 4. Chronic anxiety, stable -will continue patient's BuSpar 15 mg 3 times daily. VTE prophylaxis: SCDs, low risk Diet: Clear liquids Code status: FULL CODE, the patient's mother is her surrogate decision maker. Quality VTE Deep Vein Thrombosis/Pulmonary Embolism Present on Admission: No
[2019-07-27] MEDS: OLANZapine ODT 10 MG TAB PO (14:43)
--- NOTE | 2019-07-27 22:40 | PC.NURSE ---
Pt pulled out PIV by accident and many attempts to restart occurred. Order obtained for PICC. Hs meds will be given once PICC has been placed, K+ rider and 20 meq K+ in NS will be restarted. Last emesis was at breakfast today and patient has toleraated sips of water and Popsicle this shift. VSS.
[2019-07-28] VITALS (13 sets, daily range): BP systolic 123–159; BP diastolic 65–99; PULSE 82–110; RESP 15–18; TEMP 36.3–37.4; O2SAT 96–100
--- NOTE | 2019-07-28 01:10 | DI.RAD.S_ITS ---
PROCEDURE: XR CHEST 1V INDICATIONS: Verify PICC line placement. TECHNIQUE: One view of the chest was acquired. COMPARISON: None. FINDINGS: Surgical changes and devices: PICC line projects to the distal SVC a left-sided approach.. Lungs and pleura: Lungs are clear. No pleural effusions or pneumothorax. Mediastinum: Mediastinal contours appear normal. Heart size is normal. Bones and chest wall: No suspicious bony lesions. Overlying soft tissues appear unremarkable. IMPRESSION: PICC line projects in the distal SVC. Dictated by: Christianne Dawkins MD, PhD on 07/28/2019 at 8:26 Approved by: Christianne Dawkins MD, PhD on 07/28/2019 at 8:27
[2019-07-28] MEDS: LORazepam 2 MG/ML INJ 1 MG IV ×4 (01:46→19:26)
[2019-07-28] MEDS: metroNIDAZOLE 500 MG/100 ML PIGGYBACK 100 MG IV ×3 (02:11→18:22)
[2019-07-28] MEDS: CIPROFLOXACIN 400 MG/200 ML PIGGYBACK 200 MG IV ×2 (03:23→16:02)
[2019-07-28] MEDS: KETOROLAC 30 MG/ML VIAL IV ×3 (03:53→16:01)
[2019-07-28] MEDS: CAPSAICIN 30 APPLIC/TUBE CREAM..G. TOP (03:55)
[2019-07-28] MEDS: PROCHLORPERAZINE 10 MG/2 ML VIAL IV ×3 (04:04→19:13)
--- NOTE | 2019-07-28 04:35 | PC.NURSE ---
Vomited clear emesis 2199 so far this shift, instructed numerous times to just take some ice chips & sips of water. But she keep on asking more ice water & also filled her water bottle from the faucet in the sink. Medicated with Lorazepam, Compazine, Capsaicin & Toradol. Showered twice already this shift. Will cont. POC & monitor.
[2019-07-28] MEDS: ONDANSETRON 8 MG in SODIUM CHLORIDE 0.9% 50 ML 216 ML IV ×2 (05:27→21:01)
[2019-07-28 05:45] LABS: BUN Creatinine Ratio 6.8 (6-22); Blood Urea Nitrogen 4 mg/dL (7-17); Calcium 8.9 mg/dL (8.4-10.2); Carbon Dioxide 24 mmol/L (22-32); Chloride 102 mmol/L (98-107); Estimated Glomerular Filt Rate > 60.0 mL/min (>60); Glucose 123 mg/dL (70-100); HEMOLYSIS < 15 (0-50); Potassium 3.2 mmol/L (3.4-5.1); Sodium 134 mmol/L (137-145)
--- NOTE | 2019-07-28 06:59 | PC.NURSE ---
Showered x3 this shift. Cont. with nausea & vomiting, Medicated with Zofran, Ativan IVP X 2 doses & Compazine. Will report to day RN.
[2019-07-28] MEDS: KCL 20 MEQ IN NS 1,000 ML 125 MEQ IV (07:29)
[2019-07-28] MEDS: PANTOPRAZOLE 40 MG VIAL IV ×2 (09:38→21:04)
[2019-07-28] MEDS: POTASSIUM CHLORIDE 60 MEQ in SODIUM CHLORIDE 0.9% 500 ML 88.333 ML IV (09:38)
--- NOTE | 2019-07-28 11:31 | CM.DPC ---
DCP Cont: Went briefly in patient's room during team rounds. She was laying on her side, semi awake. She continues to have nausea. She has PICC line present and is receiving IV antibiotics as well. P: DCP to continue to follow and will be available for any resources needed at discharge. Dasha Smith RN/Fast Food Worker
--- NOTE | 2019-07-28 12:35 | PC.NURSE ---
Addendum entered by Chantel Shields R.N. 07/28/19 13:17: finished 3rd shower, emesis 550. given zyprexa. back in bed. Original Note: PATIENT HAS HAD ONE EPISODE OF EMESIS AND DIARRHEA THIS AM. SHE CONTINUES WITH CONTINUOS NAUSEA AND ABD PAIN EXCEPT WHEN SLEEPING. DID TAKE A NAP AFTER COMPAZINE, THEN TOOK SECOND SHOWER AND NOW IN FOR THIRD SHOWER. STATES THE HOT WATER IS THE ONLY THING THAT SOOTHES HER AND HELPS HER RELAX. SHE WAS GIVEN ATIVAN AND IS SEATED IN THE SHOWER. IV K-RIDER INFUSING. DRINKING PLENTY OF WATER.
[2019-07-28] MEDS: OLANZapine ODT 10 MG TAB PO (13:10)
--- NOTE | 2019-07-28 16:41 | P.PN_ITS ---
Subjective Subjective Date Patient Seen: 07/28/19 Interval history: The patient is a 29-year-old female with a history of cyclic vomiting syndrome, colitis, asthma who presented to the hospital with recurrent nausea and vomiting. She continues to have persistent nausea and emesis. She has had frequent loose stools as well. Patient states that this is longer than normal for her. Intermittently between showering and vomiting she has been sleeping. She also reports some abdominal pain. Exam Vital Signs (past 8 hours): - 07/28/19 12:00 07/28/19 15:50 Temperature 98.9 F 98 F Pulse Rate 82 98 H Respiratory Rate 16 15 Blood Pressure 142/78 H 134/65 Pulse Oximetry 99 96 Oxygen Delivery Method Room Air Oxygen Flow Rate 0 Narrative Exam Narrative: Ill-appearing female lying in bed appears uncomfortable Lungs: Clear to auscultation Cardiac exam: Regular rate rhythm normal S1-S2 Abdomen soft mildly tender Extremity no edema Objective Labs Result Diagrams: 07/27/19 06:00 07/28/19 05:25 Labs: Laboratory Results - last 24 hr 07/28/19 05:25 Sodium 134 L Potassium 3.2 L Chloride 102 Carbon Dioxide 24 BUN 4 L Creatinine 0.59 Estimated GFR > 60.0 BUN/Creatinine Ratio 6.8 Glucose 123 H Calcium 8.9 Assessment & Plan Assessment & Plan narrative: cyclic vomiting, chronic, present on admission -long history of cyclic vomiting since age 8 previously evaluated by Gastroenterology at [facility] and now followed by her PCP only. -etiology idiopathic, patient states warm showers are helpful but she has gone several months without cannabis use but no improvement in symptoms, also response to warm showers can be a feature of other cyclic vomiting syndromes besides cannabis -symptoms not relieved after IV Haldol, diphenhydramine and metoclopramide in the ER -ordered Ativan 1 mg every 4 hours as needed -ordered Zofran 8 mg every 8 hours as needed -prochlorparzine 10 mg IV every 6 hours as needed -ordered Protonix 40 mg twice daily for appearance of possible esophagitis and duodenitis on CT -consider EGD to evaluate the esophagus, stomach and duodenum -mild hypokalemia treated with added potassium in IV fluids and additional K rider -ordered olanzapine ODT 10 mg q.d. as needed since Haldol does tend to help symptoms at home, patient understands this is really experimental but so was the Haldol -try topical capsaicin q.i.d. as needed -will continue current treatment. The patient continues to have vomiting tomorrow will discuss with surgery the need for upper endoscopy 2. Colitis, unknown infectious versus inflammatory, acute, present on admission, active -CT scan on 07/07/2019 finds: There is diffuse wall thickening and edema throughout the colon particularly involving ascending colon and transverse colon suggestive of infectious or inflammatory colitis. No free fluid or free air. CT scan 07/24/2019 appearing same as well as noting findings of possible distal esophageal thickening and duodenal thickening -Cipro 500 mg IV b.i.d. and Flagyl 500 mg IV q.8 hours -loose stools noted today, will send for C diff -Toradol 30 mg IV as needed abdominal pain 2. Chronic severe headaches, present on admission -will continue patient's home medication of daily propranolol 40 mg. -rizatriptan 5 mg every 2 hours as needed with maximum daily dose of 10 mg for severe headache -Toradol 30 mg IV every 6 hours as needed for pain. 3. Asthma, mild persistent, stable -will continue patient's daily Flovent 1 puff twice daily -albuterol MDI 2 puffs every 4 hours as needed for shortness breath or wheezing 4. Chronic anxiety, stable -will continue patient's BuSpar 15 mg 3 times daily. Quality VTE Deep Vein Thrombosis/Pulmonary Embolism Present on Admission: No
[2019-07-28] MEDS: FLUTICASONE 110MCG HFA 120 PUFF INH (21:11)
--- NOTE | 2019-07-28 22:51 | PC.NURSE ---
Evening shift: Oriented but drowsy. VSS. Complained once of 7/10 abdominal pain, received Toradol. Struggled with nausea and vomiting throughout shift, despite administration of multiple anti-emetics. Was able to get some periods of sleep without emesis, and took multiple long, hot showers to relax and obtain relief. Discussed POC with patient and mother. Need GI panel when/if BM.
[2019-07-29] VITALS (12 sets, daily range): BP systolic 136–159; BP diastolic 75–109; PULSE 84–105; RESP 16–18; TEMP 36.4–37.6; O2SAT 96–100
[2019-07-29] MEDS: LORazepam 2 MG/ML INJ 1 MG IV ×2 (01:35→05:29)
[2019-07-29] MEDS: metroNIDAZOLE 500 MG/100 ML PIGGYBACK 100 MG IV ×2 (01:40→10:48)
[2019-07-29] MEDS: CIPROFLOXACIN 400 MG/200 ML PIGGYBACK 200 MG IV ×2 (02:57→14:40)
--- NOTE | 2019-07-29 03:55 | PC.NURSE ---
Requesting & drinking lots of water. After taking fluids she vomited & requesting to take a shower. She already showered beginning of this shift for half hour. Encouraged her to just take sips of water tonight. Also instructed to get some sleep, she did not sleep well for the past 2 nights. Will monitor.
[2019-07-29] MEDS: PROCHLORPERAZINE 10 MG/2 ML VIAL IV ×3 (04:08→19:02)
--- NOTE | 2019-07-29 06:00 | PC.NURSE ---
RICO Trinidad notified Pt. B/P 159/100 & HR 97. stated I'll order Hydralazine IV, awaiting for orders. Pt. sleeping now after she showered the second time. Jose C MAY & HORTENCIA, will monitor.
[2019-07-29] MEDS: SODIUM CHLORIDE 0.9% FLUSH 10 ML IV ×4 (07:02→16:39)
[2019-07-29] MEDS: KCL 20 MEQ IN NS 1,000 ML 125 MEQ IV (07:02)
[2019-07-29 07:24] LABS: Blood Urea Nitrogen 4 mg/dL (7-17); Carbon Dioxide 26 mmol/L (22-32); Chloride 99 mmol/L (98-107); Estimated Glomerular Filt Rate > 60.0 mL/min (>60); Glucose 110 mg/dL (70-100); HEMOLYSIS < 15 (0-50); Potassium 3.5 mmol/L (3.4-5.1); Sodium 132 mmol/L (137-145)
--- NOTE | 2019-07-29 09:28 | PC.NURSE ---
Addendum entered by Sharonda Delacruz R.N. 07/29/19 11:41: Patient has small amount loose bowel movement was mixed with urine, per lab sample not acceptable for testing. Addendum entered by Shraonda Delacruz R.N. 07/29/19 11:06: Patient requesting to shower again, asked patient to wait until abx are infused. 100cc yellow colored fluid, 10mg compazine given along with 30mg IV toradol for c/o abdominal pain. Patient requesting more water and gingerale. Instructed patient to slow down on the fluid intake to help with the nausea and vomiting. Patient has had 900cc fluid this shift so far. Patient agreeable to wait to shower. Original Note: Patient alert, oriented rates abdominal pain 8/10, requesting to shower to help with pain and nausea. Patient saline locked for shower.
[2019-07-29] MEDS: PANTOPRAZOLE 40 MG VIAL IV (10:48)
[2019-07-29] MEDS: FLUTICASONE 110MCG HFA 120 PUFF INH ×2 (10:59→21:34)
[2019-07-29] MEDS: KETOROLAC 30 MG/ML VIAL IV (11:01)
--- NOTE | 2019-07-29 13:58 | CM.DPC ---
DCP Cont: Went by patient's room at bedside rounds. She was awake, flat effect, laying in bed. She will be attempting light meal today to see how she tolerates. Dr. Jackson will also be tapering off of her Lorazepam, and continuing with anti nausea medications. Went ahead and retrieved her upper caser with [employer] phone number and name. Her upper caser is Amber Arce RN. Her phone number is: [phone]. Left a message with Amber inquiring if patient has had any behavioral health therapy regarding her anxiety, or if she could benefit from therapies that would be covered under her insurance. Will await call back. P: DCP to continue to check on patient and follow her closely. She may benefit from behavioral health therapy, or [facility] as well, regarding her anxiety. Will also continue to follow her for her medical needs. She may also need close monitoring from her PCP as well. Amber Monae did call back. Updated her on patient's anxiety. She stated that she will put in referral for their behavioral health, and stated that they will reach out to patient.
--- NOTE | 2019-07-29 16:54 | PM.PN.1 ---
Subjective Subjective Date Patient Seen: 07/29/19 Interval history: Patient was admitted to the hospital for cyclic vomiting syndrome. She has made significant progress over the past 24 hours. She has had continued vomiting up until this morning. She was able to tolerate a clear liquid lunch. She is ready to try to advance her diet. We will attempt to start her antibiotics orally to see if she can tolerate this prior to making arrangements for discharge home. Exam Vital Signs (past 8 hours): - 07/29/19 08:56 07/29/19 12:00 Temperature 98.2 F Pulse Rate 102 H Respiratory Rate 18 Blood Pressure 159/94 H Pulse Oximetry 98 100 Oxygen Delivery Method Room Air Oxygen Flow Rate 0 Narrative Exam Narrative: Pleasant female ill-appearing lying in bed Lungs: Clear to auscultation Cardiac exam: Regular rate and rhythm normal S1-S2 Abdomen: Soft, mildly tender, no hepatosplenomegaly Extremities: No edema Objective Labs Result Diagrams: 07/27/19 06:00 07/29/19 06:55 Labs: Laboratory Results - last 24 hr 07/29/19 06:55 Sodium 132 L Potassium 3.5 Chloride 99 Carbon Dioxide 26 BUN 4 L Creatinine 0.57 Estimated GFR > 60.0 BUN/Creatinine Ratio 7.0 Glucose 110 H Calcium 9.0 Assessment & Plan Assessment & Plan narrative: Impression 1. 29-year-old female admitted to the hospital for cyclic vomiting syndrome -she has had improvement of her symptoms with Compazine and Zofran -IV Ativan discontinued today -she appears to be tolerating her clear liquids better -will Hep-Lock IV fluids -will advance diet as tolerated -will switch antibiotics to oral 2. Acute colitis -continue levofloxacin and Flagyl -will switch from IV to p.o. 3. Asthma -continue inhaler 4. Anxiety -continue propanolol and nortriptyline Anticipate discharge home tomorrow if the patient is able to tolerate oral intake and keep her oral antibiotics down Quality VTE Deep Vein Thrombosis/Pulmonary Embolism Present on Admission: No
--- NOTE | 2019-07-29 17:05 | PC.NURSE ---
Addendum entered by Elizabeth Multani R.N. 07/29/19 19:45: Able to eat about 50% of full liquid meal tray, refused any more. C/o nausea post-meal, no emesis. IV Compazine given. Nuris asked if she could get up to shower, I said of course. She then said who is my nurse janina, I'm afraid she will yell at me again, last night she got mad at me when I asked to get in the shower. I apologized to her, words of comfort & support given, I told her that we like it that our patients want to shower and it is her right as a patient to shower. Patient is open to expression, expressed understanding. Original Note: Evening note: Nuris sleeping from [address] Jackson in to consult with her about plan. PICC line now HL'd, pt advanced to full liquids, pudding and cream of chicken soup given per her request. Instructed her to call if she becomes nauseated or has emesis. SBA to BR, voided 600 ml clear yellow urine, no BM. Back to bed. She is Ox3, has the shivers, said it's happened a couple times today. After back into bed no tremors/shivers observed. Call button in her lap, reminded to call staff for assistance, she agrees to this plan.
[2019-07-29] MEDS: NORTRIPTYLINE HCL 25 MG CAPSULE 100 MG PO (21:15)
[2019-07-29] MEDS: metroNIDAZOLE 500 MG TABLET PO (21:15)
[2019-07-29] MEDS: BUSPIRONE 15 MG TABLET PO ×2 (21:15→21:16)
[2019-07-29] MEDS: ONDANSETRON 4 MG/2 ML INJ 8 MG (21:35)
[2019-07-29] MEDS: SODIUM CHLORIDE 0.9% 250 ML 21 ML IV (21:36)
[2019-07-30 02:15] VITALS: BP 115/60; PULSE 76; RESP 18; TEMP 36.6; O2SAT 95
--- NOTE | 2019-07-30 02:18 | PC.NURSE ---
Addendum entered by Aisha Giron R.N. 07/30/19 06:03: Slept most of shift. States she is feeling so much better this morning. Slight nausea but declines antiemetic. Original Note: Patient is alert and oriented. Breath sounds CTA with RA sat of 95%. HRR. Has been asleep but now when awakened states she is feeling a little nauseated but not needing antiemetic. BT present and abdomen is soft. Moving self in bed and has been getting up with SBA for safety. Denies any pain. Refusing to wear SCD's so reminded of importance to ankle wave. Has been advanced to full liquid diet and has been tolerating well. Fall risk score is moderate; patient reminded to call for assist when out of bed and verbalizes understanding.
[2019-07-30 06:00] VITALS: BP 129/70; PULSE 89; RESP 18; TEMP 36.3; O2SAT 97
[2019-07-30] MEDS: PANTOPRAZOLE 40 MG TABLET PO (06:00)
[2019-07-30] MEDS: SODIUM CHLORIDE 0.9% FLUSH 10 ML IV (06:25)
[2019-07-30 06:55] LABS: BUN Creatinine Ratio 4.9 (6-22); Blood Urea Nitrogen 3 mg/dL (7-17); Calcium 9.2 mg/dL (8.4-10.2); Carbon Dioxide 27 mmol/L (22-32); Chloride 101 mmol/L (98-107); Estimated Glomerular Filt Rate > 60.0 mL/min (>60); Glucose 100 mg/dL (70-100); HEMOLYSIS < 15 (0-50); Potassium 3.2 mmol/L (3.4-5.1); Sodium 136 mmol/L (137-145)
[2019-07-30 07:00] VITALS: BP 127/70; PULSE 85; RESP 18; TEMP 36; O2SAT 98
[2019-07-30] MEDS: levoFLOXacin 500 MG TABLET PO (08:36)
[2019-07-30] MEDS: metroNIDAZOLE 500 MG TABLET PO ×2 (08:36→14:59)
[2019-07-30 11:00] VITALS: BP 125/74; PULSE 95; RESP 18; TEMP 36.9; O2SAT 100
[2019-07-30] MEDS: FLUTICASONE 110MCG HFA 120 PUFF INH (12:14)
[2019-07-30 14:38] LABS: Campylobacter Not Detected (Not Detect); Clostridium difficile toxin AB Not Detected (Not Detect); Enteroaggregative E.coli Not Detected (Not Detect); Enteropathogenic E.coli Not Detected (Not Detect); Enterotoxigenic E.coli It/st Not Detected (Not Detect); Plesiomonsa shigelloides Not Detected (Not Detect); Salmonella Not Detected (Not Detect); Shiga-like toxin-prod E.coli Not Detected (Not Detect); Vibrio Not Detected (Not Detect); Vibrio cholerae Not Detected (Not Detect); Yersinia enterocolitica Not Detected (Not Detect)
[2019-07-30 14:39] LABS: Adenovirus F 40/41 Not Detected (Not Detect); Astrovirus Not Detected (Not Detect); Cryptosporidium Not Detected (Not Detect); Cyclospora cayetanensis Not Detected (Not Detect); Entamoeba histolytica Not Detected (Not Detect); Giardia lamblia Not Detected (Not Detect); Norovirus GI/GII Not Detected (Not Detect); Rotavirus A Not Detected (Not Detect); Sapovirus Not Detected (Not Detect); Shigella/Enteroinvasive E.coli Not Detected (Not Detect)
--- NOTE | 2019-07-30 16:29 | P.DS_ITS ---
History of Present Illness History of Present Illness Date Patient Seen: 07/26/19 Chief complaint: Vomiting since Narrative: Written by Dr. Weathers: Ms. Nuris Castle is a 29-year-old female patient with a prior history of headaches, cyclic vomiting, asthma presents to the ER with recurrent cyclic vomiting. She was seen in the ER on 07/23/2019 for intractable vomiting as well as persistent upper abdominal pain, admitted 07/24/2019 and discharge same day as was doing better, but symptoms got worse again once home. The patient has a history of cyclic vomiting since age 8 that has been previously fully evaluated by Gastroenterology at [facility]. At one point the patient was admitted to [facility] for week were upon the patient was started Norplant as her episodes are associated menstrual cycle. The patient was relatively stable with minor incidence but no longer requiring ER admission for approximately 2 years until the Norplant was discontinued favor of patient to start have children. Patient now is followed only by her PCP. The patient will typically use lorazepam, Haldol, Reglan and Zofran to manage vomiting and endorses using marijuana use only to help control nausea. It was previously questioned whether the cyclic vomiting is related to her marijuana use and she stop for 3 months without change in her monthly episodes of vomiting. Emesis is non-bloody and has progressed to dry heaves. The patient has had no subjective fevers but does report chills and diaphoresis. The patient was seen in the emergency department on 07/07/2019 for cyclic vomiting and was rehydrated with control of vomiting established. Patient also complained of abdominal pain that was not typical of her cyclic vomiting presentation and was found to have colitis and started on Augmentin at discharge. Few days ago her vomiting reoccurred and she has not been able to take the antibiotics for 2 days. Nausea has been progressive prompting her to present to the ER. She has history of severe headaches but none at this time, environmental allergies but no reports of nasal congestion or sore throat. She denies chest pain or palpitations, shortness of breath or cough. She complains of epigastric pain with a continuing nausea with dry heaves.. She reports diarrhea of both loose and watery stool without blood or melena. She denies dysuria or hematuria. The CT from last admission 07/24/2019 the abdomen pelvis showed slightly worsening colitis since study completed 2 weeks ago. Moderate esophagitis, duodenitis suspected stable. On laboratory analysis the patient has white count of 11.4. Patient has a sodium of 135 and potassium 3.1, BUN of 8 and a creatinine 0.65. Patient is admitted due to failure to manage vomiting and abdominal pain at home. Discharge Providers Provider Date of admission: 07/26/19 14:46 Discharge Date: 07/30/19 Discharge provider: Roxanne Vanessa DO Summary Hospital Course Discharge Diagnosis: 1. Acute on chronic intractable cyclic vomiting, present on admission. Resolved. 2. Acute colitis, unclear etiology infectious versus inflammatory, present on admission. Resolving. 3. Chronic severe headaches, present on admission. Stable. 4. Asthma, chronic, present on admission. Stable. 5. Anxiety, chronic, present on admission. Stable. Hospital Course: Nuris Castle is a 29-year-old female with a past medical history significant for cyclic vomiting with antecedent headaches who presented to the ED with uncontrolled nausea, vomiting and epigastric pain. 1. Acute on chronic intractable cyclic vomiting, present on admission. Resolved. -Patient has a long standing history of cyclic vomiting since the age of 8. She has previously been evaluated by Gastroenterology at [facility] and now is followed by PCP only. -Etiology previously considered idiopathic but current episode likely related to stress as she recently lost her grandfather. Patient reports warm showers are helpful which is a feature of CVS. Patient has used cannabis in the past but has gone several months without use and patient has had longstanding history of CVS since she was 8 years old so the likelihood of hyperemesis cannabis is very unlikley. -Received IV Haldol, diphenhydramine and metoclopramide in ED without improvement. Ordered ativan 1 mg every 4 hours as needed for N/V, Zofran 8 mg every 8 hours as needed for N/V, prochlorparzine 10 mg IV every 6 hours as needed for N/V, olanzapine ODT 10 mg daily for N/V and topical capsaicin 4 times daily as needed for N/V. Patient had most improvement of her symptoms with Compazine and Zofran. Discontinued ativan. -Received Protonix 40 mg twice daily for appearance of possible esophagitis and duodenitis on CT. -Continued to monitor and replete electrolytes as necessary. Mild hypokalemia treated with added potassium in IV fluids and additional K rider -Continued to advance diet as tolerated. She tolerated full liquids and soft low fat, low residue diet. 2. Acute colitis, unclear etiology infectious versus inflammatory, present on admission. Resolving. -CT abdomen and pelvis on 07/07/2019 demonstrated diffuse wall thickening and edema throughout the colon particularly involving ascending colon and transverse colon suggestive of infectious or inflammatory colitis. No free fluid or free air. CT abdomen and pelvis on 07/24/2019 with similar appearance with possible distal esophageal and duodenal thickening as well. -Continued ciprofloxacin 500 mg IV twice daily and metronidazole 500 mg IV every 8 hours. Switched to oral levofloxacin 750 mg daily and metronidazole 500 mg every 8 hours for 6 additional days to complete a total of 10 days. Recommend referral to GI for evaluation and upper and lower endoscopy as CT findings suspicious for IBD. 3. Chronic severe headaches, present on admission. Stable. -Continued home propranolol 40 mg daily and rizatriptan 5 mg every 2 hours as needed with maximum daily dose of 10 mg for severe headache. -Ordered Toradol 30 mg IV every 6 hours as needed for pain. 4. Asthma, chronic, present on admission. Stable. -Asthma is well controlled. -Continued home flovent 1 puff twice daily and albuterol inhaler 2 puffs every 4 hours as needed for shortness of breath or wheezing. 5. Anxiety, chronic, present on admission. Stable. -Continued home buspirone 15 mg daily at bedtime, propanolol 40 mg daily and nortriptyline 100 mg daily at bedtime. Exam Vital Signs (past 8 hours): - 07/30/19 11:00 Temperature 98.5 F Pulse Rate 95 H Respiratory Rate 18 Blood Pressure 125/74 Pulse Oximetry 100 Oxygen Delivery Method Room Air Oxygen Flow Rate 0 Narrative Exam Narrative: General: Young female sitting in bed and in no acute distress, well-developed, well-nourished, appropriately interactive HEENT: Normocephalic, atraumatic. External ears without defect. Pupils equal, round, and reactive to light and accommodation. Anicteric sclerae, moist conjunctivae, and no lid lag. Oropharynx free of erythema and cobble stoning with moist mucosa. Neck: Supple with full range of motion. No jugular venous distension. No bruits. No lymphadenopathy or thyromegaly. Cardiovascular: Regular rate and rhythm without murmurs, rubs, or gallops appreciated Pulmonary: Clear to auscultation bilaterally without crackles, wheezes, or rhonchi. Normal respiratory effort with no use of accessory muscles. Abdomen: Soft, mild tenderness to palpation diffusely, nontender, nondistended. No hepatosplenomegaly or masses appreciated. Extremities: No clubbing, cyanosis, or edema. Skin: Normal temperature, turgor, and texture; no rash, ulcers, or subcutaneous nodules appreciated. Neurological: Cranial nerves grossly intact. Normal muscle strength, tone, and bulk. Reflexes, coordination, and sensory function within normal limits. No known gait impairment. Psychiatric: Normal mood and affect. Alert and oriented to person, place, and time. Objective Labs Result Diagrams: 07/27/19 06:00 07/30/19 06:30 Labs: Laboratory Results - last 24 hr 07/30/19 07/30/19 06:30 08:30 Sodium 136 L Potassium 3.2 L Chloride 101 Carbon Dioxide 27 BUN 3 L Creatinine 0.61 Estimated GFR > 60.0 BUN/Creatinine Ratio 4.9 L Glucose 100 Calcium 9.2 Stl C. cayetanensis PCR Not detected Stool Rotavirus (PCR) Not detected Stool Adenovirus (PCR) Not detected Stool Astrovirus (PCR) Not detected Stool Cryptosporidium PCR Not detected Stl E.coli Shiga Tox PCR Not detected St Sh/Enteroin Ecoli PCR Not detected Stool E coli O157 PCR Not detected Stl Enterotoxigenic E PCR Not detected Stool EPEC (PCR) Not detected Stl E. histolytica PCR Not detected Stool Giardia Lamblia PCR Not detected Stool Sapovirus (PCR) Not detected Stl P. shigelloides PCR Not detected St Y.enterocolitica PCR Not detected Stool Vibrio (PCR) Not detected Stl Vibrio cholerae PCR Not detected Stl Enteroaggr Ecoli PCR Not detected Stl Norovirus GI/GII PCR Not detected Campylobacter (PCR) Not detected C. difficile Tox (PCR) Not detected Salmonella (PCR) Not detected Discharge Plan Discharge Plan Patient Disposition: Home Discharge comment: You're being discharged home. You had cyclic vomiting and previous colitis that had not been completely treated. Your GI stool panel You have been discharged on levofloxacin 750 mg daily and metronidazole 500 mg 3 times daily for 6 additional days to complete 10 days total. You have also been provided a temporary script of Compazine suppositories only as needed for severe CVS. Please follow-up with your PCP, Dr. Parra, regarding your hospitalization and recommend outpatient referral to GI for evaluation and possible repeat colonoscopy. Continue a soft, bland diet that is low in fiber and as tolerated for the next several days until you are back to your normal diet. Discharge orders & Medications Prescriptions: New levofloxacin 750 mg tablet 750 mg PO DAILY Qty: 6 RF: 0 metronidazole 500 mg Tablet 500 mg PO TID Qty: 19 RF: 0 Continued diphenhydramine HCl 50 mg Capsule 50 mg PO BEDTIME RF: 0 propranolol 40 mg Tablet 40 mg PO DAILY RF: 0 ondansetron 4 mg Tablet,Disintegrating 4 mg PO Q6H PRN (Reason: Nausea) RF: 0 nortriptyline 50 mg Capsule 100 mg PO BEDTIME RF: 0 rizatriptan 5 mg Tablet 5 mg PO Q2-4H MDD 10 mg PRN (Reason: Migraine Headache) RF: 0 buspirone 15 mg Tablet 15 mg PO QPM RF: 0 albuterol sulfate 90 mcg/actuation Hfa Aerosol Inhaler 2 puff INHALATION Q4-6H PRN (Reason: Wheezing) RF: 0 fluticasone propionate [Flonase Allergy Relief] 50 mcg/actuation Eads,Suspension 2 spray INTRANASAL DAILY PRN (Reason: Allergic Symptoms) RF: 0 Flovent HFA 110 mcg/actuation Hfa Aerosol Inhaler 1 puff INHALATION BID RF: 0 promethazine 25 mg suppository 25 mg ID Q6H PRN (Reason: nausea and vomiting) Qty: 5 RF: 0 haloperidol lactate 2 mg/mL concentrate 1 mg PO TID Qty: 120 RF: 0 lorazepam [Ativan] 1 mg tablet 1 mg PO TID PRN (Reason: anxiety) Qty: 20 RF: 0 Discontinued ciprofloxacin HCl [Cipro] 500 mg tablet 500 mg PO BID 7 Days Qty: 14 RF: 0 Follow up/Referrals: Anibal Parra DO [Non-Staff] - 1 Week Diet/Activity/Treatments Diet: Diet as Tolerated Activity: Activity as tolerated Visit Report/Discharge Packet Instructions: [place] Diet, Low-Fiber/Low-Residue Diet, Soft Diet, DI for Dehydration -- Adult, DI for Cyclic Vomiting Syndrome-Child, DI for Colitis Visit Report Forms: Patient Portal/API, Stroke Signs & Symptoms Discharges patient from system. Discharge Date/Time: 07/30/19 17:15 Quality VTE Deep Vein Thrombosis/Pulmonary Embolism Present on Admission: No
[2019-07-30 16:32] VITALS: BP 130/75; PULSE 88; RESP 18; TEMP 36.7; O2SAT 98
== END 2019-07-30 17:15 | disposition home or self-care (01) | DRG 394 ==
LOC: ED 14:46 → AC 14:47
PROVIDERS: Emergency Medicine; Internal Medicine; Admitting Provider Internal Medicine; Emergency Provider Nurse Practitioner Family; Referring Provider Nurse Practitioner Family; Visit Provider Internal Medicine
DX: R11.15 Cyclical vomiting syndrome unrelated to migraine (principal); A09 Infectious gastroenteritis and colitis, unspecified; R51 Headache; K52.89 Other specified noninfective gastroenteritis and colitis; F12.980 Cannabis use, unspecified with anxiety disorder; F17.210 Nicotine dependence, cigarettes, uncomplicated; F41.9 Anxiety disorder, unspecified; J45.30 Mild persistent asthma, uncomplicated
CPT/HCPCS: 36415; 36569; 36592; 71045; 74177; 80048; 80053; 80305; 80320; 81001; 81003; 81025; 83605; 83690; 83735; 84100; 84145; 85025; 85610; 85730; 87040; 87507; 94640; 94760; 96361; 96365; 96366; 96367; 96375; 99284; G0378; C9113; J0696; J0744; J0780; J1200; J1630; J1642; J1650; J1885; J2060; J2270; J2405; J2765; J3480; Q9967

== ENCOUNTER 2021-12-14 06:34 | Emergency (ER) | payer OTHER, SELFPAY ==
[2019-07-26 20:26] VITALS: BMI 34.2
[2021-12-14] VITALS (18 sets, daily range): BP systolic 116–151; BP diastolic 63–92; PULSE 77–108; RESP 12–29; TEMP 36.6; O2SAT 96–100; BMI 36.9
[2021-12-14] MEDS: ONDANSETRON 4 MG/2 ML INJ IV (07:23)
[2021-12-14] MEDS: SODIUM CHLORIDE 0.9% 1,000 ML 1000 ML IV ×2 (07:24→10:17)
[2021-12-14] MEDS: diphenhydrAMINE 50 MG/ML VIAL 25 MG IV (07:32)
[2021-12-14] MEDS: METOCLOPRAMIDE 10 MG/2 ML INJ IV (07:32)
--- NOTE | 2021-12-14 07:37 | ED_ITS ---
HPI - Nausea/Vomiting/Diarrhea General Chief complaint: Nausea/Vomiting/Diarrhea Stated complaint: vomiting, abd pain, constipation Time Seen by Provider: 12/14/21 07:26 Source: patient Mode of arrival: Wheelchair Limitations: no limitations History of Present Illness HPI Narrative: Patient presents with complaints of abdominal pain for 5 days, with nausea vomiting. She is no hematemesis. She is upper abdominal pain. Pain radiates to her back. She denies associated fever chills. She had a bowel movement ye sterday. She is no diarrhea. She denies chronic GI issues. She is no history of PUD, no history of liver or gallbladder disease. She is not drink significant amounts of alcohol. She has no dysuria or hematuria. She denies potential . She is no lower abdominal discomfort. She smokes marijuana regularly. She is previously been off marijuana for appeared his almost 4 months to try and solve these recurrent bouts of nausea vomiting. She denies stressful situations, or anxiety. She feels safe in her living situation. She has a here sooner severe hypokalemia associated with the nausea vomiting. She does not currently have a PCM. Related Data Home Medications Medication Instructions Recorded Confirmed albuterol sulfate 90 mcg/actuation 2 puff inhalation Q4-6H PRN 08/21/18 07/26/19 aerosol inhaler Wheezing buspirone 15 mg tablet 15 mg PO QPM 08/21/18 07/26/19 diphenhydramine HCl 50 mg capsule 50 mg PO BEDTIME 08/21/18 07/26/19 fluticasone propionate 110 1 puff inhalation BID 08/21/18 07/26/19 mcg/actuation HFA aerosol inhaler (Flovent HFA) fluticasone propionate 50 2 spray intranasal DAILY PRN 08/21/18 07/26/19 mcg/actuation nasal Allergic Symptoms spray,suspension (Flonase Allergy Relief) nortriptyline 50 mg capsule 100 mg PO BEDTIME 08/21/18 07/26/19 ondansetron 4 mg disintegrating 4 mg PO Q6H PRN Nausea 08/21/18 07/26/19 tablet propranolol 40 mg tablet 40 mg PO DAILY 08/21/18 07/26/19 rizatriptan 5 mg tablet 5 mg PO Q2-4H PRN Migraine Headache 08/21/18 07/26/19 Previous Rx's Medication Instructions Recorded haloperidol lactate 2 mg/mL oral 1 mg (0.5 mL) PO TID #120 mL 02/04/19 concentrate lorazepam 1 mg tablet (Ativan) 1 mg PO TID PRN anxiety #20 tabs 02/04/19 levofloxacin 750 mg tablet 750 mg PO DAILY #6 tabs 07/30/19 metronidazole 500 mg tablet 500 mg PO TID #19 tabs 07/30/19 promethazine 25 mg rectal 25 mg NV Q6H PRN nausea and 07/30/19 suppository vomiting #5 ea metoclopramide HCl 10 mg tablet 10 mg PO Q6H PRN nausea and 12/14/21 (Reglan) vomiting #90 tabs metoclopramide HCl 10 mg tablet 10 mg PO Q8H PRN nausea and 12/14/21 (Reglan) vomiting #90 tabs Allergies Allergy/AdvReac Type Severity Reaction Status Date / Time mushroom Allergy Severe Vomiting Verified 03/22/19 08:43 peanut Allergy Severe Anaphylaxis Verified 03/22/19 08:43 Sulfa (Sulfonamide Allergy Unknown Verified 03/22/19 08:43 Antibiotics) Review of Systems Constitutional Constitutional: Denies anorexia, Denies body ache(s), Denies chills, Reports fatigue and Denies fever(s) Eyes Eyes: Denies blurry vision and Denies change in vision ENT Ears, Nose, Mouth, and Throat: Denies vertigo, Denies dizziness, Denies sinus pain and Denies sore throat Cardiovascular Cardiovascular: Denies chest pain, Denies rapid heart rate, Denies pedal edema and Denies dyspnea Respiratory Respiratory: Denies cough and Denies dyspnea Gastrointestinal Gastrointestinal: Reports abdominal pain, Denies constipation, Reports nausea and Reports vomiting Genitourinary Genitourinary: Denies dysuria and Reports other (No vaginal symptoms. She is not .) Musculoskeletal Musculoskeletal: Reports system reviewed and no additional complaints, except as documented Integumentary/Breasts Skin/Breast: Reports system reviewed and no additional complaints, except as documented Neurologic Neurologic: Denies confusion, Denies vertigo and Denies dizziness Psychiatric Psychiatric: Denies confusion Endocrine Endocrine: Reports fatigue Hematologic/Lymphatic On Anticoagulants: No Patient History Medical History Asthma Cyclic vomiting syndrome Environmental allergies Marijuana smoker Severe frontal headaches Surgical History History of toe surgery Family History Father Arthritis Mother Anxiety Fibromyalgia Brother Childhood asthma Drug abuse Social History household members: spouse and family Smoking Status: Current some day smoker alcohol intake: current Smoking Status: Current some day smoker alcohol intake frequency: a few times a week Substance Use Type: marijuana Exam Initial Vital Signs Initial Vital Signs: Vital Signs Temperature 98 F 12/14/21 06:50 Pulse Rate 108 H 12/14/21 06:50 Respiratory Rate 18 12/14/21 06:50 Blood Pressure 129/76 12/14/21 06:50 Pulse Oximetry 100 12/14/21 06:50 Oxygen Delivery Method 12/14/21 06:50 Const General: cooperative and other (She appears uncomfortable and anxious.) Nutritional Appearance: well nourished and overweight Orientation: Orientation (Normal) [facility] Head: normal to inspection, normocephalic and atraumatic Face and sinus: normal facial exam Mouth: oral mucosae normal Throat: posterior oropharynx normal Eyes General: Yes appearance normal, both eyes and all related structures Neck Neck: normal visual inspection, No lymphadenopathy and No JVD Resp Effort & Inspection: normal respiratory effort Auscultation: clear to auscultation bilaterally Cardio Palpation: normal PMI Rate: regular rate Rhythm: regular rhythm Heart Sounds: S1 normal, S2 normal and no murmurs GI Other: Mild epigastric/right upper quadrant tenderness. No distension. No guarding. No masses. Normal bowel sounds. Back/Spine/Pelvis Back: normal to inspection and No CVA tenderness Skin General: no rashes or lesions noted Neuro General: patient alert, patient awake, patient oriented x3 and no focal motor deficits Extrem General: normal to inspection, full ROM and no calf tenderness Psych Appearance: disheveled Mental Status: mental status grossly normal Speech and Movement: speech and movement normal Course Course Course Narrative: The patient had originally she Zofran. She was given Benadryl and Reglan, effec tively controlling nausea and vomiting. Abdominal pain resolved. Patient has potassium level of 2.7. She is given potassium 20 mEq p.o., as well as 20 mg IV. She is drinking fluids prior to discharge. She is feeling much better. Orders Ordered: ED Orders 12/14/21 07:07 EKG-12 Lead Stat 12/14/21 07:58 Complete Blood Count AUTO DIFF Stat Comprehensive Metabolic Panel Stat Lipase Stat 12/14/21 09:27 Test Urine Stat Urine Culture Stat Urine Microscopic Stat 12/14/21 10:29 US abdomen limited Stat Discontinued Medications Diphenhydramine HCl (Diphenhydramine 50 Mg/Ml Vial) 25 mg IV NOW ONE Stop: 12/14/21 07:27 Last Admin: 12/14/21 07:32 Dose: 25 mg Documented By: JACK Hydromorphone HCl (Hydromorphone 1 Mg Inj) 1 mg IV NOW ONE Stop: 12/14/21 07:37 Sodium Chloride (Normal Saline 0.9%) 1,000 mls @ 1,000 mls/hr IV BOLUS ONE Stop: 12/14/21 08:22 Last Infusion: 12/14/21 09:12 Dose: 0 mls/hr Documented By: Admin: 12/14/21 07:24 Dose: 1,000 mls/hr Documented By: JACK Sodium Chloride (Normal Saline 0.9%) 1,000 mls @ 1,000 mls/hr IV BOLUS ONE Stop: 12/14/21 08:35 Last Admin: 12/14/21 10:17 Dose: 1,000 mls/hr Documented By: JACK POTASSIUM CHLORIDE IN WATER (Potassium Cl 10 Meq/100 Ml [place]) 10 meq in 100 mls @ 100 mls/hr IV Q1H BENY Stop: 12/14/21 11:14 Last Infusion: 12/14/21 13:24 Dose: 0 mls/hr Documented By: JACK(2) Admin: 12/14/21 10:16 Dose: 100 mls/hr Documented By: JACK Metoclopramide HCl (Metoclopramide 10 Mg/2 Ml Inj) 10 mg IV NOW ONE Stop: 12/14/21 07:27 Last Admin: 12/14/21 07:32 Dose: 10 mg Documented By: JACK Ondansetron HCl (Ondansetron 4 Mg/2 Ml Inj) 4 mg IV NOW ONE Stop: 12/14/21 07:07 Last Admin: 12/14/21 07:23 Dose: 4 mg Documented By: JACK Pantoprazole Sodium (Pantoprazole 40 Mg Vial) 40 mg IV NOW ONE Stop: 12/14/21 07:37 Last Admin: 12/14/21 10:15 Dose: 40 mg Documented By: JACK Potassium Chloride (Potassium Chloride 20 Meq/15 Ml Udc) 20 meq PO NOW ONE Stop: 12/14/21 09:11 Last Admin: 12/14/21 10:30 Dose: Not Given Documented By: JACK Potassium Chloride (Potassium Chloride 20 Meq Tab) 20 meq PO NOW ONE Stop: 12/14/21 10:31 Last Admin: 12/14/21 11:00 Dose: 20 meq Documented By: JACK Vital Signs Vital signs: Vital Signs - 8 hr 12/14/21 06:50 12/14/21 07:13 12/14/21 07:13 Temperature 98 F Pulse Rate 108 H 105 H Respiratory Rate 18 Blood Pressure 129/76 144/91 H Pulse Oximetry 100 100 Oxygen Delivery Method Room Air 12/14/21 07:31 12/14/21 08:00 12/14/21 08:30 Temperature Pulse Rate 77 101 H 92 H Respiratory Rate Blood Pressure Pulse Oximetry 98 96 99 Oxygen Delivery Method 12/14/21 09:00 12/14/21 09:09 12/14/21 09:09 Temperature Pulse Rate 91 H 96 H Respiratory Rate Blood Pressure 121/69 Pulse Oximetry 100 96 Oxygen Delivery Method 12/14/21 09:29 12/14/21 09:30 12/14/21 09:30 Temperature Pulse Rate 93 H 93 H Respiratory Rate 24 27 H Blood Pressure 126/69 Pulse Oximetry 97 98 Oxygen Delivery Method 12/14/21 10:00 12/14/21 10:00 12/14/21 10:30 Temperature Pulse Rate 92 H Respiratory Rate 28 H Blood Pressure 118/63 124/74 Pulse Oximetry 97 Oxygen Delivery Method 12/14/21 10:30 12/14/21 11:00 12/14/21 11:00 Temperature Pulse Rate 101 H 88 Respiratory Rate 23 29 H Blood Pressure 116/63 Pulse Oximetry 99 96 Oxygen Delivery Method 12/14/21 11:30 12/14/21 11:30 12/14/21 12:00 Temperature Pulse Rate 98 H 101 H Respiratory Rate 12 15 Blood Pressure 149/85 H Pulse Oximetry 100 98 Oxygen Delivery Method 12/14/21 12:01 12/14/21 12:01 12/14/21 12:30 Temperature Pulse Rate 102 H Respiratory Rate 22 Blood Pressure 151/92 H 125/65 Pulse Oximetry 97 Oxygen Delivery Method 12/14/21 12:30 12/14/21 13:00 12/14/21 13:01 Temperature Pulse Rate 92 H 99 H Respiratory Rate 24 16 Blood Pressure 130/70 Pulse Oximetry 97 98 Oxygen Delivery Method 12/14/21 13:01 Temperature Pulse Rate 99 H Respiratory Rate 18 Blood Pressure Pulse Oximetry 98 Oxygen Delivery Method MDM - Nausea/Vomiting/Diarrhea Lab Data Result diagrams: 12/14/21 07:58 12/14/21 07:58 Labs: Lab Results 12/14/21 12/14/21 12/14/21 Range/Units 07:58 07:58 09:27 WBC 19.9 H (4.5-11.0) X10^3/uL RBC 5.01 (4.0-5.2) X10^6/uL Hgb 14.8 (12.0-16.0) g/dL Hct 43.4 (36-46) % MCV 86.7 (80-100) fL MCH 29.6 (26-34) PG MCHC 34.2 (30-36) % RDW 13.3 (11.6-14.8) % Plt Count 410 H (150-400) X10^3/uL Neut % (Auto) 84.1 H (50-75) % Lymph % (Auto) 9.9 L (25-40) % [place] % (Auto) 5.7 (3-14) % Eos % (Auto) 0.1 L (2-4) % Baso % (Auto) 0.2 (0-2) % Neut # (Auto) 98759 H (8768-3581) /uL Lymph # (Auto) 2000 (7678-6735) /uL Archer # (Auto) 1100 H (0-900) /uL Eos # (Auto) 0 (0-450) /uL Baso # (Auto) 0 (0-100) /uL Sodium 130 L (137-145) mmol/L Potassium 2.7 L* (3.4-5.1) mmol/L Chloride 90 L (98-107) mmol/L Carbon Dioxide 27 (22-32) mmol/L BUN 12 (7-17) mg/dL Creatinine 0.85 (0.52-1.04) mg/dL Estimated GFR > 60 (>60) mL/min BUN/Creatinine Ratio 14.1 (6-22) Glucose 126 H (70-100) mg/dL Calcium 9.5 (8.4-10.2) mg/dL Total Bilirubin 0.9 (0.2-1.3) mg/dL AST 30 (14-36) IU/L ALT 38 H (<35) IU/L Alkaline Phosphatase 78 (38-126) U/L Total Protein 8.1 (6.3-8.2) g/dL Albumin 4.7 (3.5-5.0) g/dL Globulin 3.4 (1.7-4.1) g/dL Albumin/Globulin Ratio 1.4 (1.0-2.8) Lipase 67 (23-300) U/L Urine RBC (0-5/HPF) Urine WBC (0-5/HPF) Ur Squamous Epith Cells (0-5/HPF) Urine Bacteria (None) Urine Test Negative (Negative) 12/14/21 Range/Units 09:27 WBC (4.5-11.0) X10^3/uL RBC (4.0-5.2) X10^6/uL Hgb (12.0-16.0) g/dL Hct (36-46) % MCV (80-100) fL MCH (26-34) PG MCHC (30-36) % RDW (11.6-14.8) % Plt Count (150-400) X10^3/uL Neut % (Auto) (50-75) % Lymph % (Auto) (25-40) % Archer % (Auto) (3-14) % Eos % (Auto) (2-4) % Baso % (Auto) (0-2) % Neut # (Auto) (8927-9887) /uL Lymph # (Auto) (9599-2997) /uL Archer # (Auto) (0-900) /uL Eos # (Auto) (0-450) /uL Baso # (Auto) (0-100) /uL Sodium (137-145) mmol/L Potassium (3.4-5.1) mmol/L Chloride (98-107) mmol/L Carbon Dioxide (22-32) mmol/L BUN (7-17) mg/dL Creatinine (0.52-1.04) mg/dL Estimated GFR (>60) mL/min BUN/Creatinine Ratio (6-22) Glucose (70-100) mg/dL Calcium (8.4-10.2) mg/dL Total Bilirubin (0.2-1.3) mg/dL AST (14-36) IU/L ALT (<35) IU/L Alkaline Phosphatase (38-126) U/L Total Protein (6.3-8.2) g/dL Albumin (3.5-5.0) g/dL Globulin (1.7-4.1) g/dL Albumin/Globulin Ratio (1.0-2.8) Lipase (23-300) U/L Urine RBC 1-5/hpf (0-5/HPF) Urine WBC 1-5/hpf (0-5/HPF) Ur Squamous Epith Cells 1-5 /hpf (0-5/HPF) Urine Bacteria Moderate (10-30) H (None) Urine Test (Negative) Point of Care Testing Test Results Negative Urine Dip Bedside Urine Glucose Negative Bedside Urine Bilirubin - Negative Bedside Urine Ketone +/- 5 Urine Specific [place] 1.005 Bedside Urine Occult Blood +/- Bedside Urine pH 8 Bedside Urine Protein - Negative Bedside Urine Urobilinogen - Negative Bedside Urine Nitrite - Negative Bedside Urine Leukocytes - Negative Esterase Discharge Plan Departure Patient Disposition: Home Clinical Impression: Cyclical vomiting, Acute hypokalemia Instructions: DI for Vomiting -- Adult, High-Potassium Diet Activity Restrictions/Additional Instructions: Reglan 3 times daily for nausea. The prescription has been forwarded to [facility] pharmacy in [place]. High potassium diet. Establish care with local physician. Return here at a local walk-in clinic/urgent care in 2 days to recheck your labs. Prescriptions: New metoclopramide HCl [Reglan] 10 mg tablet 10 mg PO Q6H PRN (Reason: nausea and vomiting) Qty: 90 1RF metoclopramide HCl [Reglan] 10 mg tablet 10 mg PO Q8H PRN (Reason: nausea and vomiting) Qty: 90 1RF No Action diphenhydramine HCl 50 mg Capsule 50 mg PO BEDTIME propranolol 40 mg Tablet 40 mg PO DAILY ondansetron 4 mg Tablet,Disintegrating 4 mg PO Q6H PRN (Reason: Nausea) nortriptyline 50 mg Capsule 100 mg PO BEDTIME rizatriptan 5 mg Tablet 5 mg PO Q2-4H MDD 10 mg PRN (Reason: Migraine Headache) buspirone 15 mg Tablet 15 mg PO QPM albuterol sulfate 90 mcg/actuation Hfa Aerosol Inhaler 2 puff INHALATION Q4-6H PRN (Reason: Wheezing) fluticasone propionate [Flonase Allergy Relief] 50 mcg/actuation [place],Suspension 2 spray INTRANASAL DAILY PRN (Reason: Allergic Symptoms) Flovent HFA 110 mcg/actuation Hfa Aerosol Inhaler 1 puff INHALATION BID levofloxacin 750 mg tablet 750 mg PO DAILY Qty: 6 0RF metronidazole 500 mg Tablet 500 mg PO TID Qty: 19 0RF promethazine 25 mg suppository 25 mg NV Q6H PRN (Reason: nausea and vomiting) Qty: 5 0RF haloperidol lactate 2 mg/mL concentrate 1 mg PO TID Qty: 120 0RF lorazepam [Ativan] 1 mg tablet 1 mg PO TID PRN (Reason: anxiety) Qty: 20 0RF
[2021-12-14 08:06] LABS: Add Manual Diff / Slide Review NO; Basophils Absolute Auto 0 /uL (0-100); Basophils Percent Auto 0.2 % (0-2); Eosinophils Absolute Auto 0 /uL (0-450); Eosinophils Percent Auto 0.1 % (2-4); Hematocrit 43.4 % (36-46); Hemoglobin 14.8 g/dL (12.0-16.0); Lymphocytes Absolute Auto 2000 /uL (1100-4500); Lymphocytes Percent Auto 9.9 % (25-40); Mean Corpuscular HGB Conc 34.2 % (30-36); Mean Corpuscular Hemoglobin 29.6 PG (26-34); Mean Corpuscular Volume 86.7 fL (80-100); Monocytes Absolute Auto 1100 /uL (0-900); Monocytes Percent Auto 5.7 % (3-14); Neutrophils Absolute Auto 16800 /uL (1500-7000); Neutrophils Percent Auto 84.1 % (50-75); Platelet Count 410 X10^3/uL (150-400); Red Blood Cell Count 5.01 X10^6/uL (4.0-5.2); Red Cell Distribution Width 13.3 % (11.6-14.8); White Blood Cell Count 19.9 X10^3/uL (4.5-11.0)
[2021-12-14 08:31] LABS: Alanine Aminotransferase 38 IU/L (<35); Albumin 4.7 g/dL (3.5-5.0); Albumin Globulin Ratio 1.4 (1.0-2.8); Alkaline Phosphatase 78 U/L (38-126); Aspartate Aminotransferase 30 IU/L (14-36); BUN Creatinine Ratio 14.1 (6-22); Bilirubin Total 0.9 mg/dL (0.2-1.3); Blood Urea Nitrogen 12 mg/dL (7-17); Calcium 9.5 mg/dL (8.4-10.2); Carbon Dioxide 27 mmol/L (22-32); Chloride 90 mmol/L (98-107); Estimated Glomerular Filt Rate > 60 mL/min (>60); Globulin 3.4 g/dL (1.7-4.1); Glucose 126 mg/dL (70-100); Lipase 67 U/L (23-300); Sodium 130 mmol/L (137-145); Total Protein 8.1 g/dL (6.3-8.2)
[2021-12-14 08:37] LABS: HEMOLYSIS 36 (0-50)
[2021-12-14 08:44] LABS: Potassium 2.7 mmol/L (3.4-5.1)
[2021-12-14 09:46] LABS: Pregnancy Test Urine Negative (Negative)
[2021-12-14 10:00] LABS: RBC Urine 1-5/HPF (0-5/HPF); WBC Urine 1-5/HPF (0-5/HPF)
[2021-12-14 10:01] LABS: Bacteria Urine Moderate (10-30); Squamous Epithelial Cell Urine 1-5 /HPF (0-5/HPF)
[2021-12-14] MEDS: PANTOPRAZOLE 40 MG VIAL IV (10:15)
[2021-12-14] MEDS: POTASSIUM CHLORIDE IN WATER 10 MEQ/100 ML PIGGYBACK 100 MEQ IV (10:16)
--- NOTE | 2021-12-14 10:25 | PC.NURSE ---
pt not vomiting since all meds given, pt given po kcl in oj to take, kcl infusion and ns running concurrently. pt reports use of marijuana products. pt reports relief of pain and nausea since being medicated. dilaudid not given yet and pt reports 0/10 pain
--- NOTE | 2021-12-14 10:29 | DI.US.S_ITS ---
PROCEDURE: US ABDOMEN LIMITED INDICATIONS: RIGHT UPPER QUADRANT PAIN TECHNIQUE: Real-time focused scanning was performed of the abdomen, with image documentation. COMPARISON: None. FINDINGS: Moderate to severe hepatic steatosis. No focal hepatic mass. Normal gallbladder. No intrahepatic or extrahepatic biliary ductal dilatation. Pancreas is mostly obscured by bowel gas and not well evaluated. IMPRESSION: Limited exam due to body habitus and bowel gas. No biliary ductal dilatation. Gallbladder unremarkable. Moderate to severe hepatic steatosis. Dictated by: Jak Ramsey M.D. on 12/14/2021 at 11:14 Approved by: Jak Ramsey M.D. on 12/14/2021 at 11:14
[2021-12-14] MEDS: POTASSIUM CHLORIDE 20 MEQ TAB PO (11:00)
== END 2021-12-14 13:00 | disposition home or self-care (01) ==
PROVIDERS: Emergency Provider Emergency Medicine
DX: R11.15 Cyclical vomiting syndrome unrelated to migraine (principal); E87.6 Hypokalemia
CPT/HCPCS: 36415; 76705; 80053; 81003; 81015; 81025; 83690; 85025; 87086; 96361; 96365; 96366; 96375; 99284; C9113; J1200; J2405; J2765

== ENCOUNTER 2023-12-26 12:45 | Emergency (ER) | payer SELFPAY ==
[2019-07-26 20:26] VITALS: BMI 34.2
[2023-12-26] VITALS (22 sets, daily range): BP systolic 131–173; BP diastolic 73–124; PULSE 85–110; RESP 16–37; TEMP 37.2; O2SAT 97–100; BMI 36.9
--- NOTE | 2023-12-26 13:08 | ED.NAVMDI ---
HPI - Nausea/Vomiting/Diarrhea <Josie Melendrez PA-C - Last Filed: 12/26/23 20:40> General Chief complaint: Nausea/Vomiting/Diarrhea Stated complaint: vomiting t-3 Time Seen by Provider: 12/26/23 13:04 Source: patient Mode of arrival: Ambulatory History of Present Illness HPI Narrative: Nuris Castle is a 33-year-old female with a past medical history of cyclic vomiting and colitis who presents to the emergency department for abdominal pain, nausea, vomiting, diarrhea x3 days. Patient reports she went to [facility] ER yesterday and had improvement in symptoms with Droperidol and Zofran. They diagnosed her with colitis based on CT findings. They did not send her home with any medications and she reports her symptoms returned today. She reports epigastric abdominal pain, nausea, vomiting. States that the diarrhea is decreasing. Symptoms feel similar to prior cyclic vomiting episodes. Denies black or bloody stools or hematemesis. Denies dysuria, fevers, flank pain. Admits to smoking and marijuana use, denies alcohol use. Related Data Home Medications Medication Instructions Recorded Confirmed albuterol sulfate 90 mcg/actuation 2 puff inhalation Q4-6H PRN 08/21/18 07/26/19 aerosol inhaler Wheezing buspirone 15 mg tablet 15 mg PO QPM 08/21/18 07/26/19 diphenhydramine HCl 50 mg capsule 50 mg PO BEDTIME 08/21/18 07/26/19 fluticasone propionate 110 1 puff inhalation BID 08/21/18 07/26/19 mcg/actuation HFA aerosol inhaler (Flovent HFA) fluticasone propionate 50 2 spray intranasal DAILY PRN 08/21/18 07/26/19 mcg/actuation nasal Allergic Symptoms spray,suspension (Flonase Allergy Relief) nortriptyline 50 mg capsule 100 mg PO BEDTIME 08/21/18 07/26/19 ondansetron 4 mg disintegrating 4 mg PO Q6H PRN Nausea 08/21/18 07/26/19 tablet propranolol 40 mg tablet 40 mg PO DAILY 08/21/18 07/26/19 rizatriptan 5 mg tablet 5 mg PO Q2-4H PRN Migraine Headache 08/21/18 07/26/19 Previous Rx's Medication Instructions Recorded haloperidol lactate 2 mg/mL oral 1 mg (0.5 mL) PO TID #120 mL 02/04/19 concentrate lorazepam 1 mg tablet (Ativan) 1 mg PO TID PRN anxiety #20 tabs 02/04/19 levofloxacin 750 mg tablet 750 mg PO DAILY #6 tabs 07/30/19 metronidazole 500 mg tablet 500 mg PO TID #19 tabs 07/30/19 promethazine 25 mg rectal 25 mg NE Q6H PRN nausea and 07/30/19 suppository vomiting #5 ea metoclopramide HCl 10 mg tablet 10 mg PO Q6H PRN nausea and 12/14/21 (Reglan) vomiting #90 tabs metoclopramide HCl 10 mg tablet 10 mg PO Q8H PRN nausea and 12/14/21 (Reglan) vomiting #90 tabs ondansetron 4 mg disintegrating 4 mg PO Q8H PRN nausea and 12/26/23 tablet vomiting #10 tabs potassium chloride 20 mEq 20 meq PO DAILY #4 tabs 12/26/23 tablet,extended release promethazine 25 mg rectal 25 mg NE Q6H PRN nausea and 12/26/23 suppository vomiting #12 ea Allergies Allergy/AdvReac Type Severity Reaction Status Date / Time mushroom Allergy Severe Vomiting Verified 03/22/19 08:43 peanut Allergy Severe Anaphylaxis Verified 03/22/19 08:43 Sulfa (Sulfonamide Allergy Unknown Verified 03/22/19 08:43 Antibiotics) Review of Systems <Josie Melendrez PA-C - Last Filed: 12/26/23 20:40> Review of Systems ROS Unobtainable: All systems reviewed & are unremarkable except as noted in HPI and below Patient History <Josie Melendrez PA-C - Last Filed: 12/26/23 20:40> Medical History (Updated 12/26/23 @ 15:36 by Josie Melendrez PA-C) Severe frontal headaches Environmental allergies Asthma Marijuana smoker Cyclic vomiting syndrome Surgical History History of toe surgery Family History Father Arthritis Mother Anxiety Fibromyalgia Brother Childhood asthma Drug abuse Social History household members: spouse and family Smoking Status: Current some day smoker alcohol intake: current Smoking Status: Current some day smoker tobacco type: cigarettes alcohol intake frequency: a few times a week Substance Use Type: marijuana Exam <Josie Melendrez PA-C - Last Filed: 12/26/23 20:40> Narrative Exam Narrative: GENERAL: 33 year old patient appears stated age. Well-developed patient, in mild acute distress, vomiting. HEAD: Atraumatic. Normocephalic. EYES: Extraocular motions intact. No scleral icterus. No injection or drainage. ENT: Nose without bleeding, purulent drainage. Airway patent. NECK: Trachea midline. Cervical ROM intact. CARDIOVASCULAR: Increased rate and normal rhythm. RESPIRATORY: ?Nonlabored respirations. ?Speaking in clear, full sentences. Mild coarse breath sounds BL. GASTROINTESTINAL: Mild epigastric abdominal tenderness. Abdomen soft no rebound or guarding. Negative Jang sign. EXTREMITIES: No edema or joint tenderness. NEURO: AOx3. ?Clear speech. ?Moves all 4 extremities appropriately. SKIN: No rash or erythema of visible areas Initial Vital Signs Initial Vital Signs: Vital Signs Temperature 99 F 12/26/23 12:47 Pulse Rate 110 H 12/26/23 12:47 Respiratory Rate 22 12/26/23 12:47 Blood Pressure 169/99 H 12/26/23 12:47 Pulse Oximetry 100 12/26/23 12:47 Oxygen Delivery Method Room Air 12/26/23 12:47 <Nuris Stroud MD - Last Filed: 12/27/23 02:17> Initial Vital Signs Initial Vital Signs: Vital Signs Temperature 99 F 12/26/23 12:47 Pulse Rate 110 H 12/26/23 12:47 Respiratory Rate 22 12/26/23 12:47 Blood Pressure 169/99 H 12/26/23 12:47 Pulse Oximetry 100 12/26/23 12:47 Oxygen Delivery Method Room Air 12/26/23 12:47 Course <Josie Melendrez PA-C - Last Filed: 12/26/23 20:40> Course Course Narrative: 1844: Patient reports return of nausea and epigastric pain - no vomiting. Reviewed case with nighttime physician, reviewed EKG. We will treat patient with 1 time dose of Benadryl and droperidol. Orders Ordered: ED Orders 12/26/23 17:19 EKG-12 Lead Stat Discontinued Medications Diphenhydramine HCl (Diphenhydramine 50 Mg/Ml Vial) 50 mg IV NOW ONE Stop: 12/26/23 18:38 Last Admin: 12/26/23 18:48 Dose: 50 mg Documented By: NATA Droperidol (Droperidol 5 Mg/2 Ml Vial) 2.5 mg IV NOW ONE Stop: 12/26/23 18:38 Last Admin: 12/26/23 18:48 Dose: 2.5 mg Documented By: NATA Sodium Chloride (Normal Saline 0.9%) 1,000 mls @ 1,000 mls/hr IV BOLUS ONE Stop: 12/26/23 14:15 Last Infusion: 12/26/23 14:48 Dose: Infused Documented By: Admin: 12/26/23 13:27 Dose: 1,000 mls/hr Documented By: JO ANN POTASSIUM CHLORIDE IN WATER (Potassium Cl 10 Meq/100 Ml Kecia) 10 meq in 100 mls @ 100 mls/hr IV Q1H BENY Stop: 12/26/23 15:59 Last Infusion: 12/26/23 16:53 Dose: Infused Documented By: Admin: 12/26/23 15:43 Dose: 100 mls/hr Documented By: Infusion: 12/26/23 15:38 Dose: Infused Documented By: Admin: 12/26/23 14:38 Dose: 100 mls/hr Documented By: NATA Magnesium Sulfate (Magnesium Sulfate) 2 gm in 50 mls @ 25 mls/hr IV NOW ONE Stop: 12/26/23 16:18 Last Infusion: 12/26/23 15:55 Dose: Infused Documented By: JACK Co-signed By: MARSHA Admin: 12/26/23 14:36 Dose: 25 mls/hr Documented By: NATA Co-signed By: JO ANN Sodium Chloride (Normal Saline 0.9%) 1,000 mls @ 1,000 mls/hr IV BOLUS ONE Stop: 12/26/23 15:57 Last Infusion: 12/26/23 16:54 Dose: Infused Documented By: Admin: 12/26/23 15:07 Dose: 1,000 mls/hr Documented By: JO ANN Lorazepam (Lorazepam 2 Mg/Ml Inj) 1 mg IV NOW ONE Stop: 12/26/23 14:20 Last Admin: 12/26/23 14:39 Dose: 1 mg Documented By: NATA Morphine Sulfate (Morphine 4 Mg/Ml Inj) 4 mg IV NOW ONE Stop: 12/26/23 13:17 Last Admin: 12/26/23 13:29 Dose: 4 mg Documented By: JO ANN Morphine Sulfate (Morphine 2 Mg/Ml Inj) 2 mg IV NOW ONE Stop: 12/26/23 15:20 Last Admin: 12/26/23 15:31 Dose: 2 mg Documented By: DENIS Ondansetron HCl (Ondansetron 4 Mg/2 Ml Inj) 4 mg IV NOW PRN PRN Reason: Nausea And Vomiting Last Admin: 12/26/23 13:09 Dose: 4 mg Documented By: DENIS Ondansetron HCl (Ondansetron 4 Mg Odt) 4 mg PO NOW PRN PRN Reason: Nausea And Vomiting Pantoprazole Sodium (Pantoprazole 40 Mg Vial) 40 mg IV NOW ONE Stop: 12/26/23 13:18 Last Admin: 12/26/23 13:27 Dose: 40 mg Documented By: JO ANN Vital Signs Vital signs: Vital Signs - 8 hr 12/26/23 18:30 12/26/23 18:31 12/26/23 18:31 Pulse Rate 91 H 92 H Respiratory Rate 22 Blood Pressure 154/81 H Pulse Oximetry 99 98 12/26/23 19:00 12/26/23 19:01 12/26/23 19:01 Pulse Rate 87 87 Respiratory Rate 19 21 Blood Pressure 151/84 H Pulse Oximetry 100 97 12/26/23 19:30 12/26/23 19:30 12/26/23 20:00 Pulse Rate 85 92 H Respiratory Rate 22 22 Blood Pressure 149/73 H Pulse Oximetry 98 98 12/26/23 20:00 Pulse Rate Respiratory Rate Blood Pressure 136/85 Pulse Oximetry <Nuris Stroud MD - Last Filed: 12/27/23 02:17> Orders Ordered: ED Orders 12/26/23 17:19 EKG-12 Lead Stat Discontinued Medications Diphenhydramine HCl (Diphenhydramine 50 Mg/Ml Vial) 50 mg IV NOW ONE Stop: 12/26/23 18:38 Last Admin: 12/26/23 18:48 Dose: 50 mg Documented By: NATA Droperidol (Droperidol 5 Mg/2 Ml Vial) 2.5 mg IV NOW ONE Stop: 12/26/23 18:38 Last Admin: 12/26/23 18:48 Dose: 2.5 mg Documented By: NATA Sodium Chloride (Normal Saline 0.9%) 1,000 mls @ 1,000 mls/hr IV BOLUS ONE Stop: 12/26/23 14:15 Last Infusion: 12/26/23 14:48 Dose: Infused Documented By: Admin: 12/26/23 13:27 Dose: 1,000 mls/hr Documented By: JO ANN POTASSIUM CHLORIDE IN WATER (Potassium Cl 10 Meq/100 Ml Kecia) 10 meq in 100 mls @ 100 mls/hr IV Q1H BENY Stop: 12/26/23 15:59 Last Infusion: 12/26/23 16:53 Dose: Infused Documented By: Admin: 12/26/23 15:43 Dose: 100 mls/hr Documented By: Infusion: 12/26/23 15:38 Dose: Infused Documented By: Admin: 12/26/23 14:38 Dose: 100 mls/hr Documented By: NATA Magnesium Sulfate (Magnesium Sulfate) 2 gm in 50 mls @ 25 mls/hr IV NOW ONE Stop: 12/26/23 16:18 Last Infusion: 12/26/23 15:55 Dose: Infused Documented By: JACK Co-signed By: MARSHA Admin: 12/26/23 14:36 Dose: 25 mls/hr Documented By: NATA Co-signed By: JO ANN Sodium Chloride (Normal Saline 0.9%) 1,000 mls @ 1,000 mls/hr IV BOLUS ONE Stop: 12/26/23 15:57 Last Infusion: 12/26/23 16:54 Dose: Infused Documented By: Admin: 12/26/23 15:07 Dose: 1,000 mls/hr Documented By: JO ANN Lorazepam (Lorazepam 2 Mg/Ml Inj) 1 mg IV NOW ONE Stop: 12/26/23 14:20 Last Admin: 12/26/23 14:39 Dose: 1 mg Documented By: NATA Morphine Sulfate (Morphine 4 Mg/Ml Inj) 4 mg IV NOW ONE Stop: 12/26/23 13:17 Last Admin: 12/26/23 13:29 Dose: 4 mg Documented By: JO ANN Morphine Sulfate (Morphine 2 Mg/Ml Inj) 2 mg IV NOW ONE Stop: 12/26/23 15:20 Last Admin: 12/26/23 15:31 Dose: 2 mg Documented By: DENIS Ondansetron HCl (Ondansetron 4 Mg/2 Ml Inj) 4 mg IV NOW PRN PRN Reason: Nausea And Vomiting Last Admin: 12/26/23 13:09 Dose: 4 mg Documented By: DENIS Ondansetron HCl (Ondansetron 4 Mg Odt) 4 mg PO NOW PRN PRN Reason: Nausea And Vomiting Pantoprazole Sodium (Pantoprazole 40 Mg Vial) 40 mg IV NOW ONE Stop: 12/26/23 13:18 Last Admin: 12/26/23 13:27 Dose: 40 mg Documented By: JO ANN Vital Signs Vital signs: Vital Signs - 8 hr 12/26/23 18:30 12/26/23 18:31 12/26/23 18:31 Pulse Rate 91 H 92 H Respiratory Rate 22 Blood Pressure 154/81 H Pulse Oximetry 99 98 12/26/23 19:00 12/26/23 19:01 12/26/23 19:01 Pulse Rate 87 87 Respiratory Rate 19 21 Blood Pressure 151/84 H Pulse Oximetry 100 97 12/26/23 19:30 12/26/23 19:30 12/26/23 20:00 Pulse Rate 85 92 H Respiratory Rate 22 22 Blood Pressure 149/73 H Pulse Oximetry 98 98 12/26/23 20:00 Pulse Rate Respiratory Rate Blood Pressure 136/85 Pulse Oximetry MDM - Nausea/Vomiting/Diarrhea <Josie Melendrez PA-C - Last Filed: 12/26/23 20:40> Medical Records Medical records narrative: Reviewed medical records from [facility] yesterday. Lab Data 12/26/23 13:03 12/26/23 13:03 Labs: Lab Results 12/26/23 12/26/23 Range/Units 13:03 13:56 WBC 21.3 H (4.5-11.0) X10^3/uL RBC 5.21 H (4.0-5.2) X10^6/uL Hgb 15.5 (12.0-16.0) g/dL Hct 44.9 (36-46) % MCV 86.2 (80-100) fL MCH 29.8 (26-34) PG MCHC 34.5 (30-36) % RDW 13.5 (11.6-14.8) % Plt Count 550 H (150-400) X10^3/uL Neut % (Auto) 84.5 H (50-75) % Lymph % (Auto) 9.1 L (25-40) % [place] % (Auto) 6.1 (3-14) % Eos % (Auto) 0.0 L (2-4) % Baso % (Auto) 0.3 (0-2) % Neut # (Auto) 55529 H (3824-6542) /uL Lymph # (Auto) 1900 (6163-5277) /uL [place] # (Auto) 1300 H (0-900) /uL Eos # (Auto) 0 (0-450) /uL Baso # (Auto) 100 (0-100) /uL Sodium 134 L (137-145) mmol/L Potassium 2.8 L (3.4-5.1) mmol/L Chloride 95 L (98-107) mmol/L Carbon Dioxide 26 (22-32) mmol/L BUN 13 (7-17) mg/dL Creatinine 0.86 (0.52-1.04) mg/dL Estimated GFR > 60 (>60) mL/min BUN/Creatinine Ratio 15.1 (6-22) Glucose 131 H (70-100) mg/dL Calcium 9.4 (8.4-10.2) mg/dL Magnesium 1.8 (1.6-2.3) mg/dL Total Bilirubin 1.3 (0.2-1.3) mg/dL AST 37 H (14-36) IU/L ALT 60 H (<35) IU/L Alkaline Phosphatase 84 (38-126) U/L Total Protein 8.0 (6.3-8.2) g/dL Albumin 4.8 (3.5-5.0) g/dL Globulin 3.2 (1.7-4.1) g/dL Albumin/Globulin Ratio 1.5 (1.0-2.8) Lipase 89 (23-300) U/L Urine RBC 1-5/hpf (0-5/HPF) Urine WBC 1-5/hpf (0-5/HPF) Ur Squamous Epith Cells 1-5 /hpf (0-5/HPF) Urine Bacteria None seen (None) Ur Culture Indicated? Specimen cultured Vol Urine Centrifuged 10ml (spun) Point of Care Testing Test Results Negative Urine Dip Bedside Urine Glucose Negative Bedside Urine Bilirubin - Negative Bedside Urine Ketone +++ 80 Urine Specific [place] 1.020 Bedside Urine Occult Blood ++ Bedside Urine pH 6.0 Bedside Urine Protein ++ 100 Bedside Urine Urobilinogen - Negative Bedside Urine Nitrite - Negative Bedside Urine Leukocytes +/- 15 Esterase ECG Data Interpretation: ECG reviewed by attending physician. Regular rhythm. Rate 101 beats per minute. [facility] Narrative Medical decision making narrative: 33-year-old female presents to the emergency department for nausea, vomiting, diarrhea, epigastric abdominal pain x3 days. She was seen in [facility] ER yesterday, records requested. Differential diagnosis includes but is not limited to cyclic vomiting syndrome, cannabinoid hyperemesis syndrome, gastroenteritis, colitis, cholecystitis, pancreatitis, electrolyte abnormality, dehydration, etc. On exam patient is visibly uncomfortable, vomited. Heart rate and blood pressure are increased in triage. She has mild epigastric abdominal tenderness. We will obtain abdominal labs, treat with morphine, Zofran, fluids, Protonix. We will determine imaging needs based on record review and patient workup. Lab work reveals leukocytosis of 21.3, elevated platelets of 550, normal hemoglobin 15.5 hematocrit 44.9. Hyponatremia of 134, potassium 2.8, chloride 95, glucose 131. AST 37, ALT 60. Calculated anion gap is 13.0, 11.0 when corrected for albumin. Outside labs obtained from [facility] yesterday reveal WBC count of 24.6. Platelet count 583. Anion gap 14.0. CT abdomen pelvis with IV contrast from yesterday reveals diffuse appearance of colonic thickening suggesting of colitis secondary to inflammation or infection. No abscess. Of note, unremarkable gallbladder. Patient did not have relief of symptoms with morphine and Zofran. Baseline ECG obtained and patient is on shelter monitor. Overall, patient's lab work shows improvement in leukocytosis which is reassuring but decrease in potassium likely from continued vomiting which we are addressing. We will replete magnesium and potassium. Patient had total resolution of symptoms with droperidol and Benadryl today in the ER. She received a total of 2L IVF. She is tolerating p.o. Due to improvement in symptoms and lab work, repeat imaging was not ordered. Extensively discussed cyclic vomiting with the patient and cannabinoid hyperemesis syndrome. She was prescribed rectal Phenergan, p.o. Zofran, p.o. potassium. We discussed very strict ER return precautions and she understands that she needs to return if she has any bloody stool, fever, or worsening symptoms at which time repeat imaging may be warranted. Overall her symptoms most consistent with her past episodes of cyclic vomiting syndrome. HR normalized. She verbalized understanding of all information, tolerating p.o., agreeable to discharge home. Her sister is here to drive her home. <Nuris Stroud MD - Last Filed: 12/27/23 02:17> Lab Data Labs: Lab Results 12/26/23 12/26/23 Range/Units 13:03 13:56 WBC 21.3 H (4.5-11.0) X10^3/uL RBC 5.21 H (4.0-5.2) X10^6/uL Hgb 15.5 (12.0-16.0) g/dL Hct 44.9 (36-46) % MCV 86.2 (80-100) fL MCH 29.8 (26-34) PG MCHC 34.5 (30-36) % RDW 13.5 (11.6-14.8) % Plt Count 550 H (150-400) X10^3/uL Neut % (Auto) 84.5 H (50-75) % Lymph % (Auto) 9.1 L (25-40) % Crosby % (Auto) 6.1 (3-14) % Eos % (Auto) 0.0 L (2-4) % Baso % (Auto) 0.3 (0-2) % Neut # (Auto) 62443 H (2732-9721) /uL Lymph # (Auto) 1900 (6861-8723) /uL Crosby # (Auto) 1300 H (0-900) /uL Eos # (Auto) 0 (0-450) /uL Baso # (Auto) 100 (0-100) /uL Sodium 134 L (137-145) mmol/L Potassium 2.8 L (3.4-5.1) mmol/L Chloride 95 L (98-107) mmol/L Carbon Dioxide 26 (22-32) mmol/L BUN 13 (7-17) mg/dL Creatinine 0.86 (0.52-1.04) mg/dL Estimated GFR > 60 (>60) mL/min BUN/Creatinine Ratio 15.1 (6-22) Glucose 131 H (70-100) mg/dL Calcium 9.4 (8.4-10.2) mg/dL Magnesium 1.8 (1.6-2.3) mg/dL Total Bilirubin 1.3 (0.2-1.3) mg/dL AST 37 H (14-36) IU/L ALT 60 H (<35) IU/L Alkaline Phosphatase 84 (38-126) U/L Total Protein 8.0 (6.3-8.2) g/dL Albumin 4.8 (3.5-5.0) g/dL Globulin 3.2 (1.7-4.1) g/dL Albumin/Globulin Ratio 1.5 (1.0-2.8) Lipase 89 (23-300) U/L Urine RBC 1-5/hpf (0-5/HPF) Urine WBC 1-5/hpf (0-5/HPF) Ur Squamous Epith Cells 1-5 /hpf (0-5/HPF) Urine Bacteria None seen (None) Ur Culture Indicated? Specimen cultured Vol Urine Centrifuged 10ml (spun) Point of Care Testing Test Results Negative Urine Dip Bedside Urine Glucose Negative Bedside Urine Bilirubin - Negative Bedside Urine Ketone +++ 80 Urine Specific [place] 1.020 Bedside Urine Occult Blood ++ Bedside Urine pH 6.0 Bedside Urine Protein ++ 100 Bedside Urine Urobilinogen - Negative Bedside Urine Nitrite - Negative Bedside Urine Leukocytes +/- 15 Esterase Discharge Plan Departure Patient Disposition: Home Clinical Impression: Colitis, Hypokalemia Nausea & vomiting Qualifiers: Vomiting type: unspecified Qualified Code(s): R11.2 - Nausea with vomiting, unspecified Instructions: DI for Vomiting -- Adult, DI for Colitis Activity Restrictions/Additional Instructions: Please rest, take small but frequent sips of electrolyte beverage, and use the prescribed rectal Phenergan if needed for nausea or vomiting or Zofran. If you develop any new or worsening symptoms, fevers, bloody stools, or any other concerns please return to the ER. Please avoid any marijuana use and follow up with the GI doctor when possible with [facility]. Please follow up with the primary care doctor as soon as possible. We have also prescribed you potassium supplements. You can also increase potassium in your diet to bananas, leafy greens. Prescriptions: New potassium chloride 20 mEq tablet extended release 20 meq PO DAILY Qty: 4 0RF promethazine 25 mg suppository 25 mg NE Q6H PRN (Reason: nausea and vomiting) Qty: 12 0RF ondansetron 4 mg tablet,disintegrating 4 mg PO Q8H PRN (Reason: nausea and vomiting) Qty: 10 0RF No Action diphenhydramine HCl 50 mg Capsule 50 mg PO BEDTIME propranolol 40 mg Tablet 40 mg PO DAILY ondansetron 4 mg Tablet,Disintegrating 4 mg PO Q6H PRN (Reason: Nausea) nortriptyline 50 mg Capsule 100 mg PO BEDTIME rizatriptan 5 mg Tablet 5 mg PO Q2-4H MDD 10 mg PRN (Reason: Migraine Headache) buspirone 15 mg Tablet 15 mg PO QPM albuterol sulfate 90 mcg/actuation Hfa Aerosol Inhaler 2 puff INHALATION Q4-6H PRN (Reason: Wheezing) fluticasone propionate [Flonase Allergy Relief] 50 mcg/actuation [place],Suspension 2 spray INTRANASAL DAILY PRN (Reason: Allergic Symptoms) Flovent HFA 110 mcg/actuation Hfa Aerosol Inhaler 1 puff INHALATION BID levofloxacin 750 mg tablet 750 mg PO DAILY Qty: 6 0RF metronidazole 500 mg Tablet 500 mg PO TID Qty: 19 0RF promethazine 25 mg suppository 25 mg NE Q6H PRN (Reason: nausea and vomiting) Qty: 5 0RF haloperidol lactate 2 mg/mL concentrate 1 mg PO TID Qty: 120 0RF lorazepam [Ativan] 1 mg tablet 1 mg PO TID PRN (Reason: anxiety) Qty: 20 0RF metoclopramide HCl [Reglan] 10 mg tablet 10 mg PO Q6H PRN (Reason: nausea and vomiting) Qty: 90 1RF metoclopramide HCl [Reglan] 10 mg tablet 10 mg PO Q8H PRN (Reason: nausea and vomiting) Qty: 90 1RF Stand Alone Forms: Patient Portal/API/Survey ED Sign-out <Nuris Stroud MD - Last Filed: 12/27/23 02:17> Cosign ED Attending Cosignature Attestation: I did not see this patient. I was available all times for consultation.
[2023-12-26] MEDS: ONDANSETRON 4 MG/2 ML INJ IV (13:09)
[2023-12-26 13:10] LABS: Add Manual Diff / Slide Review NO; Basophils Absolute Auto 100 /uL (0-100); Basophils Percent Auto 0.3 % (0-2); Eosinophils Absolute Auto 0 /uL (0-450); Hematocrit 44.9 % (36-46); Hemoglobin 15.5 g/dL (12.0-16.0); Lymphocytes Absolute Auto 1900 /uL (1100-4500); Lymphocytes Percent Auto 9.1 % (25-40); Mean Corpuscular HGB Conc 34.5 % (30-36); Mean Corpuscular Hemoglobin 29.8 PG (26-34); Mean Corpuscular Volume 86.2 fL (80-100); Monocytes Absolute Auto 1300 /uL (0-900); Monocytes Percent Auto 6.1 % (3-14); Neutrophils Absolute Auto 18000 /uL (1500-7000); Neutrophils Percent Auto 84.5 % (50-75); Platelet Count 550 X10^3/uL (150-400); Red Blood Cell Count 5.21 X10^6/uL (4.0-5.2); Red Cell Distribution Width 13.5 % (11.6-14.8); White Blood Cell Count 21.3 X10^3/uL (4.5-11.0)
--- NOTE | 2023-12-26 13:17 | DI.RAD.S_ITS ---
PROCEDURE: XR CHEST 1V INDICATIONS: N/V/epigastric pain TECHNIQUE: One view of the chest was acquired. COMPARISON: [facility], , XR CHEST 1V, 07/28/2019, 1:25. FINDINGS: Surgical changes and devices: None. Lungs and pleura: No dense consolidation or pleural effusions. Mediastinum: Normal heart size, unchanged Bones and chest wall: Unremarkable IMPRESSION: No acute radiographic abnormality on this single view study Dictated by: Junito Vigil M.D. on 12/26/2023 at 13:43 Approved by: Junito Vigil M.D. on 12/26/2023 at 13:43
[2023-12-26 13:25] LABS: Alanine Aminotransferase 60 IU/L (<35); Albumin 4.8 g/dL (3.5-5.0); Albumin Globulin Ratio 1.5 (1.0-2.8); Alkaline Phosphatase 84 U/L (38-126); Aspartate Aminotransferase 37 IU/L (14-36); BUN Creatinine Ratio 15.1 (6-22); Bilirubin Total 1.3 mg/dL (0.2-1.3); Blood Urea Nitrogen 13 mg/dL (7-17); Calcium 9.4 mg/dL (8.4-10.2); Carbon Dioxide 26 mmol/L (22-32); Chloride 95 mmol/L (98-107); Estimated Glomerular Filt Rate > 60 mL/min (>60); Globulin 3.2 g/dL (1.7-4.1); Glucose 131 mg/dL (70-100); HEMOLYSIS < 15 (0-50); Lipase 89 U/L (23-300); Potassium 2.8 mmol/L (3.4-5.1); Sodium 134 mmol/L (137-145)
[2023-12-26] MEDS: SODIUM CHLORIDE 0.9% 1,000 ML 1000 ML IV ×2 (13:27→15:07)
[2023-12-26] MEDS: PANTOPRAZOLE 40 MG VIAL IV (13:27)
[2023-12-26] MEDS: MORPHINE 4 MG/ML INJ IV (13:29)
[2023-12-26 13:44] LABS: Magnesium 1.8 mg/dL (1.6-2.3)
--- NOTE | 2023-12-26 14:14 | EKG_ITS ---
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
[2023-12-26 14:33] LABS: Urine Volume 10mL (spun)
[2023-12-26] MEDS: MAGNESIUM SULFATE 2 GM/50 ML PIGGYBACK IV (14:36)
[2023-12-26 14:37] LABS: RBC Urine 1-5/HPF (0-5/HPF); WBC Urine 1-5/HPF (0-5/HPF)
[2023-12-26 14:38] LABS: Bacteria Urine None Seen; Culture Indicated Urine Specimen Cultured; Squamous Epithelial Cell Urine 1-5 /HPF (0-5/HPF)
[2023-12-26] MEDS: POTASSIUM CHLORIDE IN WATER 10 MEQ/100 ML PIGGYBACK 100 MEQ IV ×2 (14:38→15:43)
[2023-12-26] MEDS: LORazepam 2 MG/ML INJ 1 MG IV (14:39)
[2023-12-26] MEDS: MORPHINE 2 MG/ML INJ IV (15:31)
--- NOTE | 2023-12-26 17:36 | EKG_ITS ---
[facility] [address] [place] [address] Test Date: 2023-12-26 Pat Name: Nuris Castle Department: [facility] Room: Gender: Female [employer]: : 1990 Requested By: Order Number: [id number] Reading MD: Deni Alicea MD Measurements Intervals [place] Rate: 90 P: [place]: 148 QRS: 74 QRSD: 102 T: 40 QT: 398 QTc: 486 Interpretive Statements Normal sinus rhythm Prolonged QT Electronically Signed On 12-27-2023 7:31:15 PST by Deni Alicea MD
[2023-12-26] MEDS: diphenhydrAMINE 50 MG/ML VIAL IV (18:48)
[2023-12-26] MEDS: DROPERIDOL 5 MG/2 ML VIAL 2.5 MG IV (18:48)
== END 2023-12-26 20:41 | disposition home or self-care (01) ==
PROVIDERS: Emergency Medicine; Physician Assistant; Emergency Provider Emergency Medicine
DX: K52.9 Noninfective gastroenteritis and colitis, unspecified (principal); E87.6 Hypokalemia; R11.2 Nausea with vomiting, unspecified; R00.0 Tachycardia, unspecified
CPT/HCPCS: 36415; 71045; 80053; 81003; 81015; 81025; 83690; 83735; 85025; 87086; 93005; 96361; 96365; 96366; 96368; 96375; 96376; 99284; J1200; J1790; J2060; J2270; J2405; J2470; J3475

== ENCOUNTER 2024-04-11 14:28 | Emergency (ER) | payer OTHER, SELFPAY ==
[2019-07-26 20:26] VITALS: BMI 34.2
[2024-04-11] VITALS (11 sets, daily range): BP systolic 129–178; BP diastolic 80–109; PULSE 76–88; RESP 18; TEMP 37.1; O2SAT 97–100; BMI 35.4
[2024-04-11 14:58] LABS: Add Manual Diff / Slide Review NO; Basophils Absolute Auto 100 /uL (0-100); Basophils Percent Auto 0.6 % (0-2); Eosinophils Absolute Auto 200 /uL (0-450); Eosinophils Percent Auto 1.9 % (2-4); Hematocrit 47.5 % (36-46); Hemoglobin 16.1 g/dL (12.0-16.0); Lymphocytes Absolute Auto 2800 /uL (1100-4500); Mean Corpuscular Hemoglobin 29.4 PG (26-34); Mean Corpuscular Volume 86.5 fL (80-100); Monocytes Absolute Auto 1100 /uL (0-900); Monocytes Percent Auto 8.2 % (3-14); Neutrophils Absolute Auto 9000 /uL (1500-7000); Neutrophils Percent Auto 68.3 % (50-75); Platelet Count 544 X10^3/uL (150-400); Red Blood Cell Count 5.49 X10^6/uL (4.0-5.2); Red Cell Distribution Width 13.6 % (11.6-14.8); White Blood Cell Count 13.1 X10^3/uL (4.5-11.0)
[2024-04-11] MEDS: ONDANSETRON 4 MG/2 ML INJ IV (15:07)
[2024-04-11 15:11] LABS: Alanine Aminotransferase 45 IU/L (<35); Albumin 4.8 g/dL (3.5-5.0); Albumin Globulin Ratio 1.4 (1.0-2.8); Alkaline Phosphatase 67 U/L (38-126); Aspartate Aminotransferase 36 IU/L (14-36); BUN Creatinine Ratio 15.9 (6-22); Bilirubin Total 1.1 mg/dL (0.2-1.3); Blood Urea Nitrogen 11 mg/dL (7-17); Calcium 9.4 mg/dL (8.4-10.2); Carbon Dioxide 27 mmol/L (22-32); Chloride 95 mmol/L (98-107); Estimated Glomerular Filt Rate > 60 mL/min (>60); Globulin 3.5 g/dL (1.7-4.1); Glucose 115 mg/dL (70-100); HEMOLYSIS 44 (0-50); Lipase 43 U/L (23-300); Sodium 133 mmol/L (137-145); Total Protein 8.3 g/dL (6.3-8.2)
--- NOTE | 2024-04-11 15:52 | ED_ITS ---
HPI - Nausea/Vomiting/Diarrhea General Chief complaint: Nausea/Vomiting/Diarrhea Stated complaint: Throwing up Time Seen by Provider: 04/11/24 15:34 History of Present Illness HPI Narrative: Patient has history of cyclic vomiting. Also has history of colitis. Recently seen at outside hospital for the same. Father drove patient here. Patient has stopped smoking marijuana. However still has cyclic vomiting. No known sick contacts. No black or bloody stools. No hematemesis. No fever chills. Patient states feels the same as her past cyclic vomiting episodes. Related Data Home Medications Medication Instructions Recorded Confirmed albuterol sulfate 90 mcg/actuation 2 puff inhalation Q4-6H PRN 08/21/18 07/26/19 aerosol inhaler Wheezing buspirone 15 mg tablet 15 mg PO QPM 08/21/18 07/26/19 diphenhydramine HCl 50 mg capsule 50 mg PO BEDTIME 08/21/18 07/26/19 fluticasone propionate 110 1 puff inhalation BID 08/21/18 07/26/19 mcg/actuation HFA aerosol inhaler (Flovent HFA) fluticasone propionate 50 2 spray intranasal DAILY PRN 08/21/18 07/26/19 mcg/actuation nasal Allergic Symptoms spray,suspension (Flonase Allergy Relief) nortriptyline 50 mg capsule 100 mg PO BEDTIME 08/21/18 07/26/19 ondansetron 4 mg disintegrating 4 mg PO Q6H PRN Nausea 08/21/18 07/26/19 tablet propranolol 40 mg tablet 40 mg PO DAILY 08/21/18 07/26/19 rizatriptan 5 mg tablet 5 mg PO Q2-4H PRN Migraine Headache 08/21/18 07/26/19 Previous Rx's Medication Instructions Recorded haloperidol lactate 2 mg/mL oral 1 mg (0.5 mL) PO TID #120 mL 02/04/19 concentrate lorazepam 1 mg tablet (Ativan) 1 mg PO TID PRN anxiety #20 tabs 02/04/19 levofloxacin 750 mg tablet 750 mg PO DAILY #6 tabs 07/30/19 metronidazole 500 mg tablet 500 mg PO TID #19 tabs 07/30/19 promethazine 25 mg rectal 25 mg KS Q6H PRN nausea and 07/30/19 suppository vomiting #5 ea metoclopramide HCl 10 mg tablet 10 mg PO Q6H PRN nausea and 12/14/21 (Reglan) vomiting #90 tabs metoclopramide HCl 10 mg tablet 10 mg PO Q8H PRN nausea and 12/14/21 (Reglan) vomiting #90 tabs ondansetron 4 mg disintegrating 4 mg PO Q8H PRN nausea and 12/26/23 tablet vomiting #10 tabs potassium chloride 20 mEq 20 meq PO DAILY #4 tabs 12/26/23 tablet,extended release promethazine 25 mg rectal 25 mg KS Q6H PRN nausea and 12/26/23 suppository vomiting #12 ea Allergies Allergy/AdvReac Type Severity Reaction Status Date / Time mushroom Allergy Severe Vomiting Verified 03/22/19 08:43 peanut Allergy Severe Anaphylaxis Verified 03/22/19 08:43 Sulfa (Sulfonamide Allergy Unknown Verified 03/22/19 08:43 Antibiotics) Review of Systems Review of Systems Narrative: GENERAL: Negative chills, fatigue, malaise, fever, sweats. HEENT: Negative sinus pain, ear pain, sore throat RESPIRATORY: Negative dyspnea, cough CARDIOVASCULAR: Negative chest pain, palpitations GASTROINTESTINAL: Positive nausea, vomiting, abdominal pain : Negative dysuria, frequency, hematuria MUSCULOSKELETAL: Negative muscle or bony pain SKIN: Negative rash, skin lesions NEUROLOGIC: Negative weakness, numbness ROS Unobtainable: All systems reviewed & are unremarkable except as noted in HPI and below Patient History Medical History (Updated 04/11/24 @ 17:11 by Anibal Lopez MD) Severe frontal headaches Environmental allergies Asthma Marijuana smoker Cyclic vomiting syndrome Surgical History History of toe surgery Family History Father Arthritis Mother Anxiety Fibromyalgia Brother Childhood asthma Drug abuse Social History household members: spouse and family Smoking Status: Current some day smoker alcohol intake: current Smoking Status: Current some day smoker tobacco type: cigarettes alcohol intake frequency: a few times a week Exam Narrative Exam Narrative: GENERAL: in no distress, not toxic not dyspneic HEAD: Normocephalic. EYES: Pupils equal round ENT: Mucous membranes moist. NECK: Trachea midline. CARDIOVASCULAR: Regular rate and rhythm RESPIRATORY: Clear to auscultation. Breath sounds equal bilaterally. No wheezes, rales, or rhonchi. GASTROINTESTINAL: Abdomen soft, mild diffuse tenderness, no peritoneal signs bowel sounds are present no pain out of portion exam. No guarding no rebound EXTREMITIES: No gross deformities. BACK: No flank tenderness. NEURO: AOx4. Clear speech SKIN: Warm and dry PSYCH: Not anxious, is cooperative Initial Vital Signs Initial Vital Signs: Vital Signs Temperature 98.8 F 04/11/24 14:34 Pulse Rate 88 04/11/24 14:34 Respiratory Rate 18 04/11/24 14:34 Blood Pressure 152/98 H 04/11/24 14:34 Pulse Oximetry 98 04/11/24 14:34 Oxygen Delivery Method Room Air 04/11/24 14:34 Course Orders Ordered: Discontinued Medications Sodium Chloride (Normal Saline 0.9%) 1,000 mls @ 1,000 mls/hr IV BOLUS ONE Stop: 04/11/24 16:52 Last Infusion: 04/11/24 17:58 Dose: Infused Documented By: Admin: 04/11/24 16:21 Dose: 1,000 mls/hr Documented By: ROSARIO Morphine Sulfate (Morphine 4 Mg/Ml Inj) 4 mg IV NOW ONE Stop: 04/11/24 15:54 Last Admin: 04/11/24 16:19 Dose: 4 mg Documented By: ROSARIO Ondansetron HCl (Ondansetron 4 Mg/2 Ml Inj) 4 mg IV NOW PRN PRN Reason: Nausea And Vomiting Last Admin: 04/11/24 15:07 Dose: 4 mg Documented By: JACK Ondansetron HCl (Ondansetron 4 Mg Odt) 4 mg PO NOW PRN PRN Reason: Nausea And Vomiting Prochlorperazine (Prochlorperazine 10 Mg/2 Ml Vial) 10 mg IV NOW ONE Stop: 04/11/24 15:54 Last Admin: 04/11/24 16:17 Dose: 10 mg Documented By: ROSARIO Vital Signs Vital signs: Vital Signs - 8 hr 04/11/24 14:34 04/11/24 15:29 04/11/24 15:30 Temperature 98.8 F Pulse Rate 88 78 80 Respiratory Rate 18 Blood Pressure 152/98 H Pulse Oximetry 98 99 98 Oxygen Delivery Method Room Air 04/11/24 15:58 04/11/24 15:58 04/11/24 16:00 Temperature Pulse Rate 83 83 Respiratory Rate Blood Pressure 142/82 H Pulse Oximetry 98 99 Oxygen Delivery Method 04/11/24 16:00 04/11/24 16:03 04/11/24 16:17 Temperature Pulse Rate 79 82 Respiratory Rate Blood Pressure 140/85 145/92 H 140/85 Pulse Oximetry 97 Oxygen Delivery Method 04/11/24 16:30 Temperature Pulse Rate 76 Respiratory Rate Blood Pressure 129/84 Pulse Oximetry 100 Oxygen Delivery Method MDM - Nausea/Vomiting/Diarrhea Lab Data 04/11/24 14:40 04/11/24 14:40 Labs: Lab Results 04/11/24 Range/Units 14:40 WBC 13.1 H (4.5-11.0) X10^3/uL RBC 5.49 H (4.0-5.2) X10^6/uL Hgb 16.1 H (12.0-16.0) g/dL Hct 47.5 H (36-46) % MCV 86.5 (80-100) fL MCH 29.4 (26-34) PG MCHC 34.0 (30-36) % RDW 13.6 (11.6-14.8) % Plt Count 544 H (150-400) X10^3/uL Neut % (Auto) 68.3 (50-75) % Lymph % (Auto) 21.0 L (25-40) % [place] % (Auto) 8.2 (3-14) % Eos % (Auto) 1.9 L (2-4) % Baso % (Auto) 0.6 (0-2) % Neut # (Auto) 9000 H (9050-9664) /uL Lymph # (Auto) 2800 (6974-4241) /uL [place] # (Auto) 1100 H (0-900) /uL Eos # (Auto) 200 (0-450) /uL Baso # (Auto) 100 (0-100) /uL Sodium 133 L (137-145) mmol/L Potassium 3.0 L (3.4-5.1) mmol/L Chloride 95 L (98-107) mmol/L Carbon Dioxide 27 (22-32) mmol/L BUN 11 (7-17) mg/dL Creatinine 0.69 (0.52-1.04) mg/dL Estimated GFR > 60 (>60) mL/min BUN/Creatinine Ratio 15.9 (6-22) Glucose 115 H (70-100) mg/dL Calcium 9.4 (8.4-10.2) mg/dL Total Bilirubin 1.1 (0.2-1.3) mg/dL AST 36 (14-36) IU/L ALT 45 H (<35) IU/L Alkaline Phosphatase 67 (38-126) U/L Total Protein 8.3 H (6.3-8.2) g/dL Albumin 4.8 (3.5-5.0) g/dL Globulin 3.5 (1.7-4.1) g/dL Albumin/Globulin Ratio 1.4 (1.0-2.8) Lipase 43 (23-300) U/L Urine RBC 1-5/hpf (0-5/HPF) Urine WBC 0-1/hpf (0-5/HPF) Ur Squamous Epith Cells 1-5 /hpf (0-5/HPF) Urine Bacteria Occasional (0-1) (None) Ur Culture Indicated? Cult not indicated Vol Urine Centrifuged 10ml (spun) U Opiates 300ng/mL cut Negative (Negative) Ur Oxycodone Screen Negative (Negative) Urine Methadone Screen Negative (Negative) Ur Barbiturates Screen Negative (Negative) U Tricyclic Antidepress Negative (Negative) Ur Phencyclidine Scrn Negative (Negative) Ur Amphetamines Screen Negative (Negative) U Methamphetamines Scrn Negative (Negative) Ur MDMA Scrn (Ecstasy) Negative (Negative) U Benzodiazepines Scrn Negative (Negative) Urine Cocaine Screen Negative (Negative) U Marijuana (THC) Screen Positive H (Negative) Urine pH Normal (Normal) Urine Specific [place] Normal (Normal) Ur Creatinine Normal (Normal) Point of Care Testing Test Results Negative Urine Dip Bedside Urine Glucose Negative Bedside Urine Bilirubin - Negative Bedside Urine Ketone ++ 40 Urine Specific [place] 1.010 Bedside Urine Occult Blood +++ Bedside Urine pH 6.0 Bedside Urine Protein - Negative Bedside Urine Urobilinogen - Negative Bedside Urine Nitrite - Negative Bedside Urine Leukocytes - Negative Esterase Imaging Data CT scan - abdomen/pelvis: Radiologist's Impression: [address] [address] [address] Scan Report Signed Patient: Nuris Castle MR#: [id number] : 1990 Acct:[id number] Age/Sex: 34 / F Date of Service: 04/11/24 Loc: ED Accession Number: [id number] Procedure: CT abdomen pelvis w con Ordering Provider: Anibal Lopez MD PROCEDURE: CT ABDOMEN PELVIS W CON INDICATIONS: Abdominal pain nausea and vomiting TECHNIQUE: After the administration of intravenous contrast, axial sections acquired from the lung bases to the pubic symphysis. Coronal and sagittal reformats were performed. For radiation dose reduction, the following was used: automated exposure control, adjustment of mA and/or kV according to patient size. COMPARISON: [facility], CT, CT ABDOMEN PELVIS W CON, 07/24/2019, 2:33. FINDINGS: Image quality: Diagnostic. Lower Chest: No significant findings. ABDOMEN: Liver: No solid mass. Gallbladder: No radiopaque gallstones or wall thickening. Biliary ducts: No biliary dilation. Pancreas: No ductal dilation. Spleen: Size is within normal limits. Adrenal Glands: No adrenal nodules. Kidneys and Ureters: No hydronephrosis. No solid mass. No complex renal cystic lesion which requires follow up. Stomach and Bowel: Allowing for the decompressed status of the colon, there appears to be mild burns colitis. A normal appendix is noted. Small bowel is unremarkable. Peritoneum: No abnormal intraperitoneal fluid. No free air. Ventral Wall: No significant ventral hernia. Abdominal Nodes: No retroperitoneal or mesenteric adenopathy by size criteria. Vessels: Aorta and inferior vena cava are normal in size. PELVIS: Pelvic Organs: Unremarkable. Bladder: No bladder wall thickening, accounting for underdistention. Pelvic Nodes: No enlarged lymph nodes. Miscellaneous: No inguinal hernias are seen. Bones: No aggressive osseous abnormality. IMPRESSION: Findings suggest possible mild burns colitis. Consider infectious versus inflammatory etiologies. Dictated by: Walter Zendejas M.D. on 04/11/2024 at 16:23 Approved by: Walter Zendejas M.D. on 04/11/2024 at 16:26 MDM Narrative Medical decision making narrative: Patient has history of cyclic vomiting. Also has history of colitis. Recently seen at outside hospital for the same. Father drove patient here. Patient has stopped smoking marijuana. However still has cyclic vomiting. No known sick contacts. No black or bloody stools. No hematemesis. No fever chills. Patient states feels the same as her past cyclic vomiting episodes. After history and exam, CBC CMP drug screen urinalysis test Compazine morphine CT abdomen pelvis [facility] Medical records reviewed: No recent visit here for this same complaint Differential considered: Includes but not limited to gastroparesis cyclic vomiting hyperemesis cannabinoid syndrome colitis bowel obstruction Lab Test results independently reviewed as above. Pertinent findings: WBC 13.1 hemoglobin 16.1 sodium 133 potassium 3.0 BUN 11 creatinine 0.69 glucose 115 AST 36 ALT 45, urinalysis positive ketones, negative , positive marijuana Imaging studies independently reviewed: CT abdomen pelvis mild burns colitis Consultations: None indicated at this time Treatments: Morphine Compazine normal saline Re-evaluations: 4:40 p.m.. Patient feeling much better after morphine Compazine normal saline. Reviewed with her leukocytosis and CT imaging is at baseline. 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 Return precautions reviewed. She desires discharge home. Discussion: Appropriate for discharge to home. Pancolitis is not new. I reviewed CT imaging from 2019 and it was present then. Laboratory studies are reassuring. White cell count likely from demargination. Patient usually has leukocytosis for her visits for cyclic vomiting/cannabinoid hyperemesis syndrome. Return precautions reviewed. She desires discharge home. Diagnosis: Marijuana hyperemesis syndrome/cyclic vomiting Discharge Plan Departure Patient Disposition: Home Clinical Impression: Cyclical vomiting, Cannabinoid hyperemesis syndrome Instructions: DI for Cyclic Vomiting Syndrome-Adult Activity Restrictions/Additional Instructions: No driving operating machinery tonight as you have had pain medication. Please call provided general surgery office for endoscopy of your stomach and colonoscopy. Please stop using marijuana. Return if worse if any questions or concerns. Keep well hydrated. Prescriptions: No Action diphenhydramine HCl 50 mg Capsule 50 mg PO BEDTIME propranolol 40 mg Tablet 40 mg PO DAILY ondansetron 4 mg Tablet,Disintegrating 4 mg PO Q6H PRN (Reason: Nausea) nortriptyline 50 mg Capsule 100 mg PO BEDTIME rizatriptan 5 mg Tablet 5 mg PO Q2-4H MDD 10 mg PRN (Reason: Migraine Headache) buspirone 15 mg Tablet 15 mg PO QPM albuterol sulfate 90 mcg/actuation Hfa Aerosol Inhaler 2 puff INHALATION Q4-6H PRN (Reason: Wheezing) fluticasone propionate [Flonase Allergy Relief] 50 mcg/actuation [place],Suspension 2 spray INTRANASAL DAILY PRN (Reason: Allergic Symptoms) Flovent HFA 110 mcg/actuation Hfa Aerosol Inhaler 1 puff INHALATION BID levofloxacin 750 mg tablet 750 mg PO DAILY Qty: 6 0RF metronidazole 500 mg Tablet 500 mg PO TID Qty: 19 0RF promethazine 25 mg suppository 25 mg KS Q6H PRN (Reason: nausea and vomiting) Qty: 5 0RF haloperidol lactate 2 mg/mL concentrate 1 mg PO TID Qty: 120 0RF lorazepam [Ativan] 1 mg tablet 1 mg PO TID PRN (Reason: anxiety) Qty: 20 0RF metoclopramide HCl [Reglan] 10 mg tablet 10 mg PO Q6H PRN (Reason: nausea and vomiting) Qty: 90 1RF metoclopramide HCl [Reglan] 10 mg tablet 10 mg PO Q8H PRN (Reason: nausea and vomiting) Qty: 90 1RF potassium chloride 20 mEq tablet extended release 20 meq PO DAILY Qty: 4 0RF promethazine 25 mg suppository 25 mg KS Q6H PRN (Reason: nausea and vomiting) Qty: 12 0RF ondansetron 4 mg tablet,disintegrating 4 mg PO Q8H PRN (Reason: nausea and vomiting) Qty: 10 0RF Referrals: Melisa Jacob MD [Physician] - Stand Alone Forms: Patient Portal/API/Survey
[2024-04-11 15:57] LABS: Bacteria Urine Occasional (0-1); RBC Urine 1-5/HPF (0-5/HPF); Squamous Epithelial Cell Urine 1-5 /HPF (0-5/HPF); Urine Volume 10mL (spun); WBC Urine 0-1/HPF (0-5/HPF)
[2024-04-11 15:58] LABS: Culture Indicated Urine Cult Not Indicated
--- NOTE | 2024-04-11 16:00 | DI.CT.S_ITS ---
PROCEDURE: CT ABDOMEN PELVIS W CON INDICATIONS: Abdominal pain nausea and vomiting TECHNIQUE: After the administration of intravenous contrast, axial sections acquired from the lung bases to the pubic symphysis. Coronal and sagittal reformats were performed. For radiation dose reduction, the following was used: automated exposure control, adjustment of mA and/or kV according to patient size. COMPARISON: [facility], CT, CT ABDOMEN PELVIS W CON, 07/24/2019, 2:33. FINDINGS: Image quality: Diagnostic. Lower Chest: No significant findings. ABDOMEN: Liver: No solid mass. Gallbladder: No radiopaque gallstones or wall thickening. Biliary ducts: No biliary dilation. Pancreas: No ductal dilation. Spleen: Size is within normal limits. Adrenal Glands: No adrenal nodules. Kidneys and Ureters: No hydronephrosis. No solid mass. No complex renal cystic lesion which requires follow up. Stomach and Bowel: Allowing for the decompressed status of the colon, there appears to be mild burns colitis. A normal appendix is noted. Small bowel is unremarkable. Peritoneum: No abnormal intraperitoneal fluid. No free air. Ventral Wall: No significant ventral hernia. Abdominal Nodes: No retroperitoneal or mesenteric adenopathy by size criteria. Vessels: Aorta and inferior vena cava are normal in size. PELVIS: Pelvic Organs: Unremarkable. Bladder: No bladder wall thickening, accounting for underdistention. Pelvic Nodes: No enlarged lymph nodes. Miscellaneous: No inguinal hernias are seen. Bones: No aggressive osseous abnormality. IMPRESSION: Findings suggest possible mild burns colitis. Consider infectious versus inflammatory etiologies. Dictated by: Walter Zendejas M.D. on 04/11/2024 at 16:23 Approved by: Walter Zendejas M.D. on 04/11/2024 at 16:26
[2024-04-11 16:17] LABS: UR Morphine/Opiate cutoff 300 Negative (Negative); Ur Creatinine Normal (Normal); Ur Specific Gravity Normal (Normal); Urine Amphetamines Negative (Negative); Urine Barbiturates Negative (Negative); Urine Benzodiazepines Negative (Negative); Urine Cocaine Negative (Negative); Urine MDMA Negative (Negative); Urine Methadone Negative (Negative); Urine Methamphetamines Negative (Negative); Urine Oxycodone Negative (Negative); Urine Phencyclidine Negative (Negative); Urine Tetrahydrocannabinol Positive (Negative); Urine Tricyclic Antidepressant Negative (Negative); Urine pH Normal (Normal)
[2024-04-11] MEDS: PROCHLORPERAZINE 10 MG/2 ML VIAL IV (16:17)
[2024-04-11] MEDS: MORPHINE 4 MG/ML INJ IV (16:19)
[2024-04-11] MEDS: SODIUM CHLORIDE 0.9% 1,000 ML 1000 ML IV (16:21)
== END 2024-04-11 18:13 | disposition home or self-care (01) ==
PROVIDERS: Emergency Provider Emergency Medicine
DX: R11.15 Cyclical vomiting syndrome unrelated to migraine (principal); R10.9 Unspecified abdominal pain; F12.90 Cannabis use, unspecified, uncomplicated
CPT/HCPCS: 36415; 74177; 80053; 80305; 81003; 81015; 81025; 83690; 85025; 96361; 96374; 96375; 99284; J0780; J2270; J2405; Q9967

== ENCOUNTER 2024-07-28 16:55 | Emergency (ER) | payer SELFPAY ==
[2019-07-26 20:26] VITALS: BMI 34.2
[2024-07-28 17:00] VITALS: BP 156/109; PULSE 97; RESP 18; TEMP 36.1; O2SAT 97; BMI 36.9
--- NOTE | 2024-07-28 17:05 | EKG_ITS ---
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
[2024-07-28] MEDS: ONDANSETRON 4 MG/2 ML INJ IV (17:23)
[2024-07-28 17:28] LABS: Add Manual Diff / Slide Review NO; Basophils Absolute Auto 100 /uL (0-100); Basophils Percent Auto 1.1 % (0-2); Eosinophils Absolute Auto 600 /uL (0-450); Hematocrit 46.7 % (36-46); Hemoglobin 15.9 g/dL (12.0-16.0); Lymphocytes Absolute Auto 3000 /uL (1100-4500); Mean Corpuscular Hemoglobin 29.8 PG (26-34); Mean Corpuscular Volume 87.6 fL (80-100); Monocytes Absolute Auto 900 /uL (0-900); Neutrophils Absolute Auto 6100 /uL (1500-7000); Neutrophils Percent Auto 56.9 % (50-75); Platelet Count 468 X10^3/uL (150-400); Red Blood Cell Count 5.34 X10^6/uL (4.0-5.2); White Blood Cell Count 10.7 X10^3/uL (4.5-11.0)
[2024-07-28 17:37] LABS: Alanine Aminotransferase 27 IU/L (<35); Albumin 4.7 g/dL (3.5-5.0); Albumin Globulin Ratio 1.4 (1.0-2.8); Alkaline Phosphatase 61 U/L (38-126); Aspartate Aminotransferase 29 IU/L (14-36); BUN Creatinine Ratio 12.2 (6-22); Bilirubin Total 0.7 mg/dL (0.2-1.3); Blood Urea Nitrogen 10 mg/dL (7-17); Calcium 9.4 mg/dL (8.4-10.2); Carbon Dioxide 23 mmol/L (22-32); Chloride 107 mmol/L (98-107); Estimated Glomerular Filt Rate > 60 mL/min (>60); Globulin 3.3 g/dL (1.7-4.1); Glucose 108 mg/dL (70-99); HEMOLYSIS 43 (0-50); Lipase 70 U/L (23-300); Potassium 4.1 mmol/L (3.4-5.1); Sodium 139 mmol/L (137-145)
[2024-07-28 18:10] VITALS: BP 168/107; PULSE 84; RESP 24; O2SAT 100
--- NOTE | 2024-07-28 18:40 | PC.NURSE ---
@ 1800 Nurses called to lobby because patient fell on the floor. Patient found on knees in front of wheelchair, no injuries present. Patient complaining of abdominal pain and vomiting and has cyclic vomiting syndrome. Vomit in emesis bag is brown and blood in vomit cannot be excluded. Dr. Lewis aware. Vitals done and patient placed in bed in hallway on monitors.
[2024-07-28] MEDS: SODIUM CHLORIDE 0.9% 1,000 ML 1000 ML IV ×2 (18:44→19:31)
[2024-07-28] MEDS: diphenhydrAMINE 50 MG/ML VIAL IV (19:30)
[2024-07-28] MEDS: HYDROMORPHONE 0.5 MG INJ IV ×2 (19:31→23:24)
[2024-07-28] MEDS: HALOPERIDOL 5 MG/ML VIAL IV (19:31)
--- NOTE | 2024-07-28 20:49 | PC.NURSE ---
Pt continues to remain nauseated. MD notified.
[2024-07-28] MEDS: METOCLOPRAMIDE 10 MG/2 ML INJ IV (23:24)
[2024-07-28 23:30] VITALS: BP 164/102; PULSE 82; RESP 15; O2SAT 100
--- NOTE | 2024-07-29 00:05 | ED.NAVMDI ---
HPI - Nausea/Vomiting/Diarrhea General Chief complaint: Nausea/Vomiting/Diarrhea Stated complaint: N/V , CHEST PAIN, WEAKNESS Time Seen by Provider: 07/28/24 18:20 Source: patient Mode of arrival: Ambulatory History of Present Illness HPI Narrative: 34-year-old woman with a history of cyclic vomiting has been on metoclopramide, buspirone and states that she has been told that this may be related to chronic marijuana use but remains fairly convinced that there are alternate explanations for her cyclical vomiting. She does not have diabetes. She has had multiple CT scans of her abdomen with recurrent episode of severe vomiting and there is typically some mention of mild wall thickening either the duodenum , mild pancolitis of the colon and a scan in 2019 showed diffuse wall thickening and edema again suggesting infectious or inflammatory colitis. It is not clear if she has actually seen Gastroenterology, it is clear that she is still continuing to use marijuana. She presents today with an acute flare finds that she has simply been vomiting profusely with increasing abdominal pain 48 hours. Related Data Home Medications ?Medication ?Instructions ?Recorded ?Confirmed albuterol sulfate 90 mcg/actuation 2 puff inhalation Q4-6H PRN 08/21/18 07/26/19 aerosol inhaler Wheezing buspirone 15 mg tablet 15 mg PO QPM 08/21/18 07/26/19 diphenhydramine HCl 50 mg capsule 50 mg PO BEDTIME 08/21/18 07/26/19 fluticasone propionate 110 1 puff inhalation BID 08/21/18 07/26/19 mcg/actuation HFA aerosol inhaler (Flovent HFA) fluticasone propionate 50 2 spray intranasal DAILY PRN 08/21/18 07/26/19 mcg/actuation nasal Allergic Symptoms spray,suspension (Flonase Allergy Relief) nortriptyline 50 mg capsule 100 mg PO BEDTIME 08/21/18 07/26/19 ondansetron 4 mg disintegrating 4 mg PO Q6H PRN Nausea 08/21/18 07/26/19 tablet propranolol 40 mg tablet 40 mg PO DAILY 08/21/18 07/26/19 rizatriptan 5 mg tablet 5 mg PO Q2-4H PRN Migraine Headache 08/21/18 07/26/19 Previous Rx's ?Medication ?Instructions ?Recorded haloperidol lactate 2 mg/mL oral 1 mg (0.5 mL) PO TID #120 mL 02/04/19 concentrate lorazepam 1 mg tablet (Ativan) 1 mg PO TID PRN anxiety #20 tabs 02/04/19 levofloxacin 750 mg tablet 750 mg PO DAILY #6 tabs 07/30/19 metronidazole 500 mg tablet 500 mg PO TID #19 tabs 07/30/19 promethazine 25 mg rectal 25 mg LA Q6H PRN nausea and 07/30/19 suppository vomiting #5 ea metoclopramide HCl 10 mg tablet 10 mg PO Q6H PRN nausea and 12/14/21 (Reglan) vomiting #90 tabs metoclopramide HCl 10 mg tablet 10 mg PO Q8H PRN nausea and 12/14/21 (Reglan) vomiting #90 tabs ondansetron 4 mg disintegrating 4 mg PO Q8H PRN nausea and 12/26/23 tablet vomiting #10 tabs potassium chloride 20 mEq 20 meq PO DAILY #4 tabs 12/26/23 tablet,extended release promethazine 25 mg rectal 25 mg LA Q6H PRN nausea and 12/26/23 suppository vomiting #12 ea ondansetron 4 mg disintegrating 4 mg PO Q8H PRN nausea and 07/29/24 tablet vomiting #30 tabs promethazine 25 mg rectal 25 mg LA Q6H PRN nausea and 07/29/24 suppository vomiting #12 ea promethazine 25 mg tablet 25 mg PO TID PRN nausea and 07/29/24 vomiting #20 tabs Allergies Allergy/AdvReac Type Severity Reaction Status Date / Time mushroom Allergy Severe Vomiting Verified 07/28/24 17:00 peanut Allergy Severe Anaphylaxis Verified 07/28/24 17:00 Sulfa (Sulfonamide Allergy Unknown Moms Verified 07/28/24 17:00 Antibiotics) allergic Review of Systems Review of Systems Narrative: Pertinent positive and negative findings as per HPI Patient History Medical History (Updated 07/29/24 @ 00:24 by Alona Lewis MD) Severe frontal headaches Environmental allergies Asthma Marijuana smoker Cyclic vomiting syndrome Surgical History History of toe surgery Family History Father Arthritis Mother Anxiety Fibromyalgia Brother Childhood asthma Drug abuse Social History household members: spouse and family alcohol intake: current Smoking Status: Former smoker tobacco type: cigarettes alcohol intake frequency: a few times a week Exam Initial Vital Signs Initial Vital Signs: Vital Signs Temperature 97.0 F L 07/28/24 17:00 Pulse Rate 97 H 07/28/24 17:00 Respiratory Rate 18 07/28/24 17:00 Blood Pressure 156/109 H 07/28/24 17:00 Pulse Oximetry 97 07/28/24 17:00 Oxygen Delivery Method Room Air 07/28/24 17:00 General: Appears chronically ill and utterly miserable with her persistent retching and abdominal pain. Able to give a complete and coherent history. Well-nourished well-developed HEENT: Dry mucous membranes, normal sclera with reactive pupils, Respiratory: Lungs are clear to auscultation, no wheezing no rales no rhonchi. Full and symmetrical air movement Cardiac: Regular rate and rhythm no murmurs no bruits Abdomen: Soft, diffusely tender but no rebound or guarding, no flank pain Skin: Warm and dry, no rashes Neurologic: Grossly neurologically intact with no obvious asymmetries or abnormalities Extremities: No trauma, well perfused Psych: Cooperative, active violent retching with minimal stomach contents remaining Course Orders Ordered: ED Orders 07/28/24 17:05 EKG-12 Lead Stat 07/28/24 17:15 Complete Blood Count AUTO DIFF Stat Comprehensive Metabolic Panel Stat Lipase Stat 07/28/24 22:45 Urine Microscopic Stat urine tox [Urine Drug Screen, Rapid] Stat Ondansetron HCl (Ondansetron 4 Mg/2 Ml Inj) 4 mg IV NOW PRN PRN Reason: Nausea And Vomiting Last Admin: 07/28/24 17:23 Dose: 4 mg Documented By: TESSA Ondansetron HCl (Ondansetron 4 Mg Odt) 4 mg PO NOW PRN PRN Reason: Nausea And Vomiting Discontinued Medications Diphenhydramine HCl (Diphenhydramine 50 Mg/Ml Vial) 50 mg IV NOW ONE Stop: 07/28/24 19:15 Last Admin: 07/28/24 19:30 Dose: 50 mg Documented By: JR Haloperidol (Haloperidol 5 Mg/Ml Vial) 5 mg IV NOW ONE Stop: 07/28/24 19:15 Last Admin: 07/28/24 19:31 Dose: 5 mg Documented By: Hydromorphone HCl (Hydromorphone 0.5 Mg Inj) 0.5 mg IV NOW ONE Stop: 07/28/24 19:15 Last Admin: 07/28/24 19:31 Dose: 0.5 mg Documented By: Hydromorphone HCl (Hydromorphone 0.5 Mg Inj) 0.5 mg IV NOW ONE Stop: 07/28/24 22:02 Last Admin: 07/28/24 23:24 Dose: 0.5 mg Documented By: SHELBY Sodium Chloride (Normal Saline 0.9%) 1,000 mls @ 1,000 mls/hr IV BOLUS ONE Stop: 07/28/24 19:20 Last Infusion: 07/28/24 20:37 Dose: Infused Documented By: Admin: 07/28/24 18:44 Dose: 1,000 mls/hr Documented By: Sodium Chloride (Normal Saline 0.9%) 1,000 mls @ 1,000 mls/hr IV BOLUS ONE Stop: 07/28/24 20:13 Last Infusion: 07/28/24 20:38 Dose: Infused Documented By: Admin: 07/28/24 19:31 Dose: 1,000 mls/hr Documented By: Metoclopramide HCl (Metoclopramide 10 Mg/2 Ml Inj) 10 mg IV NOW ONE Stop: 07/28/24 22:02 Last Admin: 07/28/24 23:24 Dose: 10 mg Documented By: SHELBY Vital Signs Vital signs: Vital Signs - 8 hr 07/28/24 17:00 07/28/24 18:10 07/28/24 23:30 Temperature 97.0 F L Pulse Rate 97 H 84 82 Respiratory Rate 18 24 15 Blood Pressure 156/109 H 168/107 H 164/102 H Pulse Oximetry 97 100 100 Oxygen Delivery Method Room Air Room Air Room Air MDM - Nausea/Vomiting/Diarrhea Lab Data 07/28/24 17:15 07/28/24 17:15 Labs: Lab Results 07/28/24 Range/Units 17:15 WBC 10.7 (4.5-11.0) X10^3/uL RBC 5.34 H (4.0-5.2) X10^6/uL Hgb 15.9 (12.0-16.0) g/dL Hct 46.7 H (36-46) % MCV 87.6 (80-100) fL MCH 29.8 (26-34) PG MCHC 34.0 (30-36) % RDW 14.0 (11.6-14.8) % Plt Count 468 H (150-400) X10^3/uL Neut % (Auto) 56.9 (50-75) % Lymph % (Auto) 28.0 (25-40) % [place] % (Auto) 8.0 (3-14) % Eos % (Auto) 6.0 H (2-4) % Baso % (Auto) 1.1 (0-2) % Neut # (Auto) 6100 (9978-5380) /uL Lymph # (Auto) 3000 (6601-6737) /uL [place] # (Auto) 900 (0-900) /uL Eos # (Auto) 600 H (0-450) /uL Baso # (Auto) 100 (0-100) /uL Sodium 139 (137-145) mmol/L Potassium 4.1 (3.4-5.1) mmol/L Chloride 107 (98-107) mmol/L Carbon Dioxide 23 (22-32) mmol/L BUN 10 (7-17) mg/dL Creatinine 0.82 (0.52-1.04) mg/dL Estimated GFR > 60 (>60) mL/min BUN/Creatinine Ratio 12.2 (6-22) Glucose 108 H (70-99) mg/dL Calcium 9.4 (8.4-10.2) mg/dL Total Bilirubin 0.7 (0.2-1.3) mg/dL AST 29 (14-36) IU/L ALT 27 (<35) IU/L Alkaline Phosphatase 61 (38-126) U/L Total Protein 8.0 (6.3-8.2) g/dL Albumin 4.7 (3.5-5.0) g/dL Globulin 3.3 (1.7-4.1) g/dL Albumin/Globulin Ratio 1.4 (1.0-2.8) Lipase 70 (23-300) U/L Point of Care Testing Test Results Negative Urine Dip Bedside Urine Glucose Negative Bedside Urine Bilirubin - Negative Bedside Urine Ketone ++ 40 Urine Specific [place] 1.015 Bedside Urine Occult Blood + Bedside Urine pH 8.0 Bedside Urine Protein - Negative Bedside Urine Urobilinogen - Negative Bedside Urine Nitrite - Negative Bedside Urine Leukocytes - Negative Esterase MDM Narrative Medical decision making narrative: CC: Cyclic vomiting flare for 48 hours Complicating co-morbidities: History of cyclic vomiting since age 8 Data collected from: patient Medical records reviewed: Discharge summary from July 30, 2019 is reviewed. She has had full GI evaluation at [facility] in the past. She was admitted for dehydration and abdominal pain with epigastric pain. Differential considered: Viral Gastroenteritis, cyclic vomiting flare, cannabinoid hyperemesis syndrome, GI bleeding, bowel obstruction Exam documented above, pertinent findings include: Patient appears slightly dehydrated and at our miserable with the violence of her retching. Her abdomen is diffusely tender but not acutely surgical Lab Test results independently reviewed as above. Pertinent findings: CBC shows no significant abnormality Chemistries are reassuring. Normal renal function, normal electrolytes normal liver studies Lipase is not elevated Imaging studies Imaging studies were not felt to be indicated with today's visit Treatments: 2 L of fluid, Haldol and Benadryl with slight reduction in vomiting. She has had a total of a mg of Dilaudid and an additional 10 mg of metoclopramide and finally feels that her symptoms are controlled enough that discharge home would be safe Discussion: 34-year-old woman with a history of cyclic vomiting since the age of 8, full GI workup, still is occasionally using marijuana unclear if this is contributing or not. Treated with fluid antiemetics including Haldol, Benadryl and metoclopramide and eventually pain and nausea were adequately controlled such that she was able to eat and felt that she could be safely discharged home. Did not find any indication of bowel obstruction, significant electrolyte abnormalities, renal dysfunction or reasons for hospitalization at this time. Discharge Plan Departure Patient Disposition: Home Clinical Impression: Cyclical vomiting Instructions: DI for Cyclic Vomiting Syndrome-Adult Activity Restrictions/Additional Instructions: I am sorry that you are continuing to suffer with this In the emergency room today you were given 2 L of fluid, IV Haldol, IV Benadryl, IV Zofran and IV Reglan. Received a total of 1 mg of IV Dilaudid for pain control I have sent prescriptions for ondansetron as well as promethazine both pills and suppositories to [facility]. These can all be used to try and help alleviate nausea. I do recognize that you have had cyclic vomiting since the age of 8, you have had a full GI workup however, I would strongly recommend still stopping marijuana. If you have not yet done any research into cannabinoid hyperemesis syndrome, I would encourage you to look it up online at [employer]. They are the marijuana experts and there are some very good discussions as well as discussion forms regarding cannabinoid hyperemesis syndrome. Even if this isn't 100% of your problem, if it is contributing in any way, stopping smoking for at least 6 months to see maybe worth trying I wish you the best Prescriptions: New ondansetron 4 mg tablet,disintegrating 4 mg PO Q8H PRN (Reason: nausea and vomiting) Qty: 30 1RF promethazine 25 mg suppository 25 mg LA Q6H PRN (Reason: nausea and vomiting) Qty: 12 1RF promethazine 25 mg tablet 25 mg PO TID PRN (Reason: nausea and vomiting) Qty: 20 0RF No Action diphenhydramine HCl 50 mg Capsule 50 mg PO BEDTIME propranolol 40 mg Tablet 40 mg PO DAILY ondansetron 4 mg Tablet,Disintegrating 4 mg PO Q6H PRN (Reason: Nausea) nortriptyline 50 mg Capsule 100 mg PO BEDTIME rizatriptan 5 mg Tablet 5 mg PO Q2-4H MDD 10 mg PRN (Reason: Migraine Headache) buspirone 15 mg Tablet 15 mg PO QPM albuterol sulfate 90 mcg/actuation Hfa Aerosol Inhaler 2 puff INHALATION Q4-6H PRN (Reason: Wheezing) fluticasone propionate [Flonase Allergy Relief] 50 mcg/actuation [place],Suspension 2 spray INTRANASAL DAILY PRN (Reason: Allergic Symptoms) Flovent HFA 110 mcg/actuation Hfa Aerosol Inhaler 1 puff INHALATION BID levofloxacin 750 mg tablet 750 mg PO DAILY Qty: 6 0RF metronidazole 500 mg Tablet 500 mg PO TID Qty: 19 0RF promethazine 25 mg suppository 25 mg LA Q6H PRN (Reason: nausea and vomiting) Qty: 5 0RF haloperidol lactate 2 mg/mL concentrate 1 mg PO TID Qty: 120 0RF lorazepam [Ativan] 1 mg tablet 1 mg PO TID PRN (Reason: anxiety) Qty: 20 0RF metoclopramide HCl [Reglan] 10 mg tablet 10 mg PO Q6H PRN (Reason: nausea and vomiting) Qty: 90 1RF metoclopramide HCl [Reglan] 10 mg tablet 10 mg PO Q8H PRN (Reason: nausea and vomiting) Qty: 90 1RF potassium chloride 20 mEq tablet extended release 20 meq PO DAILY Qty: 4 0RF promethazine 25 mg suppository 25 mg LA Q6H PRN (Reason: nausea and vomiting) Qty: 12 0RF ondansetron 4 mg tablet,disintegrating 4 mg PO Q8H PRN (Reason: nausea and vomiting) Qty: 10 0RF Stand Alone Forms: Patient Portal/API
--- NOTE | 2024-07-29 00:11 | PC.NURSE ---
Pt tolerating ice chips by mouth. States she feels better.
[2024-07-29 00:21] LABS: Bacteria Urine None Seen; Culture Indicated Urine Cult Not Indicated; RBC Urine None Seen (0-5/HPF); Squamous Epithelial Cell Urine None Seen (0-5/HPF); Urine Amphetamines Negative (Negative); Urine Barbiturates Negative (Negative); Urine Benzodiazepines Positive (Negative); Urine Cocaine Negative (Negative); Urine MDMA Negative (Negative); Urine Methadone Negative (Negative); Urine Opiates Negative (Negative); Urine Oxycodone Negative (Negative); Urine Phencyclidine Negative (Negative); Urine THC Positive (Negative); Urine Tricyclic Antidepressant Positive (Negative); Urine Volume 3; WBC Urine None Seen (0-5/HPF)
--- NOTE | 2024-07-29 00:25 | PC.NURSE ---
assessment done by Dr. Lewis
== END 2024-07-29 00:33 | disposition home or self-care (01) ==
PROVIDERS: Student in an Organized Health Care Education/Training Program; Emergency Provider Emergency Medicine
DX: R11.15 Cyclical vomiting syndrome unrelated to migraine (principal); F12.90 Cannabis use, unspecified, uncomplicated
CPT/HCPCS: 36415; 80053; 80305; 81003; 81015; 81025; 83690; 85025; 93005; 93010; 96361; 96374; 96375; 96376; 99284; J1171; J1200; J1630; J2405; J2765